=== PATIENT | female | born 1980 | race Caucasian/White ===

== ENCOUNTER 2024-08-09 07:58 | Outpatient (AMB) | payer BC, SELFPAY ==
--- NOTE | 2024-08-09 08:04 | A.OFFVIS_ITS ---
Vital Signs 08/09/24 08:05 Height 5 ft 7 in Weight 138 lb 0.15 oz BMI 21.6 BP 112/70 Blood Pressure Location Lt brachial Position Sitting Pulse 80 Pulse Source Pulse Oximeter Pulse Oximetry (%) 99 Oxygen Delivery Method Room Air Intake Visit Reasons: RA/LM Intake Note: Patient is here to follow up on RA. Allergies hydroxychloroquine Allergy (Mild, Verified 08/09/24 08:11) Rash levofloxacin [From Levaquin] Allergy (Mild, Verified 08/09/24 08:11) Hives phenytoin [From Dilantin] Allergy (Mild, Verified 08/09/24 08:11) Rash acetaminophen [From Midrin] Adverse Reaction (Mild, Verified 08/09/24 08:11) Palpitations dichloralphenazone [From Midrin] Adverse Reaction (Mild, Verified 08/09/24 08:11) Palpitations isometheptene [From Midrin] Adverse Reaction (Mild, Verified 08/09/24 08:11) Palpitations HPI Comments Details: MS is none. She was off of Rasuvo for 3 weeks and felt increase hand pain. Occationally she has right knee pain. Works out 5-6 times a week, which helps. [facility] Medical History (Updated 08/09/24 @ 08:42 by Won Adrian MD) Rheumatoid arthritis Surgical History (Updated 08/09/24 @ 08:18 by Jade Szymanski CMA) S/P right knee arthroscopy H/O: hysterectomy Family History (Updated 08/09/24 @ 08:18 by Jade Szymanski CMA) Mother Breast cancer Social History (Updated 08/09/24 @ 08:19 by Jade Szymanski CMA) Alcohol intake: current Alcohol intake frequency: holidays/special occasions only Patient Tobacco Use Status: Never used Tobacco Physical Exam Vital Signs: Last Vital Signs Pulse 80 08/09/24 08:05 BP 112/70 08/09/24 08:05 Pulse Ox 99 08/09/24 08:05 Oxygen Delivery Method Room Air 08/09/24 08:05 BMI result Body Mass Index 21.6 Const Other: General: Comfortable CVS: RRR Respiratory: clear to auscultation bilaterally. Good respiratory effort Skin: No lesions seen MSK: No synovitis of any joints. Tenderness of bilateral knees on palpation. Good range of motion of upper extremity and lower extremity. Results Reviewed Results Reviewed: [facility] reviewed Assessment & Plan Assessment & Plan (1) Rheumatoid arthritis: Comment: History of seronegative rheumatoid arthritis [place] [address] al[place]a in [place], [place]. She has been on methotrexate since 25/08 but it was changed to Rasuvo subcutaneous injection 08/25/2021 to present, Enbrel caused a rash, noncompliant with Humira, hydroxychloroquine 07/26/2020 to 08/25/2020 discontinued due to rash, and meloxicam was discontinued due to GI upset. She remains in remission on monotherapy wrists the Rasuvo. Code(s): M06.9 - Rheumatoid arthritis, unspecified Category: Medical Plan: Continue Rasuvo subcutaneous injection 20 mg once weekly Labs for disease and drug monitoring on high-risk medication ordered Return to clinic in 3 months Immunizations: Flu shot is up-to-date. She will obtain COVID-19 booster. She will hold Rasuvo the week she gets the booster. (2) Other fci (current) drug therapy: Code(s): Z79.899 - Other long term care social worker (current) drug therapy Category: Medical Plan: See above Orders: Orders Aspartate Amino Transferase Today M06.9 - Rheumatoid arthritis, unspecified, Z79.899 - Other long term care social worker (current) drug therapy Creatinine Today M06.9 - Rheumatoid arthritis, unspecified, Z79.899 - Other long term care social worker (current) drug therapy Erythrocyte Sedimentation Rate Today M06.9 - Rheumatoid arthritis, unspecified, Z79.899 - Other long term care social worker (current) drug therapy T Spot TB Today M06.9 - Rheumatoid arthritis, unspecified, Z79.899 - Other fci (current) drug therapy Complete Blood Count Auto Diff Today M06.9 - Rheumatoid arthritis, unspecified, Z79.899 - Other fci (current) drug therapy Cyclic Citrullinated Peptide Today M06.9 - Rheumatoid arthritis, unspecified, Z79.899 - Other fci (current) drug therapy Alanine Aminotransferase Today M06.9 - Rheumatoid arthritis, unspecified, Z79.899 - Other long term care social worker (current) drug therapy Hepatitis B,C Profile Today M06.9 - Rheumatoid arthritis, unspecified, Z79.899 - Other fci (current) drug therapy Rheumatoid Factor Today M06.9 - Rheumatoid arthritis, unspecified, Z79.899 - Other fci (current) drug therapy Coding Level of Care Code Est Pt Level 4 (08344) Complex EM visit Add On G2211 Diagnoses Rheumatoid arthritis M06.9 Other fci (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
[2024-08-09 08:05] VITALS: BP 112/70; PULSE 80; O2SAT 99; BMI 21.6
== END 2024-08-09 08:43 | disposition home or self-care (01) ==
PROVIDERS: Visit Provider Internal Medicine Rheumatology
DX: M06.9 Rheumatoid arthritis, unspecified (principal); Z79.899 Other long term (current) drug therapy
CPT/HCPCS: 99214

== ENCOUNTER 2024-11-01 10:41 | Outpatient (REF) | payer BC, SELFPAY ==
--- OUTSIDE RECORDS SUMMARY | 2024-11-01 13:16 | XMS_ITS | Clinical Summary ---
Author Organization [facility] Address [address] [place] [address] Care Team Providers Care Thread Cutter Tender Name Role Phone Eufemia Jett MD Primary Care Provider [phone] Allergies Active Allergy Reactions Criticality Noted Date Comments Phenytoin Sodium Urticarial Rash 10/05/2011 Enbrel Urticarial Rash 12/09/2015 Levaquin Urticarial Rash 10/05/2011 Amidrine Arrhythmia 10/05/2011 palpitations Medications Omeprazole 20 MG OR TBEC 1 TABLET DAILY Active Estrogens Conjugated (PREMARIN) 0.625 MG OR TABS 1 TABLET DAILY Active ALBUTEROL SULFATE (PROAIR HFA) 108 (90 BASE) MCG/ACT IN AERS 2 puffs q4hrs prn Active Ibuprofen 200 MG OR TABS 2 TABLETs EVERY 4 TO 6 HOURS NEEDED Active Budesonide-Form oterol Fumarate (SYMBICORT) 160-4.5 MCG/ACT Aerosol None Entered Active BUDESONIDE, INHALATION, (PULMICORT FLEXHALER) 180 MCG/ACT AEROSOL POWDER, BREATH ACTIVATED None Entered 10/27/2016 Active FLUTICASONE PROPIONATE, NASAL, 50 MCG/ACT Suspension None Entered 08/31/2016 Activ e Zafirlukast 20 MG Tab None Entered 12/17/2016 Active Loratadine (CLARITIN) 10 MG Tab 1 TABLET DAILY Active Humira Pen 40 MG/0.8ML Pen-injector Kit INJECT 40 MG (0.8 ML) UNDER THE SKIN EVERY TWO WEEKS 2 each 12 02/07/2020 Active Folic Acid (FOLVITE) 1 MG tablet TAKE 1 TABLET DAILY 90 tablet 3 05/29/2020 Active Active Problems Problem Noted Date Diagnosed Date Rheumatoid arthritis involvi ng multiple sites with positive rheumatoid factor 03/03/2017 Immunizations Name Administration Dates Next Due COVID-19, mRNA (Moderna Pre Fall 2022) Monovalent, 100 mcg/0.5 ml or 50 mcg/0.25 ml dose 10/19/2020,09/21/2020 Fc Fluzone Influenza Vac,quad Multi Dose 3 Yrs & > 05/17/2020,06/26/2019 Influenza,injectable,MDCK, Prsrv Fr,Quad 018 PPD/TST (Tuberculin Skin Test) 03/14/2012 Td (adult), adsorbed 07/05/2018 influenza,seasonal,trivalent ,PF (Fluzone, Fluarix, Flulaval) 07/07/2017 Social History Tobacco Use Types Packs/Day Years Used Date Smoking Tobacco: Never Smokeless Tobacco: Never Alcohol Use Standard Drinks/Week Comments Not Asked 0 (1 standard drink = 0.6 oz pur e alcohol) Intimate Partner Violence Answer Date R ecorded Fear of Current or Ex-Partner Not on file Emotionally Abused Not on file 04/28/2023 Physically Abused Not on file 04/28/2023 Sexually Abused Not on file 04/28/2023 Feel Safe at Home Not on file 04/28/2023 Comments No Sex and Gender Information Value Date Recorded Sex Assigned at Not on file Legal Sex Female 1:50 AM EDT Gender Identity Not on file Sexual Orientation Not on file Last Filed Vital Signs Vital Sign Reading Time Taken Comments Blood Pressure 112/75 07/05/2019 11:10 AM EDT Pulse 84 07/05/2019 11:10 AM EDT Temperature - - Respiratory Rate - - Oxygen Saturation - - Inhaled Oxygen Concentration - - Weight 65.8 kg (145 lb) 07/05/2019 11:10 AM EDT Height - - Body Mass Index - - Plan of Treatment Health Maintenance Due Date Last Done Comments Pap Smear 1996 Hep B (1 of 3 - 19+ 3-dose series) 1999 Pneumococcal (1 of 2 - PCV) 1999 Zoster (Shingrix) (1 of 2) 1999 DTaP/Tdap/Td (1 - Tdap) 07/06/2018 07/05/2018 Mammogram/Breast Imaging 2020 COVID-19 Vaccine (3 - Moderna risk series) 11/16/2020 10/19/2020, 09/21/2020 Influenza (#1) 2024 05/17/2020, 06/07, 07/05/2018, Additional history exists Hepatitis C Screening Completed 11/09/2011 PPD Discontinued 03/14/2012 HPV Vaccine Aged Out No longer eligi ble based on patient's age to complete this topic Hep A Aged Out No longer eligi ble based on patient's age to complete this topic Hib Aged Out No longer eligi ble based on patient's age to complete this topic Meningococcal ACWY Aged Out No longer eligible based on patient's age to complete this topic Procedures * Due to [place] [employer] law, this organization might not be sharing negative HIV tests. Procedure Name Priority Date/Time Associated Diagnosis Comments HEPATITIS C AB WITH REFLEX TO RNA PCR, SERUM Routine 11/09/2011 3:52 PM EST Rheumatoid arthritis (HCC) from Last 3 Months or Most Recently Relevant to Health Maintenance Results * Due to [place] [employer] law, this organization might not be sharing negative HIV tests. * HEPATITIS C ANTIBODY, SERUM (11/09/2011 3:52 PM EST) Hepatitis C virus Ab NON-REACTI VE NON-REACT CATHY [facility] Comment:{HEPATITIS C ANTIBOD Y {[id number]) Hepatitis C virus Ab Signal/Cutoff 0.10 <1.00 [facility] Comment:{SIGNAL TO CUT-OFF { [id number]) 11/09/2011 3:52 PM EST 11/09/2011 9:41 PM EST Narrative Resulting Agency Comment [id number] us Danilo Gates MD LABORATORY Final Result [facility] [address] [place] [address] from Last 3 Months or Most Recently Relevant to Health Maintenance Insurance [address] [place] [address] BC[employer] FEE FOR SERVICE PPO Care Teams Thread Cutter Tender Relationship Specialty Start Date End Date Eufemia Jett MD [address] [address] PCP - General Geriatrics 10/31/19
--- OUTSIDE RECORDS SUMMARY | 2024-11-01 13:16 | XMS_ITS | Encounter Summary ---
Author Organization [facility] Address [address] [place] [address] Care Team Providers Care Oracle Reports Developer Name Role Phone Edilberto Harris Primary Care Provider [phone] Eufemia Jett MD Primary Care Provider [phone] Encounter Details Date Type Department Care Team (Late st Contact Info) Description 03/03/2017 Orders Only [facility] Rheumatology [address] [place] [address] Danilo Gates MD [address] [place] [address] Social History Tobacco Use Types Packs/Day Years Used Date Smoking Tobacco: Never Smokeless Tobacco: Never Alcohol Use Standard Drinks/Week Comments Not Asked 0 (1 standard drink = 0.6 oz pur e alcohol) Comments No Sex and Gender Information Value Date Recorded Sex Assigned at Not on file Legal Sex Female 1:50 AM EDT Gender Identity Not on file Sexual Orientation Not on file documented as of this encounter Progress Notes * Danilo Gates MD - 03/09/2017 11:35 AM EDT Lab tests normal. X-rays normal except for some calcificaction of the cartilage in one knee of uncertain significance probably no significance. * Danilo Gates MD - 03/04/2017 8:28 AM EDT All normal, very good news documented in this encounter Plan of Treatment Not on file documented as of this encounter Procedures * Due to [place] state law, this organization might not be sharing negative HIV tests. Procedure Name Priority Date/Time Associated Diagnosis Comments IRON, TIBC AND FERRITIN PANEL Routine 03/03/2017 2:46 PM EDT C-REACTIVE PROTEIN (CRP) - INFLAMMATION Routine 03/03/2017 2:46 PM EDT Rheumatoid arthritis involving multiple sites with positive rheumatoid factor (HCC) [M05.79] ERYTHROCYTE SEDIMENTATION RATE (ESR) Routine 03/03/2017 2:46 PM EDT Rheumatoid arthritis involving multiple sites with positive rheumatoid factor (HCC) [M05.79] CBC INCLUDES DIFFERENTIAL AND PLATELET COUNT Routine 03/03/2017 2:46 PM EDT Rheumatoid arthritis involving multiple sites with positive rheumatoid factor (HCC) [M05.79] ALANINE AMINOTRANSFERASE (ALT), SERUM Routine 03/03/2017 2:46 PM EDT Rheumatoid arthritis involving multiple sites with positive rheumatoid factor (HCC) [M05.79] ASPARTATE AMINOTRANSFERASE (AST), SERUM Routine 03/03/2017 2:46 PM EDT Rheumatoid arthritis involving multiple sites with positive rheumatoid factor (HCC) [M05.79] CREATININE WITH GLOMERULAR FILTRATION RATE, ESTIMATED (EGFR) Routine 03/03/2017 2:46 PM EDT Rheumatoid arthritis involving multiple sites with positive rheumatoid factor (HCC) [M05.79] CALCIUM, SERUM Routine 03/03/2017 2:46 PM EDT documented in this encounter Results * Due to [place] state law, this organization might not be sharing negative HIV tests. * CALCIUM, SERUM (03/03/2017 2:46 PM EDT) Calcium 9.4 8.6 - 10.2 mg/dL [facility] 03/03/2017 2:46 PM EDT 03/03/2017 10:20 PM EDT Danilo Gates MD LAB SAME DAY RESULT Final Resul t Performing Organization Address [facility] de Phone Number [facility] [address] [place] [address] * IRON, TIBC AND FERRITIN PANEL (03/03/2017 2:46 PM EDT) Iron 99 40 - 190 mcg/dL [facility] Iron binding capacity 347 250 - 450 mcg/dL (calc) [facility] Iron saturation 29 11 - 50 % (calc) [facility] Ferritin 119 10 - 154 ng/mL [facility] 03/03/2017 2:46 PM EDT 03/03/2017 10:20 PM EDT us Danilo Gates MD LABORATORY Final Result Performing Organization Address [facility] Phone Number [facility] [address] [place] [address] * C-REACTIVE PROTEIN (CRP) - INFLAMMATION (03/03/2017 2:46 PM EDT) C reactive protein 0.26 <0.80 mg/dL [facility] Comment: Please be advised that patients taking Carboxypenicillins may exhibit falsely decreased C-Reactive Protein levels due to an analytical interference in this assay. 03/03/2017 2:46 PM EDT 03/03/2017 10:20 PM EDT Narrative Resulting Agency Comment [id number] us Danilo Gates MD LABORATORY Final Result Performing Organization Address [facility] de Phone Number [facility] [address] [place] [address] * ERYTHROCYTE SEDIMENTATION RATE (ESR), [place] (03/03/2017 2:46 PM EDT) Sedimentation Rate [place] (ESR) 9 < OR = 20 mm/h [facility] 03/03/2017 2:46 PM EDT 03/03/2017 10:20 PM EDT Narrative Resulting Agency Comment [id number] us Danilo Gates MD LAB SAME DAY RESULT Final Resul t Performing Organization Address [facility] Co de Phone Number [facility] [address] [place] [address] * CREATININE WITH GLOMERULAR FILTRATION RATE, ESTIMATED (EGFR) (03/03/2017 2:46 PM EDT) Creatinine 0.74 0.50 - 1.10 mg/dL [facility] GFR 104 > OR = 60 mL/min/1.7 3m2 [facility] GFR () 121 > OR = 60 mL/min/1.7 3m2 [facility] 03/03/2017 2:46 PM EDT 03/03/2017 10:20 PM EDT Narrative [facility] - 03/04/2017 3:36 AM EDT Please note that this estimated GFR does not include an adjustment for the patient's height or weight, and can therefore, be viewed as reliable only for patients with heights between 60 and 72 . More precise quantification using a 24-hour urine sample or height-based algorithm is recommended for patients outside of this range of height and for those individuals with more precise needs for GFR calculation. Resulting Agency Comment [id number] us Danilo Gates MD LAB SAME DAY RESULT Final Resul t Performing Organization Address [facility] Co de Phone Number [facility] [address] [place] [address] * ALANINE AMINOTRANSFERASE (ALT), SERUM (03/03/2017 2:46 PM EDT) ALT (SGPT) 10 6 - 29 U/L [facility] 03/03/2017 2:46 PM EDT 03/03/2017 10:20 PM EDT Narrative Resulting Agency Comment [id number] us Danilo Gates MD LAB SAME DAY RESULT Final Resul t Performing Organization Address [facility] Co de Phone Number [facility] [address] [place] [address] * ASPARTATE AMINOTRANSFERASE (AST), SERUM (03/03/2017 2:46 PM EDT) AST (SGOT) 17 10 - 30 U/L [facility] 03/03/2017 2:46 PM EDT 03/03/2017 10:20 PM EDT Narrative Resulting Agency Comment [id number] us Danilo Gates MD LAB SAME DAY RESULT Final Resul t Performing Organization Address [facility] de Phone Number [facility] [address] [place] [address] * CBC INCLUDES DIFFERENTIAL AND PLATELET COUNT (03/03/2017 2:46 PM EDT) WBC 8.6 3.8 - 10.8 Thousand/u L [facility] RBC 4.16 3.80 - 5.10 Million/uL [facility] Hemoglobin 13.6 11.7 - 15.5 g/dL [facility] Hematocrit 39.8 35.0 - 45.0 % [facility] MCV 95.7 80.0 - 100.0 fL [facility] MCH 32.8 27.0 - 33.0 pg [facility] MCHC 34.2 32.0 - 36.0 g/dL [facility] RDW 13.2 11.0 - 15.0 % [facility] PLT 194 140 - 400 Thousand/u L [facility] MPV 9.8 7.5 - 12.5 fL [facility] Neutrophils # 4825 1500 - 7800 cells/uL [facility] Lymphocytes # 3216 850 - 3900 cells/uL [facility] Monocytes # 447 200 - 950 cells/uL [facility] Eosinophils # 60 15 - 500 cells/uL [facility] Basophils # 52 0 - 200 cells/uL [facility] Neutrophils % 56.1 % [facility] Lymphocytes % 37.4 % [facility] Monocytes % 5.2 % [facility] Eosinophils % 0.7 % [facility] Basophils % 0.6 % [facility] 03/03/2017 2:46 PM EDT 03/03/2017 10:20 PM EDT Narrative Resulting Agency Comment [id number] us Danilo Gates MD LAB SAME DAY RESULT Final Resul t Performing Organization Address [facility] Co de Phone Number [facility] [address] [place] [address] documented in this encounter Visit Diagnoses Diagnosis Rheumatoid arthritis involving multiple sites with positive rheumatoid factor (HCC) [M05.79] documented in this encounter Care Teams Oracle Reports Developer Relationship Specialty Start Date End Date Edilberto Harris [address] [facility] [address] [place] [address] PCP - General Family Medicine 03/06/11 07/05/18 Eufemia Jett MD [address] [address] PCP - General Geriatrics 10/31/19 documented as of this encounter
--- OUTSIDE RECORDS SUMMARY | 2024-11-01 13:16 | XMS_ITS | Encounter Summary ---
Author Organization [facility] Address [address] [place] [address] Care Team Providers Care Practice Or Student Teacher Name Role Phone Edilberto Harris Primary Care Provider [phone] Eufemia Jett MD Primary Care Provider [phone] Encounter Details Date Type Department Care Team (Late st Contact Info) Description 04/13/2013 Orders Only [facility] Rheumatology [address] [place] [address] Danilo Gates MD [address] [place] [address] Social History Tobacco Use Types Packs/Day Years [...] on file documented as of this encounter Plan of Treatment Not on file documented as of this encounter Procedures * Due to [place] state law, this organization might not be sharing negative HIV tests. Procedure Name Priority Date/Time Associated Diagnosis Comments CBC INCLUDES DIFFERENTIAL AND PLATELET COUNT Routine 04/13/2013 5:01 PM EDT Rheumatoid arthritis (HCC) ALANINE AMINOTRANSFERASE (ALT), SERUM Routine 04/13/2013 5:01 PM EDT Rheumatoid arthritis (HCC) ASPARTATE AMINOTRANSFERASE (AST), SERUM Routine 04/13/2013 5:01 PM EDT Rheumatoid arthritis (HCC) CREATININE WITH GLOMERULAR FILTRATION RATE, ESTIMATED (EGFR) Routine 04/13/2013 5:01 PM EDT Rheumatoid arthritis (HCC) documented in this encounter Results * Due to [place] state law, this organization might not be sharing negative HIV tests. * ALANINE AMINOTRANSFERASE (ALT), SERUM (04/13/2013 5:01 PM EDT) ALT (SGPT) 13 6 - 29 U/L [facility] Comment:{ALT {[id number]) 04/13/2013 5:01 PM EDT 04/13/2013 11:38 PM EDT Narrative Resulting Agency Comment [id number] us Danilo Gates MD LAB SAME DAY RESULT Final Resul t Performing Organization Address City/State/[facility] Co de Phone Number [facility] [address] [place] [address] * CREATININE WITH GLOMERULAR FILTRATION RATE, ESTIMATED (EGFR) (04/13/2013 5:01 PM EDT) Creatinine 0.73 0.50 - 1.10 mg/dL [facility] Comment:{CREATININE {[id number]) GFR 109 > OR = 60 mL/min/1.7 3m2 [facility] Comment:{eGFR NON-AFR. AMERI CAN {[id number]) GFR () 126 > OR = 60 mL/min/1.7 3m2 [facility] Comment:{eGFR AMERIC AN {[id number]) 04/13/2013 5:01 PM EDT 04/13/2013 11:38 PM EDT Narrative [facility] - 04/14/2013 2:26 AM EDT Please note that this estimated [...] needs for GFR calculation. Resulting Agency Comment [id number] us Danilo Gates MD LAB SAME DAY RESULT Final Resul t [facility] [address] [place] [address] * CBC INCLUDES DIFFERENTIAL AND PLATELET COUNT (04/13/2013 5:01 PM EDT) WBC 6.2 3.8 - 10.8 Thousand/u L [facility] Comment:{WHITE BLOOD CELL CO UNT {[id number]) RBC 3.82 3.80 - 5.10 Million/uL [facility] Comment:{RED BLOOD CELL COUN T {[id number]) Hemoglobin 12.3 11.7 - 15.5 g/dL [facility] Comment:{HEMOGLOBIN {[id number]) Hematocrit 36.3 35.0 - 45.0 % [facility] Comment:{HEMATOCRIT {[id number]) MCV 95.1 80.0 - 100.0 fL [facility] Comment:{MCV {[id number]) MCH 32.1 27.0 - 33.0 pg [facility] Comment:{MCH {[id number]) MCHC 33.8 32.0 - 36.0 g/dL [facility] Comment:{MCHC {[id number]) RDW 13.1 11.0 - 15.0 % [facility] Comment:{RDW {[id number]) PLT 165 140 - 400 Thousand/u L [facility] Comment:{PLATELET COUNT {[id number]) MPV 10.5 7.5 - 11.5 fL [facility] Comment:{MPV {[id number]) Neutrophils # 2914 1500 - 7800 cells/uL [facility] Comment:{ABSOLUTE NEUTROPHIL S {[id number]) Lymphocytes # 2821 850 - 3900 cells/uL [facility] Comment:{ABSOLUTE LYMPHOCYTE S {[id number]) Monocytes # 329 200 - 950 cells/uL [facility] Comment:{ABSOLUTE MONOCYTES {[id number]) Eosinophils # 105 15 - 500 cells/uL [facility] Comment:{ABSOLUTE EOSINOPHIL S {[id number]) Basophils # 31 0 - 200 cells/uL [facility] Comment:{ABSOLUTE BASOPHILS {[id number]) Neutrophils % 47.0 % [facility] Comment:{NEUTROPHILS {[id number]) Lymphocytes % 45.5 % [facility] Comment:{LYMPHOCYTES {[id number]) Monocytes % 5.3 % [facility] Comment:{MONOCYTES {[id number]) Eosinophils % 1.7 % [facility] Comment:{EOSINOPHILS {[id number]) Basophils % 0.5 % [facility] Comment:{BASOPHILS {[id number]) 04/13/2013 5:01 PM EDT 04/13/2013 11:38 PM EDT Narrative Resulting Agency Comment [id number] us Danilo Gates MD LAB SAME DAY RESULT Final Resul t Performing Organization Address City/[facility]/ZIP Co de Phone Number [facility] [address] [place] [address] * ASPARTATE AMINOTRANSFERASE (AST), SERUM (04/13/2013 5:01 PM EDT) AST (SGOT) 19 10 - 30 U/L [facility] Comment:{AST {[id number]) 04/13/2013 5:01 PM EDT 04/13/2013 11:38 PM EDT Narrative Resulting Agency Comment [id number] us Danilo Gates MD LAB SAME DAY RESULT Final Resul t [facility] [address] [place] [address] documented in this encounter Visit Diagnoses Diagnosis Rheumatoid arthritis(714.0) Rheumatoid arthritis documented in this encounter Care Teams Practice Or Student Teacher Relationship Specialty Start Date End Date Edilberto Harris [address] [facility] [address] [place] [address] PCP - General Family Medicine 03/06/11 07/05/18 Eufemia Jett MD [address] [address] PCP - General Geriatrics 10/31/19 documented as of this encounter
--- OUTSIDE RECORDS SUMMARY | 2024-11-01 13:16 | XMS_ITS | Encounter Summary ---
Author Organization [facility] Address [address] [place] [address] Care Team Providers Care Scrubber Machine Tender Name Role Phone Edilberto Harris Primary Care Provider [phone] Eufemia Jett MD Primary Care Provider Encounter Details Date Type Department Care Team (Late st Contact Info) Description 12/06/2013 Orders Only [facility] Rheumatology [address] [place] [address] Danilo Gates MD [address] [place] [address] Social History Tobacco Use Types Packs/Day Years [...] on file documented as of this encounter Procedure Notes * Danilo Gates MD - 12/22/2013 12:00 AM EDTAssociated Order(s): ANTI- NEUTROPHIL CYTOPLASM ANTIBODY - ANCA ([facility] [place]) * Danilo Gates MD - 12/20/2013 12:00 AM EDTAssociated Order(s): ANTI- NEUTROPHIL CYTOPLASM ANTIBODY - ANCA ([facility] [place]) documented in this encounter Plan of Treatment Not on file documented as of this encounter Procedures * Due to [place] [employer] law, this organization might not be sharing negative HIV tests. Procedure Name Priority Date/Time Associated Diagnosis Comments ANTI-NEUTROPHIL CYTOPLASM ANTIBODY - ANCA ([facility] [place]-FOR SPECIALTY USE ONLY) Routine 12/06/2013 10:46 AM EDT Rheumatoid arthritis(714.0) documented in this encounter Results * Due to [place] [employer] law, this organization might not be sharing negative HIV tests. * ANTI-NEUTROPHIL CYTOPLASM ANTIBODY - ANCA ([facility] [place]) (12/06/2013 10:46 AM EDT) ANCA NEGATIVE [facility] Comment:{ANCA {[id number]) NOTE SEE NOTE [facility] Comment: {NOTE: {[id number]) Indirect immunofluorescence testing for anti-neutrophil ?cytoplasm antibodies (ANCA) is negative. ELISAs are also ?negative for antibodies to proteinase 3 and myeloperoxidase. INTERPRETATION SEE NOTE [facility] Comment: {INTERPRETATION: {[id number]) The findings provide no support for the diagnosis of active Pieter's granulomatosis, microscopic polyarteritis nodosa, related forms of vasculitis or idiopathic necrotizing and crescentic glomerulonephritis. However, up to 40% of patients with limited Pieter's granulomatosis (i.e. without evidence of renal disease) and up to 10% of patients with renal involvement disease may be negative at presentation. Some of these will turn positive if tested serially. Please call [facility] [place] Immunopathology Laboratory at [phone] with questions or concerns regarding ANCA tests. These tests were developed and their performance characteristics determined by the Immunopathology Laboratory at the [facility]. Their characteristics have been published: Journal of the [place] Society of Nephrology 2:27-36, 1990; Human Pathology 24:170-8, 1992; Archives of Internal Medicine 156:440-5; Annals of Internal Medicine 126:866-73,1996. These tests have not been cleared or approved by the U.S. Food and Drug Administration (FDA). The FDA has determined that clearance or approval is not necessary. FINAL DIAGNOSIS BY JYOTI DAO MD [facility] Comment: {FINAL DIAGNOSIS BY: {[id number]) By his/her signature above, the pathologist listed as making the Final Diagnosis certifies that he/she has personally reviewed this case and confirmed or corrected the diagnoses. 12/06/2013 10:4 6 AM EDT 12/06/2013 6:15 PM EDT Narrative Resulting Agency Comment [id number] Transcriptions Danilo Gates MD - 12/20/2013 12:00 AM EDT Danilo Gates MD - 12/22/2013 12:00 AM EDT Danilo Gates MD LABORATORY Edited Result - Final [facility] [address] [place] [address] documented in this encounter Visit Diagnoses Diagnosis Rheumatoid arthritis(714.0) Rheumatoid arthritis documented in this encounter Care Teams Scrubber Machine Tender Relationship Specialty Start Date End Date Edilberto Harris [address] [facility] [address] [place] [address] PCP - General Family Medicine 03/06/11 07/05/18 Eufemia Jett MD [address] [address] PCP - General Geriatrics 10/31/19 documented as of this encounter
--- OUTSIDE RECORDS SUMMARY | 2024-11-01 13:16 | XMS_ITS | Encounter Summary ---
Author Organization [facility] Address [address] [place] [address] Care Team Providers Care Fresh Foods Technician Name Role Phone Edilberto Harris Primary Care Provider [phone] Eufemia Jett MD Primary Care Provider [phone] Encounter Details Date Type Department Care Team (Late st Contact Info) Description 04/16/2014 Orders Only [facility] Rheumatology [address] [place] [address] Danilo Gates MD [address] [place] [address] Social History Tobacco Use Types Packs/Day Years [...] of this encounter Procedures * Due to [place] state law, this organization might not be sharing negative HIV tests. Procedure Name Priority Date/Time Associated Diagnosis Comments CBC INCLUDES DIFFERENTIAL AND PLATELET COUNT Routine 04/16/2014 4:11 PM EDT Rheumatoid arthritis(714.0) (HCC) ALANINE AMINOTRANSFERASE (ALT), SERUM Routine 04/16/2014 4:11 PM EDT Rheumatoid arthritis(714.0) (HCC) ASPARTATE AMINOTRANSFERASE (AST), SERUM Routine 04/16/2014 4:11 PM EDT Rheumatoid arthritis(714.0) (HCC) CREATININE WITH GLOMERULAR FILTRATION RATE, ESTIMATED (EGFR) Routine 04/16/2014 4:11 PM EDT Rheumatoid arthritis(714.0) (HCC) documented in this encounter Results * Due to [place] state law, this organization might not be sharing negative HIV tests. * CREATININE WITH GLOMERULAR FILTRATION RATE, ESTIMATED (EGFR) (04/16/2014 4:11 PM EDT) Creatinine 0.67 0.50 - 1.10 mg/dL [facility] Comment:{CREATININE {[id number]) GFR 115 > OR = 60 mL/min/1.7 3m2 [facility] Comment:{eGFR NON-AFR. AMERI CAN {[id number]) GFR () 134 > OR = 60 mL/min/1.7 3m2 [facility] Comment:{eGFR AMERIC AN {[id number]) 04/16/2014 4:11 PM EDT 04/16/2014 11:38 PM EDT Narrative [facility] - 04/17/2014 2:28 AM EDT Please note that this estimated [...] needs for GFR calculation. Resulting Agency Comment [id number] us Danilo Gates MD LAB SAME DAY RESULT Final Resul t [facility] [address] [place] [address] * ALANINE AMINOTRANSFERASE (ALT), SERUM (04/16/2014 4:11 PM EDT) ALT (SGPT) 16 6 - 29 U/L [facility] Comment:{ALT {[id number]) 04/16/2014 4:11 PM EDT 04/16/2014 11:38 PM EDT Narrative Resulting Agency Comment [id number] us Danilo Gates MD LAB SAME DAY RESULT Final Resul t [facility] [address] [place] [address] * ASPARTATE AMINOTRANSFERASE (AST), SERUM (04/16/2014 4:11 PM EDT) AST (SGOT) 23 10 - 30 U/L [facility] Comment:{AST {[id number]) 04/16/2014 4:11 PM EDT 04/16/2014 11:38 PM EDT Narrative Resulting Agency Comment [id number] us Danilo Gates MD LAB SAME DAY RESULT Final Resul t Performing Organization Address City/[facility] Co de Phone Number [facility] [address] [place] [address] * (ABNORMAL) CBC INCLUDES DIFFERENTIAL AND PLATELET COUNT (04/16/2014 4:11 PM EDT) WBC 6.0 3.8 - 10.8 Thousand/u L [facility] Comment:{WHITE BLOOD CELL CO UNT {[id number]) RBC 3.97 3.80 - 5.10 Million/uL [facility] Comment:{RED BLOOD CELL COUN T {[id number]) Hemoglobin 12.5 11.7 - 15.5 g/dL [facility] Comment:{HEMOGLOBIN {[id number]) Hematocrit 37.8 35.0 - 45.0 % [facility] Comment:{HEMATOCRIT {[id number]) MCV 95.2 80.0 - 100.0 fL [facility] Comment:{MCV {[id number]) MCH 31.5 27.0 - 33.0 pg [facility] Comment:{MCH {[id number]) MCHC 33.1 32.0 - 36.0 g/dL [facility] Comment:{MCHC {[id number]) RDW 12.7 11.0 - 15.0 % [facility] Comment:{RDW {[id number]) PLT 133(L) 140 - 400 Thousand/u L [facility] Comment:{PLATELET COUNT {[id number]) MPV 11.2 7.5 - 11.5 fL [facility] Comment:{MPV {[id number]) Neutrophils # 2844 1500 - 7800 cells/uL [facility] Comment:{ABSOLUTE NEUTROPHIL S {[id number]) Lymphocytes # 2526 850 - 3900 cells/uL [facility] Comment:{ABSOLUTE LYMPHOCYTE S {[id number]) Monocytes # 474 200 - 950 cells/uL [facility] Comment:{ABSOLUTE MONOCYTES {[id number]) Eosinophils # 84 15 - 500 cells/uL [facility] Comment:{ABSOLUTE EOSINOPHIL S {[id number]) Basophils # 72 0 - 200 cells/uL [facility] Comment:{ABSOLUTE BASOPHILS {[id number]) Neutrophils % 47.4 % [facility] Comment:{NEUTROPHILS {[id number]) Lymphocytes % 42.1 % [facility] Comment:{LYMPHOCYTES {[id number]) Monocytes % 7.9 % [facility] Comment:{MONOCYTES {[id number]) Eosinophils % 1.4 % [facility] Comment:{EOSINOPHILS {[id number]) Basophils % 1.2 % [facility] Comment:{BASOPHILS {[id number]) 04/16/2014 4:11 PM EDT 04/16/2014 11:38 PM EDT Narrative Resulting Agency Comment [id number] us Danilo Gates MD LAB SAME DAY RESULT Final Resul t [facility] [address] [place] [address] documented in this encounter Visit Diagnoses Diagnosis Rheumatoid arthritis(714.0) Rheumatoid arthritis documented in this encounter Care Teams Fresh Foods Technician Relationship Specialty Start Date End Date Edilberto Harris [address] [facility] [address] [place], [place] [id number] PCP - General Family Medicine 03/06/11 07/05/18 [place] [address] PCP - General Geriatrics 10/31/19 documented as of this encounter
--- OUTSIDE RECORDS SUMMARY | 2024-11-01 13:16 | XMS_ITS | Encounter Summary ---
Author Organization [facility] Address [address] [place] [address] Care Team Providers Care Lead Burner Supervisor Name Role Phone Edilberto Harris Primary Care Provider [phone] Eufemia Jett MD Primary Care Provider [phone] Encounter Details Date Type Department Care Team (Late st Contact Info) Description 10/16/2013 Orders Only [facility] Rheumatology [address] [place] [address] Danilo Gates MD [address] [place] [address] Social History Tobacco Use Types Packs/Day Years [...] Progress Notes * Danilo Gates MD - 10/17/2013 5:29 PM ESTQuick Note: Please fax labs to Ayse Tran NP FYI documented in this encounter Plan of Treatment Not on file documented as of this encounter Procedures * Due to [place] state law, this organization might not be sharing negative HIV tests. Procedure Name Priority Date/Time Associated Diagnosis Comments C-REACTIVE PROTEIN (CRP) - INFLAMMATION Routine 10/16/2013 4:45 PM EST Rheumatoid arthritis (HCC) ERYTHROCYTE SEDIMENTATION RATE (ESR) Routine 10/16/2013 4:45 PM EST Rheumatoid arthritis (HCC) CBC INCLUDES DIFFERENTIAL AND PLATELET COUNT Routine 10/16/2013 4:45 PM EST Rheumatoid arthritis (HCC) ALANINE AMINOTRANSFERASE (ALT), SERUM Routine 10/16/2013 4:45 PM EST Rheumatoid arthritis (HCC) ASPARTATE AMINOTRANSFERASE (AST), SERUM Routine 10/16/2013 4:45 PM EST Rheumatoid arthritis (HCC) CREATININE WITH GLOMERULAR FILTRATION RATE, ESTIMATED (EGFR) Routine 10/16/2013 4:45 PM EST Rheumatoid arthritis (HCC) documented in this encounter Results * Due to [place] state law, this organization might not be sharing negative HIV tests. * ERYTHROCYTE SEDIMENTATION RATE (ESR)THAI (10/16/2013 4:45 PM EST) Sedimentation Rate [place] (ESR) 5 < OR = 20 mm/h [facility] Comment:{SED RATE BY GAVI ANDRE {[id number]) 10/16/2013 4:45 PM EST 10/17/2013 1:49 AM EST Narrative Resulting Agency Comment [id number] us Danilo Gates MD LAB SAME DAY RESULT Final Resul t [facility] [address] [place] [address] * C-REACTIVE PROTEIN (CRP) - INFLAMMATION (10/16/2013 4:45 PM EST) C reactive protein 0.15 <0.80 mg/dL [facility] Comment: {C-REACTIVE PROTEIN {[id number]) Please be advised that patients taking Carboxypenicillins may exhibit falsely decreased C-Reactive Protein levels due to an analytical interference in this assay. 10/16/2013 4:45 PM EST 10/17/2013 1:49 AM EST Narrative Resulting Agency Comment [id number] us Danilo Gates MD LABORATORY Final Result Performing Organization Address [facility] de Phone Number [facility] [address] [place] [address] * CREATININE WITH GLOMERULAR FILTRATION RATE, ESTIMATED (EGFR) (10/16/2013 4:45 PM EST) Creatinine 0.68 0.50 - 1.10 mg/dL [facility] Comment:{CREATININE {[id number]) GFR 115 > OR = 60 mL/min/1.7 3m2 [facility] Comment:{eGFR NON-AFR. AMERI CAN {[id number]) GFR () 133 > OR = 60 mL/min/1.7 3m2 [facility] Comment:{eGFR AMERIC AN {[id number]) 10/16/2013 4:45 PM EST 10/17/2013 1:49 AM EST Narrative [facility] - 10/17/2013 4:23 AM EST Please note that this estimated GFR does [...] needs for GFR calculation. Resulting Agency Comment [id number] us Danilo Gates MD LAB SAME DAY RESULT Final Resul t Performing Organization Address [facility] de Phone Number [facility] [address] [place] [address] * CBC INCLUDES DIFFERENTIAL AND PLATELET COUNT (10/16/2013 4:45 PM EST) WBC 6.3 3.8 - 10.8 Thousand/u L [facility] Comment:{WHITE BLOOD CELL CO UNT {[id number]) RBC 4.14 3.80 - 5.10 Million/uL [facility] Comment:{RED BLOOD CELL COUN T {[id number]) Hemoglobin 13.2 11.7 - 15.5 g/dL [facility] Comment:{HEMOGLOBIN {[id number]) Hematocrit 38.9 35.0 - 45.0 % [facility] Comment:{HEMATOCRIT {[id number]) MCV 93.8 80.0 - 100.0 fL [facility] Comment:{MCV {[id number]) MCH 31.9 27.0 - 33.0 pg [facility] Comment:{MCH {[id number]) MCHC 34.0 32.0 - 36.0 g/dL [facility] Comment:{MCHC {[id number]) RDW 13.0 11.0 - 15.0 % [facility] Comment:{RDW {[id number]) PLT 155 140 - 400 Thousand/u L [facility] Comment:{PLATELET COUNT {[id number]) MPV 11.3 7.5 - 11.5 fL [facility] Comment:{MPV {[id number]) Neutrophils # 2923 1500 - 7800 cells/uL [facility] Comment:{ABSOLUTE NEUTROPHIL S {[id number]) Lymphocytes # 2898 850 - 3900 cells/uL [facility] Comment:{ABSOLUTE LYMPHOCYTE S {[id number]) Monocytes # 359 200 - 950 cells/uL [facility] Comment:{ABSOLUTE MONOCYTES {[id number]) Eosinophils # 88 15 - 500 cells/uL [facility] Comment:{ABSOLUTE EOSINOPHIL S {[id number]) Basophils # 32 0 - 200 cells/uL [facility] Comment:{ABSOLUTE BASOPHILS {[id number]) Neutrophils % 46.4 % [facility] Comment:{NEUTROPHILS {[id number]) Lymphocytes % 46.0 % [facility] Comment:{LYMPHOCYTES {[id number]) Monocytes % 5.7 % [facility] Comment:{MONOCYTES {[id number]) Eosinophils % 1.4 % [facility] Comment:{EOSINOPHILS {[id number]) Basophils % 0.5 % [facility] Comment:{BASOPHILS {[id number]) 10/16/2013 4:45 PM EST 10/17/2013 1:49 AM EST Narrative Resulting Agency Comment [id number] us Danilo Gates MD LAB SAME DAY RESULT Final Resul t Performing Organization Address City/[facility] Co de Phone Number [facility] [address] [place] [address] * ASPARTATE AMINOTRANSFERASE (AST), SERUM (10/16/2013 4:45 PM EST) AST (SGOT) 21 10 - 30 U/L [facility] Comment:{AST {[id number]) 10/16/2013 4:45 PM EST 10/17/2013 1:49 AM EST Narrative Resulting Agency Comment [id number] us Danilo Gates MD LAB SAME DAY RESULT Final Resul t Performing Organization Address [facility] Co de Phone Number [facility] [address] [place] [address] * ALANINE AMINOTRANSFERASE (ALT), SERUM (10/16/2013 4:45 PM EST) ALT (SGPT) 11 6 - 29 U/L [facility] Comment:{ALT {[id number]) 10/16/2013 4:45 PM EST 10/17/2013 1:49 AM EST Narrative Resulting Agency Comment [id number] us Danilo Gates MD LAB SAME DAY RESULT Final Resul t Performing Organization Address City/[facility] Co de Phone Number [facility] [address] [place] [address] documented in this encounter Visit Diagnoses Diagnosis Rheumatoid arthritis(714.0)- Primary Rheumatoid arthritis documented in this encounter Care Teams Lead Burner Supervisor Relationship Specialty Start Date End Date Edilberto Harris [address] [facility] [address] [place] [address] PCP - General Family Medicine 03/06/11 07/05/18 Eufemia Jett MD [address] [address] PCP - General Geriatrics 10/31/19 documented as of this encounter
--- OUTSIDE RECORDS SUMMARY | 2024-11-01 13:16 | XMS_ITS | Encounter Summary ---
Author Organization [facility] Address [address] [place] [address] Care Team Providers Care Ground Hand Name Role Phone Edilberto Harris Primary Care Provider [phone] Eufemia Jett MD Primary Care Provider [phone] Encounter Details Date Type Department Care Team (Late st Contact Info) Description 11/01/2014 Orders Only [facility] Rheumatology [address] [place] [address] Danilo Gates MD [address] [place] [address] Social History Tobacco Use Types Packs/Day Years [...] Progress Notes * Danilo Gates MD - 11/02/2014 3:25 PM ESTQuick Note: Excellent! * Danilo Gates MD - 11/02/2014 3:24 PM ESTQuick Note: Excellent! documented in this encounter Plan of Treatment Not on file documented as of this encounter Procedures * Due to [place] state law, this organization might not be sharing negative HIV tests. Procedure Name Priority Date/Time Associated Diagnosis Comments C-REACTIVE PROTEIN (CRP) - INFLAMMATION Routine 11/01/2014 4:19 PM EST Rheumatoid arthritis(714.0) (HCC) ERYTHROCYTE SEDIMENTATION RATE (ESR) Routine 11/01/2014 4:19 PM EST Rheumatoid arthritis(714.0) ([facility]) CBC INCLUDES DIFFERENTIAL AND PLATELET COUNT Routine 11/01/2014 4:19 PM EST Rheumatoid arthritis(714.0) ([facility]) ALANINE AMINOTRANSFERASE (ALT), SERUM Routine 11/01/2014 4:19 PM EST Rheumatoid arthritis(714.0) ([facility]) ASPARTATE AMINOTRANSFERASE (AST), SERUM Routine 11/01/2014 4:19 PM EST Rheumatoid arthritis(714.0) ([facility]) CREATININE WITH GLOMERULAR FILTRATION RATE, ESTIMATED (EGFR) Routine 11/01/2014 4:19 PM EST Rheumatoid arthritis(714.0) ([facility]) documented in this encounter Results * Due to [place] state law, this organization might not be sharing negative HIV tests. * C-REACTIVE PROTEIN (CRP) - INFLAMMATION (11/01/2014 4:19 PM EST) C reactive protein 0.17 <0.80 mg/dL [facility] Comment: {C-REACTIVE PROTEIN {[id number]) Please be advised that patients taking Carboxypenicillins may exhibit falsely decreased C-Reactive Protein levels due to an analytical interference in this assay. 11/01/2014 4:19 PM EST 11/01/2014 8:32 PM EST Narrative Resulting Agency Comment [id number] us Danilo Gates MD LABORATORY Final Result [facility] [address] [place] [address] * ERYTHROCYTE SEDIMENTATION RATE (ESR), THAI (11/01/2014 4:19 PM EST) Sedimentation Rate [place] (ESR) 6 < OR = 20 mm/h [facility] Comment:{SED RATE BY GAVI ANDRE {[id number]) 11/01/2014 4:19 PM EST 11/01/2014 8:32 PM EST Narrative Resulting Agency Comment [id number] us Danilo Gates MD LAB SAME DAY RESULT Final Resul t Performing Organization Address [facility] de Phone Number [facility] [address] [place] [address] * CREATININE WITH GLOMERULAR FILTRATION RATE, ESTIMATED (EGFR) (11/01/2014 4:19 PM EST) Creatinine 0.75 0.50 - 1.10 mg/dL [facility] Comment:{CREATININE {[id number]) GFR 104 > OR = 60 mL/min/1.7 3m2 [facility] Comment:{eGFR NON-AFR. AMERI CAN {[id number]) GFR () 121 > OR = 60 mL/min/1.7 3m2 [facility] Comment:{eGFR AMERIC AN {[id number]) 11/01/2014 4:19 PM EST 11/01/2014 8:32 PM EST Narrative [facility] - 11/02/2014 1:11 AM EST Please note that this estimated [...] needs for GFR calculation. Resulting Agency Comment [id number] us Danilo Gates MD LAB SAME DAY RESULT Final Resul t Performing Organization Address City/[facility] Co de Phone Number [facility] [address] [place] [phone] * ALANINE AMINOTRANSFERASE (ALT), SERUM (11/01/2014 4:19 PM EST) ALT (SGPT) 15 6 - 29 U/L [facility] Comment:{ALT {[id number]) 11/01/2014 4:19 PM EST 11/01/2014 8:32 PM EST Narrative Resulting Agency Comment [id number] us Danilo Gates MD LAB SAME DAY RESULT Final Resul t Performing Organization Address City/[facility]/ZIP Co de Phone Number [facility] [address] [place] [address] * ASPARTATE AMINOTRANSFERASE (AST), SERUM (11/01/2014 4:19 PM EST) AST (SGOT) 22 10 - 30 U/L [facility] Comment:{AST {[id number]) 11/01/2014 4:19 PM EST 11/01/2014 8:32 PM EST Narrative Resulting Agency Comment [id number] us Danilo Gates MD LAB SAME DAY RESULT Final Resul t Performing Organization Address City/[facility] Co de Phone Number [facility] [address] [place] [address] * (ABNORMAL) CBC INCLUDES DIFFERENTIAL AND PLATELET COUNT (11/01/2014 4:19 PM EST) WBC 6.3 3.8 - 10.8 Thousand/ uL [facility] Comment:{WHITE BLOOD CELL CO UNT {[id number]) RBC 3.79(L) 3.80 - 5.10 Million/u L [facility] Comment:{RED BLOOD CELL COUN T {[id number]) Hemoglobin 12.2 11.7 - 15.5 g/dL [facility] Comment:{HEMOGLOBIN {[id number]) Hematocrit 35.5 35.0 - 45.0 % [facility] Comment:{HEMATOCRIT {[id number]) MCV 93.6 80.0 - 100.0 fL [facility] Comment:{MCV {[id number]) MCH 32.2 27.0 - 33.0 pg [facility] Comment:{MCH {[id number]) MCHC 34.4 32.0 - 36.0 g/dL [facility] Comment:{MCHC {[id number]) RDW 12.5 11.0 - 15.0 % [facility] Comment:{RDW {[id number]) PLT 170 140 - 400 Thousand/ uL [facility] Comment:{PLATELET COUNT {[id number]) MPV 9.7 7.5 - 11.5 fL [facility] Comment:{MPV {[id number]) Neutrophils # 2709 1500 - 7800 cells/uL [facility] Comment:{ABSOLUTE NEUTROPHIL S {[id number]) Lymphocytes # 3125 850 - 3900 cells/uL [facility] Comment:{ABSOLUTE LYMPHOCYTE S {[id number]) Monocytes # 372 200 - 950 cells/uL [facility] Comment:{ABSOLUTE MONOCYTES {[id number]) Eosinophils # 63 15 - 500 cells/uL [facility] Comment:{ABSOLUTE EOSINOPHIL S {[id number]) Basophils # 32 0 - 200 cells/uL [facility] Comment:{ABSOLUTE BASOPHILS {[id number]) Neutrophils % 43.0 % [facility] Comment:{NEUTROPHILS {[id number]) Lymphocytes % 49.6 % [facility] Comment:{LYMPHOCYTES {[id number]) Monocytes % 5.9 % [facility] Comment:{MONOCYTES {[id number]) Eosinophils % 1.0 % [facility] Comment:{EOSINOPHILS {[id number]) Basophils % 0.5 % [facility] Comment:{BASOPHILS {[id number]) 11/01/2014 4:19 PM EST 11/01/2014 8:32 PM EST Narrative Resulting Agency Comment [id number] us Danilo Gates MD LAB SAME DAY RESULT Final Resul t [facility] [address] [place] [address] documented in this encounter Visit Diagnoses Diagnosis Rheumatoid arthritis(714.0) Rheumatoid arthritis documented in this encounter Care Teams Ground Hand Relationship Specialty Start Date End Date Edilberto Harris [address] [facility] [address] [place] [address] PCP - General Family Medicine 03/06/11 07/05/18 Eufemia Jett MD [address] [address] PCP - General Geriatrics 10/31/19 documented as of this encounter
--- OUTSIDE RECORDS SUMMARY | 2024-11-01 13:16 | XMS_ITS | Encounter Summary ---
Author Organization [facility] Address [address] [place] [address] Care Team Providers Care Veneer Glue Spreader Name Role Phone Edilberto Harris Primary Care Provider [phone] Eufemia Jett MD Primary Care Provider [phone] Reason for Visit * Reason Comments E-prescribing Refill Request Encounter Details Date Type Department Care Team (Late st Contact Info) Description 04/20/2017 Refill [facility] [address] [place] [address] Danilo Gates MD [address] [place], [place] [id number] E-prescribing Refill Request Social History Tobacco Use Types Packs/Day Years [...] on file documented as of this encounter Miscellaneous Notes * Telephone Encounter - Eugenia Osuna LVN LPN - 04/20/2017 9:19 AM EDT Any special requests or concerns? none Faxed/E-prescribed medication renewal request(s) for Shiela Browne 36 y.o. female [facility] Verified and Confirmed pharmacy for patient. Last CPE with this specialty: Not Found Last OV with this specialty: 03/03/2017 Plan: ?? Continue current regimen. In 3, 6 and 9 months check methotrexate labs studies. Check x-rays of theknees and feet. Return visit to me in 9 months or sooner if needed. ?? Next OV: No future appointments. Pertinent lab results: Component Latest Ref Rng & Units 03/03/2017 WHITE BLOOD COUNT 3.8 - 10.8 Thousand/uL 8.6 RBC 3.80 - 5.10 Million/uL 4.16 HGB (HEMOGLOBIN) 11.7 - 15.5 g/dL 13.6 HCT (HEMATOCRIT) 35.0 - 45.0 % 39.8 MCV 80.0 - 100.0 fL 95.7 MCH 27.0 - 33.0 pg 32.8 MCHC 32.0 - 36.0 g/dL 34.2 RDW 11.0 - 15.0 % 13.2 PLATELETS 140 - 400 Thousand/uL 194 MPV 7.5 - 12.5 fL 9.8 NEUTROPHILS # 1500 - 7800 cells/uL 4825 LYMPHOCYTES # 850 - 3900 cells/uL 3216 MONOCYTES # 200 - 950 cells/uL 447 EOSINOPHILS # 15 - 500 cells/uL 60 BASOPHILS # 0 - 200 cells/uL 52 NEUTROPHIL % % 56.1 LYMPHOCYTE % % 37.4 MONOCYTE % % 5.2 EOSINOPHIL % % 0.7 BASOPHIL % % 0.6 IRON 40 - 190 mcg/dL 99 TIBC (IRON BINDING CAPACITY) 250 - 450 mcg/dL (calc) 347 IRON SATURATION % 11 - 50 % (calc) 29 FERRITIN 10 - 154 ng/mL 119 CREATININE 0.50 - 1.10 mg/dL 0.74 GFR > OR = 60 mL/min/1.73m2 104 GFR-AA > OR = 60 mL/min/1.73m2 121 AST (SGOT) 10 - 30 U/L 17 ALT (SGPT) 6 - 29 U/L 10 ESR (ERYTHROCYTE SEDIMENTATION RATE) < OR = 20 mm/h 9 C REACTIVE PROTEIN (CRP) <0.80 mg/dL 0.26 CALCIUM 8.6 - 10.2 mg/dL 9.4 No labs suggested for any medication orders signed or pended in this encounter. Refresh if any orders changed. Allergies: Dilantin [phenytoin sodium]; Enbrel; Levaquin; and Midrin [amidrine] BP Readings from Last 1 Encounters: 03/03/17 114/77 Patient Active Problem List Diagnosis Date Noted ??? Rheumatoid arthritis involving multiple sites with positive rheumatoid factor (HCC) 03/03/2017 Current Outpatient Prescriptions on File Prior to Visit Medication Sig Dispense Refill ??? BUDESONIDE, INHALATION, (PULMICORT FLEXHALER) 180 MCG/ACT AEROSOL POWDER, BREATH ACTIVATED NoneEntered ??? FLUTICASONE PROPIONATE, NASAL, 50 MCG/ACT Suspension None Entered ??? Zafirlukast 20 MG Tab None Entered ??? Folic Acid 1 MG Tab TAKE 1 TABLET DAILY 90 Tab 0 ??? Methotrexate 2.5 MG Tab TAKE 4 TABLETS ONE DAY PER WEEK 48 Tab 0 ??? Adalimumab (HUMIRA PEN) 40 MG/0.8ML Pen-injector Kit INJECT 40 MG UNDER THE SKIN EVERY TWO WEEKS 1 Kit 2 ??? Chlorpheniramine Maleate (EQ CHLORTABS) 4 MG Tab 1 TABLET in the morning and 1 tab at night (1 mg tab ) ??? Budesonide-Formoterol Fumarate (SYMBICORT) 160-4.5 MCG/ACT Aerosol None Entered ??? Omeprazole 20 MG OR TBEC 1 TABLET DAILY ??? Estrogens Conjugated (PREMARIN) 0.625 MG OR TABS 1 TABLET DAILY ??? ALBUTEROL SULFATE (PROAIR HFA) 108 (90 BASE) MCG/ACT IN AERS 2 puffs q4hrs prn ??? Ibuprofen 200 MG OR TABS 2 TABLETs EVERY 4 TO 6 HOURS NEEDED documented in this encounter Plan of Treatment Not on file documented as of this encounter Visit Diagnoses Not on filedocumented in this encounter Care Teams Veneer Glue Spreader Relationship Specialty Start Date End Date Edilberto Harris [address] [facility] [address] [place] [address] PCP - General Family Medicine 03/06/11 07/05/18 Eufemia Jett MD [address] [address] PCP - General Geriatrics 10/31/19 documented as of this encounter
--- OUTSIDE RECORDS SUMMARY | 2024-11-01 13:16 | XMS_ITS | Encounter Summary ---
Author Organization [facility] Address [address] [place] [address] Care Team Providers Care Lean Manufacturing Coordinator Name Role Phone Edilberto Harris Primary Care Provider Eufemia Jett MD Primary Care Provider [phone] Encounter Details Date Type Department Care Team (Late st Contact Info) Description 06/13/2012 Orders Only [facility] Rheumatology [address] [place] [address] Danilo Gates MD [address] [place] [address] Social History Tobacco Use Types Packs/Day Years [...] of this encounter Procedures * Due to [place] state law, this organization might not be sharing negative HIV tests. Procedure Name Priority Date/Time Associated Diagnosis Comments C-REACTIVE PROTEIN (CRP) - INFLAMMATION Routine 06/13/2012 4:53 PM EDT Rheumatoid arthritis (HCC) ERYTHROCYTE SEDIMENTATION RATE (ESR) Routine 06/13/2012 4:53 PM EDT Rheumatoid arthritis (HCC) CBC INCLUDES DIFFERENTIAL AND PLATELET COUNT Routine 06/13/2012 4:53 PM EDT Rheumatoid arthritis (HCC) ALANINE AMINOTRANSFERASE (ALT), SERUM Routine 06/13/2012 4:53 PM EDT Rheumatoid arthritis (HCC) ASPARTATE AMINOTRANSFERASE (AST), SERUM Routine 06/13/2012 4:53 PM EDT Rheumatoid arthritis (HCC) CREATININE WITH GLOMERULAR FILTRATION RATE, ESTIMATED (EGFR) Routine 06/13/2012 4:53 PM EDT Rheumatoid arthritis (HCC) documented in this encounter Results * Due to [place] state law, this organization might not be sharing negative HIV tests. * ERYTHROCYTE SEDIMENTATION RATE (ESR), THIAGOERGREN (06/13/2012 4:53 PM EDT) Sedimentation Rate [place] (ESR) 6 < OR = 20 mm/h [facility] Comment:{SED RATE BY GAVI ANDRE {[id number]) 06/13/2012 4:53 PM EDT 06/13/2012 10:09 PM EDT Narrative Resulting Agency Comment [id number] us Danilo Gates MD LAB SAME DAY RESULT Final Resul t Performing Organization Address [facility] de Phone Number [facility] [address] [place] [address] * C-REACTIVE PROTEIN (CRP) - INFLAMMATION (06/13/2012 4:53 PM EDT) C reactive protein 0.15 <0.80 mg/dL [facility] Comment: {C-REACTIVE PROTEIN {[id number]) Please be advised that patients taking Carboxypenicillins may exhibit falsely decreased C-Reactive Protein levels due to an analytical interference in this assay. 06/13/2012 4:53 PM EDT 06/13/2012 10:09 PM EDT Narrative Resulting Agency Comment [id number] us Danilo Gates MD LABORATORY Final Result Performing Organization Address [facility] Co de Phone Number [facility] [address] [place] [address] * CREATININE WITH GLOMERULAR FILTRATION RATE, ESTIMATED (EGFR) (06/13/2012 4:53 PM EDT) Pathologist [facility] Creatinine 0.72 0.50 - 1.10 mg/dL [facility] Comment:{CREATININE {[id number]) GFR 111 > OR = 60 mL/min/1.7 3m2 [facility] Comment:{eGFR NON-AFR. AMERI CAN {[id number]) GFR () 128 > OR = 60 mL/min/1.7 3m2 [facility] Comment:{eGFR AMERIC AN {[id number]) 06/13/2012 4:53 PM EDT 06/13/2012 10:09 PM EDT Narrative [facility] - 06/14/2012 12:43 AM EDT Please note that this estimated [...] needs for GFR calculation. Resulting Agency Comment [id number] us Danilo Gates MD LAB SAME DAY RESULT Final Resul t [facility] [address] [place] [address] * (ABNORMAL) CBC INCLUDES DIFFERENTIAL AND PLATELET COUNT (06/13/2012 4:53 PM EDT) Pathologist [facility] WBC 6.0 3.8 - 10.8 Thousand/ uL [facility] Comment:{WHITE BLOOD CELL CO UNT {[id number]) RBC 3.71(L) 3.80 - 5.10 Million/u L [facility] Comment:{RED BLOOD CELL COUN T {[id number]) Hemoglobin 12.3 11.7 - 15.5 g/dL [facility] Comment:{HEMOGLOBIN {[id number]) Hematocrit 35.9 35.0 - 45.0 % [facility] Comment:{HEMATOCRIT {[id number]) MCV 96.9 80.0 - 100.0 fL [facility] Comment:{MCV {[id number]) MCH 33.3(H) 27.0 - 33.0 pg [facility] Comment:{MCH {[id number]) MCHC 34.3 32.0 - 36.0 g/dL [facility] Comment:{MCHC {[id number]) RDW 12.5 11.0 - 15.0 % [facility] Comment:{RDW {[id number]) PLT 169 140 - 400 Thousand/ uL [facility] Comment:{PLATELET COUNT {[id number]) MPV 11.0 7.5 - 11.5 fL [facility] Comment:{MPV {[id number]) Neutrophils # 2322 1500 - 7800 cells/uL [facility] Comment:{ABSOLUTE NEUTROPHIL S {[id number]) Lymphocytes # 3180 850 - 3900 cells/uL [facility] Comment:{ABSOLUTE LYMPHOCYTE S {[id number]) Monocytes # 360 200 - 950 cells/uL [facility] Comment:{ABSOLUTE MONOCYTES {[id number]) Eosinophils # 108 15 - 500 cells/uL [facility] Comment:{ABSOLUTE EOSINOPHIL S {[id number]) Basophils # 30 0 - 200 cells/uL [facility] Comment:{ABSOLUTE BASOPHILS {[id number]) Neutrophils % 38.7 % [facility] Comment:{NEUTROPHILS {[id number]) Lymphocytes % 53.0 % [facility] Comment:{LYMPHOCYTES {[id number]) Monocytes % 6.0 % [facility] Comment:{MONOCYTES {[id number]) Eosinophils % 1.8 % [facility] Comment:{EOSINOPHILS {[id number]) Basophils % 0.5 % [facility] Comment:{BASOPHILS {[id number]) 06/13/2012 4:53 PM EDT 06/13/2012 10:09 PM EDT Narrative Resulting Agency Comment [id number] us Danilo Gates MD LAB SAME DAY RESULT Final Resul t [facility] [address] [place] [address] * ALANINE AMINOTRANSFERASE (ALT), SERUM (06/13/2012 4:53 PM EDT) ALT (SGPT) 12 6 - 40 U/L [facility] Comment:{ALT {[id number]) 06/13/2012 4:53 PM EDT 06/13/2012 10:09 PM EDT Narrative Resulting Agency Comment [id number] us Danilo Gates MD LAB SAME DAY RESULT Final Resul t Performing Organization Address [facility] Co de Phone Number [facility] [address] [place] [address] * ASPARTATE AMINOTRANSFERASE (AST), SERUM (06/13/2012 4:53 PM EDT) AST (SGOT) 19 10 - 30 U/L [facility] Comment:{AST {[id number]) 06/13/2012 4:53 PM EDT 06/13/2012 10:09 PM EDT Narrative Resulting Agency Comment [id number] us Danilo Gates MD LAB SAME DAY RESULT Final Resul t Performing Organization Address [facility] Co de Phone Number [facility] [address] [place] [address] documented in this encounter Visit Diagnoses Diagnosis Rheumatoid arthritis(714.0) Rheumatoid arthritis documented in this encounter Care Teams Lean Manufacturing Coordinator Relationship Specialty Start Date End Date Edilberto Harris [address] [facility] [address] [place] [address] PCP - General Family Medicine 03/06/11 07/05/18 Eufemia Jett MD [address] [address] PCP - General Geriatrics 10/31/19 documented as of this encounter
--- OUTSIDE RECORDS SUMMARY | 2024-11-01 13:16 | XMS_ITS | Encounter Summary ---
Author Organization [facility] Address [address] [place] [address] Care Team Providers Care Coat Repair Inspector Name Role Phone Edilberto Harris Primary Care Provider Eufemia Jett MD Primary Care Provider [phone] Encounter Details Date Type Department Care Team (Late st Contact Info) Description 07/07/2017 [facility] [address] [place] [phone] Danilo Gates MD [address] [place] [phone] Social History Tobacco Use Types Packs/Day Years [...] Progress Notes * Danilo Gates MD - 07/08/2017 9:39 AM EDT Assuming you're doing ok, check labs in 3 months and seem in 6 months documented in this encounter Plan of Treatment Not on file documented as of this encounter Procedures * Due to [place] state law, this organization might not be sharing negative HIV tests. Procedure Name Priority Date/Time Associated Diagnosis Comments CBC INCLUDES DIFFERENTIAL AND PLATELET COUNT Routine 07/07/2017 10:54 AM EDT Rheumatoid arthritis involving multiple sites with positive rheumatoid factor (HCC) ALANINE AMINOTRANSFERASE (ALT), SERUM Routine 07/07/2017 10:54 AM EDT Rheumatoid arthritis involving multiple sites with positive rheumatoid factor (HCC) ASPARTATE AMINOTRANSFERASE (AST), SERUM Routine 07/07/2017 10:54 AM EDT Rheumatoid arthritis involving multiple sites with positive rheumatoid factor (HCC) CREATININE WITH GLOMERULAR FILTRATION RATE, ESTIMATED (EGFR) Routine 07/07/2017 10:54 AM EDT Rheumatoid arthritis involving multiple sites with positive rheumatoid factor (HCC) documented in this encounter Results * Due to [place] state law, this organization might not be sharing negative HIV tests. * CREATININE WITH GLOMERULAR FILTRATION RATE, ESTIMATED (EGFR) (07/07/2017 10:54 AM EDT) Creatinine 0.66 0.50 - 1.10 mg/dL [facility] GFR 113 > OR = 60 mL/min/1.7 3m2 [facility] GFR () 131 > OR = 60 mL/min/1.7 3m2 [facility] 07/07/2017 10:5 4 AM EDT 07/07/2017 11:42 PM EDT Narrative [facility] - 07/08/2017 5:22 AM EDT Please note that this estimated [...] needs for GFR calculation. Resulting Agency Comment [id number] us Danilo Gates MD LAB SAME DAY RESULT Final Resul t [facility] [address] [place] [address] * ALANINE AMINOTRANSFERASE (ALT), SERUM (07/07/2017 10:54 AM EDT) ALT (SGPT) 10 6 - 29 U/L [facility] 07/07/2017 10:5 4 AM EDT 07/07/2017 11:42 PM EDT Narrative Resulting Agency Comment [id number] us Danilo Gates MD LAB SAME DAY RESULT Final Resul t Performing Organization Address City/[facility]/ZIP Co de Phone Number [facility] [address] [place] [address] * ASPARTATE AMINOTRANSFERASE (AST), SERUM (07/07/2017 10:54 AM EDT) AST (SGOT) 16 10 - 30 U/L [facility] 07/07/2017 10:5 4 AM EDT 07/07/2017 11:42 PM EDT Narrative Resulting Agency Comment [id number] us Danilo Gates MD LAB SAME DAY RESULT Final Resul t Performing Organization Address [facility] de Phone Number [facility] [address] [place] [address] * CBC INCLUDES DIFFERENTIAL AND PLATELET COUNT (07/07/2017 10:54 AM EDT) WBC 10.1 3.8 - 10.8 Thousand/u L [facility] RBC 4.31 3.80 - 5.10 Million/uL [facility] Hemoglobin 14.0 11.7 - 15.5 g/dL [facility] Hematocrit 41.9 35.0 - 45.0 % [facility] MCV 97.3 80.0 - 100.0 fL [facility] MCH 32.5 27.0 - 33.0 pg [facility] MCHC 33.4 32.0 - 36.0 g/dL [facility] RDW 12.8 11.0 - 15.0 % [facility] PLT 174 140 - 400 Thousand/u L [facility] MPV 10.4 7.5 - 12.5 fL [facility] Neutrophils # 6969 1500 - 7800 cells/uL [facility] Lymphocytes # 2434 850 - 3900 cells/uL [facility] Monocytes # 576 200 - 950 cells/uL [facility] Eosinophils # 81 15 - 500 cells/uL [facility] Basophils # 40 0 - 200 cells/uL [facility] Neutrophils % 69.0 % [facility] Lymphocytes % 24.1 % [facility] Monocytes % 5.7 % [facility] Eosinophils % 0.8 % [facility] Basophils % 0.4 % [facility] 07/07/2017 10:5 4 AM EDT 07/07/2017 11:42 PM EDT Narrative Resulting Agency Comment [id number] us Danilo Gates MD LAB SAME DAY RESULT Final Resul t [facility] [address] [place] [address] documented in this encounter Visit Diagnoses Diagnosis Rheumatoid arthritis involving multiple sites with positive rheumatoid factor (HCC) documented in this encounter Care Teams Coat Repair Inspector Relationship Specialty Start Date End Date Edilberto Harris [address] [facility] [address] [place] [address] PCP - General Family Medicine 03/06/11 07/05/18 Eufemia Jett MD [address] [address] PCP - General Geriatrics 10/31/19 documented as of this encounter
--- OUTSIDE RECORDS SUMMARY | 2024-11-01 13:16 | XMS_ITS | Encounter Summary ---
Author Organization [facility] Address [address] [place] [address] Care Team Providers Care Hook Tender Name Role Phone Edilberto Harris Primary Care Provider [phone] Eufemia Jett MD Primary Care Provider [phone] Encounter Details Date Type Department Care Team (Late st Contact Info) Description 12/05/2013 Orders Only [facility] Rheumatology [address] [place] [address] Danilo Gates MD [address] [place] [address] Social History Tobacco Use Types Packs/Day Years [...] on file documented as of this encounter Results * Due to [place] state law, this organization might not be sharing negative HIV tests. * ANTI-NEUTROPHIL CYTOPLASM ANTIBODY - ANCA ([facility]) (12/06/2013 10:46 AM EDT) ANCA NEGATIVE [facility] Comment:{ANCA {[id number]) NOTE SEE NOTE [facility] Comment: {NOTE: {[id number]) Indirect immunofluorescence testing for anti-neutrophil ?cytoplasm antibodies (ANCA) is negative. ELISAs are also ?negative for antibodies to proteinase 3 and myeloperoxidase. INTERPRETATION SEE NOTE [facility] Comment: {INTERPRETATION: {[id number]) The findings provide no support for the [...] turn positive if tested serially. Please call [facility] Immunopathology Laboratory at [phone] with questions or concerns regarding ANCA tests. These tests were developed and their performance characteristics determined by the Immunopathology Laboratory at the [facility]. Their characteristics have been published: Journal of the [place] Society of Nephrology 2:27-36, 1990; Human Pathology 24:170-8, 1992; Archives of Internal Medicine 156:440-5; Annals of Internal Medicine 126:866-73,1996. These tests have not been cleared or approved by the U.S. Food and Drug Administration (FDA). The FDA has determined that clearance or approval is not necessary. FINAL DIAGNOSIS BY JYOTI DAO MD [facility] Comment: {FINAL DIAGNOSIS BY: {[id number]) By his/her signature above, the pathologist listed as making the Final Diagnosis certifies that he/she has personally reviewed this case and confirmed or corrected the diagnoses. 12/06/2013 10:4 6 AM EDT 12/06/2013 6:15 PM EDT Narrative Resulting Agency Comment [id number] Transcriptions Danilo Gates MD - 12/20/2013 12:00 AM EDT Danilo Gates MD - 12/22/2013 12:00 AM EDT Danilo Gates MD LABORATORY Edited Result - Final [facility] [address] [place] [address] documented in this encounter Visit Diagnoses Diagnosis Rheumatoid arthritis(714.0)- Primary Rheumatoid arthritis Rheumatoid arthritis(714.0) Rheumatoid arthritis documented in this encounter Care Teams Hook Tender Relationship Specialty Start Date End Date Edilberto Harris [address] [facility] [address] [place] [address] PCP - General Family Medicine 03/06/11 07/05/18 Eufemia Jett MD [address] [address] PCP - General Geriatrics 10/31/19 documented as of this encounter
--- OUTSIDE RECORDS SUMMARY | 2024-11-01 13:16 | XMS_ITS | Encounter Summary ---
Author Organization [facility] Address [address] [place] [address] Care Team Providers Care Rn Care Transition Name Role Phone Eufemia Jett MD Primary Care Provider [phone] Encounter Details Date Type Department Care Team (Late st Contact Info) Description 03/10/2019 Orders Only [facility] [address] [place] [phone] Karissa Velasquez MD [address] [place] [phone] Social History Tobacco Use Types Packs/Day Years [...] of this encounter Procedures * Due to [place] state law, this organization might not be sharing negative HIV tests. Procedure Name Priority Date/Time Associated Diagnosis Comments C-REACTIVE PROTEIN (CRP) - INFLAMMATION Routine 03/10/2019 9:09 AM EDT Rheumatoid arthritis involving multiple sites with positive rheumatoid factor (HCC) ERYTHROCYTE SEDIMENTATION RATE (ESR) Routine 03/10/2019 9:09 AM EDT Rheumatoid arthritis involving multiple sites with positive rheumatoid factor (HCC) CBC INCLUDES DIFFERENTIAL AND PLATELET COUNT Routine 03/10/2019 9:09 AM EDT Rheumatoid arthritis involving multiple sites with positive rheumatoid factor (HCC) ALANINE AMINOTRANSFERASE (ALT), SERUM Routine 03/10/2019 9:09 AM EDT Rheumatoid arthritis involving multiple sites with positive rheumatoid factor (HCC) ASPARTATE AMINOTRANSFERASE (AST), SERUM Routine 03/10/2019 9:09 AM EDT Rheumatoid arthritis involving multiple sites with positive rheumatoid factor (HCC) CREATININE WITH GLOMERULAR FILTRATION RATE, ESTIMATED (EGFR) Routine 03/10/2019 9:09 AM EDT Rheumatoid arthritis involving multiple sites with positive rheumatoid factor (HCC) documented in this encounter Results * Due to [place] state law, this organization might not be sharing negative HIV tests. * (ABNORMAL) C-REACTIVE PROTEIN (CRP) - INFLAMMATION (03/10/2019 9:09 AM EDT) C reactive protein 9.2(H) <8.0 mg/L [facility] 03/10/2019 9:09 AM EDT 03/10/2019 11:12 AM EDT Narrative Resulting Agency Comment [id number] us Karissa Velasquez MD LABORATORY Final Result Performing Organization Address [facility] Co de Phone Number [facility] [address] [place] [address] * ERYTHROCYTE SEDIMENTATION RATE (ESR), WESTERGREN (03/10/2019 9:09 AM EDT) Sedimentation Rate [place]ren (ESR) 19 < OR = 20 mm/h [facility] 03/10/2019 9:09 AM EDT 03/10/2019 11:12 AM EDT Narrative Resulting Agency Comment [id number] us Karissa Velasquez MD LAB SAME DAY RESULT Final Result Performing Organization Address [facility] Co de Phone Number [facility] [address] [place] [address] * CREATININE WITH GLOMERULAR FILTRATION RATE, ESTIMATED (EGFR) (03/10/2019 9:09 AM EDT) Creatinine 0.77 0.50 - 1.10 mg/dL [facility] EGFR 98 > OR = 60 mL/min/1.7 3m2 [facility] GFR () 114 > OR = 60 mL/min/1.7 3m2 [facility] 03/10/2019 9:09 AM EDT 03/10/2019 11:12 AM EDT Narrative [facility] - 03/10/2019 8:18 PM EDT Please note that this estimated GFR [...] needs for GFR calculation. Resulting Agency Comment [id number] us Karissa Velasquez MD LAB SAME DAY RESULT Final Result Performing Organization Address [facility] de Phone Number [facility] [address] [place] [address] * ALANINE AMINOTRANSFERASE (ALT), SERUM (03/10/2019 9:09 AM EDT) ALT (SGPT) 12 6 - 29 U/L [facility] 03/10/2019 9:09 AM EDT 03/10/2019 11:12 AM EDT Narrative Resulting Agency Comment [id number] us Karissa Velasquez MD LAB SAME DAY RESULT Final Result Performing Organization Address [facility] Co de Phone Number [facility] [address] [place] [address] * ASPARTATE AMINOTRANSFERASE (AST), SERUM (03/10/2019 9:09 AM EDT) AST (SGOT) 16 10 - 30 U/L [facility] 03/10/2019 9:09 AM EDT 03/10/2019 11:12 AM EDT Narrative Resulting Agency Comment [id number] us Karissa Velasquez MD LAB SAME DAY RESULT Final Result Performing Organization Address [facility] Co de Phone Number [facility] [address] [place] [address] * CBC INCLUDES DIFFERENTIAL AND PLATELET COUNT (03/10/2019 9:09 AM EDT) WBC 5.9 3.8 - 10.8 Thousand/u L [facility] RBC 4.17 3.80 - 5.10 Million/uL [facility] Hemoglobin 13.0 11.7 - 15.5 g/dL [facility] Hematocrit 38.1 35.0 - 45.0 % [facility] MCV 91.4 80.0 - 100.0 fL [facility] MCH 31.2 27.0 - 33.0 pg [facility] MCHC 34.1 32.0 - 36.0 g/dL [facility] RDW 12.2 11.0 - 15.0 % [facility] PLT 211 140 - 400 Thousand/u L [facility] MPV 11.6 7.5 - 12.5 fL [facility] Neutrophils # 3109 1500 - 7800 cells/uL [facility] Lymphocytes # 2266 850 - 3900 cells/uL [facility] Monocytes # 431 200 - 950 cells/uL [facility] Eosinophils # 53 15 - 500 cells/uL [facility] Basophils # 41 0 - 200 cells/uL [facility] Neutrophils % 52.7 % [facility] Lymphocytes % 38.4 % [facility] Monocytes % 7.3 % [facility] Eosinophils % 0.9 % [facility] Basophils % 0.7 % [facility] 03/10/2019 9:09 AM EDT 03/10/2019 11:12 AM EDT Narrative Resulting Agency Comment [id number] Karissa Velasquez MD LAB SAME DAY RESULT Final Result Performing Organization Address City/State/[place] Co de Phone Number [facility] [address] [place] [address] documented in this encounter Visit Diagnoses Diagnosis Rheumatoid arthritis involving multiple sites with positive rheumatoid factor (HCC) documented in this encounter Care Teams Rn Care Transition Relationship Specialty Start Date End Date Eufemia Jett MD [address] [address] PCP - General Geriatrics 10/31/19 documented as of this encounter
--- OUTSIDE RECORDS SUMMARY | 2024-11-01 13:16 | XMS_ITS | Encounter Summary ---
Author Organization [facility] Address [address] [place] [address] Care Team Providers Care Patient Care Provider Name Role Phone Edilberto Harris Primary Care Provider [phone] Eufemia Jett MD Primary Care Provider [phone] Encounter Details Date Type Department Care Team (Late st Contact Info) Description 10/05/2011 Orders Only [facility] [address] [place] [phone] Danilo Gates MD [address] [place] [address] Social History Tobacco Use Types Packs/Day Years Used Date Smoking Tobacco: Never Smokeless Tobacco: Never Alcohol Use Standard Drinks/Week Comments Not Asked 0 (1 standard drink = 0.6 oz pur e alcohol) Comments Unknown Sex and Gender Information Value Date Recorded Sex Assigned at Not on file Legal Sex Female 1:50 AM EDT Gender Identity Not on file Sexual Orientation Not on file documented as of this encounter Progress Notes * Danilo Gates MD - 10/07/2011 9:31 AM ESTQuick Note: Let her know lab tests all normal except rheumatoid factor borderline likely of no significance. I hope the medication is starting to help. Good news. documented in this encounter Miscellaneous Notes * Clinical Flowsheets/Questionaires - Danilo Gates MD - 10/13/2011 10:00 AM EST documented in this encounter Plan of Treatment Not on file documented as of this encounter Procedures * Due to [place] state law, this organization might not be sharing negative HIV tests. Procedure Name Priority Date/Time Associated Diagnosis Comments KAREEM IFA, W/ REFLEX TO TITER/PATTERN/COMPREHENSIVE AB PANEL Routine 10/05/2011 3:57 PM EST Pain in joint RHEUMATOID FACTOR, SERUM Routine 012 3:57 PM EST Pain in joint C-REACTIVE PROTEIN (CRP) - INFLAMMATION Routine 10/05/2011 3:57 PM EST Pain in joint ERYTHROCYTE SEDIMENTATION RATE (ESR) Routine 10/05/2011 3:57 PM EST Pain in joint CYCLIC CITRULLINATEDPEPTIDE CCP AB IGG Routine 10/05/2011 3:57 PM EST Pain in joint documented in this encounter Results * Due to [place] law, this organization might not be sharing negative HIV tests. * KAREEM IFA, W/ REFLEX TO TITER/PATTERN/COMPREHENSIVE AB PANEL (10/05/2011 3:57 PM EST) KAREEM IFA NEGATIVE NEGATIVE [facility] Comment:{KAREEM SCREEN, IFA {[id number]) 10/05/2011 3:57 PM EST 10/05/2011 11:44 PM EST Narrative Resulting Agency Comment [id number] us Danilo Gates MD LABORATORY Final Result [facility] [address] [place] [address] * CYCLIC CITRULLINATEDPEPTIDE CCP AB IGG (10/05/2011 3:57 PM EST) CCP Ab, IgG <16 UNITS [facility] Comment: {CYCLIC CITRULLINATED PEPTIDE (CCP) AB (IGG) {[id number]) Reference Range Negative: ?<20 Weak Positive: ? 20-39 Moderate Positive: ?? 40-59 Strong Positive: ? >59 10/05/2011 3:57 PM EST 10/05/2011 11:44 PM EST Narrative Resulting Agency Comment [id number] us Danilo Gates MD LABORATORY Final Result Performing Organization Address [facility] Co de Phone Number [facility] [address] [place] [address] * C-REACTIVE PROTEIN (CRP) - INFLAMMATION (10/05/2011 3:57 PM EST) C reactive protein 0.53 <0.80 mg/dL [facility] Comment: {C-REACTIVE PROTEIN {[id number]) Please be advised that patients taking Carboxypenicillins may exhibit falsely decreased C-Reactive Protein levels due to an analytical interference in this assay. 10/05/2011 3:57 PM EST 10/05/2011 11:44 PM EST Narrative Resulting Agency Comment [id number] us Danilo Gates MD LABORATORY Final Result Performing Organization Address [facility] Co de Phone Number [facility] [address] [place] [address] * (ABNORMAL) RHEUMATOID FACTOR, SERUM (10/05/2011 3:57 PM EST) Rheumatoid Factor (Quant) 25(H) <14 IU/mL [facility] Comment:{RHEUMATOID FACTOR { [id number]) 10/05/2011 3:57 PM EST 10/05/2011 11:44 PM EST Narrative Resulting Agency Comment [id number] us Danilo Gates MD LABORATORY Final Result Performing Organization Address [facility] Co de Phone Number [facility] [address] [place] [address] * ERYTHROCYTE SEDIMENTATION RATE (ESR), WESTERGREN (10/05/2011 3:57 PM EST) Sedimentation Rate [place] (ESR) 15 < OR = 20 mm/h [facility] Comment:{SED RATE BY MODIFIE D PANDAREN {[id number]) 10/05/2011 3:57 PM EST 10/05/2011 11:44 PM EST Narrative Resulting Agency Comment [id number] us Danilo Gates MD LAB SAME DAY RESULT Final Resul t [facility] [address] [place] [address] documented in this encounter Visit Diagnoses Diagnosis Pain in joint Pain in joint, site unspecified documented in this encounter Care Teams Patient Care Provider Relationship Specialty Start Date End Date Edilberto Harris [address] [facility] [address] [place] [address] PCP - General Family Medicine 03/06/11 07/05/18 Eufemia Jett MD [address] [address] PCP - General Geriatrics 10/31/19 documented as of this encounter
--- OUTSIDE RECORDS SUMMARY | 2024-11-01 13:16 | XMS_ITS | Encounter Summary ---
Author Organization [facility] Address [address] [place] [address] Care Team Providers Care Tool Filer Hand Name Role Phone Eufemia Jett MD Primary Care Provider [phone] Encounter Details Date Type Department Care Team (Late st Contact Info) Description 06/24/2020 Orders Only [facility]. Rheumatology [address] [place] [phone] Karissa Velasquez MD [address] [place] [phone] Social History Tobacco Use Types Packs/Day Years [...] as of this encounter Plan of Treatment Scheduled Orders Name Type Priority Associated Diagnoses Orde r Schedule CBC INCLUDES DIFFERENTIAL AND PLATELET COUNT Lab Routine Rheumatoid arthritis involving multiple sites with positive rheumatoid factor (HCC) [M05.79] Expected: 06/24/2020, Expires: 06/24/2021 COMPREHENSIVE METABOLIC PANEL WITH GFR Lab Routine Rheumatoid arthritis involving multiple sites with positive rheumatoid factor (HCC) [M05.79] Expected: 06/24/2020 (Approximate), Expires: 06/24/2021 documented as of this encounter Visit Diagnoses Diagnosis Rheumatoid arthritis involving multiple sites with positive rheumatoid factor (HCC) [M05.79]- Primary documented in this encounter Care Teams Tool Filer Hand Relationship Specialty Start Date End [place] [address] PCP - General Geriatrics 10/31/19 documented as of this encounter
--- OUTSIDE RECORDS SUMMARY | 2024-11-01 13:16 | XMS_ITS | Encounter Summary ---
Author Organization [facility] Address [address] [place] [address] Care Team Providers Care Gym Attendant Name Role Phone Edilberto Harris Primary Care Provider [phone] Eufemia Jett MD Primary Care Provider [phone] Reason for Visit * Reason Comments E-prescribing Refill Request Encounter Details Date Type Department Care Team (Late st Contact Info) Description 04/21/2017 Refill [facility] [address] [place] [phone] Danilo Gates MD [address] [place], [place] [phone] E-prescribing Refill Request Social History Tobacco Use [...] Encounter - Eugenia Osuna LVN LPN - 04/21/2017 9:03 AM EDT Any special requests or concerns? none Faxed/E-prescribed medication renewal request(s) for Shiela Browne 36 y[facility]o. [facility] and Confirmed pharmacy for patient. Last CPE with this specialty: Not Found Last OV with this specialty: 03/03/2017 Next OV: No future appointments. Pertinent lab results:Impression: Component Latest Ref Rng & Units 03/03/2017 [...] 0.26 CALCIUM 8.6 - 10.2 mg/dL 9.4 ?? Seropositive rheumatoid arthritis overall doing well with some tenderness at MTP joints and knees with no significant findings on exam. X-rays of the hands and feet were negative for years ago. Afterdiscussion we agreed to check x-rays and feet and knees today and consider x-rays of the hands nextvisit if needed. No side effects of methotrexate or TNF inhibitor. ?? Plan: ?? Continue current regimen. In 3, 6 and 9 months check methotrexate labs studies. Check x-rays of theknees and feet. Return visit to me in 9 months or sooner if needed. Lab Results Component Value Date CREATININE 0.74 03/03/2017 GFR 104 03/03/2017 KAROLINA 9.4 03/03/2017 An open order for Basic does not exist. Lab Results Component Value Date AST 17 03/03/2017 ALT 10 03/03/2017 An open order for AST, ALT or LFT exists. 3 month supply suggested for Methotrexate or Azathioprine based on CBC, kidney and liver testing every 3 months for stable chronic therapy. Allergies: Dilantin [phenytoin sodium]; Enbrel; Levaquin; and Midrin [amidrine] BP Readings from Last 1 Encounters: 03/03/17 114/77 Patient Active Problem List Diagnosis Date Noted ??? Rheumatoid arthritis involving multiple sites with positive rheumatoid factor (HCC) 03/03/2017 Current Outpatient Prescriptions on File Prior to Visit Medication Sig Dispense Refill ??? Adalimumab (HUMIRA PEN) 40 MG/0.8ML Pen-injector Kit INJECT 40 MG (0.8 ML) UNDER THE SKIN EVERYTWO WEEKS 2 Kit 5 ??? BUDESONIDE, INHALATION, (PULMICORT FLEXHALER) 180 MCG/ACT AEROSOL POWDER, BREATH ACTIVATED NoneEntered ??? FLUTICASONE PROPIONATE, NASAL, 50 MCG/ACT Suspension None Entered ??? Zafirlukast 20 MG Tab None Entered ??? Folic Acid 1 MG Tab TAKE 1 TABLET DAILY 90 Tab 0 ??? Methotrexate 2.5 MG Tab TAKE 4 TABLETS ONE DAY PER WEEK 48 Tab 0 ??? Chlorpheniramine Maleate (EQ CHLORTABS) 4 MG [...] [M05.79] documented in this encounter Care Teams Gym Attendant Relationship Specialty Start Date End Date Edilberto Harris [address] [facility] [address] [place] [address] PCP - General Family Medicine 03/06/11 07/05/18 Eufemia Jett MD [address] [address] PCP - General Geriatrics 10/31/19 documented as of this encounter
--- OUTSIDE RECORDS SUMMARY | 2024-11-01 13:16 | XMS_ITS | Clinical Summary ---
Author Organization [facility] Address [address] [place] [address] Care Team Providers Care Screening Technician Name Role Phone Unavailable Primary Care Provider Unavailabl e Allergies Active Allergy Reactions Criticality Noted Date Comments Phenytoin Rash Medium 10/18/2020 Hydroxychloroquine Rash Low 10/18/2020 Levofloxacin Hives 10/18/2020 Immunizations Name Administration Dates Next Due Covid-19 (Moderna 12+) 100mcg/0.5mL dosage 10/18,09/18/2020 Social History Tobacco Use Types Packs/Day Years Used Date Smoking Tobacco: Never Assessed Sex and Gender Information Value Date Recorded Sex Assigned at Female 09/18/2020 10:07 AM EST Gender Identity Not on file Sexual Orientation Not on file Job Start Date Occupation Industry Not on file Not on file Not on file Plan of Treatment Health Maintenance Due Date Last Done Comments Hepatitis B Vaccines (1 of 3 - 3-dose series) 1980 Hepatitis C Screening 1980 Depression Screening 1992 Preventative Health Evaluation 1998 DTap / Tdap / Td (1 - Tdap) 1999 Cervical Cancer Screening (Pap Smear) 2001 COVID-19 Vaccine (2023-2 5 season) 2024 10/18/2020, 09/18/2020 Influenza Vaccine (#1) 2024 Pneumococcal Vaccine Aged Out No long er eligible based on patient's age to complete this topic RSV Ped < 20 months Aged Out No longe r eligible based on patient's age to complete this topic
--- OUTSIDE RECORDS SUMMARY | 2024-11-01 13:16 | XMS_ITS | Encounter Summary ---
Author Organization [facility] Address [address] [place] [address] Care Team Providers Care Ginger Farmer Name Role Phone Edilberto Harris Primary Care Provider [phone] Eufemia Jett MD Primary Care Provider [phone] Encounter Details Date Type Department Care Team (Late st Contact Info) Description 04/13/2016 Orders Only [facility] Rheumatology [address] [place] [address] Danilo Gates MD [address] [place] [address] Social History Tobacco Use Types Packs/Day Years [...] Progress Notes * Danilo Gates MD - 04/14/2016 9:25 AM EDTQuick Note: . * Danilo Gates MD - 04/14/2016 9:24 AM EDTQuick Note: Excellent--glad you're doing so well documented in this encounter Plan of Treatment Not on file documented as of this encounter Procedures * Due to [place] state law, this organization might not be sharing negative HIV tests. Procedure Name Priority Date/Time Associated Diagnosis Comments C-REACTIVE PROTEIN (CRP) - INFLAMMATION Routine 04/13/2016 3:57 PM EDT Rheumatoid arthritis, seropositive ERYTHROCYTE SEDIMENTATION RATE (ESR) Routine 04/13/2016 3:57 PM EDT Rheumatoid arthritis, seropositive CBC INCLUDES DIFFERENTIAL AND PLATELET COUNT Routine 04/13/2016 3:57 PM EDT Rheumatoid arthritis, seropositive ALANINE AMINOTRANSFERASE (ALT), SERUM Routine 04/13/2016 3:57 PM EDT Rheumatoid arthritis, seropositive ASPARTATE AMINOTRANSFERASE (AST), SERUM Routine 04/13/2016 3:57 PM EDT Rheumatoid arthritis, seropositive CREATININE WITH GLOMERULAR FILTRATION RATE, ESTIMATED (EGFR) Routine 04/13/2016 3:57 PM EDT Rheumatoid arthritis, seropositive documented in this encounter Results * Due to [place] state law, this organization might not be sharing negative HIV tests. * C-REACTIVE PROTEIN (CRP) - INFLAMMATION (04/13/2016 3:57 PM EDT) C reactive protein 0.10 <0.80 mg/dL [facility] Comment: {C-REACTIVE PROTEIN {[id number]) Please be advised that patients taking Carboxypenicillins may exhibit falsely decreased C-Reactive Protein levels due to an analytical interference in this assay. 04/13/2016 3:57 PM EDT 04/13/2016 9:24 PM EDT Narrative Resulting Agency Comment [id number] us Danilo Gates MD LABORATORY Final Result [facility] [address] [place] [address] * ERYTHROCYTE SEDIMENTATION RATE (ESR), WESTERGREN (04/13/2016 3:57 PM EDT) Sedimentation Rate West[place]ren (ESR) 6 < OR = 20 mm/h [facility] Comment:{SED RATE BY GAVI MOSQUEDAREN {[id number]) 04/13/2016 3:57 PM EDT 04/13/2016 9:24 PM EDT Narrative Resulting Agency Comment [id number] us Danilo Gates MD LAB SAME DAY RESULT Final Resul t Performing Organization Address [facility] de Phone Number [facility] [address] [place] [address] * CREATININE WITH GLOMERULAR FILTRATION RATE, ESTIMATED (EGFR) (04/13/2016 3:57 PM EDT) Creatinine 0.80 0.50 - 1.10 mg/dL [facility] Comment:{CREATININE {[id number]) GFR 96 > OR = 60 mL/min/1.7 3m2 [facility] Comment:{eGFR NON-AFR. AMERI CAN {[id number]) GFR () 111 > OR = 60 mL/min/1.7 3m2 [facility] Comment:{eGFR AMERIC AN {[id number]) 04/13/2016 3:57 PM EDT 04/13/2016 9:24 PM EDT Narrative [facility] - 04/14/2016 1:42 AM EDT Please note that this estimated [...] needs for GFR calculation. Resulting Agency Comment [id number] us Danilo Gates MD LAB SAME DAY RESULT Final Resul t Performing Organization Address [facility] Co de Phone Number [facility] [address] [place] [address] * ALANINE AMINOTRANSFERASE (ALT), SERUM (04/13/2016 3:57 PM EDT) ALT (SGPT) 11 6 - 29 U/L [facility] Comment:{ALT {[id number]) 04/13/2016 3:57 PM EDT 04/13/2016 9:24 PM EDT Narrative Resulting Agency Comment [id number] us Danilo Gates MD LAB SAME DAY RESULT Final Resul t Performing Organization Address [facility] Co de Phone Number [facility] [address] [place] [address] * ASPARTATE AMINOTRANSFERASE (AST), SERUM (04/13/2016 3:57 PM EDT) AST (SGOT) 19 10 - 30 U/L [facility] Comment:{AST {[id number]) 04/13/2016 3:57 PM EDT 04/13/2016 9:24 PM EDT Narrative Resulting Agency Comment [id number] us Danilo Gates MD LAB SAME DAY RESULT Final Resul t Performing Organization Address [facility] de Phone Number [facility] [address] [place] [address] * CBC INCLUDES DIFFERENTIAL AND PLATELET COUNT (04/13/2016 3:57 PM EDT) WBC 7.5 3.8 - 10.8 Thousand/u L [facility] Comment:{WHITE BLOOD CELL CO UNT {[id number]) RBC 3.84 3.80 - 5.10 Million/uL [facility] Comment:{RED BLOOD CELL COUN T {[id number]) Hemoglobin 12.7 11.7 - 15.5 g/dL [facility] Comment:{HEMOGLOBIN {[id number]) Hematocrit 37.2 35.0 - 45.0 % [facility] Comment:{HEMATOCRIT {[id number]) MCV 96.9 80.0 - 100.0 fL [facility] Comment:{MCV {[id number]) MCH 32.9 27.0 - 33.0 pg [facility] Comment:{MCH {[id number]) MCHC 34.0 32.0 - 36.0 g/dL [facility] Comment:{MCHC {[id number]) RDW 12.8 11.0 - 15.0 % [facility] Comment:{RDW {[id number]) PLT 180 140 - 400 Thousand/u L [facility] Comment:{PLATELET COUNT {[id number]) MPV 10.4 7.5 - 11.5 fL [facility] Comment:{MPV {[id number]) Neutrophils # 3818 1500 - 7800 cells/uL [facility] Comment:{ABSOLUTE NEUTROPHIL S {[id number]) Lymphocytes # 3233 850 - 3900 cells/uL [facility] Comment:{ABSOLUTE LYMPHOCYTE S {[id number]) Monocytes # 345 200 - 950 cells/uL [facility] Comment:{ABSOLUTE MONOCYTES {[id number]) Eosinophils # 60 15 - 500 cells/uL [facility] Comment:{ABSOLUTE EOSINOPHIL S {[id number]) Basophils # 45 0 - 200 cells/uL [facility] Comment:{ABSOLUTE BASOPHILS {[id number]) Neutrophils % 50.9 % [facility] Comment:{NEUTROPHILS {[id number]) Lymphocytes % 43.1 % [facility] Comment:{LYMPHOCYTES {[id number]) Monocytes % 4.6 % [facility] Comment:{MONOCYTES {[id number]) Eosinophils % 0.8 % [facility] Comment:{EOSINOPHILS {[id number]) Basophils % 0.6 % [facility] Comment:{BASOPHILS {[id number]) 04/13/2016 3:57 PM EDT 04/13/2016 9:24 PM EDT Narrative Resulting Agency Comment [id number] us Danilo Gates MD LAB SAME DAY RESULT Final Resul t [facility] [address] [place] [address] documented in this encounter Visit Diagnoses Diagnosis Rheumatoid arthritis, seropositive (HCC) Rheumatoid arthritis documented in this encounter Care Teams Ginger Farmer Relationship Specialty Start Date End Date Edilberto Harris [address] [facility] [address] [place] [address] PCP - General Family Medicine 03/06/11 07/05/18 Eufemia Jett MD [address] [address] PCP - General Geriatrics 10/31/19 documented as of this encounter
--- OUTSIDE RECORDS SUMMARY | 2024-11-01 13:16 | XMS_ITS | Encounter Summary ---
Author Organization [facility] Address [address] [place] [address] Care Team Providers Care Harvest Crew Supervisor Name Role Phone Edilberto Harris Primary Care Provider [phone] Eufemia Jett MD Primary Care Provider [phone] Encounter Details Date Type Department Care Team ([facility] st Contact Info) Description 08/04/2016 Orders Only [facility] Rheumatology [address] [place] [address] Danilo Gates MD [address] [place], [place] [phone] Social History Tobacco Use Types Packs/Day Years [...] as of this encounter Plan of Treatment Pending Results Name Type Priority Associated Diagnoses Date /Time CREATININE WITH GLOMERULAR F ILTRATION RATE, ESTIMATED (EGFR) Lab Routine 6 ASPARTATE AMINOTRANSFERASE (AST), SERUM Lab Routine 07/29/2016 ALANINE AMINOTRANSFERASE (ALT), SERUM Lab Routine 07/29/2016 CBC INCLUDES DIFFERENTIAL AN D PLATELET COUNT Lab Routine 07/29/2016 documented as of this encounter Visit Diagnoses Not on filedocumented in this encounter Care Teams Harvest Crew Supervisor Relationship Specialty Start Date End Date Edilberto Harris [address] [facility] [address] [place] [address] PCP - General Family Medicine 03/06/11 07/05/18 Eufemia Jett MD [address] [address] PCP - General Geriatrics 10/31/19 documented as of this encounter
--- OUTSIDE RECORDS SUMMARY | 2024-11-01 13:17 | XMS_ITS | Encounter Summary ---
Author Organization [facility] Address [address] [place] [address] Care Team Providers Care Deli Associate Name Role Phone Eufemia Jett MD Primary Care Provider [phone] Encounter Details Date Type Department Care Team ([facility] st Contact Info) Description 01/02/2020 Orders Only [facility] [address] [place] [phone] Karissa Velasquez MD [address] [place] [address] Social History Tobacco Use Types Packs/Day Years Used Date Smoking Tobacco: Never Smokeless Tobacco: Never Alcohol Use Standard Drinks/Week Comments Not Asked 0 (1 standard drink = 0.6 oz pur e alcohol) Comments No Sex and Gender Information Value Date Recorded Sex Assigned at Not on file Legal Sex Female 1:50 AM EDT Gender Identity Not on file Sexual Orientation Not on file COVID-19 Exposure Response Date Recorded In the last month, have you been in contact with someone who was confirmed or suspected to have Coronavirus / COVID-19? No / Unsure 01/03/2020 12:32 PM EDT documented as of this encounter Plan of Treatment Not on file documented as of this encounter Procedures * Due to [place] state law, this organization might not be sharing negative HIV tests. Procedure Name Priority Date/Time Associated Diagnosis Comments CBC INCLUDES DIFFERENTIAL AND PLATELET COUNT Routine 01/02/2020 2:21 PM EDT Rheumatoid arthritis involving multiple sites with positive rheumatoid factor (HCC) [M05.79] VENIPUNCTURE Routine 01/02/2020 2:21 PM EDT Rheumatoid arthritis involving multiple sites with positive rheumatoid factor (HCC) [M05.79] documented in this encounter Results * Due to [place] state law, this organization might not be sharing negative HIV tests. * CBC INCLUDES DIFFERENTIAL AND PLATELET COUNT (01/02/2020 2:21 PM EDT) WBC 7.9 3.8 - 10.8 Thousand/u L [facility] RBC 4.13 3.80 - 5.10 Million/uL [facility] Hemoglobin 12.9 11.7 - 15.5 g/dL [facility] Hematocrit 38.1 35.0 - 45.0 % [facility] MCV 92.3 80.0 - 100.0 fL [facility] MCH 31.2 27.0 - 33.0 pg [facility] MCHC 33.9 32.0 - 36.0 g/dL [facility] RDW 12.1 11.0 - 15.0 % [facility] PLT 250 140 - 400 Thousand/u L [facility] MPV 11.5 7.5 - 12.5 fL [facility] Neutrophils # 4329 1500 - 7800 cells/uL [facility] Lymphocytes # 3089 850 - 3900 cells/uL [facility] Monocytes # 356 200 - 950 cells/uL [facility] Eosinophils # 87 15 - 500 cells/uL [facility] Basophils # 40 0 - 200 cells/uL [facility] Neutrophils % 54.8 % [facility] Lymphocytes % 39.1 % [facility] Monocytes % 4.5 % [facility] Eosinophils % 1.1 % [facility] Basophils % 0.5 % [facility] 01/02/2020 2:21 PM EDT 01/03/2020 12:42 AM EDT Narrative Resulting Agency Comment [id number] us Karissa Velasquez MD LAB SAME DAY RESULT Final Result [facility] [address] [place] [address] * COMPREHENSIVE METABOLIC PANEL WITH GFR (01/02/2020 2:21 PM EDT) Glucose 99 65 - 99 mg/dL [facility] Comment:Fasting reference in terval Urea Nitrogen Blood (BUN) 16 7 - 25 mg/dL [facility] Creatinine 0.76 0.50 - 1.10 mg/dL [facility] EGFR 99 > OR = 60 mL/min/1 .73m2 [facility] GFR () 115 > OR = 60 mL/min/1 .73m2 [facility] BUN/Creatinine Ratio NOT APPLICABLE 6 - 22 (calc) [facility] Sodium 139 135 - 146 mmol/L [facility] Potassium 4.1 3.5 - 5.3 mmol/L [facility] Chloride 100 98 - 110 mmol/L [facility] Carbon dioxide 29 20 - 32 mmol/L [facility] Calcium 9.8 8.6 - 10.2 mg/dL [facility] Protein Total (Serum) 7.9 6.1 - 8.1 g/dL [facility] Albumin 4.2 3.6 - 5.1 g/dL [facility] Globulin 3.7 1.9 - 3.7 g/dL (calc) [facility] Albumin/Globuli n 1.1 1.0 - 2.5 (calc) [facility] Bilirubin Total 0.3 0.2 - 1.2 mg/dL [facility] Alkaline phosphatase 53 31 - 125 U/L [facility] AST (SGOT) 17 10 - 30 U/L [facility] ALT (SGPT) 11 6 - 29 U/L [facility] 01/02/2020 2:21 PM EDT 01/03/2020 12:42 AM EDT Narrative [facility] - 01/03/2020 4:50 AM EDT Please note that this estimated [...] needs for GFR calculation. Resulting Agency Comment [id number] us Karissa Velasquez MD LABORATORY Final Result [facility] [address] [place] [address] documented in this encounter Visit Diagnoses Diagnosis Rheumatoid arthritis involving multiple sites with positive rheumatoid factor (HCC) [M05.79] documented in this encounter Care Teams Deli Associate Relationship Specialty Start Date End Date Eufemia Jett MD [address] [address] PCP - General Geriatrics 10/31/19 documented as of this encounter
--- OUTSIDE RECORDS SUMMARY | 2024-11-01 13:17 | XMS_ITS | Encounter Summary ---
Author Organization [facility] Address [address] [place] [address] Care Team Providers Care Skimmer Name Role Phone Edilberto Harris Primary Care Provider [phone] Eufemia Jett MD Primary Care Provider [phone] Encounter Details Date Type Department Care Team ([facility] st Contact Info) Description 10/14/2017 Orders Only [facility] Rheumatology [address] [place] [address] Danilo Gates MD [address] [place] [address] Social History Tobacco Use Types Packs/Day Years [...] of this encounter Results * Due to [place] state law, this organization might not be sharing negative HIV tests. * CBC INCLUDES DIFFERENTIAL AND PLATELET COUNT (10/20/2017 9:58 AM EST) WBC 6.2 3.8 - 10.8 Thousand/u L [facility] RBC 4.24 3.80 - 5.10 Million/uL [facility] Hemoglobin 13.6 11.7 - 15.5 g/dL [facility] Hematocrit 40.4 35.0 - 45.0 % [facility] MCV 95.4 80.0 - 100.0 fL [facility] MCH 32.0 27.0 - 33.0 pg [facility] MCHC 33.5 32.0 - 36.0 g/dL [facility] RDW 13.1 11.0 - 15.0 % [facility] PLT 205 140 - 400 Thousand/u L [facility] MPV 10.0 7.5 - 12.5 fL [facility] Neutrophils # 3670 1500 - 7800 cells/uL [facility] Lymphocytes # 1779 850 - 3900 cells/uL [facility] Monocytes # 657 200 - 950 cells/uL [facility] Eosinophils # 50 15 - 500 cells/uL [facility] Basophils # 43 0 - 200 cells/uL [facility] Neutrophils % 59.2 % [facility] Lymphocytes % 28.7 % [facility] Monocytes % 10.6 % [facility] Eosinophils % 0.8 % [facility] Basophils % 0.7 % [facility] 10/20/2017 9:58 AM EST 10/20/2017 5:33 PM EST Narrative Resulting Agency Comment [id number] us Danilo Gates MD LAB SAME DAY RESULT Final Resul t [facility] [address] [place] [address] * CREATININE WITH GLOMERULAR FILTRATION RATE, ESTIMATED (EGFR) (10/20/2017 9:58 AM EST) Creatinine 0.71 0.50 - 1.10 mg/dL [facility] GFR 109 > OR = 60 mL/min/1.7 3m2 [facility] GFR () 126 > OR = 60 mL/min/1.7 3m2 [facility] 10/20/2017 9:58 AM EST 10/20/2017 5:33 PM EST Narrative [facility] - 10/20/2017 10:02 PM EST Please note that this estimated GFR [...] needs for GFR calculation. Resulting Agency Comment [id number] us Danilo Gates MD LAB SAME DAY RESULT Final Resul t Performing Organization Address City/[facility]/ZIP Co de Phone Number [facility] [address] [place] [address] * ALANINE AMINOTRANSFERASE (ALT), SERUM (10/20/2017 9:58 AM EST) ALT (SGPT) 13 6 - 29 U/L [facility] 10/20/2017 9:58 AM EST 10/20/2017 5:33 PM EST Narrative Resulting Agency Comment [id number] us Danilo Gates MD LAB SAME DAY RESULT Final Resul t Performing Organization Address [facility] Co de Phone Number [facility] [address] [place] [address] documented in this encounter Visit Diagnoses Diagnosis Rheumatoid arthritis involving multiple sites with positive rheumatoid factor (HCC)- Primary Rheumatoid arthritis involving multiple sites with positive rheumatoid factor (HCC) documented in this encounter Care Teams Skimmer Relationship Specialty Start Date End Date Edilberto Harris [address] [address] PCP - General Family Medicine 03/06/11 07/05/18 Eufemia Jett MD [address] [address] PCP - General Geriatrics 10/31/19 documented as of this encounter
--- OUTSIDE RECORDS SUMMARY | 2024-11-01 13:17 | XMS_ITS | Encounter Summary ---
Author Organization [facility] Address [address] [place] [address] Care Team Providers Care Structural Draftsman Name Role Phone Edilberto Harris Primary Care Provider [phone] Eufemia Jett MD Primary Care Provider [phone] Encounter Details Date Type Department Care Team (Late st Contact Info) Description 04/20/2018 [facility] [address] [place] [phone] Danilo Gates MD [address] [place] [address] Social History Tobacco Use Types Packs/Day Years [...] Progress Notes * Danilo Gates MD - 04/25/2018 9:54 PM EDT . documented in this encounter Plan of Treatment Not on file documented as of this encounter Procedures * Due to [place] state law, this organization might not be sharing negative HIV tests. Procedure Name Priority Date/Time Associated Diagnosis Comments C-REACTIVE PROTEIN (CRP) - INFLAMMATION Routine 04/20/2018 10:05 AM EDT Rheumatoid arthritis involving multiple sites with positive rheumatoid factor (HCC) ERYTHROCYTE SEDIMENTATION RATE (ESR) Routine 04/20/2018 10:05 AM EDT Rheumatoid arthritis involving multiple sites with positive rheumatoid factor (HCC) CBC INCLUDES DIFFERENTIAL AND PLATELET COUNT Routine 04/20/2018 10:05 AM EDT Rheumatoid arthritis involving multiple sites, unspecified rheumatoid factor presence (HCC) ALANINE AMINOTRANSFERASE (ALT), SERUM Routine 04/20/2018 10:05 AM EDT Rheumatoid arthritis involving multiple sites, unspecified rheumatoid factor presence (HCC) ASPARTATE AMINOTRANSFERASE (AST), SERUM Routine 04/20/2018 10:05 AM EDT Rheumatoid arthritis involving multiple sites, unspecified rheumatoid factor presence (HCC) CREATINE KINASE (CK), SERUM Routine 04/20/2018 10:05 AM EDT Rheumatoid arthritis involving multiple sites, unspecified rheumatoid factor presence (HCC) documented in this encounter Results * Due to [place] state law, this organization might not be sharing negative HIV tests. * CREATINE KINASE (CK), SERUM (04/20/2018 10:05 AM EDT) CPK 70 29 - 143 U/L [facility] 04/20/2018 10:0 5 AM EDT 04/20/2018 4:24 PM EDT Narrative Resulting Agency Comment [id number] us Danilo Gates MD LAB SAME DAY RESULT Final Resul t [facility] [address] [place] [address] * ALANINE AMINOTRANSFERASE (ALT), SERUM (04/20/2018 10:05 AM EDT) ALT (SGPT) 12 6 - 29 U/L [facility] 04/20/2018 10:0 5 AM EDT 04/20/2018 4:24 PM EDT Narrative Resulting Agency Comment [id number] us Danilo Gates MD LAB SAME DAY RESULT Final Resul t Performing Organization Address City/[facility]/ZIP Co de Phone Number [facility] [address] [place] [address] * ASPARTATE AMINOTRANSFERASE (AST), SERUM (04/20/2018 10:05 AM EDT) AST (SGOT) 18 10 - 30 U/L [facility] 04/20/2018 10:0 5 AM EDT 04/20/2018 4:24 PM EDT Narrative Resulting Agency Comment [id number] Danilo Gates MD LAB SAME DAY RESULT Final Resul t Performing Organization Address [facility] de Phone Number [facility] [address] [place] [address] * CBC INCLUDES DIFFERENTIAL AND PLATELET COUNT (04/20/2018 10:05 AM EDT) Pathologist [facility] WBC 5.5 3.8 - 10.8 Thousand/u L [facility] RBC 4.11 3.80 - 5.10 Million/uL [facility] Hemoglobin 13.1 11.7 - 15.5 g/dL [facility] Hematocrit 38.3 35.0 - 45.0 % [facility] MCV 93.2 80.0 - 100.0 fL [facility] MCH 31.9 27.0 - 33.0 pg [facility] MCHC 34.2 32.0 - 36.0 g/dL [facility] RDW 12.2 11.0 - 15.0 % [facility] PLT 202 140 - 400 Thousand/u L [facility] MPV 11.5 7.5 - 12.5 fL [facility] Neutrophils # 2569 1500 - 7800 cells/uL [facility] Lymphocytes # 2486 850 - 3900 cells/uL [facility] Monocytes # 358 200 - 950 cells/uL [facility] Eosinophils # 61 15 - 500 cells/uL [facility] Basophils # 28 0 - 200 cells/uL [facility] Neutrophils % 46.7 % [facility] Lymphocytes % 45.2 % [facility] Monocytes % 6.5 % [facility] Eosinophils % 1.1 % [facility] Basophils % 0.5 % [facility] 04/20/2018 10:0 5 AM EDT 04/20/2018 4:24 PM EDT Narrative Resulting Agency Comment [id number] us Danilo Gates MD LAB SAME DAY RESULT Final Resul t Performing Organization Address City/[facility]/ZIP Co de Phone Number [facility] [address] [place] [address] * C-REACTIVE PROTEIN (CRP) - INFLAMMATION (04/20/2018 10:05 AM EDT) C reactive protein 4.4 <8.0 mg/L [facility] 04/20/2018 10:0 5 AM EDT 04/20/2018 4:24 PM EDT Narrative Resulting Agency Comment [id number] us Danilo Gates MD LABORATORY Final Result Performing Organization Address [facility] Co de Phone Number [facility] [address] [place] [address] * ERYTHROCYTE SEDIMENTATION RATE (ESR), WESTERGREN (04/20/2018 10:05 AM EDT) Sedimentation Rate [place]ren (ESR) 11 < OR = 20 mm/h [facility] 04/20/2018 10:0 5 AM EDT 04/20/2018 4:24 PM EDT Narrative Resulting Agency Comment [id number] us Danilo Gates MD LAB SAME DAY RESULT Final Resul t Performing Organization Address City/[facility] Co de Phone Number [facility] [address] [place] [address] documented in this encounter Visit Diagnoses Diagnosis Rheumatoid arthritis involving multiple sites with positive rheumatoid factor (HCC) Rheumatoid arthritis involving multiple sites, unspecified rheumatoid factor presence documented in this encounter Care Teams Structural Draftsman Relationship Specialty Start Date End Date Edilberto aHrris 46 [facility] [address] [place] [address] PCP - General Family Medicine 03/06/11 07/05/18 Eufemia Jett MD [facility] [address] [place] [address] PCP - General Geriatrics 10/31/19 documented as of this encounter
--- OUTSIDE RECORDS SUMMARY | 2024-11-01 13:17 | XMS_ITS | Encounter Summary ---
Author Organization [facility] Address [address] [place] [address] Care Team Providers Care Retanner Name Role Phone Edilberto Harris Primary Care Provider [phone] Eufemia Jett MD Primary Care Provider [phone] Encounter Details Date Type Department Care Team (Late st Contact Info) Description 03/07/2012 Orders Only [facility] Rheumatology [address] [place] [phone] Danilo Gates MD [address] [place] [address] Social History Tobacco Use Types Packs/Day Years [...] of this encounter Procedures * Due to [place] state law, this organization might not be sharing negative HIV tests. Procedure Name Priority Date/Time Associated Diagnosis Comments RHEUMATOID ARTHRITIS DIAGNOSTIC PANEL Routine 03/07/2012 5:33 PM EDT Rheumatoid arthritis (HCC) C-REACTIVE PROTEIN (CRP) - INFLAMMATION Routine 03/07/2012 5:33 PM EDT Rheumatoid arthritis (HCC) ERYTHROCYTE SEDIMENTATION RATE (ESR) Routine 03/07/2012 5:33 PM EDT Rheumatoid arthritis (HCC) CBC INCLUDES DIFFERENTIAL AND PLATELET COUNT Routine 03/07/2012 5:33 PM EDT Rheumatoid arthritis (HCC) ALANINE AMINOTRANSFERASE (ALT), SERUM Routine 03/07/2012 5:33 PM EDT Rheumatoid arthritis (HCC) ASPARTATE AMINOTRANSFERASE (AST), SERUM Routine 03/07/2012 5:33 PM EDT Rheumatoid arthritis (HCC) CREATININE WITH GLOMERULAR FILTRATION RATE, ESTIMATED (EGFR) Routine 03/07/2012 5:33 PM EDT Rheumatoid arthritis (HCC) documented in this encounter Results * Due to [place] state law, this organization might not be sharing negative HIV tests. * (ABNORMAL) RHEUMATOID ARTHRITIS DIAGNOSTIC PANEL (03/07/2012 5:33 PM EDT) Rheumatoid Factor (Quant) 17(H) <14 IU/mL [facility] Comment:{RHEUMATOID FACTOR { [id number]) CCP Ab, IgG <16 UNITS [facility] Comment: {CYCLIC CITRULLINATED PEPTIDE (CCP) AB (IGG) {[id number]) Reference Range Negative: ?<20 Weak Positive: ? 20-39 Moderate Positive: ?? 40-59 Strong Positive: ? >59 INTERPRETATION SEE NOTE [facility] Comment: {INTERPRETATION {[id number]) Consistent with rheumatoid arthritis in a patient with polyarthritis. Positive RF and negative anti-CCP, however, are more commonly found in patients with other rheumatic diseases such as systemic lupus erythematosus, scleroderma, primary Sjogren's syndrome, mixed connective tissue disease, polymyositis/dermatomyositis and cryoglobulinemia. These test results may also be found in 5-6% of healthy older individuals. 03/07/2012 5:33 PM EDT 03/07/2012 10:21 PM EDT Narrative Resulting Agency Comment [id number] us Danilo Gates MD LABORATORY Final Result Performing Organization Address [facility] Co de Phone Number [facility] [address] [place] [address] * ERYTHROCYTE SEDIMENTATION RATE (ESR), WESTERGREN (03/07/2012 5:33 PM EDT) Sedimentation Rate Westegren (ESR) 9 < OR = 20 mm/h [facility] Comment:{SED RATE BY MODIFIE D WESTERGREN {[id number]) 03/07/2012 5:33 PM EDT 03/07/2012 10:21 PM EDT Narrative Resulting Agency Comment [id number] us Danilo Gates MD LAB SAME DAY RESULT Final Resul t Performing Organization Address [facility] de Phone Number [facility] [address] [place] [address] * C-REACTIVE PROTEIN (CRP) - INFLAMMATION (03/07/2012 5:33 PM EDT) C reactive protein 0.28 <0.80 mg/dL [facility] Comment: {C-REACTIVE PROTEIN {[id number]) Please be advised that patients taking Carboxypenicillins may exhibit falsely decreased C-Reactive Protein levels due to an analytical interference in this assay. 03/07/2012 5:33 PM EDT 03/07/2012 10:21 PM EDT Narrative Resulting Agency Comment [id number] us Danilo Gates MD LABORATORY Final Result Performing Organization Address [facility] Co de Phone Number [facility] [address] [place] [address] * CREATININE WITH GLOMERULAR FILTRATION RATE, ESTIMATED (EGFR) (03/07/2012 5:33 PM EDT) Creatinine 0.69 0.50 - 1.10 mg/dL [facility] Comment:{CREATININE {[id number]) GFR 116 > OR = 60 mL/min/1.7 3m2 [facility] Comment:{eGFR NON-AFR. AMERI CAN {[id number]) GFR () 134 > OR = 60 mL/min/1.7 3m2 [facility] Comment:{eGFR AMERIC AN {[id number]) 03/07/2012 5:33 PM EDT 03/07/2012 10:21 PM EDT Narrative [facility] - 03/07/2012 11:53 PM EDT Please note that this estimated [...] needs for GFR calculation. Resulting Agency Comment [id number] us Dainlo Gates MD LAB SAME DAY RESULT Final Resul t [facility] [address] [place] [address] * (ABNORMAL) CBC INCLUDES DIFFERENTIAL AND PLATELET COUNT (03/07/2012 5:33 PM EDT) WBC 10.7 3.8 - 10.8 Thousand/ uL [facility] Comment:{WHITE BLOOD CELL CO UNT {[id number]) RBC 3.68(L) 3.80 - 5.10 Million/u L [facility] Comment:{RED BLOOD CELL COUN T {[id number]) Hemoglobin 12.3 11.7 - 15.5 g/dL [facility] Comment:{HEMOGLOBIN {[id number]) Hematocrit 36.0 35.0 - 45.0 % [facility] Comment:{HEMATOCRIT {[id number]) MCV 97.7 80.0 - 100.0 fL [facility] Comment:{MCV {[id number]) MCH 33.3(H) 27.0 - 33.0 pg [facility] Comment:{MCH {[id number]) MCHC 34.1 32.0 - 36.0 g/dL [facility] Comment:{MCHC {[id number]) RDW 13.9 11.0 - 15.0 % [facility] Comment:{RDW {[id number]) PLT 194 140 - 400 Thousand/ uL [facility] Comment:{PLATELET COUNT {[id number]) MPV 10.2 7.5 - 11.5 fL [facility] Comment:{MPV {[id number]) Neutrophils # 8218(H) 1500 - 7800 cells/uL [facility] Comment:{ABSOLUTE NEUTROPHIL S {[id number]) Lymphocytes # 2001 850 - 3900 cells/uL [facility] Comment:{ABSOLUTE LYMPHOCYTE S {[id number]) Monocytes # 407 200 - 950 cells/uL [facility] Comment:{ABSOLUTE MONOCYTES {[id number]) Eosinophils # 32 15 - 500 cells/uL [facility] Comment:{ABSOLUTE EOSINOPHIL S {[id number]) Basophils # 43 0 - 200 cells/uL [facility] Comment:{ABSOLUTE BASOPHILS {[id number]) Neutrophils % 76.8 % [facility] Comment:{NEUTROPHILS {[id number]) Lymphocytes % 18.7 % [facility] Comment:{LYMPHOCYTES {[id number]) Monocytes % 3.8 % [facility] Comment:{MONOCYTES {[id number]) Eosinophils % 0.3 % [facility] Comment:{EOSINOPHILS {[id number]) Basophils % 0.4 % [facility] Comment:{BASOPHILS {[id number]) 03/07/2012 5:33 PM EDT 03/07/2012 10:21 PM EDT Narrative Resulting Agency Comment [id number] us Danilo Gates MD LAB SAME DAY RESULT Final Resul t [facility] [address] [place] [address] * ASPARTATE AMINOTRANSFERASE (AST), SERUM (03/07/2012 5:33 PM EDT) AST (SGOT) 17 10 - 30 U/L [facility] Comment:{AST {[id number]) 03/07/2012 5:33 PM EDT 03/07/2012 10:21 PM EDT Narrative Resulting Agency Comment [id number] us Danilo Gates MD LAB SAME DAY RESULT Final Resul t [facility] [address] [place] [address] * ALANINE AMINOTRANSFERASE (ALT), SERUM (03/07/2012 5:33 PM EDT) ALT (SGPT) 11 6 - 40 U/L [facility] Comment:{ALT {[id number]) 03/07/2012 5:33 PM EDT 03/07/2012 10:21 PM EDT Narrative Resulting Agency Comment [id number] us Danilo Gates MD LAB SAME DAY RESULT Final Resul t Performing Organization Address City/[facility] Co de Phone Number [facility] [address] [place] [address] documented in this encounter Visit Diagnoses Diagnosis Rheumatoid arthritis(714.0) Rheumatoid arthritis documented in this encounter Care Teams Retanner Relationship Specialty Start Date End Date Edilberto Harris [address] [facility] [address] [place] [address] PCP - General Family Medicine 03/06/11 07/05/18 Eufemia Jett MD [facility] [address] [place] [address] PCP - General Geriatrics 10/31/19 documented as of this encounter
--- OUTSIDE RECORDS SUMMARY | 2024-11-01 13:17 | XMS_ITS | Encounter Summary ---
Author Organization [facility] Address [address] [place] [address] Care Team Providers Care Storage Specialist Name Role Phone Eufemia Jett MD Primary Care Provider [phone] Encounter Details Date Type Department Care Team (Late st Contact Info) Description 08/29/2018 Orders Only [facility] [address] [place] [phone] Karissa Velasquez MD [address] [place] [phone] Social History Tobacco Use Types Packs/Day Years [...] of this encounter Results * Due to [place] state law, this organization might not be sharing negative HIV tests. * (ABNORMAL) C-REACTIVE PROTEIN (CRP) - INFLAMMATION (03/10/2019 9:09 AM EDT) C reactive protein 9.2(H) <8.0 mg/L [facility] 03/10/2019 9:09 AM EDT 03/10/2019 11:12 AM EDT Narrative Resulting Agency Comment [id number] us Karissa Velasquez MD LABORATORY Final Result Performing Organization Address City/[facility]/ZIP Co de Phone Number [facility] [address] [place] [address] * ERYTHROCYTE SEDIMENTATION RATE (ESR), WESTERGREN (03/10/2019 9:09 AM EDT) Sedimentation Rate Westegren (ESR) 19 < OR = 20 mm/h [facility] 03/10/2019 9:09 AM EDT 03/10/2019 11:12 AM EDT Narrative Resulting Agency Comment [id number] us Karissa Velasquez MD LAB SAME DAY RESULT Final Result Performing Organization Address [facility] de Phone Number [facility] [address] [place] [address] * CREATININE WITH GLOMERULAR FILTRATION RATE, ESTIMATED [...] needs for GFR calculation. Resulting Agency Comment [id number] us Karissa Velasquez MD LAB SAME DAY RESULT Final Result Performing Organization Address [facility] Co de Phone Number [facility] [address] [place] [address] * ALANINE AMINOTRANSFERASE (ALT), SERUM (03/10/2019 9:09 AM EDT) ALT (SGPT) 12 6 - 29 U/L [facility] 03/10/2019 9:09 AM EDT 03/10/2019 11:12 AM EDT Narrative Resulting Agency Comment [id number] us Karissa Velasquez MD LAB SAME DAY RESULT Final Result Performing Organization Address City/[facility]/ZIP Co de Phone Number [facility] [address] [place] [address] * ASPARTATE AMINOTRANSFERASE (AST), SERUM (03/10/2019 9:09 AM EDT) Pathologist [facility] AST (SGOT) 16 10 - 30 U/L [facility] 03/10/2019 9:09 AM EDT 03/10/2019 11:12 AM EDT Narrative Resulting Agency Comment [id number] Karissa Velasquez MD LAB SAME DAY RESULT Final Result Performing Organization Address [facility] de Phone Number [facility] [address] [place] [address] * CBC INCLUDES DIFFERENTIAL AND PLATELET COUNT (03/10/2019 9:09 AM EDT) Pathologist [facility] WBC 5.9 3.8 - 10.8 Thousand/u L [...] 11:12 AM EDT Narrative Resulting Agency Comment [id number] us Karissa Velasquez MD LAB SAME DAY RESULT Final Result [facility] [address] [place] [address] documented in this encounter Visit Diagnoses Diagnosis Rheumatoid arthritis involving multiple sites with positive rheumatoid factor (HCC) Rheumatoid arthritis involving multiple sites with positive rheumatoid factor (HCC) documented in this encounter Care Teams Storage Specialist Relationship Specialty Start Date [place] [address] PCP - General Geriatrics 10/31/19 documented as of this encounter
--- OUTSIDE RECORDS SUMMARY | 2024-11-01 13:17 | XMS_ITS | Encounter Summary ---
Author Organization [facility] Address [address] [place] [address] Care Team Providers Care Shift Production Supervisor Name Role Phone Edilberto Harris Primary Care Provider [phone] Eufemia Jett MD Primary Care Provider [phone] Encounter Details Date Type Department Care Team (Late st Contact Info) Description 11/14/[address] [facility] Rheumatology [address] [place] [address] Danilo Gates MD [address] [place] [address] Social History Tobacco Use Types Packs/Day Years [...] of this encounter Procedures * Due to [place] state law, this organization might not be sharing negative HIV tests. Procedure Name Priority Date/Time Associated Diagnosis Comments C-REACTIVE PROTEIN (CRP) - INFLAMMATION Routine 11/14/2012 5:21 PM EDT Rheumatoid arthritis (HCC) ERYTHROCYTE SEDIMENTATION RATE (ESR) Routine 11/14/2012 5:21 PM EDT Rheumatoid arthritis (HCC) CBC INCLUDES DIFFERENTIAL AND PLATELET COUNT Routine 11/14/2012 5:21 PM EDT Rheumatoid arthritis (HCC) ALANINE AMINOTRANSFERASE (ALT), SERUM Routine 11/14/2012 5:21 PM EDT Rheumatoid arthritis (HCC) ASPARTATE AMINOTRANSFERASE (AST), SERUM Routine 11/14/2012 5:21 PM EDT Rheumatoid arthritis (HCC) CREATININE WITH GLOMERULAR FILTRATION RATE, ESTIMATED (EGFR) Routine 11/14/2012 5:21 PM EDT Rheumatoid arthritis (HCC) documented in this encounter Results * Due to [place] state law, this organization might not be sharing negative HIV tests. * ERYTHROCYTE SEDIMENTATION RATE (ESR), THIAGOERGREN (11/14/2012 5:21 PM EDT) Sedimentation Rate Westegren (ESR) 8 < OR = 20 mm/h [facility] Comment:{SED RATE BY GAVI ANDRE {[id number]) 11/14/2012 5:21 PM EDT 11/14/2012 10:59 PM EDT Narrative Resulting Agency Comment [id number] us Danilo Gates MD LAB SAME DAY RESULT Final Resul t Performing Organization Address [facility] de Phone Number [facility] [address] [place] [address] * C-REACTIVE PROTEIN (CRP) - INFLAMMATION (11/14/2012 5:21 PM EDT) C reactive protein 0.24 <0.80 mg/dL [facility] Comment: {C-REACTIVE PROTEIN {[id number]) Please be advised that patients taking Carboxypenicillins may exhibit falsely decreased C-Reactive Protein levels due to an analytical interference in this assay. 11/14/2012 5:21 PM EDT 11/14/2012 10:59 PM EDT Narrative Resulting Agency Comment [id number] us Danilo Gates MD LABORATORY Final Result Performing Organization Address City/[facility] Co de Phone Number [facility] [address] [place] [address] * CREATININE WITH GLOMERULAR FILTRATION RATE, ESTIMATED (EGFR) (11/14/2012 5:21 PM EDT) Pathologist [facility] Creatinine 0.79 0.50 - 1.10 mg/dL [facility] Comment:{CREATININE {[id number]) GFR 99 > OR = 60 mL/min/1.7 3m2 [facility] Comment:{eGFR NON-AFR. AMERI CAN {[id number]) GFR () 115 > OR = 60 mL/min/1.7 3m2 [facility] Comment:{eGFR AMERIC AN {[id number]) 11/14/2012 5:21 PM EDT 11/14/2012 10:59 PM EDT Narrative [facility] - 11/15/2012 3:25 AM EDT Please note that this estimated [...] needs for GFR calculation. Resulting Agency Comment [id number] us Danilo Gates MD LAB SAME DAY RESULT Final Resul t [facility] [address] [place] [address] * (ABNORMAL) CBC INCLUDES DIFFERENTIAL AND PLATELET COUNT (11/14/2012 5:21 PM EDT) Pathologist [facility] WBC 6.6 3.8 - 10.8 Thousand/ uL [facility] Comment:{WHITE BLOOD CELL CO UNT {[id number]) RBC 3.69(L) 3.80 - 5.10 Million/u L [facility] Comment:{RED BLOOD CELL COUN T {[id number]) Hemoglobin 11.6(L) 11.7 - 15.5 g/dL [facility] Comment:{HEMOGLOBIN {[id number]) Hematocrit 35.4 35.0 - 45.0 % [facility] Comment:{HEMATOCRIT {[id number]) MCV 96.1 80.0 - 100.0 fL [facility] Comment:{MCV {[id number]) MCH 31.5 27.0 - 33.0 pg [facility] Comment:{MCH {[id number]) MCHC 32.7 32.0 - 36.0 g/dL [facility] Comment:{MCHC {[id number]) RDW 13.1 11.0 - 15.0 % [facility] Comment:{RDW {[id number]) PLT 184 140 - 400 Thousand/ uL [facility] Comment:{PLATELET COUNT {[id number]) MPV 10.7 7.5 - 11.5 fL [facility] Comment:{MPV {[id number]) Neutrophils # 2878 1500 - 7800 cells/uL [facility] Comment:{ABSOLUTE NEUTROPHIL S {[id number]) Lymphocytes # 3194 850 - 3900 cells/uL [facility] Comment:{ABSOLUTE LYMPHOCYTE S {[id number]) Monocytes # 422 200 - 950 cells/uL [facility] Comment:{ABSOLUTE MONOCYTES {[id number]) Eosinophils # 79 15 - 500 cells/uL [facility] Comment:{ABSOLUTE EOSINOPHIL S {[id number]) Basophils # 26 0 - 200 cells/uL [facility] Comment:{ABSOLUTE BASOPHILS {[id number]) Neutrophils % 43.6 % [facility] Comment:{NEUTROPHILS {[id number]) Lymphocytes % 48.4 % [facility] Comment:{LYMPHOCYTES {[id number]) Monocytes % 6.4 % [facility] Comment:{MONOCYTES {[id number]) Eosinophils % 1.2 % [facility] Comment:{EOSINOPHILS {[id number]) Basophils % 0.4 % [facility] Comment:{BASOPHILS {[id number]) 11/14/2012 5:21 PM EDT 11/14/2012 10:59 PM EDT Narrative Resulting Agency Comment [id number] us Danilo Gates MD LAB SAME DAY RESULT Final Resul t [facility] [address] [place] [address] * ASPARTATE AMINOTRANSFERASE (AST), SERUM (11/14/2012 5:21 PM EDT) AST (SGOT) 18 10 - 30 U/L [facility] Comment:{AST {[id number]) 11/14/2012 5:21 PM EDT 11/14/2012 10:59 PM EDT Narrative Resulting Agency Comment [id number] us Danilo Gates MD LAB SAME DAY RESULT Final Resul t Performing Organization Address [facility] Co de Phone Number [facility] [address] [place] [address] * ALANINE AMINOTRANSFERASE (ALT), SERUM (11/14/2012 5:21 PM EDT) ALT (SGPT) 12 6 - 40 U/L [facility] Comment:{ALT {[id number]) 11/14/2012 5:21 PM EDT 11/14/2012 10:59 PM EDT Narrative Resulting Agency Comment [id number] us Danilo Gates MD LAB SAME DAY RESULT Final Resul t Performing Organization Address [facility] Co de Phone Number [facility] [address] [place] [address] documented in this encounter Visit Diagnoses Diagnosis Rheumatoid arthritis(714.0) Rheumatoid arthritis documented in this encounter Care Teams Shift Production Supervisor Relationship Specialty Start Date End Date Edilberto Harris [address] [facility] [address] [place] [address] PCP - General Family Medicine 03/06/11 07/05/18 Eufemia Jett MD [address] [address] PCP - General Geriatrics 10/31/19 documented as of this encounter
--- OUTSIDE RECORDS SUMMARY | 2024-11-01 13:17 | XMS_ITS | Encounter Summary ---
Author Organization [facility] Address [address] [place] [address] Care Team Providers Care Triple Air Valve Tester Name Role Phone Eufemia Jett MD Primary Care Provider [phone] Encounter Details Date Type Department Care Team (Late st Contact Info) Description 08/24/2018 Orders Only [facility] [address] [place] [phone] Danilo Gates MD [address] [place] [phone] Social History Tobacco Use Types Packs/Day Years [...] as of this encounter Progress Notes * Megan Ashford - 08/26/2018 10:08 AM EST . * Danilo Gates MD - 08/25/2018 5:04 PM EST . documented in this encounter Plan of Treatment Not on file documented as of this encounter Procedures * Due to [place] state law, this organization might not be sharing negative HIV tests. Procedure Name Priority Date/Time Associated Diagnosis Comments RHEUMATOID FACTOR, SERUM Routine 018 10:28 AM EST Rheumatoid arthritis involving multiple sites with positive rheumatoid factor (HCC) CBC INCLUDES DIFFERENTIAL AND PLATELET COUNT Routine 08/24/2018 10:28 AM EST Rheumatoid arthritis involving multiple sites with positive rheumatoid factor (HCC) ALANINE AMINOTRANSFERASE (ALT), SERUM Routine 08/24/2018 10:28 AM EST Rheumatoid arthritis involving multiple sites with positive rheumatoid factor (HCC) ASPARTATE AMINOTRANSFERASE (AST), SERUM Routine 08/24/2018 10:28 AM EST Rheumatoid arthritis involving multiple sites with positive rheumatoid factor (HCC) CREATININE WITH GLOMERULAR FILTRATION RATE, ESTIMATED (EGFR) Routine 08/24/2018 10:28 AM EST Rheumatoid arthritis involving multiple sites with positive rheumatoid factor (HCC) documented in this encounter Results * Due to [place] [employer] law, this organization might not be sharing negative HIV tests. * (ABNORMAL) RHEUMATOID FACTOR, SERUM (08/24/2018 10:28 AM EST) Rheumatoid Factor (Quant) 16(H) <14 IU/mL [facility] 08/24/2018 10:2 8 AM EST 08/24/2018 7:23 PM EST Narrative Resulting Agency Comment [id number] Danilo Gates MD LABORATORY Final Result Performing Organization Address City/State/[facility] Co de Phone Number [facility] [address] [place] [address] * CREATININE WITH GLOMERULAR FILTRATION RATE, ESTIMATED (EGFR) (08/24/2018 10:28 AM EST) Creatinine 0.64 0.50 - 1.10 mg/dL [facility] GFR 113 > OR = 60 mL/min/1.7 3m2 [facility] GFR () 131 > OR = 60 mL/min/1.7 3m2 [facility] 08/24/2018 10:2 8 AM EST 08/24/2018 7:23 PM EST Narrative [facility] - 08/24/2018 10:13 PM EST Please note that this estimated [...] needs for GFR calculation. Resulting Agency Comment [id number] us Danilo Gates MD LAB SAME DAY RESULT Final Resul t Performing Organization Address [facility] de Phone Number [facility] [address] [place] [address] * ALANINE AMINOTRANSFERASE (ALT), SERUM (08/24/2018 10:28 AM EST) ALT (SGPT) 15 6 - 29 U/L [facility] 08/24/2018 10:2 8 AM EST 08/24/2018 7:23 PM EST Narrative Resulting Agency Comment [id number] us Danilo Gates MD LAB SAME DAY RESULT Final Resul t Performing Organization Address [facility] Phone Number [facility] [address] [place] [address] * ASPARTATE AMINOTRANSFERASE (AST), SERUM (08/24/2018 10:28 AM EST) AST (SGOT) 19 10 - 30 U/L [facility] 08/24/2018 10:2 8 AM EST 08/24/2018 7:23 PM EST Narrative Resulting Agency Comment [id number] us Danilo Gates MD LAB SAME DAY RESULT Final Resul t Performing Organization Address [facility] de Phone Number [facility] [address] [place] [address] * CBC INCLUDES DIFFERENTIAL AND PLATELET COUNT (08/24/2018 10:28 AM EST) WBC 6.9 3.8 - 10.8 Thousand/u L [facility] RBC 4.21 3.80 - 5.10 Million/uL [facility] Hemoglobin 13.3 11.7 - 15.5 g/dL [facility] Hematocrit 38.6 35.0 - 45.0 % [facility] MCV 91.7 80.0 - 100.0 fL [facility] MCH 31.6 27.0 - 33.0 pg [facility] MCHC 34.5 32.0 - 36.0 g/dL [facility] RDW 12.1 11.0 - 15.0 % [facility] PLT 245 140 - 400 Thousand/u L [facility] MPV 11.5 7.5 - 12.5 fL [facility] Neutrophils # 4085 1500 - 7800 cells/uL [facility] Lymphocytes # 2084 850 - 3900 cells/uL [facility] Monocytes # 635 200 - 950 cells/uL [facility] Eosinophils # 48 15 - 500 cells/uL [facility] Basophils # 48 0 - 200 cells/uL [facility] Neutrophils % 59.2 % [facility] Lymphocytes % 30.2 % [facility] Monocytes % 9.2 % [facility] Eosinophils % 0.7 % [facility] Basophils % 0.7 % [facility] 08/24/2018 10:2 8 AM EST 08/24/2018 7:23 PM EST Narrative Resulting Agency Comment [id number] us Danilo Gates MD LAB SAME DAY RESULT Final Resul t Performing Organization Address City/State/[facility] Co de Phone Number [facility] [address] [place] [address] documented in this encounter Visit Diagnoses Diagnosis Rheumatoid arthritis involving multiple sites with positive rheumatoid factor (HCC) documented in this encounter Care Teams Triple Air Valve Tester Relationship Specialty Start Date End Date Eufemia Jett MD [address] [address] PCP - General Geriatrics 10/31/19 documented as of this encounter
--- OUTSIDE RECORDS SUMMARY | 2024-11-01 13:17 | XMS_ITS | Encounter Summary ---
Author Organization [facility] Address [address] [place] [address] Care Team Providers Care Assembler Corncob Pipes Name Role Phone Edilberto Harris Primary Care Provider [phone] Eufemia Jett MD Primary Care Provider [phone] Encounter Details Date Type Department Care Team (Late st Contact Info) Description 11/09/2011 Orders Only [facility] Rheumatology [address] [place] [address] Danilo Gates MD [address] [place] [address] Social History Tobacco Use Types Packs/Day Years [...] of this encounter Procedures * Due to [place] state law, this organization might not be sharing negative HIV tests. Procedure Name Priority Date/Time Associated Diagnosis Comments HEPATITIS B SURFACE ANTIGEN Routine 11/09/2011 3:52 PM EST Rheumatoid arthritis (HCC) HEPATITIS C AB WITH REFLEX TO RNA PCR, SERUM Routine 11/09/2011 3:52 PM EST Rheumatoid arthritis (HCC) C-REACTIVE PROTEIN (CRP) - INFLAMMATION Routine 11/09/2011 3:52 PM EST Rheumatoid arthritis (HCC) ERYTHROCYTE SEDIMENTATION RATE (ESR) Routine 11/09/2011 3:52 PM EST Rheumatoid arthritis (HCC) CBC INCLUDES DIFFERENTIAL AND PLATELET COUNT Routine 11/09/2011 3:52 PM EST Rheumatoid arthritis (HCC) ALANINE AMINOTRANSFERASE (ALT), SERUM Routine 11/09/2011 3:52 PM EST Rheumatoid arthritis (HCC) ASPARTATE AMINOTRANSFERASE (AST), SERUM Routine 11/09/2011 3:52 PM EST Rheumatoid arthritis (HCC) CREATININE WITH GLOMERULAR FILTRATION RATE, ESTIMATED (EGFR) Routine 11/09/2011 3:52 PM EST Rheumatoid arthritis (HCC) documented in this encounter Results * Due to [place] state law, this organization might not be sharing negative HIV tests. * HEPATITIS C ANTIBODY, SERUM (11/09/2011 3:52 PM EST) Hepatitis C virus Ab NON-REACTI VE NON-REACT CATHY [facility] Comment:{HEPATITIS C ANTIBOD Y {[id number]) Hepatitis C virus Ab Signal/Cutoff 0.10 <1.00 [facility] Comment:{SIGNAL TO CUT-OFF { [id number]) 11/09/2011 3:52 PM EST 11/09/2011 9:41 PM EST Narrative Resulting Agency Comment [id number] us Danilo Gates MD LABORATORY Final Result [facility] [address] [place] [address] * HEPATITIS B SURFACE ANTIGEN (11/09/2011 3:52 PM EST) Hepatitis B virus surface Ag NON-REACTI VE NON-REACT CATHY [facility] Comment:{HEPATITIS B SURFACE ANTIGEN {[id number]) 11/09/2011 3:52 PM EST 11/09/2011 9:41 PM EST Narrative Resulting Agency Comment [id number] Danilo Gates MD LABORATORY Final Result Performing Organization Address [facility] de Phone Number [facility] [address] [place] [address] * ERYTHROCYTE SEDIMENTATION RATE (ESR), WESTERGREN (11/09/2011 3:52 PM EST) Sedimentation Rate [place]ren (ESR) 11 < OR = 20 mm/h [facility] Comment:{SED RATE BY GAVI MOSQUEDAREN {[id number]) 11/09/2011 3:52 PM EST 11/09/2011 9:41 PM EST Narrative Resulting Agency Comment [id number] Danilo Gates MD LAB SAME DAY RESULT Final Resul t Performing Organization Address [facility] Phone Number [facility] [address] [place] [address] * C-REACTIVE PROTEIN (CRP) - INFLAMMATION (11/09/2011 3:52 PM EST) C reactive protein 0.28 <0.80 mg/dL [facility] Comment: {C-REACTIVE PROTEIN {[id number]) Please be advised that patients taking Carboxypenicillins may exhibit falsely decreased C-Reactive Protein levels due to an analytical interference in this assay. 11/09/2011 3:52 PM EST 11/09/2011 9:41 PM EST Narrative Resulting Agency Comment [id number] Danilo Gates MD LABORATORY Final Result Performing Organization Address [facility] Co de Phone Number [facility] [address] [place] [address] * CREATININE WITH GLOMERULAR FILTRATION RATE, ESTIMATED (EGFR) (11/09/2011 3:52 PM EST) Creatinine 0.70 0.50 - 1.10 mg/dL [facility] Comment:{CREATININE {[id number]) GFR 115 > OR = 60 mL/min/1.7 3m2 [facility] Comment:{eGFR NON-AFR. AMERI CAN {[id number]) GFR () 134 > OR = 60 mL/min/1.7 3m2 [facility] Comment:{eGFR AMERIC AN {[id number]) 11/09/2011 3:52 PM EST 11/09/2011 9:41 PM EST Narrative [facility] - 11/10/2011 12:09 AM EST Please note that this estimated [...] needs for GFR calculation. Resulting Agency Comment [id number] us Danilo Gates MD LAB SAME DAY RESULT Final Resul t [facility] [address] [place] [address] * CBC INCLUDES DIFFERENTIAL AND PLATELET COUNT (11/09/2011 3:52 PM EST) WBC 5.7 3.8 - 10.8 Thousand/u L [facility] Comment:{WHITE BLOOD CELL CO UNT {[id number]) RBC 4.12 3.80 - 5.10 Million/uL [facility] Comment:{RED BLOOD CELL COUN T {[id number]) Hemoglobin 13.1 11.7 - 15.5 g/dL [facility] Comment:{HEMOGLOBIN {[id number]) Hematocrit 38.0 35.0 - 45.0 % [facility] Comment:{HEMATOCRIT {[id number]) MCV 92.1 80.0 - 100.0 fL [facility] Comment:{MCV {[id number]) MCH 31.9 27.0 - 33.0 pg [facility] Comment:{MCH {[id number]) MCHC 34.6 32.0 - 36.0 g/dL [facility] Comment:{MCHC {[id number]) RDW 12.3 11.0 - 15.0 % [facility] Comment:{RDW {[id number]) PLT 182 140 - 400 Thousand/u L [facility] Comment:{PLATELET COUNT {[id number]) MPV 10.5 7.5 - 11.5 fL [facility] Comment:{MPV {[id number]) Neutrophils # 2702 1500 - 7800 cells/uL [facility] Comment:{ABSOLUTE NEUTROPHIL S {[id number]) Lymphocytes # 2571 850 - 3900 cells/uL [facility] Comment:{ABSOLUTE LYMPHOCYTE S {[id number]) Monocytes # 279 200 - 950 cells/uL [facility] Comment:{ABSOLUTE MONOCYTES {[id number]) Eosinophils # 120 15 - 500 cells/uL [facility] Comment:{ABSOLUTE EOSINOPHIL S {[id number]) Basophils # 29 0 - 200 cells/uL [facility] Comment:{ABSOLUTE BASOPHILS {[id number]) Neutrophils % 47.4 % [facility] Comment:{NEUTROPHILS {[id number]) Lymphocytes % 45.1 % [facility] Comment:{LYMPHOCYTES {[id number]) Monocytes % 4.9 % [facility] Comment:{MONOCYTES {[id number]) Eosinophils % 2.1 % [facility] Comment:{EOSINOPHILS {[id number]) Basophils % 0.5 % [facility] Comment:{BASOPHILS {[id number]) 11/09/2011 3:52 PM EST 11/09/2011 9:41 PM EST Narrative Resulting Agency Comment [id number] us Danilo Gates MD LAB SAME DAY RESULT Final Resul t [facility] [address] [place] [address] * ASPARTATE AMINOTRANSFERASE (AST), SERUM (11/09/2011 3:52 PM EST) AST (SGOT) 17 10 - 30 U/L [facility] Comment:{AST {[id number]) 11/09/2011 3:52 PM EST 11/09/2011 9:41 PM EST Narrative Resulting Agency Comment [id number] us Danilo Gates MD LAB SAME DAY RESULT Final Resul t [facility] [address] [place] [address] * ALANINE AMINOTRANSFERASE (ALT), SERUM (11/09/2011 3:52 PM EST) ALT (SGPT) 9 6 - 40 U/L [facility] Comment:{ALT {[id number]) 11/09/2011 3:52 PM EST 11/09/2011 9:41 PM EST Narrative Resulting Agency Comment [id number] us Danilo Gates MD LAB SAME DAY RESULT Final Resul t Performing Organization Address City/[facility] Co de Phone Number [facility] [address] [place] [address] documented in this encounter Visit Diagnoses Diagnosis Rheumatoid arthritis(714.0) Rheumatoid arthritis documented in this encounter Care Teams Assembler Corncob Pipes Relationship Specialty Start Date End Date Edilberto Harris [address] [facility] [address] [place] [address] PCP - General Family Medicine 03/06/11 07/05/18 Eufemia Jett MD [facility] [address] [place] [address] PCP - General Geriatrics 10/31/19 documented as of this encounter
--- OUTSIDE RECORDS SUMMARY | 2024-11-01 13:17 | XMS_ITS | Encounter Summary ---
Author Organization [facility] Address [address] [place] [address] Care Team Providers Care Nuclear Reactor Technician Name Role Phone Eufemia Jett MD Primary Care Provider [phone] Encounter Details Date Type Department Care Team ([facility] st Contact Info) Description 07/05/2019 Orders Only [facility] [address] [place] [phone] Karissa Velasquez MD [address] [place] [address] Social History Tobacco Use Types Packs/Day Years [...] of this encounter Procedures * Due to [place] state law, this organization might not be sharing negative HIV tests. Procedure Name Priority Date/Time Associated Diagnosis Comments QUANTIFERON-TB GOLD Routine 07/05/2019 1 1:28 AM EDT Rheumatoid arthritis involving multiple sites with positive rheumatoid factor (HCC) [M05.79] VENIPUNCTURE Routine 07/05/2019 11:28 AM EDT Rheumatoid arthritis involving multiple sites with positive rheumatoid factor (HCC) [M05.79] C-REACTIVE PROTEIN (CRP) - INFLAMMATION Routine 07/05/2019 11:28 AM EDT Rheumatoid arthritis involving multiple sites with positive rheumatoid factor (HCC) [M05.79] ERYTHROCYTE SEDIMENTATION RATE (ESR) Routine 07/05/2019 11:28 AM EDT Rheumatoid arthritis involving multiple sites with positive rheumatoid factor (HCC) [M05.79] CBC INCLUDES DIFFERENTIAL AND PLATELET COUNT Routine 07/05/2019 11:28 AM EDT Rheumatoid arthritis involving multiple sites with positive rheumatoid factor (HCC) [M05.79] COMPREHENSIVE METABOLIC PANEL WITH GFR Routine 07/05/2019 11:28 AM EDT Rheumatoid arthritis involving multiple sites with positive rheumatoid factor (HCC) [M05.79] documented in this encounter Results * Due to [place] state law, this organization might not be sharing negative HIV tests. * QUANTIFERON-TB GOLD (07/05/2019 11:28 AM EDT) [facility] Quantiferon(R)-TB Gold Plus NEGATIVE NEGATIVE [facility] Comment: Negative test result. M. tuberculosis complex infection unlikely. NIL 0.03 IU/mL [facility] MITOGEN-NIL 2.44 IU/mL [facility] Mycobacterium tuberculosis tuberculin stimulated gamma interferon^correc nain for background 0.00 IU/mL [facility] TB2-NIL 0.00 IU/mL [facility] Comment: The Nil tube value reflects the background interferon gamma immune response of the patient's blood sample. This value has been subtracted from the patient's displayed TB and Mitogen results. Lower than expected results with the Mitogen tube prevent false-negative Quantiferon readings by detecting a patient with a potential immune suppressive condition and/or suboptimal pre-analytical specimen handling. The TB1 Antigen tube is coated with the M. tuberculosis-specific antigens designed to elicit responses from TB antigen primed CD4+ helper T-lymphocytes. The TB2 Antigen tube is coated with the M. tuberculosis-specific antigens designed to elicit responses from TB antigen primed CD4+ helper and CD8+ cytotoxic T-lymphocytes. For additional information, please refer to https://education.Advestigo.Fwd: Power/faq/HFR068 (This link is being provided for informational/ educational purposes only.) 07/05/2019 11:2 8 AM EDT 07/05/2019 3:00 PM EDT Narrative Resulting Agency Comment [id number] us Karissa Velasquez MD LABORATORY Final Result Performing Organization Address [facility] Co de Phone Number [facility] [address] [place] [address] * ERYTHROCYTE SEDIMENTATION RATE (ESR), WESTERGREN (07/05/2019 11:28 AM EDT) Sedimentation Rate West[place]ren (ESR) 17 < OR = 20 mm/h [facility] 07/05/2019 11:2 8 AM EDT 07/05/2019 3:00 PM EDT Narrative Resulting Agency Comment [id number] us Karissa Velasquez MD LAB SAME DAY RESULT Final Result Performing Organization Address [facility] de Phone Number [facility] [address] [place] [address] * C-REACTIVE PROTEIN (CRP) - INFLAMMATION (07/05/2019 11:28 AM EDT) C reactive protein 6.2 <8.0 mg/L [facility] 07/05/2019 11:2 8 AM EDT 07/05/2019 3:00 PM EDT Narrative Resulting Agency Comment [id number] us Karissa Velasquez MD LABORATORY Final Result Performing Organization Address [facility] de Phone Number [facility] [address] [place] [address] * COMPREHENSIVE METABOLIC PANEL WITH GFR (07/05/2019 11:28 AM EDT) Glucose 96 65 - 99 mg/dL [facility] Comment:Fasting reference in terval Urea Nitrogen Blood (BUN) 12 7 - 25 mg/dL [facility] Creatinine 0.78 0.50 - 1.10 mg/dL [facility] EGFR 96 > OR = 60 mL/min/1 .73m2 [facility] GFR () 111 > OR = 60 mL/min/1 .73m2 [facility] BUN/Creatinine Ratio NOT APPLICABLE 6 - 22 (calc) [facility] Sodium 139 135 - 146 mmol/L [facility] Potassium 4.5 3.5 - 5.3 mmol/L [facility] Chloride 102 98 - 110 mmol/L [facility] Carbon dioxide 31 20 - 32 mmol/L [facility] Calcium 9.6 8.6 - 10.2 mg/dL [facility] Protein Total (Serum) 6.9 6.1 - 8.1 g/dL [facility] Albumin 4.0 3.6 - 5.1 g/dL [facility] Globulin 2.9 1.9 - 3.7 g/dL (calc) [facility] Albumin/Globuli n 1.4 1.0 - 2.5 (calc) [facility] Bilirubin Total 0.3 0.2 - 1.2 mg/dL [facility] Alkaline phosphatase 52 33 - 115 U/L [facility] AST (SGOT) 15 10 - 30 U/L [facility] ALT (SGPT) 9 6 - 29 U/L [facility] 07/05/2019 11:2 8 AM EDT 07/05/2019 3:00 PM EDT Narrative [facility] - 07/06/2019 1:59 AM EDT Please note that this estimated [...] needs for GFR calculation. Resulting Agency Comment [id number] Karissa Velasquez MD LABORATORY Final Result Performing Organization Address City/State/[facility] Co de Phone Number [facility] [address] [place] [address] * CBC INCLUDES DIFFERENTIAL AND PLATELET COUNT (07/05/2019 11:28 AM EDT) WBC 6.6 3.8 - 10.8 Thousand/u L [facility] RBC 4.13 3.80 - 5.10 Million/uL [facility] Hemoglobin 12.8 11.7 - 15.5 g/dL [facility] Hematocrit 38.1 35.0 - 45.0 % [facility] MCV 92.3 80.0 - 100.0 fL [facility] MCH 31.0 27.0 - 33.0 pg [facility] MCHC 33.6 32.0 - 36.0 g/dL [facility] RDW 12.7 11.0 - 15.0 % [facility] PLT 229 140 - 400 Thousand/u L [facility] MPV 11.3 7.5 - 12.5 fL [facility] Neutrophils # 3538 1500 - 7800 cells/uL [facility] Lymphocytes # 2475 850 - 3900 cells/uL [facility] Monocytes # 482 200 - 950 cells/uL [facility] Eosinophils # 73 15 - 500 cells/uL [facility] Basophils # 33 0 - 200 cells/uL [facility] Neutrophils % 53.6 % [facility] Lymphocytes % 37.5 % [facility] Monocytes % 7.3 % [facility] Eosinophils % 1.1 % [facility] Basophils % 0.5 % [facility] 07/05/2019 11:2 8 AM EDT 07/05/2019 3:00 PM EDT Narrative Resulting Agency Comment [id number] us Karissa Velasquez MD LAB SAME DAY RESULT Final Result Performing Organization Address [facility] de Phone Number [facility] [address] [place] [address] * RHEUMATOID ARTHRITIS DIAGNOSTIC PANEL (07/05/2019 11:28 AM EDT) Rheumatoid Factor (Quant) <14 <14 IU/mL [facility] CCP Ab, IgG <16 UNITS [facility] Comment: Reference Range Negative: ?<20 Weak Positive: ? 20-39 Moderate Positive: ?? 40-59 Strong Positive: ? >59 INTERPRETATION SEE NOTE [facility] Comment: These serologic results may be found in 10-20% of patients with polyarthritis that is clinically and radiologically indistinguishable from RA. 07/05/2019 11:2 8 AM EDT 07/05/2019 3:00 PM EDT Narrative Resulting Agency Comment [id number] us Karissa Velasquez MD LABORATORY Final Result Performing Organization Address [facility] de Phone Number [facility] [address] [place] [address] documented in this encounter Visit Diagnoses Diagnosis Rheumatoid arthritis involving multiple sites with positive rheumatoid factor (HCC) [M05.79] documented in this encounter Care Teams Nuclear Reactor Technician Relationship Specialty Start Date [place] [address] PCP - General Geriatrics 10/31/19 documented as of this encounter
--- OUTSIDE RECORDS SUMMARY | 2024-11-01 13:17 | XMS_ITS | Encounter Summary ---
Author Organization [facility] Address [address] [place] [address] Care Team Providers Care Boiler Helper Name Role Phone Edilberto Harris Primary Care Provider [phone] Eufemia Jett MD Primary Care Provider [phone] Encounter Details Date Type Department Care Team (Late st Contact Info) Description 11/23/2017 Orders Only [facility] Rheumatology [address] [place] [address] Danilo Gates MD [address] [place] [address] Social History Tobacco Use Types Packs/Day Years [...] of this encounter Results * Due to [place] state law, this organization might not be sharing negative HIV tests. * CREATINE KINASE (CK), SERUM (04/20/2018 10:05 AM EDT) CPK 70 29 - 143 U/L [facility] 04/20/2018 10:0 5 AM EDT 04/20/2018 4:24 PM EDT Narrative Resulting Agency Comment [id number] us Danilo Gatse MD LAB SAME DAY RESULT Final Resul t [facility] [address] [place] [address] documented in this encounter Visit Diagnoses Diagnosis Rheumatoid arthritis involving multiple sites, unspecified rheumatoid factor presence documented in this encounter Care Teams Boiler Helper Relationship Specialty Start Date End Date Edilberto Harris [address] [facility] [address] [place] [address] PCP - General Family Medicine 03/06/11 07/05/18 Eufemia Jett MD [address] [address] PCP - General Geriatrics 10/31/19 documented as of this encounter
--- OUTSIDE RECORDS SUMMARY | 2024-11-01 13:17 | XMS_ITS | Encounter Summary ---
Author Organization [facility] Address [address] [place] [address] Care Team Providers Care Transplant Rn Name Role Phone Eufemia Jett MD Primary Care Provider [phone] Reason for Visit * Reason Comments E-prescribing Refill Request Encounter Details Date Type Department Care Team (Late st Contact Info) Description 06/23/2020 Refill [facility] [address] [place] [phone] Karissa Velasquez MD [address] [place] [address] E-prescribing Refill Request Social History Tobacco Use [...] encounter Miscellaneous Notes * Telephone Encounter - Blanca Lynn - 07/24/2020 8:51 AM EST Mychart message sent to Shiela to advise she needs Methotrexate labs prior to filling her Methotrexate. * Telephone Encounter - Reanna Rudd LVN LPN - 06/24/2020 2:19 PM EDT Message left for patient to call triage, over due for Methotrexate labs. Any special requests or concerns? none Faxed/E-prescribed medication renewal request(s) for Shiela Browne 40 y.o. female received [employer]. Verified and Confirmed pharmacy for patient. Last CPE with this specialty: Not Found Last OV with this specialty: 01/03/2020 Assessment and Plan: Rheumatoid arthritis on methotrexate and adalimumab with an adequate response.Recent bloodwork looks good, I will see her back in three months. Next OV: No future appointments. Pertinent lab results: Lab Results Component Value Date SODIUM 139 01/02/2020 POTASSIUM 4.1 01/02/2020 CHLOR 100 01/02/2020 CO2 29 01/02/2020 BUN 16 01/02/2020 CREATININE 0.76 01/02/2020 GFR 99 01/02/2020 GLUCOSE 99 01/02/2020 KAROLINA 9.8 01/02/2020 An open order for Basic does not exist. Lab Results Component Value Date WBC 7.9 01/02/2020 HGB 12.9 01/02/2020 HCT 38.1 01/02/2020 PLATELETS 250 01/02/2020 MCV 92.3 01/02/2020 RDW 12.1 01/02/2020 An open order for CBC does not exist. Lab Results Component Value Date ALBUMIN 4.2 01/02/2020 An open order for Albumin does not exist. Lab Results Component Value Date AST 17 01/02/2020 ALT 11 01/02/2020 An open order for AST, ALT or LFT does not exist. 1 month supply suggested for Methotrexate or Azathioprine based on CBC, kidney and liver testing every 3 months for stable chronic therapy. Please arrange updated lab monitoring. Allergies: Dilantin [phenytoin sodium], Enbrel, Levaquin, and Midrin [amidrine] BP Readings from Last 1 Encounters: 07/05/19 112/75 Patient Active Problem List Diagnosis Date Noted ??? Rheumatoid arthritis involving multiple sites with positive rheumatoid factor (HCC) 03/03/2017 Current Outpatient Medications on File Prior to Visit Medication Sig Dispense Refill ??? Folic Acid (FOLVITE) 1 MG tablet TAKE 1 TABLET DAILY 90 tablet 3 ??? Humira Pen 40 MG/0.8ML Pen-injector Kit INJECT 40 MG (0.8 ML) UNDER THE SKIN EVERY TWO WEEKS 2 each 12 ??? Loratadine (CLARITIN) 10 MG Tab 1 TABLET DAILY ??? BUDESONIDE, INHALATION, (PULMICORT FLEXHALER) 180 MCG/ACT AEROSOL POWDER, BREATH ACTIVATED NoneEntered ??? FLUTICASONE PROPIONATE, NASAL, 50 MCG/ACT Suspension None Entered ??? Zafirlukast 20 MG Tab None Entered ??? Budesonide-Formoterol Fumarate (SYMBICORT) 160-4.5 MCG/ACT Aerosol [...] [M05.79] documented in this encounter Care Teams Transplant Rn Relationship Specialty Start Date End Date [place] [address] PCP - General Geriatrics 10/31/19 documented as of this encounter
--- OUTSIDE RECORDS SUMMARY | 2024-11-01 13:17 | XMS_ITS | Encounter Summary ---
Author Organization [facility] Address [address] [place] [address] Care Team Providers Care Chemistry Intern Name Role Phone Edilberto Harris Primary Care Provider [phone] Eufemia Jett MD Primary Care Provider [phone] Reason for Visit * Reason Comments E-prescribing Refill Request Encounter Details Date Type Department Care Team (Late st Contact Info) Description 12/25/2012 Refill [facility] Rheumatology [address] [place] [address] Danilo Gates MD [address] [place], [place] [id number] E-prescribing Refill Request Social History Tobacco Use [...] encounter Miscellaneous Notes * Telephone Encounter - Nicky Campos RN - 12/26/2012 1:47 PM EDT Faxed/E-prescribed medication renewal request(s) for Shiela Browne 32 y.o. female received [facility]. Entered this pharmacy as preferred pharmacy for patient. Any special requests or concerns?- none Last CPE with this specialty: Last OV with this specialty: 11/14/2012 Next OV: Future Appointments Date Time Provider Department Center 04/13/2013 4:45 PM Danilo Gates MD [facility] Impression: Rheumatoid arthritis, not quite as good as last time. Options were reviewed with her and after discussion we agreed we would wait another month or so and call her and if she is not getting better then rethink the options. No evidence of side effects of medications. Plan: Continue current regimen. Check laboratory studies today to include CBC, AST, ALT, creatinine, sedimentation rate, CRP. Check labs in 2-1/2 months and see me in 5 months or sooner if needed. Followupcall one month and reevaluate at that time if needed. Pertinent lab results: No labs suggested for any medication orders signed or pended in this encounter. Refresh if any orders changed. Allergies: Dilantin; Levaquin; and Midrin BP Readings from Last 1 Encounters: 11/14/12 102/68 Patient Active Problem List Diagnosis Date Noted ??? Rheumatoid arthritis 11/09/2011 Current Outpatient Prescriptions on File Prior to Visit Medication Sig Dispense Refill ??? Methotrexate 2.5 MG Tab 4 tablets every Wednesday ??? Etanercept (ENBREL SURECLICK) 50 MG/ML Solution inject 50 mg weekly via Enbrel Sureclick 4 Syringe 5 ??? Folic Acid 1 MG Tab Take 1 Tablet By Mouth Once Daily 30 Tab 5 ??? Omeprazole 20 MG OR TBEC 1 TABLET DAILY ??? Estrogens Conjugated (PREMARIN) 0.625 MG OR TABS 1 TABLET DAILY ??? Cetirizine HCl (ZYRTEC) 10 MG OR TABS 1 TABLET DAILY ??? Cholecalciferol (VITAMIN D) 1000 UNIT OR TABS 2 TABLET DAILY ??? ALBUTEROL SULFATE (PROAIR HFA) 108 (90 BASE) MCG/ACT IN AERS 2 puffs q4hrs prn ??? Ibuprofen 200 MG OR TABS 2 TABLETs EVERY 4 TO 6 HOURS NEEDED documented in this encounter Plan of Treatment Not on file documented as of this encounter Visit Diagnoses Not on filedocumented in this encounter Care Teams Chemistry Intern Relationship Specialty Start Date End Date Edilberto Harris [address] [facility] [address] [place] [address] PCP - General Family Medicine 03/06/11 07/05/18 Eufemia Jett MD [address] [address] PCP - General Geriatrics 10/31/19 documented as of this encounter
--- OUTSIDE RECORDS SUMMARY | 2024-11-01 13:17 | XMS_ITS | Encounter Summary ---
Author Organization [facility] Address [address] [place] [address] Care Team Providers Care Art Instructor Name Role Phone Edilberto Harris Primary Care Provider [phone] Eufemia Jett MD Primary Care Provider [phone] Reason for Visit * Reason Comments E-prescribing Refill Request Encounter Details Date Type Department Care Team (Late st Contact Info) Description 01/24/2018 Refill [facility] Rheumatology [address] [place] [address] Danilo Gates MD [address] [place], [place] [phone] E-prescribing Refill Request Social History Tobacco Use [...] encounter Miscellaneous Notes * Telephone Encounter - Rula Ordonez RN - 01/25/2018 12:19 PM EDT Patient called and states she will go to [facility] on Wednesday to have her labs done. * Telephone Encounter - Rula Ordonez RN - 01/25/2018 8:37 AM EDT LEFT MESSAGE FOR PATIENT THAT SHE NEEDS MTX LABS DONE Any special requests or concerns? none Faxed/E-prescribed medication renewal request(s) for Shiela Browne 37 y.o. female received [facility]. Verified and Confirmed pharmacy for patient. Last CPE with this specialty: Not Found Last OV with this specialty: 03/03/2017 Impression: Seropositive rheumatoid arthritis overall doing well with some tenderness at MTP joints and knees with no significant findings on exam. X-rays of the hands and feet were negative for years ago. Afterdiscussion we agreed to check x-rays and feet and knees today and consider x-rays of the hands nextvisit if needed. No side effects of methotrexate or TNF inhibitor. Plan: Continue current regimen. In 3, 6 and 9 months check methotrexate labs studies. Check x-rays of the knees and feet. Return visit to me in 9 months or sooner if needed. Next OV: Future Appointments Date Time Provider Department Phone 03/11/18 3:30 PM Danilo Gates MD [facility] Rheumatology [phone] Pertinent lab results: Lab Results Component Value Date CREATININE 0.71 10/20/2017 GFR 109 10/20/2017 KAROLINA 9.4 03/03/2017 An open order for Basic does not exist. Lab Results Component Value Date WBC 6.2 10/20/2017 HGB 13.6 10/20/2017 HCT 40.4 10/20/2017 PLATELETS 205 10/20/2017 MCV 95.4 10/20/2017 RDW 13.1 10/20/2017 An open order for CBC exists. Lab Results Component Value Date AST 19 10/20/2017 ALT 13 10/20/2017 An open order for AST, ALT or LFT exists. 1 month supply suggested for Methotrexate or Azathioprine based on CBC, kidney and liver testing every 3 months for stable chronic therapy. Please arrange updated lab monitoring. Allergies: Dilantin [phenytoin sodium]; Enbrel; Levaquin; and [...] UNDER THE SKIN EVERYTWO WEEKS 2 Kit 2 ??? Methotrexate 2.5 MG Tab TAKE 4 TABLETS ONE DAY A WEEK 48 Tab 0 ??? Folic Acid 1 MG Tab TAKE 1 TABLET DAILY 90 Tab 3 ??? BUDESONIDE, INHALATION, (PULMICORT FLEXHALER) 180 MCG/ACT AEROSOL POWDER, BREATH ACTIVATED NoneEntered ??? FLUTICASONE PROPIONATE, NASAL, 50 MCG/ACT Suspension None Entered ??? Zafirlukast 20 MG Tab None Entered ??? Chlorpheniramine Maleate (EQ CHLORTABS) 4 MG [...] [M05.79] documented in this encounter Care Teams Art Instructor Relationship Specialty Start Date End Date Edilberto Harris [address] [facility] [address] [place] [address] PCP - General Family Medicine 03/06/11 07/05/18 Eufemia Jett MD [address] [address] PCP - General Geriatrics 10/31/19 documented as of this encounter
--- OUTSIDE RECORDS SUMMARY | 2024-11-01 13:17 | XMS_ITS | Clinical Summary ---
Author Organization [facility] Address [address] [place] [address] Phone Care Team Providers Care Fruit Cutter Name Role Phone Afia Oliveira DO Primary Care Provider Allergies Active Allergy Reactions Criticality Noted Date Comments Hydroxychloroquine Rash 11/29/2020 Levofloxacin Hives 10/18/2020 Other 02/15/2018 No reaction documented in transfer records Phenytoin Rash Medium 10/18/2020 Medications albuterol HFA (PROAIR HFA ; PROVENTIL HFA ; VENTOLIN HFA) 90 mcg/actuation inhaler Inhale 2 Puffs into the lungs every 4 hours as needed for Wheezing or Shortness of Breath. 4 Active calcium carbonate-vit D3-min 600 mg-10 mcg (400 unit) tablet Take 1 tablet by mouth 2 (two) times a day. 2 Active estradioL (ESTRACE) 1 mg tablet 1 Active fluticasone-ume clidinium-vilan terol (Trelegy Ellipta) 100-62.5-25 mcg inhaler Inhale 1 Puff into the lungs daily. 4 Active folic acid (FOLVITE) 1 mg tablet Take 1 mg by mouth daily. Active ibuprofen (ADVIL,MOTRIN) 600 mg tablet Take 600 mg by mouth. Active ipratropium-alb uteroL (DUONEB) 0.5-2.5 mg/3 mL nebulizer solution TAKE 1 NEBULIZER (INHALATION) EVERY 6 HOURS NEEDED DYSPNEA 3 Active methotrexate, PF, (Rasuvo, PF,) 20 mg/0.4 mL auto-injector Methotraxate inject 3 Active omeprazole (PRILOSEC) 20 mg tablet,delayed release (DR/EC) Take 1 tablet (20 mg total) by mouth 1 (one) time each day. Active zafirlukast (ACCOLATE) 20 mg tablet Take 1 tablet (20 mg total) by mouth 2 (two) times a day. 4 Active multivitamin (MULTIPLE VITAMINS ORAL) Take by mouth. Active fluticasone propionate (FLONASE) 50 mcg/actuation nasal spray USE 1 SPRAY IN EACH NOSTRIL TWICE A DAY 48 g 3 4 Active levocetirizine (XYZAL) 5 mg tablet Take 1 tablet (5 mg total) by mouth 1 (one) time each day in the evening. Active Active Problems Problem Noted Date Diagnosed Date Osteopenia 07/20/2018 Migraine-cluster headache syndrome 02/23/2018 Sepsis secondary to UTI 02/15/2018 Overview (07/19/2024): Requiring hospitalization x 2 RA (rheumatoid arthritis) 02/15/2018 Asthma 02/15/2018 Encounters Date Type Department Care Team Description 09/15/2024 10:50 AM EST Office Visit [address]mon[address] [place] [address] Yojana Desir NP Severe persistent asthma without complication (CMS/HCC) (Primary Dx); Rheumatoid arthritis, involving unspecified site, unspecified whether rheumatoid factor present (CMS/HCC); Non-seasonal allergic rhinitis, unspecified trigger from Last 3 Months Immunizations Name Administration Dates Next Due Influenza Quadravalent, MDCK , 0.5ml, preservative free (Flucelvax) 6mo and older 06/28/2023,07/05/2018 Influenza trivalent, 0.5mL, preservative free (Fluarix; FluLaval; Fluzone) ages 6mo and older (Afluria) 3 years and older 07/07/2017 Td Tetanus diptheria (Tdvax) 7yo and older 07/05 Tdap Tetanus diptheria acell ular pertussis (Boostrix; Adacel) 7yo and older 07/05/2018 Surgical History Surgery Date Site/Laterality Comments KNEE SURGERY 1994 Right PROCEDURE: HISTORICAL KNEE SURGERY OTHER SURGICAL HISTORY 2002 PROCEDURE: HISTORY OTHER; COMMENT: Abdominal cyst OTHER SURGICAL HISTORY 2005 PROCEDURE: HISTORICAL TOTAL HYSTERECTOMY W/O BSO Medical History Medical History Date Comments Asthma 02/15/2018 DX:Asthma History of endometriosis 02/15/2018 DX:Hist ory of endometriosis RA (rheumatoid arthritis) ([facility]) 02/15/2018 DX:RA (rheumatoid arthritis) ([facility]) Sepsis secondary to UTI ([facility]) 02/15/2018 DX:Sepsis secondary to UTI ([facility]); COMMENT: Requiring hospitalization x 2 History of pneumonia 02/15/2018 DX:History of pneumonia Osteopenia DX:Osteopenia; C OMMENT: T score -2.0 Family History Medical History Relation Name Comments No Known Problems Brother 2 Hypertension Father Lung cancer Maternal Grandmother ag e 62 Depression Mother Hypertension Mother Breast cancer a t age 65 Other: Heart Disease Paternal Grandfather Heart failure Paternal Grandmother Relation Name Status Comments Brother 2 Alive Father Alive Maternal Grandfather Maternal Grandmother Mother Alive Paternal Grandfather Paternal Grandmother Alive Social History Tobacco Use Types Packs/Day Years Used Date Smoking Tobacco: Never Smokeless Tobacco: Never Tobacco Cessation:Counseling Given: Not Answered Alcohol Use Standard Drinks/Week Comments Yes 0 (1 standard drink = 0.6 oz pur e alcohol) Comments Unknown Sex and Gender Information Value Date Recorded Sex Assigned at Not on file Legal Sex Female 11:53 AM EST Gender Identity Not on file Sexual Orientation Not on file Obstetrics History Last Filed Vital Signs Vital Sign Reading Time Taken Comments Blood Pressure 124/70 09/15/2024 10:59 AM EST Pulse 78 09/15/2024 10:59 AM EST Temperature 36.4 ??C (97.6 ??F) 09/15/2024 10:[address] Respiratory Rate 14 09/15/2024 10:59 AM EST Oxygen Saturation 99% 09/15/2024 10:59 AM EST Inhaled Oxygen Concentration - - Weight 61.8 kg (136 lb 3.2 oz) 09/15/2024 10:59 AM EST Height 170.2 cm (5' 7 ) 09/15/2024 10:59 AM EST Body Mass Index 21.33 09/15/2024 10:59 AM EST Plan of Treatment Upcoming Encounters Date Type Department Care Team (Late st Contact Info) Description 09/19/2025 8:30 AM EST Office Visit Pulmonolgy - [place] [address] [place] [id number] Yojana Desir, VAISHALI [address] [place] [address] Health Maintenance Due Date Last Done Comments Breast Cancer Screening 1980 Hepatitis B Vaccines (1 of 3 - 19+ 3-dose series) 1999 Pneumococcal Vaccine: Pediatrics (0 to 5 Years) and At-Risk Patients (6 to 64 Years) (1 of 2 - PCV) 1999 Cervical Cancer Screening: Pap Smear 2001 Depression Screening 08/13/2022 HIV Screening 08/13/2022 Hepatitis C Screening 08/13/2022 Social Influencers of Health Screening 08/13/2022 COVID-19 Vaccine ( season) 2024 05/29/2022, 10/19/2020, 10/18/2020, Additional history exists Cholesterol Screening (Lipid Panel) 11/29/2025 11/29/2020 DTaP,Tdap,and Td Vaccines (3 - Td or Tdap) 07/05/2028 07/05/2018, 07/05/2018 Influenza Vaccine Completed 07/05/2024, , 07/05/2018, Additional history exists HIB Vaccines Aged Out No longer eligi ble based on patient's age to complete this topic HPV Vaccines Aged Out No longer eligi ble based on patient's age to complete this topic Hepatitis A Vaccines Aged Out No long er eligible based on patient's age to complete this topic IPV Vaccines Aged Out No longer eligi ble based on patient's age to complete this topic MMR Vaccines Aged Out No longer eligi ble based on patient's age to complete this topic Meningococcal ACWY Vaccine Aged Out N o longer eligible based on patient's age to complete this topic Meningococcal B Vacine Aged Out No lo nger eligible based on patient's age to complete this topic RSV Immunization Patients Under 20 months Aged Out No longer eligible based on patient's age to complete this topic Varicella Vaccines Aged Out No longer eligible based on patient's age to complete this topic Procedures Procedure Name Priority Date/Time Associated Diagnosis Comments PULMONARY FUNCTION TESTING Routine 10/23/2024 11:47 AM EST PULMONARY FUNCTION TESTING Routine 10/23/2024 11:46 AM EST LIPID PANEL Routine 11/29/2020 from Last 3 Months or Most Recently Relevant to Health Maintenance Results * Pulmonary function testing: (10/23/2024 11:47 AM EST) [facility] Provider MD PFT ORDERABLES Final Res ult * Pulmonary function testing: (10/23/2024 11:46 AM EST) [facility] Provider MD PFT ORDERABLES Final Res ult * (ABNORMAL) Lipid panel (11/29/2020) LDL/HDL Ratio 3 0 - 4 Triglycerides 134 0 - 150 mg/dL Cholesterol 214(A) 0 - 200 mg/dL HDL 78 >=40 mg/dL LDL Cholesterol 110(A) 0 - 100 mg/dL Blood Venous blood specimen / Unknown [facility] Provider MD LAB BLOOD ORDERABLES Janet l Result from Last 3 Months or Most Recently Relevant to Health Maintenance Insurance [facility] Care Teams Fruit Cutter Relationship Specialty Start Date End Date Afia Oliveira DO [address] [place] [address] PCP - General Family Medicine 09/15/24
--- OUTSIDE RECORDS SUMMARY | 2024-11-01 13:17 | XMS_ITS | Encounter Summary ---
Author Organization [facility] Address [address] [place] [address] Care Team Providers Care Electro Plater Name Role Phone Edilberto Harris Primary Care Provider [phone] Eufemia Jett MD Primary Care Provider [phone] Encounter Details Date Type Department Care Team (Late st Contact Info) Description 10/20/2017 Orders Only [facility] Rheumatology [address] [place] [address] Danilo Gates MD [address] [place] [address] Social History Tobacco Use Types Packs/Day Years [...] Progress Notes * Danilo Gates MD - 10/21/2017 4:59 PM EST . documented in this encounter Plan of Treatment Not on file documented as of this encounter Procedures * Due to [place] state law, this organization might not be sharing negative HIV tests. Procedure Name Priority Date/Time Associated Diagnosis Comments CBC INCLUDES DIFFERENTIAL AND PLATELET COUNT Routine 10/20/2017 9:58 AM EST Rheumatoid arthritis involving multiple sites with positive rheumatoid factor (HCC) ALANINE AMINOTRANSFERASE (ALT), SERUM Routine 10/20/2017 9:58 AM EST Rheumatoid arthritis involving multiple sites with positive rheumatoid factor (HCC) ASPARTATE AMINOTRANSFERASE (AST), SERUM Routine 10/20/2017 9:58 AM EST Rheumatoid arthritis involving multiple sites with positive rheumatoid factor (HCC) CREATININE WITH GLOMERULAR FILTRATION RATE, ESTIMATED (EGFR) Routine 10/20/2017 9:58 AM EST Rheumatoid arthritis involving multiple sites with positive rheumatoid factor (HCC) documented in this encounter Results * Due to [place] state law, this organization might not be [...] 5:33 PM EST Narrative Resulting Agency Comment [id number] us Danilo Gates MD LAB SAME DAY RESULT Final Resul t Performing Organization Address [facility] de Phone Number [facility] [address] [place] [address] * CREATININE WITH GLOMERULAR FILTRATION RATE, ESTIMATED [...] needs for GFR calculation. Resulting Agency Comment [id number] us Danilo Gates MD LAB SAME DAY RESULT Final Resul t Performing Organization Address [facility] de Phone Number [facility] [address] [place] [address] * ALANINE AMINOTRANSFERASE (ALT), SERUM (10/20/2017 9:58 AM EST) ALT (SGPT) 13 6 - 29 U/L [facility] 10/20/2017 9:58 AM EST 10/20/2017 5:33 PM EST Narrative Resulting Agency Comment [id number] Danilo Gates MD LAB SAME DAY RESULT Final Resul t Performing Organization Address [facility] de Phone Number [facility] [address] [place] [address] * ASPARTATE AMINOTRANSFERASE (AST), SERUM (10/20/2017 9:58 AM EST) AST (SGOT) 19 10 - 30 U/L [facility] 10/20/2017 9:58 AM EST 10/20/2017 5:33 PM EST Narrative Resulting Agency Comment [id number] us Danilo Gates MD LAB SAME DAY RESULT Final Resul t [facility] [address] [place] [address] documented in this encounter Visit Diagnoses Diagnosis Rheumatoid arthritis involving multiple sites with positive rheumatoid factor (HCC) documented in this encounter Care Teams Electro Plater Relationship Specialty Start Date End Date Edilberto Harris [address] [facility] [address] [place] [address] PCP - General Family Medicine 03/06/11 07/05/18 Eufemia Jtet MD [address] [address] PCP - General Geriatrics 10/31/19 documented as of this encounter
[2024-11-01 18:35] LABS: MANUAL DIFF FLAG NO
[2024-11-01 18:49] LABS: Basophils Percent Auto 0.7 % (0-2); Eosinophils Absolute Auto 0.1 X10*3/uL (0.0-0.4); Eosinophils Percent Auto 0.9 % (0-4); Hematocrit 38.6 % (37.0-47.0); Hemoglobin 12.7 g/dl (12.0-16.0); Imm Gran Abs Auto 0.02 X10*3/uL (0.00-0.03); Imm Gran Pct Auto 0.4 % (0.0-0.4); Lymphocytes Absolute Auto 1.5 X10*3/uL (1.2-4.9); Lymphocytes Percent Auto 27.6 % (20-40); Mean Corpuscular HGB Conc 32.9 g/dl (31.0-35.0); Mean Corpuscular Hemoglobin 31.4 pg (27.0-33.0); Mean Corpuscular Volume 95.3 fL (80.0-98.0); Monocytes Absolute Auto 0.4 X10*3/uL (0.1-1.2); Monocytes Percent Auto 6.9 % (2-11); Neutrophils Absolute Auto 3.5 x10*3/uL (2.0-8.3); Neutrophils Percent Auto 63.5 % (45-73); Platelet Count 228 X10*3/uL (160-400); Red Blood Count 4.05 X10*6/uL (4.20-5.50); White Blood Count 5.5 X10*3/uL (4.8-10.8)
[2024-11-01 18:53] LABS: Rheumatoid Factor 16.6 IU/mL (<15.0)
[2024-11-01 18:54] LABS: Alanine Aminotransferase 22 U/L (0-31); Aspartate Amino Transferase 26 U/L (5-31); Estimated Glomerular Filt Rate > 60
[2024-11-01 19:54] LABS: Erythrocyte Sedimentation Rate 8 MM/HR (0-20)
[2024-11-02 09:05] LABS: HBc Num1 0.16 S/CO (0.00-0.79); HBsAGNum1 0.32 S/CO (0.00-0.99); Hepatitis B Core Antibody Nonreactive (Nonreactive); Hepatitis B Surface Antigen Negative (Negative); ~Hepatitis B Surface Antibody REACTIVE (Nonreactive); ~Hepatitis C Antibody Nonreactive (Nonreactive)
[2024-11-04 01:34] LABS: TS Negative Control Passed; TS Panel A 0; TS Panel B 0; TS Positive Control Passed; TSpotTB Negative (Negative)
[2024-11-06 14:22] LABS: Cyclic Citrullinated Peptide <16 UNITS
== END 2024-11-01 10:42 | disposition home or self-care (01) ==
LOC: HO.HKASLDS 10:41
PROVIDERS: Visit Provider Internal Medicine Rheumatology
DX: M06.9 Rheumatoid arthritis, unspecified (principal); Z79.899 Other long term (current) drug therapy
CPT/HCPCS: 36415; 82565; 84450; 84460; 85025; 85652; 86200; 86431; 86481; 86704; 86706; 86803; 87340

== ENCOUNTER 2024-11-08 08:23 | Outpatient (AMB) | payer BC, SELFPAY ==
[2024-11-08 08:28] VITALS: BP 130/80; PULSE 81; O2SAT 95; BMI 20.7
--- NOTE | 2024-11-08 08:28 | A.OFFVIS_ITS ---
Vital Signs 11/08/24 08:28 Height 5 ft 7 in Weight 132 lb BMI 20.7 BP 130/80 Blood Pressure Location Lt brachial Position Sitting Pulse 81 Pulse Source Pulse Oximeter Pulse Oximetry (%) 95 Oxygen Delivery Method Room Air Intake Visit Reasons: Follow Up 3mo Intake Note: Patient is here to follow up on RA. Allergies hydroxychloroquine Allergy (Mild, Verified 11/08/24 08:28) Rash levofloxacin [From Levaquin] Allergy (Mild, Verified 11/08/24 08:28) Hives phenytoin [From Dilantin] Allergy (Mild, Verified 11/08/24 08:28) Rash acetaminophen [From Midrin] Adverse Reaction (Mild, Verified 11/08/24 08:28) Palpitations dichloralphenazone [From Midrin] Adverse Reaction (Mild, Verified 11/08/24 08:28) Palpitations isometheptene [From Midrin] Adverse Reaction (Mild, Verified 11/08/24 08:28) Palpitations HPI HPI Follow Up 3mo: Details: She held MTX for 3 weeks due to infections. She felt unwell first week with sinus infection/URI. Third week she had a UTI. R knee was swollen and having trouble walking. Improved with getting back on MTX last wednesday. [facility] Medical History Rheumatoid arthritis Surgical History S/P right knee arthroscopy H/O: hysterectomy Family History Mother Breast cancer Social History Alcohol intake: current Alcohol intake frequency: holidays/special occasions only Patient Tobacco Use Status: Never used Tobacco Review of Systems Const All systems reviewed & are unremarkable except as noted in HPI and below Physical Exam Vital Signs: Last Vital Signs Pulse 81 11/08/24 08:28 BP 130/80 11/08/24 08:28 Pulse Ox 95 11/08/24 08:28 Oxygen Delivery Method Room Air 11/08/24 08:28 BMI result Body Mass Index 20.7 Const Other: General: Comfortable CVS: RRR Respiratory: clear to auscultation bilaterally. 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 No tenderness of upper extremities or synovitis of upper extremities. Tenderness of right knee on palpation with slight synovitis. Good range of motion of upper extremity and lower extremity. Assessment & Plan Assessment & Plan (1) Rheumatoid arthritis: Comment: History of seronegative rheumatoid arthritis [place] [address] al[place]a in [place], [place]. She has been on methotrexate since 25/08 but it was changed to Rasuvo subcutaneous injection 08/25/2021 to present, Enbrel caused a rash, noncompliant with Humira, hydroxychloroquine 07/26/2020 to 08/25/2020 discontinued due to rash, and meloxicam was discontinued due to GI upset. She has been in remission on monotherapy with Rasuvo until recently when she had to hold it due to URI and UTI. She has developed slight synovitis of her right knee, which has improved since being back on methotrexate. She recently also experienced headache after taking methotrexate, which she has not experienced in the past but is tolerable. Code(s): M06.9 - Rheumatoid arthritis, unspecified Category: Medical Plan: Continue Rasuvo subcutaneous injection 20 mg once weekly. She will need a PA Continue folic acid 1 mg daily Labs for disease and drug monitoring on high-risk medication up-to-date 10/2023 Return to clinic in 3 months (2) Other joint terminal attack controller (current) drug therapy: Code(s): Z79.899 - Other fpc (current) drug therapy Category: Medical Plan: See above Medications: New folic acid 1 mg PO DAILY 90 tabs 3RF methotrexate (PF) (Rasuvo (PF)) 20 mg (0.4 mL) subcut QWEEK 1.6 mL 2RF Coding Level of Care Code Est Pt Level 4 (17759) Complex EM visit Add On G2211 Diagnoses Rheumatoid arthritis M06.9 Other joint terminal attack controller (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
--- OUTSIDE RECORDS SUMMARY | 2024-11-08 08:51 | XMS_ITS | Encounter Summary ---
Author Organization [facility] Address [address] [place] [address] Care Team Providers Care Sales Operations Lead Name Role Phone Edilberto Harris Primary Care Provider [phone] Eufemia Jett MD Primary Care Provider [phone] Encounter Details Date Type Department Care Team ([facility] st Contact Info) Description 08/04/2016 Orders Only [facility] Rheumatology [address] [place] [address] Danilo Gates MD [address] [place] [address] Social History Tobacco Use Types Packs/Day Years [...] on filedocumented in this encounter Care Teams Sales Operations Lead Relationship Specialty Start Date End Date Edilberto Harris [address] [facility] [address] [place] [address] PCP - General Family Medicine 03/06/11 07/05/18 Eufemia Jett MD [address] [address] PCP - General Geriatrics 10/31/19 documented as of this encounter
--- OUTSIDE RECORDS SUMMARY | 2024-11-08 08:51 | XMS_ITS | Encounter Summary ---
Author Organization [facility] Address [address] [place] [address] Care Team Providers Care Compliance Technician Name Role Phone Edilberto Harris Primary Care Provider Eufemia Jett MD Primary Care Provider [phone] Encounter Details Date Type Department Care Team (Late st Contact Info) Description 12/06/2013 Orders Only [facility] Rheumatology [address] [place] [address] Danilo Gates MD [address] [place] [address] Social History Tobacco Use Types Packs/Day Years [...] Order(s): ANTI- NEUTROPHIL CYTOPLASM ANTIBODY - ANCA ([facility]) * Danilo Gates MD - 12/20/2013 12:00 AM EDTAssociated Order(s): ANTI- NEUTROPHIL CYTOPLASM ANTIBODY - ANCA ([facility]) documented in this encounter Plan of Treatment Not on file documented as of this encounter Procedures * Due to [place]XA law, this organization might not be sharing negative HIV tests. Procedure Name Priority Date/Time Associated Diagnosis Comments ANTI-NEUTROPHIL CYTOPLASM ANTIBODY - ANCA ([facility]-FOR SPECIALTY USE ONLY) Routine 12/06/2013 10:46 AM EDT Rheumatoid arthritis(714.0) documented in this encounter Results * Due to [place]XA law, this organization might not be sharing negative HIV tests. * ANTI-NEUTROPHIL CYTOPLASM ANTIBODY - ANCA ([facility]) (12/06/2013 10:46 AM EDT) ANCA NEGATIVE [facility] Comment:{ANCA {[id number]) NOTE SEE NOTE [facility] Comment: {NOTE: {[id number]) Indirect immunofluorescence testing for anti-neutrophil ?cytoplasm antibodies (ANCA) is negative. ELISAs are also ?negative for antibodies to proteinase 3 and myeloperoxidase. INTERPRETATION SEE NOTE [facility] Comment: {INTERPRETATION: {[id number]) The findings provide no support for the [...] turn positive if tested serially. Please call [facility] Immunopathology Laboratory at [phone] with questions or concerns regarding ANCA tests. These tests were developed and their performance characteristics determined by the Immunopathology Laboratory at the [facility]. Their characteristics have been published: Journal of the [place] Society of Nephrology 2:27-36, 1990; Human Pathology 24:170-8, 1992; Archives of Internal Medicine 156:440-5; Annals of Internal Medicine 126:866-73,1996. These tests have not been cleared or approved by the U.S. Food and Drug Administration (FDA). The FDA has determined that clearance or approval is not necessary. FINAL DIAGNOSIS BY JYOTI DAO MD [facility] Comment: {FINAL DIAGNOSIS BY: {[id number]) By his/her signature above, the pathologist listed as making the Final Diagnosis certifies that he/she has personally reviewed this case and confirmed or corrected the diagnoses. 12/06/2013 10:4 6 AM EDT 12/06/2013 6:15 PM EDT Narrative Resulting Agency Comment [id number] Transcriptions Danilo Gates MD - 12/20/2013 12:00 AM EDT Danilo Gates MD - 12/22/2013 12:00 AM EDT Danilo Gates MD LABORATORY Edited Result - Final [facility] [address] [place] [address] documented in this encounter Visit Diagnoses Diagnosis Rheumatoid arthritis(714.0) Rheumatoid arthritis documented in this encounter Care Teams Compliance Technician Relationship Specialty Start Date End Date Edilberto Harris [address] [facility] [address] [place] [address] PCP - General Family Medicine 03/06/11 07/05/18 Eufemia Jett MD [address] [address] PCP - General Geriatrics 10/31/19 documented as of this encounter
--- OUTSIDE RECORDS SUMMARY | 2024-11-08 08:51 | XMS_ITS | Clinical Summary ---
Author Organization [facility] Address [address] [place] [address] Care Team Providers Care Edger Runner Name Role Phone Unavailable Primary Care Provider [...]
--- OUTSIDE RECORDS SUMMARY | 2024-11-08 08:51 | XMS_ITS | Encounter Summary ---
Author Organization [facility] Address [address] [place] [address] Care Team Providers Care Inspector Eyeglass Frames Name Role Phone Edilberto Harris Primary Care Provider [phone] Eufemia Jett MD Primary Care Provider [phone] Encounter Details Date Type Department Care Team (Late st Contact Info) Description 11/01/2014 Orders Only [facility] Rheumatology [address] [place] [address] Danilo Gates MD [address] [place] [address] Social History Tobacco Use Types Packs/Day Years [...] Routine 11/01/2014 4:19 PM EST Rheumatoid arthritis(714.0) ([facility]) CBC INCLUDES DIFFERENTIAL AND PLATELET COUNT Routine 11/01/2014 4:19 PM EST Rheumatoid arthritis(714.0) ([facility]) ALANINE AMINOTRANSFERASE (ALT), SERUM Routine 11/01/2014 4:19 PM EST Rheumatoid arthritis(714.0) ([facility]) ASPARTATE AMINOTRANSFERASE (AST), SERUM Routine 11/01/2014 4:19 PM EST Rheumatoid arthritis(714.0) ([facility]) CREATININE WITH GLOMERULAR FILTRATION RATE, ESTIMATED (EGFR) Routine 11/01/2014 4:19 PM EST Rheumatoid arthritis(714.0) ([facility]) documented in this encounter Results * Due to [place] state law, this organization might not be sharing negative HIV tests. * C-REACTIVE PROTEIN (CRP) - INFLAMMATION (11/01/2014 4:19 PM EST) C reactive protein 0.17 <0.80 mg/dL [facility] Comment: {C-REACTIVE PROTEIN {[id number]) Please be advised that patients taking Carboxypenicillins may exhibit falsely decreased C-Reactive Protein levels due to an analytical interference in this assay. 11/01/2014 4:19 PM EST 11/01/2014 8:32 PM EST Narrative Resulting Agency Comment [id number] us Danilo Gates MD LABORATORY Final Result [facility] [address] [place] [address] * ERYTHROCYTE SEDIMENTATION RATE (ESR), THAI (11/01/2014 4:19 PM EST) Sedimentation Rate [place] (ESR) 6 < OR = 20 mm/h [facility] Comment:{SED RATE BY GAVI ANDRE {[id number]) 11/01/2014 4:19 PM EST 11/01/2014 8:32 PM EST Narrative Resulting Agency Comment [id number] us Danilo Gates MD LAB SAME DAY RESULT Final Resul t Performing Organization Address [facility] de Phone Number [facility] [address] [place] [address] * CREATININE WITH GLOMERULAR FILTRATION RATE, ESTIMATED (EGFR) (11/01/2014 4:19 PM EST) Creatinine 0.75 0.50 - 1.10 mg/dL [facility] Comment:{CREATININE {[id number]) GFR 104 > OR = 60 mL/min/1.7 3m2 [facility] Comment:{eGFR NON-AFR. AMERI CAN {[id number]) GFR () 121 > OR = 60 mL/min/1.7 3m2 [facility] Comment:{eGFR AMERIC AN {[id number]) 11/01/2014 4:19 PM EST 11/01/2014 8:32 PM [...] needs for GFR calculation. Resulting Agency Comment [id number] us Danilo Gates MD LAB SAME DAY RESULT Final Resul t Performing Organization Address City/[facility] Co de Phone Number [facility] [address] [place] [phone] * ALANINE AMINOTRANSFERASE (ALT), SERUM (11/01/2014 4:19 PM EST) ALT (SGPT) 15 6 - 29 U/L [facility] Comment:{ALT {[id number]) 11/01/2014 4:19 PM EST 11/01/2014 8:32 PM EST Narrative Resulting Agency Comment [id number] us Danilo Gates MD LAB SAME DAY RESULT Final Resul t Performing Organization Address City/[facility]/ZIP Co de Phone Number [facility] [address] [place] [address] * ASPARTATE AMINOTRANSFERASE (AST), SERUM (11/01/2014 4:19 PM EST) AST (SGOT) 22 10 - 30 U/L [facility] Comment:{AST {[id number]) 11/01/2014 4:19 PM EST 11/01/2014 8:32 PM EST Narrative Resulting Agency Comment [id number] us Danilo Gates MD LAB SAME DAY RESULT Final Resul t Performing Organization Address City/[facility] Co de Phone Number [facility] [address] [place] [address] * (ABNORMAL) CBC INCLUDES DIFFERENTIAL AND PLATELET COUNT (11/01/2014 4:19 PM EST) WBC 6.3 3.8 - 10.8 Thousand/ uL [facility] Comment:{WHITE BLOOD CELL CO UNT {[id number]) RBC 3.79(L) 3.80 - 5.10 Million/u L [facility] Comment:{RED BLOOD CELL COUN T {[id number]) Hemoglobin 12.2 11.7 - 15.5 g/dL [facility] Comment:{HEMOGLOBIN {[id number]) Hematocrit 35.5 35.0 - 45.0 % [facility] Comment:{HEMATOCRIT {[id number]) MCV 93.6 80.0 - 100.0 fL [facility] Comment:{MCV {[id number]) MCH 32.2 27.0 - 33.0 pg [facility] Comment:{MCH {[id number]) MCHC 34.4 32.0 - 36.0 g/dL [facility] Comment:{MCHC {[id number]) RDW 12.5 11.0 - 15.0 % [facility] Comment:{RDW {[id number]) PLT 170 140 - 400 Thousand/ uL [facility] Comment:{PLATELET COUNT {[id number]) MPV 9.7 7.5 - 11.5 fL [facility] Comment:{MPV {[id number]) Neutrophils # 2709 1500 - 7800 cells/uL [facility] Comment:{ABSOLUTE NEUTROPHIL S {[id number]) Lymphocytes # 3125 850 - 3900 cells/uL [facility] Comment:{ABSOLUTE LYMPHOCYTE S {[id number]) Monocytes # 372 200 - 950 cells/uL [facility] Comment:{ABSOLUTE MONOCYTES {[id number]) Eosinophils # 63 15 - 500 cells/uL [facility] Comment:{ABSOLUTE EOSINOPHIL S {[id number]) Basophils # 32 0 - 200 cells/uL [facility] Comment:{ABSOLUTE BASOPHILS {[id number]) Neutrophils % 43.0 % [facility] Comment:{NEUTROPHILS {[id number]) Lymphocytes % 49.6 % [facility] Comment:{LYMPHOCYTES {[id number]) Monocytes % 5.9 % [facility] Comment:{MONOCYTES {[id number]) Eosinophils % 1.0 % [facility] Comment:{EOSINOPHILS {[id number]) Basophils % 0.5 % [facility] Comment:{BASOPHILS {[id number]) 11/01/2014 4:19 PM EST 11/01/2014 8:32 PM EST Narrative Resulting Agency Comment [id number] us Danilo Gates MD LAB SAME DAY RESULT Final Resul t [facility] [address] [place] [address] documented in this encounter Visit Diagnoses Diagnosis Rheumatoid arthritis(714.0) Rheumatoid arthritis documented in this encounter Care Teams Inspector Eyeglass Frames Relationship Specialty Start Date End Date Edilberto Harris [address] [facility] [address] [place] [address] PCP - General Family Medicine 03/06/11 07/05/18 Eufemia Jett MD [address] [address] PCP - General Geriatrics 10/31/19 documented as of this encounter
--- OUTSIDE RECORDS SUMMARY | 2024-11-08 08:51 | XMS_ITS | Encounter Summary ---
Author Organization [facility] Address [address] [place] [address] Care Team Providers Care Materials Associate Name Role Phone Edilberto Harris Primary Care Provider [phone] Eufemia Jett MD Primary Care Provider [phone] Encounter Details Date Type Department Care Team (Late st Contact Info) Description 04/13/2013 Orders Only [facility] Rheumatology [address] [place] [address] Danilo Gates MD [address] [place] [address] Social History Tobacco Use Types Packs/Day Years [...] of this encounter Procedures * Due to [place] state law, this organization might not be [...] in this encounter Results * Due to [place] state law, this organization might not be sharing negative HIV tests. * ALANINE AMINOTRANSFERASE (ALT), SERUM (04/13/2013 5:01 PM EDT) ALT (SGPT) 13 6 - 29 U/L [facility] Comment:{ALT {[id number]) 04/13/2013 5:01 PM EDT 04/13/2013 11:38 PM EDT Narrative Resulting Agency Comment [id number] us Danilo Gates MD LAB SAME DAY RESULT Final Resul t Performing Organization Address City/State/[facility] Co de Phone Number [facility] [address] [place] [address] * CREATININE WITH GLOMERULAR FILTRATION RATE, ESTIMATED (EGFR) (04/13/2013 5:01 PM EDT) Creatinine 0.73 0.50 - 1.10 mg/dL [facility] Comment:{CREATININE {[id number]) GFR 109 > OR = 60 mL/min/1.7 3m2 [facility] Comment:{eGFR NON-AFR. AMERI CAN {[id number]) GFR () 126 > OR = 60 mL/min/1.7 3m2 [facility] Comment:{eGFR AMERIC AN {[id number]) 04/13/2013 5:01 PM EDT 04/13/2013 11:38 PM [...] needs for GFR calculation. Resulting Agency Comment [id number] us Danilo Gates MD LAB SAME DAY RESULT Final Resul t [facility] [address] [place] [address] * CBC INCLUDES DIFFERENTIAL AND PLATELET COUNT (04/13/2013 5:01 PM EDT) WBC 6.2 3.8 - 10.8 Thousand/u L [facility] Comment:{WHITE BLOOD CELL CO UNT {[id number]) RBC 3.82 3.80 - 5.10 Million/uL [facility] Comment:{RED BLOOD CELL COUN T {[id number]) Hemoglobin 12.3 11.7 - 15.5 g/dL [facility] Comment:{HEMOGLOBIN {[id number]) Hematocrit 36.3 35.0 - 45.0 % [facility] Comment:{HEMATOCRIT {[id number]) MCV 95.1 80.0 - 100.0 fL [facility] Comment:{MCV {[id number]) MCH 32.1 27.0 - 33.0 pg [facility] Comment:{MCH {[id number]) MCHC 33.8 32.0 - 36.0 g/dL [facility] Comment:{MCHC {[id number]) RDW 13.1 11.0 - 15.0 % [facility] Comment:{RDW {[id number]) PLT 165 140 - 400 Thousand/u L [facility] Comment:{PLATELET COUNT {[id number]) MPV 10.5 7.5 - 11.5 fL [facility] Comment:{MPV {[id number]) Neutrophils # 2914 1500 - 7800 cells/uL [facility] Comment:{ABSOLUTE NEUTROPHIL S {[id number]) Lymphocytes # 2821 850 - 3900 cells/uL [facility] Comment:{ABSOLUTE LYMPHOCYTE S {[id number]) Monocytes # 329 200 - 950 cells/uL [facility] Comment:{ABSOLUTE MONOCYTES {[id number]) Eosinophils # 105 15 - 500 cells/uL [facility] Comment:{ABSOLUTE EOSINOPHIL S {[id number]) Basophils # 31 0 - 200 cells/uL [facility] Comment:{ABSOLUTE BASOPHILS {[id number]) Neutrophils % 47.0 % [facility] Comment:{NEUTROPHILS {[id number]) Lymphocytes % 45.5 % [facility] Comment:{LYMPHOCYTES {[id number]) Monocytes % 5.3 % [facility] Comment:{MONOCYTES {[id number]) Eosinophils % 1.7 % [facility] Comment:{EOSINOPHILS {[id number]) Basophils % 0.5 % [facility] Comment:{BASOPHILS {[id number]) 04/13/2013 5:01 PM EDT 04/13/2013 11:38 PM EDT Narrative Resulting Agency Comment [id number] us Danilo Gates MD LAB SAME DAY RESULT Final Resul t Performing Organization Address City/[facility]/ZIP Co de Phone Number [facility] [address] [place] [address] * ASPARTATE AMINOTRANSFERASE (AST), SERUM (04/13/2013 5:01 PM EDT) AST (SGOT) 19 10 - 30 U/L [facility] Comment:{AST {[id number]) 04/13/2013 5:01 PM EDT 04/13/2013 11:38 PM EDT Narrative Resulting Agency Comment [id number] us Danilo Gates MD LAB SAME DAY RESULT Final Resul t [facility] [address] [place] [address] documented in this encounter Visit Diagnoses Diagnosis Rheumatoid arthritis(714.0) Rheumatoid arthritis documented in this encounter Care Teams Materials Associate Relationship Specialty Start Date End Date Edilberto Harris 46 [facility] [address] [place] [address] PCP - General Family Medicine 03/06/11 07/05/18 Eufemia Jett MD [address] [address] PCP - General Geriatrics 10/31/19 documented as of this encounter
--- OUTSIDE RECORDS SUMMARY | 2024-11-08 08:51 | XMS_ITS | Encounter Summary ---
Author Organization [facility] Address [address] [place] [address] Care Team Providers Care Historical Guide Name Role Phone Edilberto Harris Primary Care Provider [phone] Eufemia Jett MD Primary Care Provider [phone] Encounter Details Date Type Department Care Team (Late st Contact Info) Description 03/03/2017 Orders Only [facility] Rheumatology [address] [place] [address] Danilo Gates MD [address] [place] [address] Social History Tobacco Use Types Packs/Day Years [...] of this encounter Procedures * Due to [place] state law, this organization might not be [...] in this encounter Results * Due to [place] state law, this organization might not be sharing negative HIV tests. * CALCIUM, SERUM (03/03/2017 2:46 PM EDT) Calcium 9.4 8.6 - 10.2 mg/dL [facility] 03/03/2017 2:46 PM EDT 03/03/2017 10:20 PM EDT Danilo Gates MD LAB SAME DAY RESULT Final Resul t Performing Organization Address [facility] de Phone Number [facility] [address] [place] [address] * IRON, TIBC AND FERRITIN PANEL (03/03/2017 [...] MD LABORATORY Final Result Performing Organization Address [facility] Phone Number [facility] [address] [place] [address] * C-REACTIVE PROTEIN (CRP) - INFLAMMATION (03/03/2017 2:46 PM EDT) C reactive protein 0.26 <0.80 mg/dL [facility] Comment: Please be advised that patients taking Carboxypenicillins may exhibit falsely decreased C-Reactive Protein levels due to an analytical interference in this assay. 03/03/2017 2:46 PM EDT 03/03/2017 10:20 PM EDT Narrative Resulting Agency Comment [id number] us Danilo Gates MD LABORATORY Final Result Performing Organization Address [facility] de Phone Number [facility] [address] [place] [address] * ERYTHROCYTE SEDIMENTATION RATE (ESR), WESTERGREN (03/03/2017 2:46 PM EDT) Sedimentation Rate [place] (ESR) 9 < OR = 20 mm/h [facility] 03/03/2017 2:46 PM EDT 03/03/2017 10:20 PM EDT Narrative Resulting Agency Comment [id number] us Danilo Gates MD LAB SAME DAY RESULT Final Resul t Performing Organization Address [facility] Co de Phone Number [facility] [address] [place] [address] * CREATININE WITH GLOMERULAR FILTRATION RATE, ESTIMATED [...] needs for GFR calculation. Resulting Agency Comment [id number] us Danilo Gates MD LAB SAME DAY RESULT Final Resul t Performing Organization Address [facility] Co de Phone Number [facility] [address] [place] [address] * ALANINE AMINOTRANSFERASE (ALT), SERUM (03/03/2017 2:46 PM EDT) ALT (SGPT) 10 6 - 29 U/L [facility] 03/03/2017 2:46 PM EDT 03/03/2017 10:20 PM EDT Narrative Resulting Agency Comment [id number] us Danilo Gates MD LAB SAME DAY RESULT Final Resul t Performing Organization Address [facility] Co de Phone Number [facility] [address] [place] [address] * ASPARTATE AMINOTRANSFERASE (AST), SERUM (03/03/2017 2:46 PM EDT) AST (SGOT) 17 10 - 30 U/L [facility] 03/03/2017 2:46 PM EDT 03/03/2017 10:20 PM EDT Narrative Resulting Agency Comment [id number] us Danilo Gates MD LAB SAME DAY RESULT Final Resul t Performing Organization Address [facility] de Phone Number [facility] [address] [place] [address] * CBC INCLUDES DIFFERENTIAL AND PLATELET COUNT [...] 10:20 PM EDT Narrative Resulting Agency Comment [id number] us Danilo Gates MD LAB SAME DAY RESULT Final Resul t Performing Organization Address [facility] Co de Phone Number [facility] [address] [place] [address] documented in this encounter Visit Diagnoses Diagnosis Rheumatoid arthritis involving multiple sites with positive rheumatoid factor (HCC) [M05.79] documented in this encounter Care Teams Historical Guide Relationship Specialty Start Date End Date Edilberto Harris 46 [facility] [address] [place] [address] PCP - General Family Medicine 03/06/11 07/05/18 Eufemia Jett MD [address] [address] PCP - General Geriatrics 10/31/19 documented as of this encounter
--- OUTSIDE RECORDS SUMMARY | 2024-11-08 08:51 | XMS_ITS | Encounter Summary ---
Author Organization [facility] Address [address] [place] [address] Care Team Providers Care Maintenance Mechanic Elevators Name Role Phone Edilberto Harris Primary Care Provider [phone] Eufemia Jett MD Primary Care Provider [phone] Encounter Details Date Type Department Care Team (Late st Contact Info) Description 04/16/2014 Orders Only [facility] Rheumatology [address] [place] [address] Danilo Gates MD [address] [place] [address] Social History Tobacco Use Types Packs/Day Years [...] of this encounter Procedures * Due to [place] state law, this organization might not be [...] in this encounter Results * Due to [place] state law, this organization might not be sharing negative HIV tests. * CREATININE WITH GLOMERULAR FILTRATION RATE, ESTIMATED (EGFR) (04/16/2014 4:11 PM EDT) Creatinine 0.67 0.50 - 1.10 mg/dL [facility] Comment:{CREATININE {[id number]) GFR 115 > OR = 60 mL/min/1.7 3m2 [facility] Comment:{eGFR NON-AFR. AMERI CAN {[id number]) GFR () 134 > OR = 60 mL/min/1.7 3m2 [facility] Comment:{eGFR AMERIC AN {[id number]) 04/16/2014 4:11 PM EDT 04/16/2014 11:38 PM [...] needs for GFR calculation. Resulting Agency Comment [id number] us Danilo Gates MD LAB SAME DAY RESULT Final Resul t [facility] [address] [place] [address] * ALANINE AMINOTRANSFERASE (ALT), SERUM (04/16/2014 4:11 PM EDT) ALT (SGPT) 16 6 - 29 U/L [facility] Comment:{ALT {[id number]) 04/16/2014 4:11 PM EDT 04/16/2014 11:38 PM EDT Narrative Resulting Agency Comment [id number] us Danilo Gates MD LAB SAME DAY RESULT Final Resul t [facility] [address] [place] [address] * ASPARTATE AMINOTRANSFERASE (AST), SERUM (04/16/2014 4:11 PM EDT) AST (SGOT) 23 10 - 30 U/L [facility] Comment:{AST {[id number]) 04/16/2014 4:11 PM EDT 04/16/2014 11:38 PM EDT Narrative Resulting Agency Comment [id number] us Danilo Gates MD LAB SAME DAY RESULT Final Resul t Performing Organization Address City/[facility] Co de Phone Number [facility] [address] [place] [address] * (ABNORMAL) CBC INCLUDES DIFFERENTIAL AND PLATELET COUNT (04/16/2014 4:11 PM EDT) WBC 6.0 3.8 - 10.8 Thousand/u L [facility] Comment:{WHITE BLOOD CELL CO UNT {[id number]) RBC 3.97 3.80 - 5.10 Million/uL [facility] Comment:{RED BLOOD CELL COUN T {[id number]) Hemoglobin 12.5 11.7 - 15.5 g/dL [facility] Comment:{HEMOGLOBIN {[id number]) Hematocrit 37.8 35.0 - 45.0 % [facility] Comment:{HEMATOCRIT {[id number]) MCV 95.2 80.0 - 100.0 fL [facility] Comment:{MCV {[id number]) MCH 31.5 27.0 - 33.0 pg [facility] Comment:{MCH {[id number]) MCHC 33.1 32.0 - 36.0 g/dL [facility] Comment:{MCHC {[id number]) RDW 12.7 11.0 - 15.0 % [facility] Comment:{RDW {[id number]) PLT 133(L) 140 - 400 Thousand/u L [facility] Comment:{PLATELET COUNT {[id number]) MPV 11.2 7.5 - 11.5 fL [facility] Comment:{MPV {[id number]) Neutrophils # 2844 1500 - 7800 cells/uL [facility] Comment:{ABSOLUTE NEUTROPHIL S {[id number]) Lymphocytes # 2526 850 - 3900 cells/uL [facility] Comment:{ABSOLUTE LYMPHOCYTE S {[id number]) Monocytes # 474 200 - 950 cells/uL [facility] Comment:{ABSOLUTE MONOCYTES {[id number]) Eosinophils # 84 15 - 500 cells/uL [facility] Comment:{ABSOLUTE EOSINOPHIL S {[id number]) Basophils # 72 0 - 200 cells/uL [facility] Comment:{ABSOLUTE BASOPHILS {[id number]) Neutrophils % 47.4 % [facility] Comment:{NEUTROPHILS {[id number]) Lymphocytes % 42.1 % [facility] Comment:{LYMPHOCYTES {[id number]) Monocytes % 7.9 % [facility] Comment:{MONOCYTES {[id number]) Eosinophils % 1.4 % [facility] Comment:{EOSINOPHILS {[id number]) Basophils % 1.2 % [facility] Comment:{BASOPHILS {[id number]) 04/16/2014 4:11 PM EDT 04/16/2014 11:38 PM EDT Narrative Resulting Agency Comment [id number] us Danilo Gates MD LAB SAME DAY RESULT Final Resul t [facility] [address] [place] [address] documented in this encounter Visit Diagnoses Diagnosis Rheumatoid arthritis(714.0) Rheumatoid arthritis documented in this encounter Care Teams Maintenance Mechanic Elevators Relationship Specialty Start Date End Date Edilberto Harris 46 [facility] [address] [place], [place] [id number] PCP - General Family Medicine 03/06/11 07/05/18 [place] [address] PCP - General Geriatrics 10/31/19 documented as of this encounter
--- OUTSIDE RECORDS SUMMARY | 2024-11-08 08:51 | XMS_ITS | Clinical Summary ---
Author Organization [facility] Address [address] [place] [address] Care Team Providers Care Guide Rail Cleaner Name Role Phone Eufemia Jett MD Primary Care Provider [phone] Allergies Active Allergy Reactions Criticality Noted Date [...] complete this topic Procedures * Due to [place] Crosswise law, this organization might not be sharing negative HIV tests. Procedure Name Priority Date/Time Associated Diagnosis Comments HEPATITIS C AB WITH REFLEX TO RNA PCR, SERUM Routine 11/09/2011 3:52 PM EST Rheumatoid arthritis (HCC) from Last 3 Months or Most Recently Relevant to Health Maintenance Results * Due to [place] Crosswise law, this organization might not be sharing negative HIV tests. * HEPATITIS C ANTIBODY, SERUM (11/09/2011 3:52 PM EST) Hepatitis C virus Ab NON-REACTI VE NON-REACT CATHY [facility] Comment:{HEPATITIS C ANTIBOD Y {[id number]) Hepatitis C virus Ab Signal/Cutoff 0.10 <1.00 [facility] Comment:{SIGNAL TO CUT-OFF { [id number]) 11/09/2011 3:52 PM EST 11/09/2011 9:41 PM EST Narrative Resulting Agency Comment [id number] us Danilo Gates MD LABORATORY Final Result [facility] [address] [place] [address] from Last 3 Months or Most Recently Relevant to Health Maintenance Insurance [address] [place] [address] BCBS FEE FOR SERVICE PPO Care Teams Guide Rail Cleaner Relationship Specialty Start Date End Date Eufemia Jett MD [address] [address] PCP - General Geriatrics 10/31/19
--- OUTSIDE RECORDS SUMMARY | 2024-11-08 08:51 | XMS_ITS | Encounter Summary ---
Author Organization [facility] Address [address] [place] [address] Care Team Providers Care Clinical Dietitian Name Role Phone Edilberto Harris Primary Care Provider [phone] Eufemia Jett MD Primary Care Provider [phone] Encounter Details Date Type Department Care Team (Late st Contact Info) Description 12/05/2013 Orders Only [facility] Rheumatology [address] [place] [address] Danilo Gates MD [address] [place] [address] Social History Tobacco Use Types Packs/Day Years [...] of this encounter Results * Due to [place] state law, this organization might not be sharing negative HIV tests. * ANTI-NEUTROPHIL CYTOPLASM ANTIBODY - ANCA ([facility]) (12/06/2013 10:46 AM EDT) ANCA NEGATIVE [facility] Comment:{ANCA {[id number]) NOTE SEE NOTE [facility] Comment: {NOTE: {[id number]) Indirect immunofluorescence testing for anti-neutrophil ?cytoplasm antibodies (ANCA) is negative. ELISAs are also ?negative for antibodies to proteinase 3 and myeloperoxidase. INTERPRETATION SEE NOTE [facility] Comment: {INTERPRETATION: {[id number]) The findings provide no support for the [...] turn positive if tested serially. Please call [facility] Immunopathology Laboratory at [phone] with questions or concerns regarding ANCA tests. These tests were developed and their performance characteristics determined by the Immunopathology Laboratory at the [facility]. Their characteristics have been published: Journal of the [place] Society of Nephrology 2:27-36, 1990; Human Pathology 24:170-8, 1992; Archives of Internal Medicine 156:440-5; Annals of Internal Medicine 126:866-73,1996. These tests have not been cleared or approved by the U.S. Food and Drug Administration (FDA). The FDA has determined that clearance or approval is not necessary. FINAL DIAGNOSIS BY JYOTI DAO MD [facility] Comment: {FINAL DIAGNOSIS BY: {[id number]) By his/her signature above, the pathologist listed as making the Final Diagnosis certifies that he/she has personally reviewed this case and confirmed or corrected the diagnoses. 12/06/2013 10:4 6 AM EDT 12/06/2013 6:15 PM EDT Narrative Resulting Agency Comment [id number] Transcriptions Danilo Gates MD - 12/20/2013 12:00 AM EDT Danilo Gates MD - 12/22/2013 12:00 AM EDT Danilo Gates MD LABORATORY Edited Result - Final [facility] [address] [place] [address] documented in this encounter Visit Diagnoses Diagnosis Rheumatoid arthritis(714.0)- Primary Rheumatoid arthritis Rheumatoid arthritis(714.0) Rheumatoid arthritis documented in this encounter Care Teams Clinical Dietitian Relationship Specialty Start Date End Date Edilberto Harris 46 [facility] [address] [place] [address] PCP - General Family Medicine 03/06/11 07/05/18 Eufemia Jett MD [address] [address] PCP - General Geriatrics 10/31/19 documented as of this encounter
--- OUTSIDE RECORDS SUMMARY | 2024-11-08 08:51 | XMS_ITS | Encounter Summary ---
Author Organization [facility] Address [address] [place] [address] Care Team Providers Care Stone Polisher Hand Name Role Phone Eufemia Jett MD Primary Care Provider [phone] Encounter Details Date Type Department Care Team (Late st Contact Info) Description 06/24/2020 Orders Only [facility]. Rheumatology [address] [place] [phone] Karissa Velasquez MD [address] [place] [phone] Social History Tobacco Use Types Packs/Day Years [...] Primary documented in this encounter Care Teams Stone Polisher Hand Relationship Specialty Start Date End [place] [address] PCP - General Geriatrics 10/31/19 documented as of this encounter
--- OUTSIDE RECORDS SUMMARY | 2024-11-08 08:51 | XMS_ITS | Encounter Summary ---
Author Organization [facility] Address [address] [place] [address] Care Team Providers Care Lapel Padder Name Role Phone Edilberto Harris Primary Care Provider [phone] Eufemia Jett MD Primary Care Provider [phone] Encounter Details Date Type Department Care Team (Late st Contact Info) Description 10/16/2013 Orders Only [facility] Rheumatology [address] [place] [address] Danilo Gates MD [address] [place] [address] Social History Tobacco Use Types Packs/Day Years [...] [facility] Comment:{SED RATE BY GAVI ANDRE {[id number]) 10/16/2013 4:45 PM EST 10/17/2013 1:49 AM EST Narrative Resulting Agency Comment [id number] us Danilo Gates MD LAB SAME DAY RESULT Final Resul t [facility] [address] [place] [address] * C-REACTIVE PROTEIN (CRP) - INFLAMMATION (10/16/2013 4:45 PM EST) C reactive protein 0.15 <0.80 mg/dL [facility] Comment: {C-REACTIVE PROTEIN {[id number]) Please be advised that patients taking Carboxypenicillins may exhibit falsely decreased C-Reactive Protein levels due to an analytical interference in this assay. 10/16/2013 4:45 PM EST 10/17/2013 1:49 AM EST Narrative Resulting Agency Comment [id number] us Danilo Gates MD LABORATORY Final Result Performing Organization Address [facility] de Phone Number [facility] [address] [place] [address] * CREATININE WITH GLOMERULAR FILTRATION RATE, ESTIMATED (EGFR) (10/16/2013 4:45 PM EST) Creatinine 0.68 0.50 - 1.10 mg/dL [facility] Comment:{CREATININE {[id number]) GFR 115 > OR = 60 mL/min/1.7 3m2 [facility] Comment:{eGFR NON-AFR. AMERI CAN {[id number]) GFR () 133 > OR = 60 mL/min/1.7 3m2 [facility] Comment:{eGFR AMERIC AN {[id number]) 10/16/2013 4:45 PM EST 10/17/2013 1:49 AM [...] needs for GFR calculation. Resulting Agency Comment [id number] us Danilo Gates MD LAB SAME DAY RESULT Final Resul t Performing Organization Address [facility] de Phone Number [facility] [address] [place] [address] * CBC INCLUDES DIFFERENTIAL AND PLATELET COUNT (10/16/2013 4:45 PM EST) WBC 6.3 3.8 - 10.8 Thousand/u L [facility] Comment:{WHITE BLOOD CELL CO UNT {[id number]) RBC 4.14 3.80 - 5.10 Million/uL [facility] Comment:{RED BLOOD CELL COUN T {[id number]) Hemoglobin 13.2 11.7 - 15.5 g/dL [facility] Comment:{HEMOGLOBIN {[id number]) Hematocrit 38.9 35.0 - 45.0 % [facility] Comment:{HEMATOCRIT {[id number]) MCV 93.8 80.0 - 100.0 fL [facility] Comment:{MCV {[id number]) MCH 31.9 27.0 - 33.0 pg [facility] Comment:{MCH {[id number]) MCHC 34.0 32.0 - 36.0 g/dL [facility] Comment:{MCHC {[id number]) RDW 13.0 11.0 - 15.0 % [facility] Comment:{RDW {[id number]) PLT 155 140 - 400 Thousand/u L [facility] Comment:{PLATELET COUNT {[id number]) MPV 11.3 7.5 - 11.5 fL [facility] Comment:{MPV {[id number]) Neutrophils # 2923 1500 - 7800 cells/uL [facility] Comment:{ABSOLUTE NEUTROPHIL S {[id number]) Lymphocytes # 2898 850 - 3900 cells/uL [facility] Comment:{ABSOLUTE LYMPHOCYTE S {[id number]) Monocytes # 359 200 - 950 cells/uL [facility] Comment:{ABSOLUTE MONOCYTES {[id number]) Eosinophils # 88 15 - 500 cells/uL [facility] Comment:{ABSOLUTE EOSINOPHIL S {[id number]) Basophils # 32 0 - 200 cells/uL [facility] Comment:{ABSOLUTE BASOPHILS {[id number]) Neutrophils % 46.4 % [facility] Comment:{NEUTROPHILS {[id number]) Lymphocytes % 46.0 % [facility] Comment:{LYMPHOCYTES {[id number]) Monocytes % 5.7 % [facility] Comment:{MONOCYTES {[id number]) Eosinophils % 1.4 % [facility] Comment:{EOSINOPHILS {[id number]) Basophils % 0.5 % [facility] Comment:{BASOPHILS {[id number]) 10/16/2013 4:45 PM EST 10/17/2013 1:49 AM EST Narrative Resulting Agency Comment [id number] us Danilo Gates MD LAB SAME DAY RESULT Final Resul t Performing Organization Address City/[facility] Co de Phone Number [facility] [address] [place] [address] * ASPARTATE AMINOTRANSFERASE (AST), SERUM (10/16/2013 4:45 PM EST) AST (SGOT) 21 10 - 30 U/L [facility] Comment:{AST {[id number]) 10/16/2013 4:45 PM EST 10/17/2013 1:49 AM EST Narrative Resulting Agency Comment [id number] us Danilo Gates MD LAB SAME DAY RESULT Final Resul t Performing Organization Address [facility] Co de Phone Number [facility] [address] [place] [address] * ALANINE AMINOTRANSFERASE (ALT), SERUM (10/16/2013 4:45 PM EST) ALT (SGPT) 11 6 - 29 U/L [facility] Comment:{ALT {[id number]) 10/16/2013 4:45 PM EST 10/17/2013 1:49 AM EST Narrative Resulting Agency Comment [id number] us Danilo Gates MD LAB SAME DAY RESULT Final Resul t Performing Organization Address City/[facility] Co de Phone Number [facility] [address] [place] [address] documented in this encounter Visit Diagnoses Diagnosis Rheumatoid arthritis(714.0)- Primary Rheumatoid arthritis documented in this encounter Care Teams Lapel Padder Relationship Specialty Start Date End Date Edilberto Harris 46 [facility] [address] [place] [address] PCP - General Family Medicine 03/06/11 07/05/18 Eufemia Jett MD [address] [address] PCP - General Geriatrics 10/31/19 documented as of this encounter
--- OUTSIDE RECORDS SUMMARY | 2024-11-08 08:52 | XMS_ITS | Encounter Summary ---
Author Organization [facility] Address [address] [place] [address] Care Team Providers Care Deputy Head Name Role Phone Edilberto Harris Primary Care Provider [phone] Eufemia Jett MD Primary Care Provider [phone] Reason for Visit * Reason Comments E-prescribing Refill Request Encounter Details Date Type Department Care Team (Late st Contact Info) Description 12/25/2012 Refill [facility] Rheumatology [address] [place] [address] Danilo Gates MD [address] [place], [place] [phone] E-prescribing Refill Request Social History Tobacco Use [...] for Shiela Browne 32 y.o. female [facility] Entered this pharmacy as preferred pharmacy for [...] on filedocumented in this encounter Care Teams Deputy Head Relationship Specialty Start Date End Date Edilberto Harris 46 [facility] [address] [place] [address] PCP - General Family Medicine 03/06/11 07/05/18 Eufemia Jett MD [address] [address] PCP - General Geriatrics 10/31/19 documented as of this encounter
--- OUTSIDE RECORDS SUMMARY | 2024-11-08 08:52 | XMS_ITS | Encounter Summary ---
Author Organization [facility] Address [address] [place] [address] Care Team Providers Care Busgirl Name Role Phone Edilberto Harris Primary Care Provider [phone] Eufemia Jett MD Primary Care Provider [phone] Encounter Details Date Type Department Care Team (Late st Contact Info) Description 04/13/2016 Orders Only [facility] Rheumatology [address] [place] [address] Danilo Gates MD [address] [place] [address] Social History Tobacco Use Types Packs/Day Years [...] <0.80 mg/dL [facility] Comment: {C-REACTIVE PROTEIN {[id number]) Please be advised that patients taking Carboxypenicillins may exhibit falsely decreased C-Reactive Protein levels due to an analytical interference in this assay. 04/13/2016 3:57 PM EDT 04/13/2016 9:24 PM EDT Narrative Resulting Agency Comment [id number] us Danilo Gates MD LABORATORY Final Result [facility] [address] [place] [address] * ERYTHROCYTE SEDIMENTATION RATE (ESR), WESTERGREN (04/13/2016 3:57 PM EDT) Sedimentation Rate [place] (ESR) 6 < OR = 20 mm/h [facility] Comment:{SED RATE BY GAVI MOSQUEDAREN {[id number]) 04/13/2016 3:57 PM EDT 04/13/2016 9:24 PM EDT Narrative Resulting Agency Comment [id number] us Danilo Gates MD LAB SAME DAY RESULT Final Resul t Performing Organization Address [facility] de Phone Number [facility] [address] [place] [address] * CREATININE WITH GLOMERULAR FILTRATION RATE, ESTIMATED (EGFR) (04/13/2016 3:57 PM EDT) Creatinine 0.80 0.50 - 1.10 mg/dL [facility] Comment:{CREATININE {[id number]) GFR 96 > OR = 60 mL/min/1.7 3m2 [facility] Comment:{eGFR NON-AFR. AMERI CAN {[id number]) GFR () 111 > OR = 60 mL/min/1.7 3m2 [facility] Comment:{eGFR AMERIC AN {[id number]) 04/13/2016 3:57 PM EDT 04/13/2016 9:24 PM [...] needs for GFR calculation. Resulting Agency Comment [id number] us Danilo Gates MD LAB SAME DAY RESULT Final Resul t Performing Organization Address [facility] Co de Phone Number [facility] [address] [place] [address] * ALANINE AMINOTRANSFERASE (ALT), SERUM (04/13/2016 3:57 PM EDT) ALT (SGPT) 11 6 - 29 U/L [facility] Comment:{ALT {[id number]) 04/13/2016 3:57 PM EDT 04/13/2016 9:24 PM EDT Narrative Resulting Agency Comment [id number] us Danilo Gates MD LAB SAME DAY RESULT Final Resul t Performing Organization Address [facility] Co de Phone Number [facility] [address] [place] [address] * ASPARTATE AMINOTRANSFERASE (AST), SERUM (04/13/2016 3:57 PM EDT) AST (SGOT) 19 10 - 30 U/L [facility] Comment:{AST {[id number]) 04/13/2016 3:57 PM EDT 04/13/2016 9:24 PM EDT Narrative Resulting Agency Comment [id number] us Danilo Gates MD LAB SAME DAY RESULT Final Resul t Performing Organization Address [facility] de Phone Number [facility] [address] [place] [address] * CBC INCLUDES DIFFERENTIAL AND PLATELET COUNT (04/13/2016 3:57 PM EDT) WBC 7.5 3.8 - 10.8 Thousand/u L [facility] Comment:{WHITE BLOOD CELL CO UNT {[id number]) RBC 3.84 3.80 - 5.10 Million/uL [facility] Comment:{RED BLOOD CELL COUN T {[id number]) Hemoglobin 12.7 11.7 - 15.5 g/dL [facility] Comment:{HEMOGLOBIN {[id number]) Hematocrit 37.2 35.0 - 45.0 % [facility] Comment:{HEMATOCRIT {[id number]) MCV 96.9 80.0 - 100.0 fL [facility] Comment:{MCV {[id number]) MCH 32.9 27.0 - 33.0 pg [facility] Comment:{MCH {[id number]) MCHC 34.0 32.0 - 36.0 g/dL [facility] Comment:{MCHC {[id number]) RDW 12.8 11.0 - 15.0 % [facility] Comment:{RDW {[id number]) PLT 180 140 - 400 Thousand/u L [facility] Comment:{PLATELET COUNT {[id number]) MPV 10.4 7.5 - 11.5 fL [facility] Comment:{MPV {[id number]) Neutrophils # 3818 1500 - 7800 cells/uL [facility] Comment:{ABSOLUTE NEUTROPHIL S {[id number]) Lymphocytes # 3233 850 - 3900 cells/uL [facility] Comment:{ABSOLUTE LYMPHOCYTE S {[id number]) Monocytes # 345 200 - 950 cells/uL [facility] Comment:{ABSOLUTE MONOCYTES {[id number]) Eosinophils # 60 15 - 500 cells/uL [facility] Comment:{ABSOLUTE EOSINOPHIL S {[id number]) Basophils # 45 0 - 200 cells/uL [facility] Comment:{ABSOLUTE BASOPHILS {[id number]) Neutrophils % 50.9 % [facility] Comment:{NEUTROPHILS {[id number]) Lymphocytes % 43.1 % [facility] Comment:{LYMPHOCYTES {[id number]) Monocytes % 4.6 % [facility] Comment:{MONOCYTES {[id number]) Eosinophils % 0.8 % [facility] Comment:{EOSINOPHILS {[id number]) Basophils % 0.6 % [facility] Comment:{BASOPHILS {[id number]) 04/13/2016 3:57 PM EDT 04/13/2016 9:24 PM EDT Narrative Resulting Agency Comment [id number] us Danilo Gates MD LAB SAME DAY RESULT Final Resul t [facility] [address] [place] [address] documented in this encounter Visit Diagnoses Diagnosis Rheumatoid arthritis, seropositive (HCC) Rheumatoid arthritis documented in this encounter Care Teams Busgirl Relationship Specialty Start Date End Date Edilberto Harris 46 [facility] [address] [place] [address] PCP - General Family Medicine 03/06/11 07/05/18 Eufemia Jett MD [address] [address] PCP - General Geriatrics 10/31/19 documented as of this encounter
--- OUTSIDE RECORDS SUMMARY | 2024-11-08 08:52 | XMS_ITS | Encounter Summary ---
Author Organization [facility] Address [address] [place] [address] Care Team Providers Care Spotter Name Role Phone Edilberto Harris Primary Care Provider [phone] Eufemia Jett MD Primary Care Provider [phone] Encounter Details Date Type Department Care Team (Late st Contact Info) Description 04/20/2018 [facility] [address] [place] [phone] Danilo Gates MD [address] [place] [address] Social History Tobacco Use Types Packs/Day Years [...] 4:24 PM EDT Narrative Resulting Agency Comment [id number] us Danilo Gates MD LAB SAME DAY RESULT Final Resul t [facility] [address] [place] [address] * ALANINE AMINOTRANSFERASE (ALT), SERUM (04/20/2018 10:05 AM EDT) ALT (SGPT) 12 6 - 29 U/L [facility] 04/20/2018 10:0 5 AM EDT 04/20/2018 4:24 PM EDT Narrative Resulting Agency Comment [id number] us Danilo Gates MD LAB SAME DAY RESULT Final Resul t Performing Organization Address City/[facility]/ZIP Co de Phone Number [facility] [address] [place] [address] * ASPARTATE AMINOTRANSFERASE (AST), SERUM (04/20/2018 10:05 AM EDT) AST (SGOT) 18 10 - 30 U/L [facility] 04/20/2018 10:0 5 AM EDT 04/20/2018 4:24 PM EDT Narrative Resulting Agency Comment [id number] Danilo Gates MD LAB SAME DAY RESULT Final Resul t Performing Organization Address [facility] de Phone Number [facility] [address] [place] [address] * CBC INCLUDES DIFFERENTIAL AND PLATELET COUNT (04/20/2018 10:05 AM EDT) Pathologist [facility] WBC 5.5 3.8 - 10.8 Thousand/u [...] 4:24 PM EDT Narrative Resulting Agency Comment [id number] us Danilo Gates MD LAB SAME DAY RESULT Final Resul t Performing Organization Address City/[facility]/ZIP Co de Phone Number [facility] [address] [place] [address] * C-REACTIVE PROTEIN (CRP) - INFLAMMATION (04/20/2018 10:05 AM EDT) C reactive protein 4.4 <8.0 mg/L [facility] 04/20/2018 10:0 5 AM EDT 04/20/2018 4:24 PM EDT Narrative Resulting Agency Comment [id number] us Danilo Gates MD LABORATORY Final Result Performing Organization Address [facility] Co de Phone Number [facility] [address] [place] [address] * ERYTHROCYTE SEDIMENTATION RATE (ESR), WESTERGREN (04/20/2018 10:05 AM EDT) Sedimentation Rate [place]ren (ESR) 11 < OR = 20 mm/h [facility] 04/20/2018 10:0 5 AM EDT 04/20/2018 4:24 PM EDT Narrative Resulting Agency Comment [id number] us Danilo Gates MD LAB SAME DAY RESULT Final Resul t Performing Organization Address City/[facility] Co de Phone Number [facility] [address] [place] [address] documented in this encounter Visit Diagnoses Diagnosis Rheumatoid arthritis involving multiple sites with positive rheumatoid factor (HCC) Rheumatoid arthritis involving multiple sites, unspecified rheumatoid factor presence documented in this encounter Care Teams Spotter Relationship Specialty Start Date End Date Edilberto Harris [address] [facility] [address] [place] [address] PCP - General Family Medicine 03/06/11 07/05/18 Eufemia Jett MD [facility] [address] [place] [address] PCP - General Geriatrics 10/31/19 documented as of this encounter
--- OUTSIDE RECORDS SUMMARY | 2024-11-08 08:52 | XMS_ITS | Encounter Summary ---
Author Organization [facility] Address [address] [place] [address] Care Team Providers Care Instructional Systems Specialist Name Role Phone Eufemia Jett MD Primary Care Provider [phone] Encounter Details Date Type Department Care Team (Late st Contact Info) Description 08/29/2018 Orders Only [facility] [address] [place] [phone] Karissa Velasquez MD [address] [place] [phone] Social History Tobacco Use Types Packs/Day Years [...] 11:12 AM EDT Narrative Resulting Agency Comment [id number] us Karissa Velasquez MD LABORATORY Final Result Performing Organization Address City/[facility]/ZIP Co de Phone Number [facility] [address] [place] [address] * ERYTHROCYTE SEDIMENTATION RATE (ESR), WESTERGREN (03/10/2019 9:09 AM EDT) Sedimentation Rate [place]ren (ESR) 19 < OR = 20 mm/h [facility] 03/10/2019 9:09 AM EDT 03/10/2019 11:12 AM EDT Narrative Resulting Agency Comment [id number] us Karissa Velasquez MD LAB SAME DAY RESULT Final Result Performing Organization Address [facility] de Phone Number [facility] [address] [place] [address] * CREATININE WITH GLOMERULAR FILTRATION RATE, ESTIMATED [...] needs for GFR calculation. Resulting Agency Comment [id number] us Karissa Velasquez MD LAB SAME DAY RESULT Final Result Performing Organization Address [facility] Co de Phone Number [facility] [address] [place] [address] * ALANINE AMINOTRANSFERASE (ALT), SERUM (03/10/2019 9:09 AM EDT) ALT (SGPT) 12 6 - 29 U/L [facility] 03/10/2019 9:09 AM EDT 03/10/2019 11:12 AM EDT Narrative Resulting Agency Comment [id number] us Karissa Velasquez MD LAB SAME DAY RESULT Final Result Performing Organization Address City/[facility]/ZIP Co de Phone Number [facility] [address] [place] [address] * ASPARTATE AMINOTRANSFERASE (AST), SERUM (03/10/2019 9:09 AM EDT) Pathologist [facility] AST (SGOT) 16 10 - 30 U/L [facility] 03/10/2019 9:09 AM EDT 03/10/2019 11:12 AM EDT Narrative Resulting Agency Comment [id number] Karissa Velasquez MD LAB SAME DAY RESULT Final Result Performing Organization Address [facility] de Phone Number [facility] [address] [place] [address] * CBC INCLUDES DIFFERENTIAL AND PLATELET COUNT (03/10/2019 9:09 AM EDT) Pathologist [facility] WBC 5.9 3.8 - 10.8 Thousand/u L [...] 11:12 AM EDT Narrative Resulting Agency Comment [id number] us Karissa Velasquez MD LAB SAME DAY RESULT Final Result [facility] [address] [place] [address] documented in this encounter Visit Diagnoses Diagnosis 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
--- OUTSIDE RECORDS SUMMARY | 2024-11-08 08:52 | XMS_ITS | Encounter Summary ---
Author Organization [facility] Address [address] [place] [address] Care Team Providers Care Senior Engineering Manager Name Role Phone Eufemia Jett MD Primary Care Provider [phone] Encounter Details Date Type Department Care Team ([facility] st Contact Info) Description 07/05/2019 Orders Only [facility] [address] [place] [phone] Karissa Velasquez MD [address] [place] [address] Social History Tobacco Use Types Packs/Day Years [...] * QUANTIFERON-TB GOLD (07/05/2019 11:28 AM EDT) [facility] Quantiferon(R)-TB Gold Plus NEGATIVE NEGATIVE [facility] [...] T-lymphocytes. For additional information, please refer to [email or web address]/faq/LBA428 (This link is being provided for informational/ educational purposes only.) 07/05/2019 11:2 8 AM EDT 07/05/2019 3:00 PM EDT Narrative Resulting Agency Comment [id number] us Karissa Velasquez MD LABORATORY Final Result Performing Organization Address [facility] Co de Phone Number [facility] [address] [place] [address] * ERYTHROCYTE SEDIMENTATION RATE (ESR), WESTERGREN (07/05/2019 11:28 AM EDT) Sedimentation Rate [place] (ESR) 17 < OR = 20 mm/h [facility] 07/05/2019 11:2 8 AM EDT 07/05/2019 3:00 PM EDT Narrative Resulting Agency Comment [id number] us Karissa Velasquez MD LAB SAME DAY RESULT Final Result Performing Organization Address [facility] de Phone Number [facility] [address] [place] [address] * C-REACTIVE PROTEIN (CRP) - INFLAMMATION (07/05/2019 11:28 AM EDT) C reactive protein 6.2 <8.0 mg/L [facility] 07/05/2019 11:2 8 AM EDT 07/05/2019 3:00 PM EDT Narrative Resulting Agency Comment [id number] us Karissa Velasquez MD LABORATORY Final Result Performing Organization Address [facility] de Phone Number [facility] [address] [place] [address] * COMPREHENSIVE METABOLIC PANEL WITH GFR (07/05/2019 [...] needs for GFR calculation. Resulting Agency Comment [id number] Karissa Velasquez MD LABORATORY Final Result Performing Organization Address City/State/[facility] Co de Phone Number [facility] [address] [place] [address] * CBC INCLUDES DIFFERENTIAL AND PLATELET COUNT [...] 3:00 PM EDT Narrative Resulting Agency Comment [id number] us Karissa Velasquez MD LAB SAME DAY RESULT Final Result Performing Organization Address [facility] de Phone Number [facility] [address] [place] [address] * RHEUMATOID ARTHRITIS DIAGNOSTIC PANEL (07/05/2019 11:28 [...] 3:00 PM EDT Narrative Resulting Agency Comment [id number] us Karissa Velasquez MD LABORATORY Final Result Performing Organization Address [facility] de Phone Number [facility] [address] [place] [address] documented in this encounter Visit Diagnoses Diagnosis Rheumatoid arthritis involving multiple sites with positive rheumatoid factor (HCC) [M05.79] documented in this encounter Care Teams Senior Engineering Manager Relationship Specialty Start Date End [place] [address] PCP - General Geriatrics 10/31/19 documented as of this encounter
--- OUTSIDE RECORDS SUMMARY | 2024-11-08 08:52 | XMS_ITS | Encounter Summary ---
Author Organization [facility] Address [address] [place] [address] Care Team Providers Care Arc Cutter Plasma Arc Name Role Phone Edilberto Harris Primary Care Provider [phone] Eufemia Jett MD Primary Care Provider Encounter Details Date Type Department Care Team ([facility] st Contact Info) Description 10/14/2017 Orders Only [facility] Rheumatology [address] [place] [phone] Danilo Gates MD [address] [place] [address] Social History Tobacco Use Types Packs/Day Years [...] of this encounter Results * Due to [place] state law, this organization might not [...] 5:33 PM EST Narrative Resulting Agency Comment [id number] us Danilo Gates MD LAB SAME DAY RESULT Final Resul t [facility] [address] [place] [address] * CREATININE WITH GLOMERULAR FILTRATION RATE, ESTIMATED [...] needs for GFR calculation. Resulting Agency Comment [id number] us Danilo Gates MD LAB SAME DAY RESULT Final Resul t Performing Organization Address City/[facility]/ZIP Co de Phone Number [facility] [address] [place] [address] * ALANINE AMINOTRANSFERASE (ALT), SERUM (10/20/2017 9:58 AM EST) ALT (SGPT) 13 6 - 29 U/L [facility] 10/20/2017 9:58 AM EST 10/20/2017 5:33 PM EST Narrative Resulting Agency Comment [id number] us Danilo Gates MD LAB SAME DAY RESULT Final Resul t Performing Organization Address [facility] Co de Phone Number [facility] [address] [place] [address] documented in this encounter Visit Diagnoses Diagnosis Rheumatoid arthritis involving multiple sites with positive rheumatoid factor (HCC)- Primary Rheumatoid arthritis involving multiple sites with positive rheumatoid factor (HCC) documented in this encounter Care Teams Arc Cutter Plasma Arc Relationship Specialty Start Date End Date Edilberto Harris [address] [address] PCP - General Family Medicine 03/06/11 07/05/18 Eufemia Jett MD [address] [address] PCP - General Geriatrics 10/31/19 documented as of this encounter
--- OUTSIDE RECORDS SUMMARY | 2024-11-08 08:52 | XMS_ITS | Encounter Summary ---
Author Organization [facility] Address [address] [place] [address] Care Team Providers Care Automotive Parts Counterperson Name Role Phone Edilberto Harris Primary Care Provider [phone] Eufemia Jett MD Primary Care Provider [phone] Encounter Details Date Type Department Care Team (Late st Contact Info) Description 07/07/2017 [facility] Rheumatology [address] [place] [phone] Danilo Gates MD [address] [place] [address] Social History Tobacco Use Types Packs/Day Years [...] needs for GFR calculation. Resulting Agency Comment [id number] us Danilo Gates MD LAB SAME DAY RESULT Final Resul t [facility] [address] [place] [address] * ALANINE AMINOTRANSFERASE (ALT), SERUM (07/07/2017 10:54 AM EDT) ALT (SGPT) 10 6 - 29 U/L [facility] 07/07/2017 10:5 4 AM EDT 07/07/2017 11:42 PM EDT Narrative Resulting Agency Comment [id number] us Danilo Gates MD LAB SAME DAY RESULT Final Resul t Performing Organization Address City/[facility]/ZIP Co de Phone Number [facility] [address] [place] [address] * ASPARTATE AMINOTRANSFERASE (AST), SERUM (07/07/2017 10:54 AM EDT) AST (SGOT) 16 10 - 30 U/L [facility] 07/07/2017 10:5 4 AM EDT 07/07/2017 11:42 PM EDT Narrative Resulting Agency Comment [id number] us Danilo Gates MD LAB SAME DAY RESULT Final Resul t Performing Organization Address [facility] de Phone Number [facility] [address] [place] [address] * CBC INCLUDES DIFFERENTIAL AND PLATELET COUNT [...] 11:42 PM EDT Narrative Resulting Agency Comment [id number] us Danilo Gates MD LAB SAME DAY RESULT Final Resul t [facility] [address] [place] [address] documented in this encounter Visit Diagnoses Diagnosis Rheumatoid arthritis involving multiple sites with positive rheumatoid factor (HCC) documented in this encounter Care Teams Automotive Parts Counterperson Relationship Specialty Start Date End Date Edilberto Harris [address] [facility] [address] [place] [address] PCP - General Family Medicine 03/06/11 07/05/18 Eufemia Jett MD [address] [address] PCP - General Geriatrics 10/31/19 documented as of this encounter
--- OUTSIDE RECORDS SUMMARY | 2024-11-08 08:52 | XMS_ITS | Encounter Summary ---
Author Organization [facility] Address [address] [place] [address] Care Team Providers Care Plumber Maintenance Name Role Phone Edilberto Harris Primary Care Provider [phone] Eufemia Jett MD Primary Care Provider [phone] Encounter Details Date Type Department Care Team (Late st Contact Info) Description 10/05/2011 Orders Only [facility] Rheumatology [address] [place] [phone] Danilo Gates MD [address] [place] [address] Social History Tobacco Use Types Packs/Day Years [...] this encounter Results * Due to [place] [employer] law, this organization might not be sharing negative HIV tests. * KAREEM IFA, W/ REFLEX TO TITER/PATTERN/COMPREHENSIVE AB PANEL (10/05/2011 3:57 PM EST) KAREEM IFA NEGATIVE NEGATIVE [facility] Comment:{KAREEM SCREEN, IFA {[id number]) 10/05/2011 3:57 PM EST 10/05/2011 11:44 PM EST Narrative Resulting Agency Comment [id number] us Danilo Gates MD LABORATORY Final Result [facility] [address] [place] [address] * CYCLIC CITRULLINATEDPEPTIDE CCP AB IGG (10/05/2011 3:57 PM EST) CCP Ab, IgG <16 UNITS [facility] Comment: {CYCLIC CITRULLINATED PEPTIDE (CCP) AB (IGG) {[id number]) Reference Range Negative: ?<20 Weak Positive: ? 20-39 Moderate Positive: ?? 40-59 Strong Positive: ? >59 10/05/2011 3:57 PM EST 10/05/2011 11:44 PM EST Narrative Resulting Agency Comment [id number] us Danilo Gates MD LABORATORY Final Result Performing Organization Address [facility] Co de Phone Number [facility] [address] [place] [address] * C-REACTIVE PROTEIN (CRP) - INFLAMMATION (10/05/2011 3:57 PM EST) C reactive protein 0.53 <0.80 mg/dL [facility] Comment: {C-REACTIVE PROTEIN {[id number]) Please be advised that patients taking Carboxypenicillins may exhibit falsely decreased C-Reactive Protein levels due to an analytical interference in this assay. 10/05/2011 3:57 PM EST 10/05/2011 11:44 PM EST Narrative Resulting Agency Comment [id number] us Danilo Gates MD LABORATORY Final Result Performing Organization Address [facility] Co de Phone Number [facility] [address] [place] [address] * (ABNORMAL) RHEUMATOID FACTOR, SERUM (10/05/2011 3:57 PM EST) Rheumatoid Factor (Quant) 25(H) <14 IU/mL [facility] Comment:{RHEUMATOID FACTOR { [id number]) 10/05/2011 3:57 PM EST 10/05/2011 11:44 PM EST Narrative Resulting Agency Comment [id number] us Danilo Gates MD LABORATORY Final Result Performing Organization Address [facility] Co de Phone Number [facility] [address] [place] [address] * ERYTHROCYTE SEDIMENTATION RATE (ESR), WESTERGREN (10/05/2011 3:57 PM EST) Sedimentation Rate [place]ren (ESR) 15 < OR = 20 mm/h [facility] Comment:{SED RATE BY MODIFIE D PANDAREN {[id number]) 10/05/2011 3:57 PM EST 10/05/2011 11:44 PM EST Narrative Resulting Agency Comment [id number] us Danilo Gates MD LAB SAME DAY RESULT Final Resul t [facility] [address] [place] [address] documented in this encounter Visit Diagnoses Diagnosis Pain in joint Pain in joint, site unspecified documented in this encounter Care Teams Plumber Maintenance Relationship Specialty Start Date End Date Edilberto Harris 46 [facility] [address] [place] [address] PCP - General Family Medicine 03/06/11 07/05/18 Eufemia Jett MD [address] [address] PCP - General Geriatrics 10/31/19 documented as of this encounter
--- OUTSIDE RECORDS SUMMARY | 2024-11-08 08:52 | XMS_ITS | Encounter Summary ---
Author Organization [facility] Address [address] [place] [address] Care Team Providers Care Imaging Technician Name Role Phone Edilberto Harris Primary Care Provider [phone] Eufemia Jett MD Primary Care Provider [phone] Encounter Details Date Type Department Care Team (Late st Contact Info) Description 03/07/2012 Orders Only [facility] Rheumatology [address] [place] [address] Danilo Gates MD [address] [place] [address] Social History Tobacco Use Types Packs/Day Years [...] <14 IU/mL [facility] Comment:{RHEUMATOID FACTOR { [id number]) CCP Ab, IgG <16 UNITS [facility] Comment: {CYCLIC CITRULLINATED PEPTIDE (CCP) AB (IGG) {[id number]) Reference Range Negative: ?<20 Weak Positive: ? 20-39 Moderate Positive: ?? 40-59 Strong Positive: ? >59 INTERPRETATION SEE NOTE [facility] Comment: {INTERPRETATION {[id number]) Consistent with rheumatoid arthritis in a patient [...] 10:21 PM EDT Narrative Resulting Agency Comment [id number] us Danilo Gates MD LABORATORY Final Result Performing Organization Address [facility] Co de Phone Number [facility] [address] [place] [address] * ERYTHROCYTE SEDIMENTATION RATE (ESR), WESTERGREN (03/07/2012 5:33 PM EDT) Sedimentation Rate Westegren (ESR) 9 < OR = 20 mm/h [facility] Comment:{SED RATE BY MODIFIE D WESTERGREN {[id number]) 03/07/2012 5:33 PM EDT 03/07/2012 10:21 PM EDT Narrative Resulting Agency Comment [id number] us Danilo Gates MD LAB SAME DAY RESULT Final Resul t Performing Organization Address [facility] de Phone Number [facility] [address] [place] [address] * C-REACTIVE PROTEIN (CRP) - INFLAMMATION (03/07/2012 5:33 PM EDT) C reactive protein 0.28 <0.80 mg/dL [facility] Comment: {C-REACTIVE PROTEIN {[id number]) Please be advised that patients taking Carboxypenicillins may exhibit falsely decreased C-Reactive Protein levels due to an analytical interference in this assay. 03/07/2012 5:33 PM EDT 03/07/2012 10:21 PM EDT Narrative Resulting Agency Comment [id number] us Danilo Gates MD LABORATORY Final Result Performing Organization Address [facility] Co de Phone Number [facility] [address] [place] [address] * CREATININE WITH GLOMERULAR FILTRATION RATE, ESTIMATED (EGFR) (03/07/2012 5:33 PM EDT) Creatinine 0.69 0.50 - 1.10 mg/dL [facility] Comment:{CREATININE {[id number]) GFR 116 > OR = 60 mL/min/1.7 3m2 [facility] Comment:{eGFR NON-AFR. AMERI CAN {[id number]) GFR () 134 > OR = 60 mL/min/1.7 3m2 [facility] Comment:{eGFR AMERIC AN {[id number]) 03/07/2012 5:33 PM EDT 03/07/2012 10:21 PM [...] needs for GFR calculation. Resulting Agency Comment [id number] us Danilo Gates MD LAB SAME DAY RESULT Final Resul t [facility] [address] [place] [address] * (ABNORMAL) CBC INCLUDES DIFFERENTIAL AND PLATELET COUNT (03/07/2012 5:33 PM EDT) WBC 10.7 3.8 - 10.8 Thousand/ uL [facility] Comment:{WHITE BLOOD CELL CO UNT {[id number]) RBC 3.68(L) 3.80 - 5.10 Million/u L [facility] Comment:{RED BLOOD CELL COUN T {[id number]) Hemoglobin 12.3 11.7 - 15.5 g/dL [facility] Comment:{HEMOGLOBIN {[id number]) Hematocrit 36.0 35.0 - 45.0 % [facility] Comment:{HEMATOCRIT {[id number]) MCV 97.7 80.0 - 100.0 fL [facility] Comment:{MCV {[id number]) MCH 33.3(H) 27.0 - 33.0 pg [facility] Comment:{MCH {[id number]) MCHC 34.1 32.0 - 36.0 g/dL [facility] Comment:{MCHC {[id number]) RDW 13.9 11.0 - 15.0 % [facility] Comment:{RDW {[id number]) PLT 194 140 - 400 Thousand/ uL [facility] Comment:{PLATELET COUNT {[id number]) MPV 10.2 7.5 - 11.5 fL [facility] Comment:{MPV {[id number]) Neutrophils # 8218(H) 1500 - 7800 cells/uL [facility] Comment:{ABSOLUTE NEUTROPHIL S {[id number]) Lymphocytes # 2001 850 - 3900 cells/uL [facility] Comment:{ABSOLUTE LYMPHOCYTE S {[id number]) Monocytes # 407 200 - 950 cells/uL [facility] Comment:{ABSOLUTE MONOCYTES {[id number]) Eosinophils # 32 15 - 500 cells/uL [facility] Comment:{ABSOLUTE EOSINOPHIL S {[id number]) Basophils # 43 0 - 200 cells/uL [facility] Comment:{ABSOLUTE BASOPHILS {[id number]) Neutrophils % 76.8 % [facility] Comment:{NEUTROPHILS {[id number]) Lymphocytes % 18.7 % [facility] Comment:{LYMPHOCYTES {[id number]) Monocytes % 3.8 % [facility] Comment:{MONOCYTES {[id number]) Eosinophils % 0.3 % [facility] Comment:{EOSINOPHILS {[id number]) Basophils % 0.4 % [facility] Comment:{BASOPHILS {[id number]) 03/07/2012 5:33 PM EDT 03/07/2012 10:21 PM EDT Narrative Resulting Agency Comment [id number] us Danilo Gates MD LAB SAME DAY RESULT Final Resul t [facility] [address] [place] [address] * ASPARTATE AMINOTRANSFERASE (AST), SERUM (03/07/2012 5:33 PM EDT) AST (SGOT) 17 10 - 30 U/L [facility] Comment:{AST {[id number]) 03/07/2012 5:33 PM EDT 03/07/2012 10:21 PM EDT Narrative Resulting Agency Comment [id number] us Danilo Gates MD LAB SAME DAY RESULT Final Resul t [facility] [address] [place] [address] * ALANINE AMINOTRANSFERASE (ALT), SERUM (03/07/2012 5:33 PM EDT) ALT (SGPT) 11 6 - 40 U/L [facility] Comment:{ALT {[id number]) 03/07/2012 5:33 PM EDT 03/07/2012 10:21 PM EDT Narrative Resulting Agency Comment [id number] us Danilo Gates MD LAB SAME DAY RESULT Final Resul t Performing Organization Address [facility] Co de Phone Number [facility] [address] [place] [address] documented in this encounter Visit Diagnoses Diagnosis Rheumatoid arthritis(714.0) Rheumatoid arthritis documented in this encounter Care Teams Imaging Technician Relationship Specialty Start Date End Date Edilberto Harris [address] [facility] [address] [place] [address] PCP - General Family Medicine 03/06/11 07/05/18 Eufemia Jett MD [facility] [address] [place] [address] PCP - General Geriatrics 10/31/19 documented as of this encounter
--- OUTSIDE RECORDS SUMMARY | 2024-11-08 08:52 | XMS_ITS | Clinical Summary ---
Author Organization [address] [facility] Address [address] [place] [address] Phone Care Team Providers Care [place] Leverman Name Role Phone Afia Oliveira DO Primary [...] Description 09/15/2024 10:50 AM EST Office Visit [address]mon[address] [place] [address] Yojana Desir NP Severe persistent [...] DX:Hist ory of endometriosis RA (rheumatoid arthritis) ([facility]) 02/15/2018 DX:RA (rheumatoid arthritis) ([facility]) Sepsis secondary to UTI ([facility]) 02/15/2018 DX:Sepsis secondary to UTI ([facility]); COMMENT: Requiring hospitalization x 2 History [...] 8:30 AM EST Office Visit Pulmonolgy - [place] [address] [place] [phone] Yojana Desir, VAISHALI [address] [place] [address] [place] [address] Health Maintenance Due Date Last Done Comments [...] Pulmonary function testing: (10/23/2024 11:47 AM EST) [facility] Provider MD PFT ORDERABLES Final Res ult * Pulmonary function testing: (10/23/2024 11:46 AM EST) [facility] Provider MD PFT ORDERABLES Final Res ult * (ABNORMAL) Lipid panel (11/29/2020) LDL/HDL Ratio 3 0 - 4 Triglycerides 134 0 - 150 mg/dL Cholesterol 214(A) 0 - 200 mg/dL HDL 78 >=40 mg/dL LDL Cholesterol 110(A) 0 - 100 mg/dL Blood Venous blood specimen / Unknown [facility] Provider MD LAB BLOOD ORDERABLES Janet l Result from Last 3 Months or Most Recently Relevant to Health Maintenance Insurance [facility] Care Teams [place] Relationship Specialty Start Date End Date Afia Oliveira DO [address] [place] [address] PCP - General Family Medicine 09/15/24
--- OUTSIDE RECORDS SUMMARY | 2024-11-08 08:52 | XMS_ITS | Encounter Summary ---
Author Organization [facility] Address [address] [place] [address] Care Team Providers Care Stained Glass Painter Name Role Phone Edilberto Harris Primary Care Provider [phone] Eufemia Jett MD Primary Care Provider [phone] Encounter Details Date Type Department Care Team (Late st Contact Info) Description 10/20/2017 Orders Only [facility] Rheumatology [address] [place] [address] Danilo Gates MD [address] [place] [address] Social History Tobacco Use Types Packs/Day Years [...] of this encounter Procedures * Due to [place] state law, this organization might not be [...] in this encounter Results * Due to [place] state law, this organization might not be [...] 5:33 PM EST Narrative Resulting Agency Comment [id number] us Danilo Gates MD LAB SAME DAY RESULT Final Resul t Performing Organization Address [facility] de Phone Number [facility] [address] [place] [address] * CREATININE WITH GLOMERULAR FILTRATION RATE, ESTIMATED [...] needs for GFR calculation. Resulting Agency Comment [id number] us Danilo Gates MD LAB SAME DAY RESULT Final Resul t Performing Organization Address [facility] de Phone Number [facility] [address] [place] [address] * ALANINE AMINOTRANSFERASE (ALT), SERUM (10/20/2017 9:58 AM EST) ALT (SGPT) 13 6 - 29 U/L [facility] 10/20/2017 9:58 AM EST 10/20/2017 5:33 PM EST Narrative Resulting Agency Comment [id number] Danilo Gates MD LAB SAME DAY RESULT Final Resul t Performing Organization Address [facility] de Phone Number [facility] [address] [place] [address] * ASPARTATE AMINOTRANSFERASE (AST), SERUM (10/20/2017 9:58 AM EST) AST (SGOT) 19 10 - 30 U/L [facility] 10/20/2017 9:58 AM EST 10/20/2017 5:33 PM EST Narrative Resulting Agency Comment [id number] us Danilo Gates MD LAB SAME DAY RESULT Final Resul t [facility] [address] [place] [address] documented in this encounter Visit Diagnoses Diagnosis Rheumatoid arthritis involving multiple sites with positive rheumatoid factor (HCC) documented in this encounter Care Teams Stained Glass Painter Relationship Specialty Start Date End Date Edilberto Harris [address] [facility] [address] [place] [address] PCP - General Family Medicine 03/06/11 07/05/18 Eufemia Jett MD [address] [address] PCP - General Geriatrics 10/31/19 documented as of this encounter
--- OUTSIDE RECORDS SUMMARY | 2024-11-08 08:52 | XMS_ITS | Encounter Summary ---
Author Organization [facility] Address [address] [place] [address] Care Team Providers Care Exterminator Helper Name Role Phone Edilberto Harris Primary Care Provider [phone] Eufemia Jett MD Primary Care Provider [phone] Encounter Details Date Type Department Care Team (Late st Contact Info) Description 06/13/2012 Orders Only [facility] Rheumatology [address] [place] [address] Danilo Gates MD [address] [place] [address] Social History Tobacco Use Types Packs/Day Years [...] of this encounter Procedures * Due to [place] state law, this organization might not be [...] in this encounter Results * Due to [place] state law, this organization might not be sharing negative HIV tests. * ERYTHROCYTE SEDIMENTATION RATE (ESR), THIAGOERGREN (06/13/2012 4:53 PM EDT) Sedimentation Rate Westegren (ESR) 6 < OR = 20 mm/h [facility] Comment:{SED RATE BY GAVI ANDRE {[id number]) 06/13/2012 4:53 PM EDT 06/13/2012 10:09 PM EDT Narrative Resulting Agency Comment [id number] us Danilo Gates MD LAB SAME DAY RESULT Final Resul t Performing Organization Address [facility] de Phone Number [facility] [address] [place] [address] * C-REACTIVE PROTEIN (CRP) - INFLAMMATION (06/13/2012 4:53 PM EDT) C reactive protein 0.15 <0.80 mg/dL [facility] Comment: {C-REACTIVE PROTEIN {[id number]) Please be advised that patients taking Carboxypenicillins may exhibit falsely decreased C-Reactive Protein levels due to an analytical interference in this assay. 06/13/2012 4:53 PM EDT 06/13/2012 10:09 PM EDT Narrative Resulting Agency Comment [id number] us Danilo Gates MD LABORATORY Final Result Performing Organization Address City/[facility] Co de Phone Number [facility] [address] [place] [address] * CREATININE WITH GLOMERULAR FILTRATION RATE, ESTIMATED (EGFR) (06/13/2012 4:53 PM EDT) Pathologist [facility] Creatinine 0.72 0.50 - 1.10 mg/dL [facility] Comment:{CREATININE {[id number]) GFR 111 > OR = 60 mL/min/1.7 3m2 [facility] Comment:{eGFR NON-AFR. AMERI CAN {[id number]) GFR () 128 > OR = 60 mL/min/1.7 3m2 [facility] Comment:{eGFR AMERIC AN {[id number]) 06/13/2012 4:53 PM EDT 06/13/2012 10:09 PM [...] needs for GFR calculation. Resulting Agency Comment [id number] us Danilo Gates MD LAB SAME DAY RESULT Final Resul t [facility] [address] [place] [address] * (ABNORMAL) CBC INCLUDES DIFFERENTIAL AND PLATELET COUNT (06/13/2012 4:53 PM EDT) Pathologist [facility] WBC 6.0 3.8 - 10.8 Thousand/ uL [facility] Comment:{WHITE BLOOD CELL CO UNT {[id number]) RBC 3.71(L) 3.80 - 5.10 Million/u L [facility] Comment:{RED BLOOD CELL COUN T {[id number]) Hemoglobin 12.3 11.7 - 15.5 g/dL [facility] Comment:{HEMOGLOBIN {[id number]) Hematocrit 35.9 35.0 - 45.0 % [facility] Comment:{HEMATOCRIT {[id number]) MCV 96.9 80.0 - 100.0 fL [facility] Comment:{MCV {[id number]) MCH 33.3(H) 27.0 - 33.0 pg [facility] Comment:{MCH {[id number]) MCHC 34.3 32.0 - 36.0 g/dL [facility] Comment:{MCHC {[id number]) RDW 12.5 11.0 - 15.0 % [facility] Comment:{RDW {[id number]) PLT 169 140 - 400 Thousand/ uL [facility] Comment:{PLATELET COUNT {[id number]) MPV 11.0 7.5 - 11.5 fL [facility] Comment:{MPV {[id number]) Neutrophils # 2322 1500 - 7800 cells/uL [facility] Comment:{ABSOLUTE NEUTROPHIL S {[id number]) Lymphocytes # 3180 850 - 3900 cells/uL [facility] Comment:{ABSOLUTE LYMPHOCYTE S {[id number]) Monocytes # 360 200 - 950 cells/uL [facility] Comment:{ABSOLUTE MONOCYTES {[id number]) Eosinophils # 108 15 - 500 cells/uL [facility] Comment:{ABSOLUTE EOSINOPHIL S {[id number]) Basophils # 30 0 - 200 cells/uL [facility] Comment:{ABSOLUTE BASOPHILS {[id number]) Neutrophils % 38.7 % [facility] Comment:{NEUTROPHILS {[id number]) Lymphocytes % 53.0 % [facility] Comment:{LYMPHOCYTES {[id number]) Monocytes % 6.0 % [facility] Comment:{MONOCYTES {[id number]) Eosinophils % 1.8 % [facility] Comment:{EOSINOPHILS {[id number]) Basophils % 0.5 % [facility] Comment:{BASOPHILS {[id number]) 06/13/2012 4:53 PM EDT 06/13/2012 10:09 PM EDT Narrative Resulting Agency Comment [id number] us Danilo Gates MD LAB SAME DAY RESULT Final Resul t [facility] [address] [place] [address] * ALANINE AMINOTRANSFERASE (ALT), SERUM (06/13/2012 4:53 PM EDT) ALT (SGPT) 12 6 - 40 U/L [facility] Comment:{ALT {[id number]) 06/13/2012 4:53 PM EDT 06/13/2012 10:09 PM EDT Narrative Resulting Agency Comment [id number] us Danilo Gates MD LAB SAME DAY RESULT Final Resul t Performing Organization Address [facility] Co de Phone Number [facility] [address] [place] [address] * ASPARTATE AMINOTRANSFERASE (AST), SERUM (06/13/2012 4:53 PM EDT) AST (SGOT) 19 10 - 30 U/L [facility] Comment:{AST {[id number]) 06/13/2012 4:53 PM EDT 06/13/2012 10:09 PM EDT Narrative Resulting Agency Comment [id number] us Danilo Gates MD LAB SAME DAY RESULT Final Resul t Performing Organization Address [facility] Co de Phone Number [facility] [address] [place] [address] documented in this encounter Visit Diagnoses Diagnosis Rheumatoid arthritis(714.0) Rheumatoid arthritis documented in this encounter Care Teams Exterminator Helper Relationship Specialty Start Date End Date Edilberto Harris [address] [facility] [address] [place] [address] PCP - General Family Medicine 03/06/11 07/05/18 Eufemia Jett MD [address] [address] PCP - General Geriatrics 10/31/19 documented as of this encounter
--- OUTSIDE RECORDS SUMMARY | 2024-11-08 08:52 | XMS_ITS | Encounter Summary ---
Author Organization [facility] Address [address] [place] [address] Care Team Providers Care Manager Area Name Role Phone Eufemia Jett MD Primary Care Provider [phone] Encounter Details Date Type Department Care Team ([facility] st Contact Info) Description 01/02/2020 Orders Only [facility] [address] [place] [phone] Karissa Velasquez MD [address] [place] [address] Social History Tobacco Use Types Packs/Day Years [...] 12:42 AM EDT Narrative Resulting Agency Comment [id number] us Karissa Velasquez MD LAB SAME DAY RESULT Final Result [facility] [address] [place] [address] * COMPREHENSIVE METABOLIC PANEL WITH GFR (01/02/2020 [...] needs for GFR calculation. Resulting Agency Comment [id number] us Karissa Velasquez MD LABORATORY Final Result [facility] [address] [place] [address] documented in this encounter Visit Diagnoses Diagnosis Rheumatoid arthritis involving multiple sites with positive rheumatoid factor (HCC) [M05.79] documented in this encounter Care Teams Manager Area Relationship Specialty Start Date End Date Eufemia Jett MD [address] [address] PCP - General Geriatrics 10/31/19 documented as of this encounter
--- OUTSIDE RECORDS SUMMARY | 2024-11-08 08:52 | XMS_ITS | Encounter Summary ---
Author Organization [facility] Address [address] [place] [address] Care Team Providers Care Product Development Engineer Name Role Phone Eufemia Jett MD Primary Care Provider [phone] Encounter Details Date Type Department Care Team (Late st Contact Info) Description 08/24/2018 Orders Only [facility] [address] [place] [phone] Danilo Gates MD [address] [place] [address] Social History Tobacco Use Types Packs/Day Years [...] 08/26/2018 10:08 AM EST . * Danilo aGtes MD - 08/25/2018 5:04 PM EST . [...] this encounter Results * Due to [place] [employer] law, this organization might not be sharing negative HIV tests. * (ABNORMAL) RHEUMATOID FACTOR, SERUM (08/24/2018 10:28 AM EST) Rheumatoid Factor (Quant) 16(H) <14 IU/mL [facility] 08/24/2018 10:2 8 AM EST 08/24/2018 7:23 PM EST Narrative Resulting Agency Comment [id number] Danilo Gates MD LABORATORY Final Result Performing Organization Address City/State/[facility] Co de Phone Number [facility] [address] [place] [address] * CREATININE WITH GLOMERULAR FILTRATION RATE, ESTIMATED [...] needs for GFR calculation. Resulting Agency Comment [id number] us Danilo Gates MD LAB SAME DAY RESULT Final Resul t Performing Organization Address [facility] de Phone Number [facility] [address] [place] [address] * ALANINE AMINOTRANSFERASE (ALT), SERUM (08/24/2018 10:28 AM EST) ALT (SGPT) 15 6 - 29 U/L [facility] 08/24/2018 10:2 8 AM EST 08/24/2018 7:23 PM EST Narrative Resulting Agency Comment [id number] us Danilo Gates MD LAB SAME DAY RESULT Final Resul t Performing Organization Address [facility] Phone Number [facility] [address] [place] [address] * ASPARTATE AMINOTRANSFERASE (AST), SERUM (08/24/2018 10:28 AM EST) AST (SGOT) 19 10 - 30 U/L [facility] 08/24/2018 10:2 8 AM EST 08/24/2018 7:23 PM EST Narrative Resulting Agency Comment [id number] us Danilo Gates MD LAB SAME DAY RESULT Final Resul t Performing Organization Address [facility] de Phone Number [facility] [address] [place] [address] * CBC INCLUDES DIFFERENTIAL AND PLATELET COUNT [...] 7:23 PM EST Narrative Resulting Agency Comment [id number] us Danilo Gates MD LAB SAME DAY RESULT Final Resul t Performing Organization Address City/State/[facility] Co de Phone Number [facility] [address] [place] [address] documented in this encounter Visit Diagnoses Diagnosis Rheumatoid arthritis involving multiple sites with positive rheumatoid factor (HCC) documented in this encounter Care Teams Product Development Engineer Relationship Specialty Start Date End Date Eufemia Jett MD [address] [address] PCP - General Geriatrics 10/31/19 documented as of this encounter
--- OUTSIDE RECORDS SUMMARY | 2024-11-08 08:52 | XMS_ITS | Encounter Summary ---
Author Organization [facility] Address [address] [place] [address] Care Team Providers Care Student Life Advisor Name Role Phone Edilberto Harris Primary Care Provider [phone] Eufemia Jett MD Primary Care Provider [phone] Reason for Visit * Reason Comments E-prescribing Refill Request Encounter Details Date Type Department Care Team (Late st Contact Info) Description 01/24/2018 Refill [facility] [address] [place] [address] Danilo Gates MD [address] [place], [place] [phone] E-prescribing Refill Request Social History Tobacco Use [...] called and states she will go to [facility] on Wednesday to have her labs done. * Telephone Encounter - Rula Ordonez RN - 01/25/2018 8:37 AM EDT LEFT MESSAGE FOR PATIENT THAT SHE NEEDS MTX LABS DONE Any special requests or concerns? none Faxed/E-prescribed medication renewal request(s) for Shiela Browne 37 y.o. female received [employer]. Verified and Confirmed pharmacy for patient. Last [...] Phone 03/11/18 3:30 PM Danilo Gates MD [facility] [phone] Pertinent lab results: Lab Results Component Value [...] [M05.79] documented in this encounter Care Teams Student Life Advisor Relationship Specialty Start Date End Date Edilberto Harris [address] [facility] [address] [place] [address] PCP - General Family Medicine 03/06/11 07/05/18 Eufemia Jett MD [address] [address] PCP - General Geriatrics 10/31/19 documented as of this encounter
--- OUTSIDE RECORDS SUMMARY | 2024-11-08 08:52 | XMS_ITS | Encounter Summary ---
Author Organization [facility] Address [address] [place] [address] Care Team Providers Care Guard Captain Name Role Phone Eufemia Jett MD Primary Care Provider [phone] Reason for Visit * Reason Comments E-prescribing Refill Request Encounter Details Date Type Department Care Team (Late st Contact Info) Description 06/23/2020 Refill [facility] [address] [place] [phone] Karissa Velasquez MD [address] [place] [address] E-prescribing Refill Request Social History Tobacco Use [...] for Shiela Browne 40 y.o. female received [employer]. Verified and Confirmed pharmacy for patient. Last [...] [M05.79] documented in this encounter Care Teams Guard Captain Relationship Specialty Start Date [place] [address] PCP - General Geriatrics 10/31/19 documented as of this encounter
--- OUTSIDE RECORDS SUMMARY | 2024-11-08 08:52 | XMS_ITS | Encounter Summary ---
Author Organization [facility] Address [address] [place] [address] Care Team Providers Care Green Pipefitter Name Role Phone Edilberto Harris Primary Care Provider [phone] Eufemia Jett MD Primary Care Provider [phone] Encounter Details Date Type Department Care Team (Late st Contact Info) Description 11/14/2012 Orders Only [facility] Rheumatology [address] [place] [address] Danilo Gates MD [address] [place] [address] Social History Tobacco Use Types Packs/Day Years [...] of this encounter Procedures * Due to [place] state law, [...] in this encounter Results * Due to [place] state law, this organization might not be sharing negative HIV tests. * ERYTHROCYTE SEDIMENTATION RATE (ESR), THIAGOERGREN (11/14/2012 5:21 PM EDT) Sedimentation Rate [place] (ESR) 8 < OR = 20 mm/h [facility] Comment:{SED RATE BY GAVI ANDRE {[id number]) 11/14/2012 5:21 PM EDT 11/14/2012 10:59 PM EDT Narrative Resulting Agency Comment [id number] us Danilo Gates MD LAB SAME DAY RESULT Final Resul t Performing Organization Address [facility] de Phone Number [facility] [address] [place] [address] * C-REACTIVE PROTEIN (CRP) - INFLAMMATION (11/14/2012 5:21 PM EDT) C reactive protein 0.24 <0.80 mg/dL [facility] Comment: {C-REACTIVE PROTEIN {[id number]) Please be advised that patients taking Carboxypenicillins may exhibit falsely decreased C-Reactive Protein levels due to an analytical interference in this assay. 11/14/2012 5:21 PM EDT 11/14/2012 10:59 PM EDT Narrative Resulting Agency Comment [id number] us Danilo Gates MD LABORATORY Final Result Performing Organization Address City/[facility] Co de Phone Number [facility] [address] [place] [address] * CREATININE WITH GLOMERULAR FILTRATION RATE, ESTIMATED (EGFR) (11/14/2012 5:21 PM EDT) Pathologist [facility] Creatinine 0.79 0.50 - 1.10 mg/dL [facility] Comment:{CREATININE {[id number]) GFR 99 > OR = 60 mL/min/1.7 3m2 [facility] Comment:{eGFR NON-AFR. AMERI CAN {[id number]) GFR () 115 > OR = 60 mL/min/1.7 3m2 [facility] Comment:{eGFR AMERIC AN {[id number]) 11/14/2012 5:21 PM EDT 11/14/2012 10:59 PM [...] needs for GFR calculation. Resulting Agency Comment [id number] us Danilo Gates MD LAB SAME DAY RESULT Final Resul t [facility] [address] [place] [address] * (ABNORMAL) CBC INCLUDES DIFFERENTIAL AND PLATELET COUNT (11/14/2012 5:21 PM EDT) Pathologist [facility] WBC 6.6 3.8 - 10.8 Thousand/ uL [facility] Comment:{WHITE BLOOD CELL CO UNT {[id number]) RBC 3.69(L) 3.80 - 5.10 Million/u L [facility] Comment:{RED BLOOD CELL COUN T {[id number]) Hemoglobin 11.6(L) 11.7 - 15.5 g/dL [facility] Comment:{HEMOGLOBIN {[id number]) Hematocrit 35.4 35.0 - 45.0 % [facility] Comment:{HEMATOCRIT {[id number]) MCV 96.1 80.0 - 100.0 fL [facility] Comment:{MCV {[id number]) MCH 31.5 27.0 - 33.0 pg [facility] Comment:{MCH {[id number]) MCHC 32.7 32.0 - 36.0 g/dL [facility] Comment:{MCHC {[id number]) RDW 13.1 11.0 - 15.0 % [facility] Comment:{RDW {[id number]) PLT 184 140 - 400 Thousand/ uL [facility] Comment:{PLATELET COUNT {[id number]) MPV 10.7 7.5 - 11.5 fL [facility] Comment:{MPV {[id number]) Neutrophils # 2878 1500 - 7800 cells/uL [facility] Comment:{ABSOLUTE NEUTROPHIL S {[id number]) Lymphocytes # 3194 850 - 3900 cells/uL [facility] Comment:{ABSOLUTE LYMPHOCYTE S {[id number]) Monocytes # 422 200 - 950 cells/uL [facility] Comment:{ABSOLUTE MONOCYTES {[id number]) Eosinophils # 79 15 - 500 cells/uL [facility] Comment:{ABSOLUTE EOSINOPHIL S {[id number]) Basophils # 26 0 - 200 cells/uL [facility] Comment:{ABSOLUTE BASOPHILS {[id number]) Neutrophils % 43.6 % [facility] Comment:{NEUTROPHILS {[id number]) Lymphocytes % 48.4 % [facility] Comment:{LYMPHOCYTES {[id number]) Monocytes % 6.4 % [facility] Comment:{MONOCYTES {[id number]) Eosinophils % 1.2 % [facility] Comment:{EOSINOPHILS {[id number]) Basophils % 0.4 % [facility] Comment:{BASOPHILS {[id number]) 11/14/2012 5:21 PM EDT 11/14/2012 10:59 PM EDT Narrative Resulting Agency Comment [id number] us Danilo Gates MD LAB SAME DAY RESULT Final Resul t [facility] [address] [place] [address] * ASPARTATE AMINOTRANSFERASE (AST), SERUM (11/14/2012 5:21 PM EDT) AST (SGOT) 18 10 - 30 U/L [facility] Comment:{AST {[id number]) 11/14/2012 5:21 PM EDT 11/14/2012 10:59 PM EDT Narrative Resulting Agency Comment [id number] us Danilo Gates MD LAB SAME DAY RESULT Final Resul t Performing Organization Address [facility] Co de Phone Number [facility] [address] [place] [address] * ALANINE AMINOTRANSFERASE (ALT), SERUM (11/14/2012 5:21 PM EDT) ALT (SGPT) 12 6 - 40 U/L [facility] Comment:{ALT {[id number]) 11/14/2012 5:21 PM EDT 11/14/2012 10:59 PM EDT Narrative Resulting Agency Comment [id number] us Danilo Gates MD LAB SAME DAY RESULT Final Resul t Performing Organization Address [facility] Co de Phone Number [facility] [address] [place] [address] documented in this encounter Visit Diagnoses Diagnosis Rheumatoid arthritis(714.0) Rheumatoid arthritis documented in this encounter Care Teams Green Pipefitter Relationship Specialty Start Date End Date Edilberto Harris 46 [facility] [address] [place] [address] PCP - General Family Medicine 03/06/11 07/05/18 Eufemia Jett MD [address] [address] PCP - General Geriatrics 10/31/19 documented as of this encounter
--- OUTSIDE RECORDS SUMMARY | 2024-11-08 08:52 | XMS_ITS | Encounter Summary ---
Author Organization [facility] Address [address] [place] [address] Care Team Providers Care Machine Hamper Maker Name Role Phone Edilberto Harris Primary Care Provider [phone] Eufemia Jett MD Primary Care Provider [phone] Encounter Details Date Type Department Care Team (Late st Contact Info) Description 11/23/2017 Orders Only [facility] Rheumatology [address] [place] [address] Danilo Gates MD [address] [place] [address] Social History Tobacco Use Types Packs/Day Years [...] of this encounter Results * Due to [place] state law, this organization might not be sharing negative HIV tests. * CREATINE KINASE (CK), SERUM (04/20/2018 10:05 AM EDT) CPK 70 29 - 143 U/L [facility] 04/20/2018 10:0 5 AM EDT 04/20/2018 4:24 PM EDT Narrative Resulting Agency Comment [id number] us Danilo Gates MD LAB SAME DAY RESULT Final Resul t [facility] [address] [place] [address] documented in this encounter Visit Diagnoses Diagnosis Rheumatoid arthritis involving multiple sites, unspecified rheumatoid factor presence documented in this encounter Care Teams Machine Hamper Maker Relationship Specialty Start Date End Date Edilberto Harris 46 [facility] [address] [place] [address] PCP - General Family Medicine 03/06/11 07/05/18 Eufemia Jett MD [address] [address] PCP - General Geriatrics 10/31/19 documented as of this encounter
--- OUTSIDE RECORDS SUMMARY | 2024-11-08 08:52 | XMS_ITS | Encounter Summary ---
Author Organization [facility] Address [address] [place] [address] Care Team Providers Care Javascript Front End Developer Name Role Phone Edilberto Harris Primary Care Provider [phone] Eufemia Jett MD Primary Care Provider Encounter Details Date Type Department Care Team (Late st Contact Info) Description 11/09/2011 Orders Only [facility] Rheumatology [address] [place] [address] Danilo Gates MD [address] [place] [address] Social History Tobacco Use Types Packs/Day Years [...] CATHY [facility] Comment:{HEPATITIS C ANTIBOD Y {[id number]) Hepatitis C virus Ab Signal/Cutoff 0.10 <1.00 [facility] Comment:{SIGNAL TO CUT-OFF { [id number]) 11/09/2011 3:52 PM EST 11/09/2011 9:41 PM EST Narrative Resulting Agency Comment [id number] us Danilo Gates MD LABORATORY Final Result [facility] [address] [place] [address] * HEPATITIS B SURFACE ANTIGEN (11/09/2011 3:52 PM EST) Hepatitis B virus surface Ag NON-REACTI VE NON-REACT CATHY [facility] Comment:{HEPATITIS B SURFACE ANTIGEN {[id number]) 11/09/2011 3:52 PM EST 11/09/2011 9:41 PM EST Narrative Resulting Agency Comment [id number] Danilo Gates MD LABORATORY Final Result Performing Organization Address [facility] de Phone Number [facility] [address] [place] [address] * ERYTHROCYTE SEDIMENTATION RATE (ESR), WESTERGREN (11/09/2011 3:52 PM EST) Sedimentation Rate [place] (ESR) 11 < OR = 20 mm/h [facility] Comment:{SED RATE BY GAVI MOSQUEDAREN {[id number]) 11/09/2011 3:52 PM EST 11/09/2011 9:41 PM EST Narrative Resulting Agency Comment [id number] Danilo Gates MD LAB SAME DAY RESULT Final Resul t Performing Organization Address [facility] Phone Number [facility] [address] [place] [address] * C-REACTIVE PROTEIN (CRP) - INFLAMMATION (11/09/2011 3:52 PM EST) C reactive protein 0.28 <0.80 mg/dL [facility] Comment: {C-REACTIVE PROTEIN {[id number]) Please be advised that patients taking Carboxypenicillins may exhibit falsely decreased C-Reactive Protein levels due to an analytical interference in this assay. 11/09/2011 3:52 PM EST 11/09/2011 9:41 PM EST Narrative Resulting Agency Comment [id number] Danilo Gates MD LABORATORY Final Result Performing Organization Address [facility] Co de Phone Number [facility] [address] [place] [address] * CREATININE WITH GLOMERULAR FILTRATION RATE, ESTIMATED (EGFR) (11/09/2011 3:52 PM EST) Creatinine 0.70 0.50 - 1.10 mg/dL [facility] Comment:{CREATININE {[id number]) GFR 115 > OR = 60 mL/min/1.7 3m2 [facility] Comment:{eGFR NON-AFR. AMERI CAN {[id number]) GFR () 134 > OR = 60 mL/min/1.7 3m2 [facility] Comment:{eGFR AMERIC AN {[id number]) 11/09/2011 3:52 PM EST 11/09/2011 9:41 PM [...] needs for GFR calculation. Resulting Agency Comment [id number] us Danilo Gates MD LAB SAME DAY RESULT Final Resul t [facility] [address] [place] [address] * CBC INCLUDES DIFFERENTIAL AND PLATELET COUNT (11/09/2011 3:52 PM EST) WBC 5.7 3.8 - 10.8 Thousand/u L [facility] Comment:{WHITE BLOOD CELL CO UNT {[id number]) RBC 4.12 3.80 - 5.10 Million/uL [facility] Comment:{RED BLOOD CELL COUN T {[id number]) Hemoglobin 13.1 11.7 - 15.5 g/dL [facility] Comment:{HEMOGLOBIN {[id number]) Hematocrit 38.0 35.0 - 45.0 % [facility] Comment:{HEMATOCRIT {[id number]) MCV 92.1 80.0 - 100.0 fL [facility] Comment:{MCV {[id number]) MCH 31.9 27.0 - 33.0 pg [facility] Comment:{MCH {[id number]) MCHC 34.6 32.0 - 36.0 g/dL [facility] Comment:{MCHC {[id number]) RDW 12.3 11.0 - 15.0 % [facility] Comment:{RDW {[id number]) PLT 182 140 - 400 Thousand/u L [facility] Comment:{PLATELET COUNT {[id number]) MPV 10.5 7.5 - 11.5 fL [facility] Comment:{MPV {[id number]) Neutrophils # 2702 1500 - 7800 cells/uL [facility] Comment:{ABSOLUTE NEUTROPHIL S {[id number]) Lymphocytes # 2571 850 - 3900 cells/uL [facility] Comment:{ABSOLUTE LYMPHOCYTE S {[id number]) Monocytes # 279 200 - 950 cells/uL [facility] Comment:{ABSOLUTE MONOCYTES {[id number]) Eosinophils # 120 15 - 500 cells/uL [facility] Comment:{ABSOLUTE EOSINOPHIL S {[id number]) Basophils # 29 0 - 200 cells/uL [facility] Comment:{ABSOLUTE BASOPHILS {[id number]) Neutrophils % 47.4 % [facility] Comment:{NEUTROPHILS {[id number]) Lymphocytes % 45.1 % [facility] Comment:{LYMPHOCYTES {[id number]) Monocytes % 4.9 % [facility] Comment:{MONOCYTES {[id number]) Eosinophils % 2.1 % [facility] Comment:{EOSINOPHILS {[id number]) Basophils % 0.5 % [facility] Comment:{BASOPHILS {[id number]) 11/09/2011 3:52 PM EST 11/09/2011 9:41 PM EST Narrative Resulting Agency Comment [id number] us Danilo Gates MD LAB SAME DAY RESULT Final Resul t [facility] [address] [place] [address] * ASPARTATE AMINOTRANSFERASE (AST), SERUM (11/09/2011 3:52 PM EST) AST (SGOT) 17 10 - 30 U/L [facility] Comment:{AST {[id number]) 11/09/2011 3:52 PM EST 11/09/2011 9:41 PM EST Narrative Resulting Agency Comment [id number] us Danilo Gates MD LAB SAME DAY RESULT Final Resul t [facility] [address] [place] [address] * ALANINE AMINOTRANSFERASE (ALT), SERUM (11/09/2011 3:52 PM EST) ALT (SGPT) 9 6 - 40 U/L [facility] Comment:{ALT {[id number]) 11/09/2011 3:5 2 PM EST 11/09/2011 9:41 PM EST Narrative Resulting Agency Comment [id number] us Danilo Gates MD LAB SAME DAY RESULT Final Resul t Performing Organization Address City/[facility] Co de Phone Number [facility] [address] [place] [address] documented in this encounter Visit Diagnoses Diagnosis Rheumatoid arthritis(714.0) Rheumatoid arthritis documented in this encounter Care Teams Javascript Front End Developer Relationship Specialty Start Date End Date Edilberto Harris 46 [facility] [address] [place] [address] PCP - General Family Medicine 03/06/11 07/05/18 Eufemia Jett MD [facility] [address] [place] [address] PCP - General Geriatrics 10/31/19 documented as of this encounter
--- OUTSIDE RECORDS SUMMARY | 2024-11-08 08:52 | XMS_ITS | Encounter Summary ---
Author Organization [facility] Address [address] [place] [address] Care Team Providers Care Natural Resources Engineer Name Role Phone Eufemia Jett MD Primary Care Provider [phone] Encounter Details Date Type Department Care Team (Late st Contact Info) Description 03/10/2019 Orders Only [facility] [address] [place] [id number] Karissa Velasquez MD [address] [place] [address] Social History Tobacco Use Types Packs/Day Years [...] 11:12 AM EDT Narrative Resulting Agency Comment [id number] us Karissa Velasquez MD LABORATORY Final Result Performing Organization Address [facility] Co de Phone Number [facility] [address] [place] [address] * ERYTHROCYTE SEDIMENTATION RATE (ESR), WESTERGREN (03/10/2019 9:09 AM EDT) Sedimentation Rate [place] (ESR) 19 < OR = 20 mm/h [facility] 03/10/2019 9:09 AM EDT 03/10/2019 11:12 AM EDT Narrative Resulting Agency Comment [id number] us Karissa Velasquez MD LAB SAME DAY RESULT Final Result Performing Organization Address [facility] Co de Phone Number [facility] [address] [place] [address] * CREATININE WITH GLOMERULAR FILTRATION RATE, ESTIMATED [...] needs for GFR calculation. Resulting Agency Comment [id number] us Karissa Velasquez MD LAB SAME DAY RESULT Final Result Performing Organization Address [facility] de Phone Number [facility] [address] [place] [address] * ALANINE AMINOTRANSFERASE (ALT), SERUM (03/10/2019 9:09 AM EDT) ALT (SGPT) 12 6 - 29 U/L [facility] 03/10/2019 9:09 AM EDT 03/10/2019 11:12 AM EDT Narrative Resulting Agency Comment [id number] us Karissa Velasquez MD LAB SAME DAY RESULT Final Result Performing Organization Address [facility] Co de Phone Number [facility] [address] [place] [address] * ASPARTATE AMINOTRANSFERASE (AST), SERUM (03/10/2019 9:09 AM EDT) AST (SGOT) 16 10 - 30 U/L [facility] 03/10/2019 9:09 AM EDT 03/10/2019 11:12 AM EDT Narrative Resulting Agency Comment [id number] us Karissa Velasquez MD LAB SAME DAY RESULT Final Result Performing Organization Address [facility] Co de Phone Number [facility] [address] [place] [address] * CBC INCLUDES DIFFERENTIAL AND PLATELET COUNT [...] 11:12 AM EDT Narrative Resulting Agency Comment [id number] Karissa Velasquez MD LAB SAME DAY RESULT Final Result Performing Organization Address City/State/[facility] Co de Phone Number [facility] [address] [place] [address] documented in this encounter Visit Diagnoses Diagnosis Rheumatoid arthritis involving multiple sites with positive rheumatoid factor (HCC) documented in this encounter Care Teams Natural Resources Engineer Relationship Specialty Start Date End Date Eufemia Jett MD [address] [address] PCP - General Geriatrics 10/31/19 documented as of this encounter
--- OUTSIDE RECORDS SUMMARY | 2024-11-08 08:52 | XMS_ITS | Encounter Summary ---
Author Organization [facility] Address [address] [place] [address] Care Team Providers Care Customer Service Representative Name Role Phone Edilberto Harris Primary Care Provider [phone] Eufemia Jett MD Primary Care Provider [phone] Reason for Visit * Reason Comments E-prescribing Refill Request Encounter Details Date Type Department Care Team (Late st Contact Info) Description 04/21/2017 Refill [facility] Rheumatology [address] [place] [address] Danilo Gates MD [address] [place] [address] E-prescribing Refill Request Social History Tobacco Use [...] for Shiela Browne 36 y.o. female [facility] Verified and Confirmed pharmacy for patient. Last [...] [M05.79] documented in this encounter Care Teams Customer Service Representative Relationship Specialty Start Date End Date Edilberto Harris 46 [facility] [address] [place] [address] PCP - General Family Medicine 03/06/11 07/05/18 Eufemia Jett MD [address] [address] PCP - General Geriatrics 10/31/19 documented as of this encounter
--- OUTSIDE RECORDS SUMMARY | 2024-11-08 08:52 | XMS_ITS | Encounter Summary ---
Author Organization [facility] Address [address] [place] [address] Care Team Providers Care Registered Art Therapist Name Role Phone Edilberto Harris Primary Care Provider [phone] Eufemia Jett MD Primary Care Provider [phone] Reason for Visit * Reason Comments E-prescribing Refill Request Encounter Details Date Type Department Care Team (Late st Contact Info) Description 04/20/2017 Refill [facility] Rheumatology [address] [place] [address] Danilo Gates MD [address] [place] [address] E-prescribing Refill Request Social History Tobacco Use [...] for Shiela Browne 36 y.o. female [facility] Verified and Confirmed pharmacy for patient. Last [...] on filedocumented in this encounter Care Teams Registered Art Therapist Relationship Specialty Start Date End Date Edilberto Harris 46 [facility] [address] [place] [address] PCP - General Family Medicine 03/06/11 07/05/18 Eufemia Jett MD [address] [address] PCP - General Geriatrics 10/31/19 documented as of this encounter
== END 2024-11-08 09:11 | disposition home or self-care (01) ==
PROVIDERS: Visit Provider Internal Medicine Rheumatology
DX: M06.9 Rheumatoid arthritis, unspecified (principal); Z79.899 Other long term (current) drug therapy
CPT/HCPCS: 99214

== ENCOUNTER → 2024-11-08 08:23 | Outpatient (BNVA) | payer BC, SELFPAY | PROVIDERS: Visit Provider Internal Medicine Rheumatology ==

== ENCOUNTER 2025-02-21 08:42 | Outpatient (REF) | payer BC, SELFPAY ==
[2025-02-21 17:55] LABS: MANUAL DIFF FLAG NO
[2025-02-21 18:16] LABS: Basophils Percent Auto 0.7 % (0-2); Eosinophils Absolute Auto 0.1 X10*3/uL (0.0-0.4); Hemoglobin 12.8 g/dl (12.0-16.0); Imm Gran Abs Auto 0.02 X10*3/uL (0.00-0.03); Imm Gran Pct Auto 0.3 % (0.0-0.4); Lymphocytes Absolute Auto 2.1 X10*3/uL (1.2-4.9); Mean Corpuscular HGB Conc 32.8 g/dl (31.0-35.0); Mean Corpuscular Volume 97.5 fL (80.0-98.0); Mean Platelet Volume 11.8 fL (9.4-12.3); Monocytes Absolute Auto 0.5 X10*3/uL (0.1-1.2); Monocytes Percent Auto 7.9 % (2-11); Neutrophils Absolute Auto 3.4 x10*3/uL (2.0-8.3); Neutrophils Percent Auto 55.1 % (45-73); Platelet Count 226 X10*3/uL (160-400); Red Cell Distribution Width 13.1 % (11.0-16.0); White Blood Count 6.1 X10*3/uL (4.8-10.8)
[2025-02-21 18:23] LABS: Alanine Aminotransferase 25 U/L (0-31); Aspartate Amino Transferase 29 U/L (5-31); C Reactive Protein 0.34 mg/dL (< or = 0.50); Estimated Glomerular Filt Rate > 60
[2025-02-21 19:01] LABS: Erythrocyte Sedimentation Rate 10 MM/HR (0-20)
== END 2025-02-21 08:43 | disposition home or self-care (01) ==
LOC: HO.HKASLDS 08:42
PROVIDERS: Visit Provider Internal Medicine Rheumatology
DX: M06.9 Rheumatoid arthritis, unspecified (principal); Z79.899 Other long term (current) drug therapy; Z79.60 Long term (current) use of unspecified immunomodulators and immunosuppressants
CPT/HCPCS: 36415; 82565; 84450; 84460; 85025; 85652; 86140

== ENCOUNTER 2025-02-21 08:42 | Outpatient (AMB) | payer BC, SELFPAY ==
--- NOTE | 2025-02-21 08:44 | A.OFFVIS_ITS ---
Vital Signs 02/21/25 08:45 Height 5 ft 7 in Weight 129 lb 8 oz BMI 20.3 BP 110/72 Blood Pressure Location Lt brachial Position Sitting Pulse 66 Pulse Source Pulse Oximeter Pulse Oximetry (%) 100 Oxygen Delivery Method Room Air Intake Visit Reasons: 3 Months Intake Note: Patient presents today for RA. Accompanied by: Self / Same As Patient Allergies hydroxychloroquine Allergy (Mild, Verified 02/21/25 08:44) Rash levofloxacin (From Levaquin) Allergy (Mild, Verified 02/21/25 08:44) Hives phenytoin (From Dilantin) Allergy (Mild, Verified 02/21/25 08:44) Rash acetaminophen (From Midrin) Adverse Reaction (Mild, Verified 02/21/25 08:44) Palpitations dichloralphenazone (From Midrin) Adverse Reaction (Mild, Verified 02/21/25 08:44) Palpitations isometheptene (From Midrin) Adverse Reaction (Mild, Verified 02/21/25 08:44) Palpitations HPI HPI 3 Months: Details: Morning stiffness is 15 minutes. She feels well. She has lost weight with healthy eating and exercise. She goes to the gym 5 days a week. No recent infections. [facility] Medical History Rheumatoid arthritis Surgical History S/P right knee arthroscopy H/O: hysterectomy Family History Mother Breast cancer Social History Alcohol intake: current Alcohol intake frequency: holidays/special occasions only Patient Tobacco Use Status: Never used Tobacco Physical Exam Vital Signs: Last Vital Signs Pulse 66 02/21/25 08:45 BP 110/72 02/21/25 08:45 Pulse Ox 100 02/21/25 08:45 Oxygen Delivery Method Room Air 02/21/25 08:45 BMI result Body Mass Index 20.3 Const Other: General: Comfortable CVS: RRR Respiratory: clear to auscultation bilaterally. Good respiratory effort Skin: No lesions seen MSK: No synovitis. No tenderness of joints. Normal range of motion of upper extremity and lower extremity. No MTP tenderness. Assessment & Plan Assessment & Plan (1) Rheumatoid arthritis: Comment: In clinical remission on current regimen. History of seronegative rheumatoid arthritis [place] [address] al[place]a in [place], [place]. She has been on methotrexate since 25/08 but it was changed to Rasuvo subcutaneous injection 08/25/2021 to present, Enbrel caused a rash, noncompliant with Humira, hydroxychloroquine 07/26/2020 to 08/25/2020 discontinued due to rash, and meloxicam was discontinued due to GI upset. She has been in remission on monotherapy with Rasuvo until recently when she had to hold it due to URI and UTI. She has developed slight synovitis of her right knee, which has improved since being back on methotrexate. She recently also experienced headache after taking methotrexate, which she has not experienced in the past but is tolerable. Code(s): M06.9 - Rheumatoid arthritis, unspecified Category: Medical Plan: Continue Rasuvo subcutaneous injection 20 mg once weekly. 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: Code(s): Z79.899 - Other skilled nursing (current) drug therapy Category: Medical Plan: See above Orders: Orders Erythrocyte Sedimentation Rate Today M06.9 - Rheumatoid arthritis, unspecified, Z79.899 - Other middle or 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 school 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) drug therapy Alanine Aminotransferase Today M06.9 - Rheumatoid arthritis, unspecified, Z79.60 - truck terminal manager (current) use of unspecified immunomodulators and immunosuppressants, Z79.899 - Other middle or 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 school 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) drug therapy Complete Blood Count Auto Diff Today M06.9 - Rheumatoid arthritis, unspecified, Z79.60 - truck terminal manager (current) use of unspecified immunomodulators and immunosuppressants, Z79.899 - Other middle or 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 school 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) drug therapy C Reactive Protein Today M06.9 - Rheumatoid arthritis, unspecified, Z79.899 - Other middle or 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 school 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) drug therapy Creatinine Today M06.9 - Rheumatoid arthritis, unspecified, Z79.60 - truck terminal manager (current) use of unspecified immunomodulators and immunosuppressants, Z79.899 - Other middle or 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 school 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) drug therapy Aspartate Amino Transferase Today M06.9 - Rheumatoid arthritis, unspecified, Z79.60 - truck terminal manager (current) use of unspecified immunomodulators and immunosuppressants, Z79.899 - Other middle or 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
[2025-02-21 08:45] VITALS: BP 110/72; PULSE 66; O2SAT 100; BMI 20.3
--- OUTSIDE RECORDS SUMMARY | 2025-02-21 09:08 | XMS_ITS | Encounter Summary ---
Author Organization [facility] Address [address] [place] [address] Care Team Providers Care Test Case Developer Name Role Phone Edilberto Harris Primary Care Provider [phone] Eufemia Jett MD Primary Care Provider [phone] Encounter Details Date Type Department Care Team (Late st Contact Info) Description 11/01/2014 Orders Only [facility] Rheumatology [address] [place] [address] Danilo Gates MD [address] [place] [address] Social History Tobacco Use Types Packs/Day Years [...] Routine 11/01/2014 4:19 PM EST Rheumatoid arthritis(714.0) ([facility]) CBC INCLUDES DIFFERENTIAL AND PLATELET COUNT Routine 11/01/2014 4:19 PM EST Rheumatoid arthritis(714.0) ([facility]) ALANINE AMINOTRANSFERASE (ALT), SERUM Routine 11/01/2014 4:19 PM EST Rheumatoid arthritis(714.0) ([facility]) ASPARTATE AMINOTRANSFERASE (AST), SERUM Routine 11/01/2014 4:19 PM EST Rheumatoid arthritis(714.0) ([facility]) CREATININE WITH GLOMERULAR FILTRATION RATE, ESTIMATED (EGFR) Routine 11/01/2014 4:19 PM EST Rheumatoid arthritis(714.0) ([facility]) documented in this encounter Results * Due to [place] state law, this organization might not be sharing negative HIV tests. * C-REACTIVE PROTEIN (CRP) - INFLAMMATION (11/01/2014 4:19 PM EST) C reactive protein 0.17 <0.80 mg/dL [facility] Comment: {C-REACTIVE PROTEIN {[id number]) Please be advised that patients taking Carboxypenicillins may exhibit falsely decreased C-Reactive Protein levels due to an analytical interference in this assay. 11/01/2014 4:19 PM EST 11/01/2014 8:32 PM EST Narrative Resulting Agency Comment [id number] us Danilo Gates MD LABORATORY Final Result [facility] [address] [place] [address] * ERYTHROCYTE SEDIMENTATION RATE (ESR), THAI (11/01/2014 4:19 PM EST) Sedimentation Rate [place] (ESR) 6 < OR = 20 mm/h [facility] Comment:{SED RATE BY GAVI ANDRE {[id number]) 11/01/2014 4:19 PM EST 11/01/2014 8:32 PM EST Narrative Resulting Agency Comment [id number] us Danilo Gates MD LAB SAME DAY RESULT Final Resul t Performing Organization Address [facility] de Phone Number [facility] [address] [place] [address] * CREATININE WITH GLOMERULAR FILTRATION RATE, ESTIMATED (EGFR) (11/01/2014 4:19 PM EST) Creatinine 0.75 0.50 - 1.10 mg/dL [facility] Comment:{CREATININE {[id number]) GFR 104 > OR = 60 mL/min/1.7 3m2 [facility] Comment:{eGFR NON-AFR. AMERI CAN {[id number]) GFR () 121 > OR = 60 mL/min/1.7 3m2 [facility] Comment:{eGFR AMERIC AN {[id number]) 11/01/2014 4:19 PM EST 11/01/2014 8:32 PM [...] needs for GFR calculation. Resulting Agency Comment [id number] us Danilo Gates MD LAB SAME DAY RESULT Final Resul t Performing Organization Address City/[facility] Co de Phone Number [facility] [address] [phone] * ALANINE AMINOTRANSFERASE (ALT), SERUM (11/01/2014 4:19 PM EST) ALT (SGPT) 15 6 - 29 U/L [facility] Comment:{ALT {[id number]) 11/01/2014 4:19 PM EST 11/01/2014 8:32 PM EST Narrative Resulting Agency Comment [id number] us Danilo Gates MD LAB SAME DAY RESULT Final Resul t Performing Organization Address City/[facility]/ZIP Co de Phone Number [facility] [address] [place] [address] * ASPARTATE AMINOTRANSFERASE (AST), SERUM (11/01/2014 4:19 PM EST) AST (SGOT) 22 10 - 30 U/L [facility] Comment:{AST {[id number]) 11/01/2014 4:19 PM EST 11/01/2014 8:32 PM EST Narrative Resulting Agency Comment [id number] us Danilo Gates MD LAB SAME DAY RESULT Final Resul t Performing Organization Address [facility] Co de Phone Number [facility] [address] [place] [address] * (ABNORMAL) CBC INCLUDES DIFFERENTIAL AND PLATELET COUNT (11/01/2014 4:19 PM EST) WBC 6.3 3.8 - 10.8 Thousand/ uL [facility] Comment:{WHITE BLOOD CELL CO UNT {[id number]) RBC 3.79(L) 3.80 - 5.10 Million/u L [facility] Comment:{RED BLOOD CELL COUN T {[id number]) Hemoglobin 12.2 11.7 - 15.5 g/dL [facility] Comment:{HEMOGLOBIN {[id number]) Hematocrit 35.5 35.0 - 45.0 % [facility] Comment:{HEMATOCRIT {[id number]) MCV 93.6 80.0 - 100.0 fL [facility] Comment:{MCV {[id number]) MCH 32.2 27.0 - 33.0 pg [facility] Comment:{MCH {[id number]) MCHC 34.4 32.0 - 36.0 g/dL [facility] Comment:{MCHC {[id number]) RDW 12.5 11.0 - 15.0 % [facility] Comment:{RDW {[id number]) PLT 170 140 - 400 Thousand/ uL [facility] Comment:{PLATELET COUNT {[id number]) MPV 9.7 7.5 - 11.5 fL [facility] Comment:{MPV {[id number]) Neutrophils # 2709 1500 - 7800 cells/uL [facility] Comment:{ABSOLUTE NEUTROPHIL S {[id number]) Lymphocytes # 3125 850 - 3900 cells/uL [facility] Comment:{ABSOLUTE LYMPHOCYTE S {[id number]) Monocytes # 372 200 - 950 cells/uL [facility] Comment:{ABSOLUTE MONOCYTES {[id number]) Eosinophils # 63 15 - 500 cells/uL [facility] Comment:{ABSOLUTE EOSINOPHIL S {[id number]) Basophils # 32 0 - 200 cells/uL [facility] Comment:{ABSOLUTE BASOPHILS {[id number]) Neutrophils % 43.0 % [facility] Comment:{NEUTROPHILS {[id number]) Lymphocytes % 49.6 % [facility] Comment:{LYMPHOCYTES {[id number]) Monocytes % 5.9 % [facility] Comment:{MONOCYTES {[id number]) Eosinophils % 1.0 % [facility] Comment:{EOSINOPHILS {[id number]) Basophils % 0.5 % [facility] Comment:{BASOPHILS {[id number]) 11/01/2014 4:19 PM EST 11/01/2014 8:32 PM EST Narrative Resulting Agency Comment [id number] us Danilo Gates MD LAB SAME DAY RESULT Final Resul t [facility] [address] [place] [address] documented in this encounter Visit Diagnoses Diagnosis Rheumatoid arthritis(714.0) Rheumatoid arthritis documented in this encounter Care Teams Test Case Developer Relationship Specialty Start Date End Date Edilberto Harris [address] [facility] [address] [place] [address] PCP - General Family Medicine 03/06/11 07/05/18 Eufemia Jett MD [address] [address] PCP - General Geriatrics 10/31/19 documented as of this encounter
== END 2025-02-21 09:09 | disposition home or self-care (01) ==
LOC: HO.RHES 08:42
PROVIDERS: Visit Provider Internal Medicine Rheumatology
DX: M06.9 Rheumatoid arthritis, unspecified (principal); Z79.899 Other long term (current) drug therapy
CPT/HCPCS: 99214

== ENCOUNTER 2025-06-06 08:02 | Outpatient (AMB) | payer BC, SELFPAY ==
[2025-06-06 08:06] VITALS: BP 100/80; PULSE 71; O2SAT 98; BMI 20.1
--- NOTE | 2025-06-06 08:06 | MHC.OFFVIS ---
Vital Signs 06/06/25 08:06 Height 5 ft 7 in Weight 128 lb 8.472 oz BMI 20.1 BP 100/80 Blood Pressure Location Lt brachial Position Sitting Pulse 71 Pulse Source Pulse Oximeter Pulse Oximetry (%) 98 Oxygen Delivery Method Room Air Intake Visit Reasons: 3 Months Intake Note: Patient presents today for RA. Accompanied by: Self / Same As Patient Allergies hydroxychloroquine Allergy (Mild, Verified 06/06/25 08:07) Rash levofloxacin (From Levaquin) Allergy (Mild, Verified 06/06/25 08:07) Hives phenytoin (From Dilantin) Allergy (Mild, Verified 06/06/25 08:07) Rash acetaminophen (From Midrin) Adverse Reaction (Mild, Verified 06/06/25 08:07) Palpitations dichloralphenazone (From Midrin) Adverse Reaction (Mild, Verified 06/06/25 08:07) Palpitations isometheptene (From Midrin) Adverse Reaction (Mild, Verified 06/06/25 08:07) Palpitations HPI HPI 3 Months: Details: SHe did not take rasuvo for 4 weeks after her had back surgery and then she had dyspnea with asthma being reactive secondary to URI. She stopped eating healthy and exercising. Back on rasuvo. She felt joint pain in hands and increase fatigue off of Rasuvo. She is taking advil 600mg once a day PRN. Pain 3/10. MS 1 hour. [facility] Medical History Rheumatoid arthritis Surgical History S/P right knee arthroscopy H/O: hysterectomy Family History Mother Breast cancer Social History Alcohol intake: current Alcohol intake frequency: holidays/special occasions only Patient Tobacco Use Status: Never used Tobacco Physical Exam Vital Signs: Last Vital Signs Pulse 71 06/06/25 08:06 BP 100/80 06/06/25 08:06 Pulse Ox 98 06/06/25 08:06 Oxygen Delivery Method Room Air 06/06/25 08:06 BMI result Body Mass Index 20.1 Const Other: General: Comfortable CVS: RRR Respiratory: clear to auscultation bilaterally. Good respiratory effort Skin: No lesions seen MSK: No synovitis. Tender left 1st MCP and MTPs. Normal range of motion of upper extremity and lower extremity. Assessment & Plan Assessment & Plan (1) Rheumatoid arthritis: Comment: She flared off of Rasuvo. History of seronegative rheumatoid arthritis [place] [address] al[place]a in [place], [place]. She has been on methotrexate since 25/08 but it was changed to Rasuvo subcutaneous injection 08/25/2021 to present, Enbrel caused a rash, noncompliant with Humira, hydroxychloroquine 07/26/2020 to 08/25/2020 discontinued due to rash, and meloxicam was discontinued due to GI upset. She has been in remission on monotherapy with Rasuvo until recently when she had to hold it due to URI and UTI. She has developed slight synovitis of her right knee, which has improved since being back on methotrexate. She recently also experienced headache after taking methotrexate, which she has not experienced in the past but is tolerable. Code(s): M06.9 - Rheumatoid arthritis, unspecified Category: Medical Plan: Continue Rasuvo subcutaneous injection 20 mg once weekly. Continue folic acid 1 mg daily Prednisone course prescribed Labs for disease and drug monitoring on high-risk medication due today Immunizations: She will get the flu shot today in resume Rasuvo next Wednesday. 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899 - 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 Creatinine Today Z79.899 - 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 Erythrocyte Sedimentation Rate Today Z79.899 - Other care home (current) drug therapy Erythrocyte Sedimentation Rate 3 Months Z79.60 - termite control technician (current) use of unspecified immunomodulators and immunosuppressants Aspartate Amino Transferase 3 Months Z79.60 - termite control technician (current) use of unspecified immunomodulators and immunosuppressants Alanine Aminotransferase 3 Months Z79.60 - alf (current) use of unspecified immunomodulators and immunosuppressants Medications: New prednisone Take 4 tablets daily 3 days, 3 tablets daily 3 days, 2 tablets daily 3 days then stop. 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
--- OUTSIDE RECORDS SUMMARY | 2025-06-06 08:09 | XMS_ITS | Encounter Summary ---
Author Organization [facility] Address [address] [place] [address] Care Team Providers Care Home Care And Home Health Aides Teacher Name Role Phone Edilberto Harris Primary Care Provider Eufemia Jett MD Primary Care Provider [phone] Encounter Details Date Type Department Care Team (Late st Contact Info) Description 12/05/2013 Orders Only [facility] Rheumatology [address] [place] [address] Danilo Gates MD [address] [place] [address] Social History Tobacco Use Types Packs/Day Years [...] of this encounter Results * Due to [place] state law, this organization might not be sharing negative HIV tests. * ANTI-NEUTROPHIL CYTOPLASM ANTIBODY - ANCA ([facility]) (12/06/2013 10:46 AM EDT) ANCA NEGATIVE [facility] Comment:{ANCA {[id number]) NOTE SEE NOTE [facility] Comment: {NOTE: {[id number]) Indirect immunofluorescence testing for anti-neutrophil cytoplasm antibodies (ANCA) is negative. ELISAs are also negative for antibodies to proteinase 3 and myeloperoxidase. INTERPRETATION SEE NOTE [facility] Comment: {INTERPRETATION: {[id number]) The findings provide no support for the [...] turn positive if tested serially. Please call [facility] at [phone] with questions or concerns regarding ANCA tests. These tests were developed and their performance characteristics determined by the Immunopathology Laboratory at the [facility]. Their characteristics have been published: Journal of the [place] Society of Nephrology 2:27-36, 1990; Human Pathology 24:170-8, 1992; Archives of Internal Medicine 156:440-5; Annals of Internal Medicine 126:866-73,1996. These tests have not been cleared or approved by the U.S. Food and Drug Administration (FDA). The FDA has determined that clearance or approval is not necessary. FINAL DIAGNOSIS BY JYOTI DAO MD [employer] Comment: {FINAL DIAGNOSIS BY: {[id number]) By his/her signature above, the pathologist listed as making the Final Diagnosis certifies that he/she has personally reviewed this case and confirmed or corrected the diagnoses. 12/06/2013 10:4 6 AM EDT 12/06/2013 6:15 PM EDT Narrative Resulting Agency Comment [id number] Transcriptions Danilo Gates MD - 12/20/2013 12:00 AM EDT Danilo Gates MD - 12/22/2013 12:00 AM EDT Danilo Gates MD LABORATORY Edited Result - Final [facility] [address] [place] [address] documented in this encounter Visit Diagnoses Diagnosis Rheumatoid arthritis(714.0)- Primary Rheumatoid arthritis Rheumatoid arthritis(714.0) Rheumatoid arthritis documented in this encounter Care Teams Home Care And Home Health Aides Teacher Relationship Specialty Start Date End Date Edilberto Harris [address] [facility] [address] [place] [address] PCP - General Family Medicine 03/06/11 07/05/18 Eufemia Jett MD [address] [address] PCP - General Geriatrics 10/31/19 documented as of this encounter
--- OUTSIDE RECORDS SUMMARY | 2025-06-06 08:09 | XMS_ITS | Encounter Summary ---
Author Organization [facility] Address [address] [place] [address] Care Team Providers Care Power Plant Mechanic Name Role Phone Edilberto Harris Primary Care Provider [phone] Eufemia Jett MD Primary Care Provider [phone] Encounter Details Date Type Department Care Team (Late st Contact Info) Description 04/13/2013 Orders Only [facility] Rheumatology [address] [place] [address] Danilo Gates MD [address] [place] [address] Social History Tobacco Use Types Packs/Day Years [...] of this encounter Procedures * Due to [place] state law, this [...] 6 - 29 U/L [facility] Comment:{ALT {[id number]) 04/13/2013 5:01 PM EDT 04/13/2013 11:38 PM EDT Narrative Resulting Agency Comment [id number] us Danilo Gates MD LAB SAME DAY RESULT Final Resul t Performing Organization Address City/State/[facility] Co de Phone Number [facility] [address] [place] [address] * CREATININE WITH GLOMERULAR FILTRATION RATE, ESTIMATED (EGFR) (04/13/2013 5:01 PM EDT) Creatinine 0.73 0.50 - 1.10 mg/dL [facility] Comment:{CREATININE {[id number]) GFR 109 > OR = 60 mL/min/1.7 3m2 [facility] Comment:{eGFR NON-AFR. AMERI CAN {[id number]) GFR () 126 > OR = 60 mL/min/1.7 3m2 [facility] Comment:{eGFR AMERIC AN {[id number]) 04/13/2013 5:01 PM EDT 04/13/2013 11:38 PM [...] needs for GFR calculation. Resulting Agency Comment [id number] us Danilo Gates MD LAB SAME DAY RESULT Final Resul t [facility] [address] [place] [address] * CBC INCLUDES DIFFERENTIAL AND PLATELET COUNT (04/13/2013 5:01 PM EDT) WBC 6.2 3.8 - 10.8 Thousand/u L [facility] Comment:{WHITE BLOOD CELL CO UNT {[id number]) RBC 3.82 3.80 - 5.10 Million/uL [facility] Comment:{RED BLOOD CELL COUN T {[id number]) Hemoglobin 12.3 11.7 - 15.5 g/dL [facility] Comment:{HEMOGLOBIN {[id number]) Hematocrit 36.3 35.0 - 45.0 % [facility] Comment:{HEMATOCRIT {[id number]) MCV 95.1 80.0 - 100.0 fL [facility] Comment:{MCV {[id number]) MCH 32.1 27.0 - 33.0 pg [facility] Comment:{MCH {[id number]) MCHC 33.8 32.0 - 36.0 g/dL [facility] Comment:{MCHC {[id number]) RDW 13.1 11.0 - 15.0 % [facility] Comment:{RDW {[id number]) PLT 165 140 - 400 Thousand/u L [facility] Comment:{PLATELET COUNT {[id number]) MPV 10.5 7.5 - 11.5 fL [facility] Comment:{MPV {[id number]) Neutrophils # 2914 1500 - 7800 cells/uL [facility] Comment:{ABSOLUTE NEUTROPHIL S {[id number]) Lymphocytes # 2821 850 - 3900 cells/uL [facility] Comment:{ABSOLUTE LYMPHOCYTE S {[id number]) Monocytes # 329 200 - 950 cells/uL [facility] Comment:{ABSOLUTE MONOCYTES {[id number]) Eosinophils # 105 15 - 500 cells/uL [facility] Comment:{ABSOLUTE EOSINOPHIL S {[id number]) Basophils # 31 0 - 200 cells/uL [facility] Comment:{ABSOLUTE BASOPHILS {[id number]) Neutrophils % 47.0 % [facility] Comment:{NEUTROPHILS {[id number]) Lymphocytes % 45.5 % [facility] Comment:{LYMPHOCYTES {[id number]) Monocytes % 5.3 % [facility] Comment:{MONOCYTES {[id number]) Eosinophils % 1.7 % [facility] Comment:{EOSINOPHILS {[id number]) Basophils % 0.5 % [facility] Comment:{BASOPHILS {[id number]) 04/13/2013 5:01 PM EDT 04/13/2013 11:38 PM EDT Narrative Resulting Agency Comment [id number] us Danilo Gates MD LAB SAME DAY RESULT Final Resul t Performing Organization Address City/[facility]/ZIP Co de Phone Number [facility] [address] [place] [address] * ASPARTATE AMINOTRANSFERASE (AST), SERUM (04/13/2013 5:01 PM EDT) AST (SGOT) 19 10 - 30 U/L [facility] Comment:{AST {[id number]) 04/13/2013 5:01 PM EDT 04/13/2013 11:38 PM EDT Narrative Resulting Agency Comment [id number] us Danilo Gates MD LAB SAME DAY RESULT Final Resul t [facility] [address] [place] [address] documented in this encounter Visit Diagnoses Diagnosis Rheumatoid arthritis(714.0) Rheumatoid arthritis documented in this encounter Care Teams Power Plant Mechanic Relationship Specialty Start Date End Date Edilberto Harris 46 [facility] [address] [place] [address] PCP - General Family Medicine 03/06/11 07/05/18 Eufemia Jett MD [address] [address] PCP - General Geriatrics 10/31/19 documented as of this encounter
--- OUTSIDE RECORDS SUMMARY | 2025-06-06 08:09 | XMS_ITS | Encounter Summary ---
Author Organization [facility] Address [address] [place] [address] Care Team Providers Care Scrum Master Name Role Phone Edilberto Harris Primary Care Provider [phone] Eufemia Jett MD Primary Care Provider [phone] Encounter Details Date Type Department Care Team (Late st Contact Info) Description 12/06/2013 Orders Only [facility] Rheumatology [address] [place] [address] Danilo Gates MD [address] [place] [address] Social History Tobacco Use Types Packs/Day Years [...] Order(s): ANTI- NEUTROPHIL CYTOPLASM ANTIBODY - ANCA ([facility]) * Danilo Gates MD - 12/20/2013 12:00 AM EDTAssociated Order(s): ANTI- NEUTROPHIL CYTOPLASM ANTIBODY - ANCA ([facility]) documented in this encounter Plan of Treatment Not on file documented as of this encounter Procedures * Due to [place] LoveIt law, this organization might not be sharing negative HIV tests. Procedure Name Priority Date/Time Associated Diagnosis Comments ANTI-NEUTROPHIL CYTOPLASM ANTIBODY - ANCA ([facility]-FOR SPECIALTY USE ONLY) Routine 12/06/2013 10:46 AM EDT Rheumatoid arthritis(714.0) documented in this encounter Results * Due to [place] LoveIt law, this organization might not be sharing negative HIV tests. * ANTI-NEUTROPHIL CYTOPLASM ANTIBODY - ANCA ([facility]) (12/06/2013 10:46 AM EDT) ANCA NEGATIVE [facility] Comment:{ANCA {[id number]) NOTE SEE NOTE [facility] Comment: {NOTE: {[id number]) Indirect immunofluorescence testing for anti-neutrophil cytoplasm antibodies (ANCA) is negative. ELISAs are also negative for antibodies to proteinase 3 and myeloperoxidase. INTERPRETATION SEE NOTE [facility] Comment: {INTERPRETATION: {[id number]) The findings provide no support for the [...] turn positive if tested serially. Please call [facility] Immunopathology Laboratory at [phone] with questions or concerns regarding ANCA tests. These tests were developed and their performance characteristics determined by the Immunopathology Laboratory at the [facility]. Their characteristics have been published: Journal of the [place] Society of Nephrology 2:27-36, 1990; Human Pathology 24:170-8, 1992; Archives of Internal Medicine 156:440-5; Annals of Internal Medicine 126:866-73,1996. These tests have not been cleared or approved by the U.S. Food and Drug Administration (FDA). The FDA has determined that clearance or approval is not necessary. FINAL DIAGNOSIS BY [facility] Comment: {FINAL DIAGNOSIS BY: {[id number]) By his/her signature above, the pathologist listed as making the Final Diagnosis certifies that he/she has personally reviewed this case and confirmed or corrected the diagnoses. 12/06/2013 10:4 6 AM EDT 12/06/2013 6:15 PM EDT Narrative Resulting Agency Comment [id number] Transcriptions Danilo Gates MD - 12/20/2013 12:00 AM EDT Danilo Gates MD - 12/22/2013 12:00 AM EDT Dainlo Gates MD LABORATORY Edited Result - Final [facility] [address] [place] [address] documented in this encounter Visit Diagnoses Diagnosis Rheumatoid arthritis(714.0) Rheumatoid arthritis documented in this encounter Care Teams Scrum Master Relationship Specialty Start Date End Date Edilberto Harris 46 [facility] [address] [place] [address] PCP - General Family Medicine 03/06/11 07/05/18 Eufemia Jett MD [address] [address] PCP - General Geriatrics 10/31/19 documented as of this encounter
--- OUTSIDE RECORDS SUMMARY | 2025-06-06 08:09 | XMS_ITS | Encounter Summary ---
Author Organization [facility] Address [address] [place] [address] Care Team Providers Care Vending Machine Repairer Name Role Phone Edilberto Harris Primary Care Provider Eufemia Jett MD Primary Care Provider [phone] Encounter Details Date Type Department Care Team (Late st Contact Info) Description 10/16/2013 Orders Only [facility] Rheumatology [address] [place] [address] Danilo Gates MD [address] [place] [address] Social History Tobacco Use Types Packs/Day Years [...] [facility] Comment:{SED RATE BY GAVI ANDRE {[id number]) 10/16/2013 4:45 PM EST 10/17/2013 1:49 AM EST Narrative Resulting Agency Comment [id number] us Danilo Gates MD LAB SAME DAY RESULT Final Resul t [facility] [address] [place] [address] * C-REACTIVE PROTEIN (CRP) - INFLAMMATION (10/16/2013 4:45 PM EST) C reactive protein 0.15 <0.80 mg/dL [facility] Comment: {C-REACTIVE PROTEIN {[id number]) Please be advised that patients taking Carboxypenicillins may exhibit falsely decreased C-Reactive Protein levels due to an analytical interference in this assay. 10/16/2013 4:45 PM EST 10/17/2013 1:49 AM EST Narrative Resulting Agency Comment [id number] us Danilo Gates MD LABORATORY Final Result Performing Organization Address [facility] de Phone Number [facility] [address] [place] [address] * CREATININE WITH GLOMERULAR FILTRATION RATE, ESTIMATED (EGFR) (10/16/2013 4:45 PM EST) Creatinine 0.68 0.50 - 1.10 mg/dL [facility] Comment:{CREATININE {[id number]) GFR 115 > OR = 60 mL/min/1.7 3m2 [facility] Comment:{eGFR NON-AFR. AMERI CAN {[id number]) GFR () 133 > OR = 60 mL/min/1.7 3m2 [facility] Comment:{eGFR AMERIC AN {[id number]) 10/16/2013 4:45 PM EST 10/17/2013 1:49 AM [...] needs for GFR calculation. Resulting Agency Comment [id number] us Danilo Gates MD LAB SAME DAY RESULT Final Resul t Performing Organization Address [facility] de Phone Number [facility] [address] [place] [address] * CBC INCLUDES DIFFERENTIAL AND PLATELET COUNT (10/16/2013 4:45 PM EST) WBC 6.3 3.8 - 10.8 Thousand/u L [facility] Comment:{WHITE BLOOD CELL CO UNT {[id number]) RBC 4.14 3.80 - 5.10 Million/uL [facility] Comment:{RED BLOOD CELL COUN T {[id number]) Hemoglobin 13.2 11.7 - 15.5 g/dL [facility] Comment:{HEMOGLOBIN {[id number]) Hematocrit 38.9 35.0 - 45.0 % [facility] Comment:{HEMATOCRIT {[id number]) MCV 93.8 80.0 - 100.0 fL [facility] Comment:{MCV {[id number]) MCH 31.9 27.0 - 33.0 pg [facility] Comment:{MCH {[id number]) MCHC 34.0 32.0 - 36.0 g/dL [facility] Comment:{MCHC {[id number]) RDW 13.0 11.0 - 15.0 % [facility] Comment:{RDW {[id number]) PLT 155 140 - 400 Thousand/u L [facility] Comment:{PLATELET COUNT {[id number]) MPV 11.3 7.5 - 11.5 fL [facility] Comment:{MPV {[id number]) Neutrophils # 2923 1500 - 7800 cells/uL [facility] Comment:{ABSOLUTE NEUTROPHIL S {[id number]) Lymphocytes # 2898 850 - 3900 cells/uL [facility] Comment:{ABSOLUTE LYMPHOCYTE S {[id number]) Monocytes # 359 200 - 950 cells/uL [facility] Comment:{ABSOLUTE MONOCYTES {[id number]) Eosinophils # 88 15 - 500 cells/uL [facility] Comment:{ABSOLUTE EOSINOPHIL S {[id number]) Basophils # 32 0 - 200 cells/uL [facility] Comment:{ABSOLUTE BASOPHILS {[id number]) Neutrophils % 46.4 % [facility] Comment:{NEUTROPHILS {[id number]) Lymphocytes % 46.0 % [facility] Comment:{LYMPHOCYTES {[id number]) Monocytes % 5.7 % [facility] Comment:{MONOCYTES {[id number]) Eosinophils % 1.4 % [facility] Comment:{EOSINOPHILS {[id number]) Basophils % 0.5 % [facility] Comment:{BASOPHILS {[id number]) 10/16/2013 4:45 PM EST 10/17/2013 1:49 AM EST Narrative Resulting Agency Comment [id number] us Danilo Gates MD LAB SAME DAY RESULT Final Resul t Performing Organization Address City/[facility] Co de Phone Number [facility] [address] [place] [address] * ASPARTATE AMINOTRANSFERASE (AST), SERUM (10/16/2013 4:45 PM EST) AST (SGOT) 21 10 - 30 U/L [facility] Comment:{AST {[id number]) 10/16/2013 4:45 PM EST 10/17/2013 1:49 AM EST Narrative Resulting Agency Comment [id number] us Danilo Gates MD LAB SAME DAY RESULT Final Resul t Performing Organization Address [facility] Co de Phone Number [facility] [address] [place] [address] * ALANINE AMINOTRANSFERASE (ALT), SERUM (10/16/2013 4:45 PM EST) ALT (SGPT) 11 6 - 29 U/L [facility] Comment:{ALT {[id number]) 10/16/2013 4:45 PM EST 10/17/2013 1:49 AM EST Narrative Resulting Agency Comment [id number] us Danilo Gates MD LAB SAME DAY RESULT Final Resul t Performing Organization Address City/[facility] Co de Phone Number [facility] [address] [place] [address] documented in this encounter Visit Diagnoses Diagnosis Rheumatoid arthritis(714.0)- Primary Rheumatoid arthritis documented in this encounter Care Teams Vending Machine Repairer Relationship Specialty Start Date End Date Edilberto Harris 46 [facility] [address] [place] [address] PCP - General Family Medicine 03/06/11 07/05/18 Eufemia Jett MD [address] [address] PCP - General Geriatrics 10/31/19 documented as of this encounter
--- OUTSIDE RECORDS SUMMARY | 2025-06-06 08:09 | XMS_ITS | Clinical Summary ---
Author Organization [facility] Address [address] [place] [address] Care Team Providers Care Paper Ruler Name Role Phone Eufemia Jett MD Primary Care Provider [phone] Allergies Active Allergy Reactions Criticality Noted Date [...] sites with positive rheumatoid factor 03/03/2017 Immunizations Immunization Administration Dates Next Due COVID-19, mRNA (Moderna [...] - Moderna risk series) 11/16/2020 10/19/2020, 09/21/2020 Colon Cancer Screening 2025 Influenza (#1) 2025 05/17/2020, 06/07, 07/05/2018, Additional history exists Hepatitis C Screening Completed 11/09/2011 PPD Discontinued 03/14/2012 HPV Vaccine (No Doses Required) Completed Hep A Aged Out No longer eligi ble based on patient's age to complete this topic Hib Aged Out No longer eligi ble based on patient's age to complete this topic Meningococcal ACWY Aged Out No longer eligible based on patient's age to complete this topic Procedures * Due to [place] Zyncd law, this organization might not be sharing negative HIV tests. Procedure Name Priority Date/Time Associated Diagnosis Comments HEPATITIS C AB WITH REFLEX TO RNA PCR, SERUM Routine 11/09/2011 3:52 PM EST Rheumatoid arthritis (HCC) from Last 3 Months or Most Recently Relevant to Health Maintenance Results * Due to [place] Zyncd law, this organization might not be sharing negative HIV tests. * HEPATITIS C ANTIBODY, SERUM (11/09/2011 3:52 PM EST) Hepatitis C virus Ab NON-REACTI VE NON-REACT CATHY [facility] Comment:{HEPATITIS C ANTIBOD Y {[id number]) Hepatitis C virus Ab Signal/Cutoff 0.10 <1.00 [facility] Comment:{SIGNAL TO CUT-OFF { [id number]) 11/09/2011 3:52 PM EST 11/09/2011 9:41 PM EST Narrative Resulting Agency Comment [id number] us Danilo Gates MD LABORATORY Final Result [facility] [address] [place] [address] from Last 3 Months or Most Recently Relevant to Health Maintenance Insurance [employer] FEE FOR SERVICE PPO Care Teams Paper Ruler Relationship Specialty Start Date End Date Eufemia Jett MD [address] [address] PCP - General Geriatrics 10/31/19
--- OUTSIDE RECORDS SUMMARY | 2025-06-06 08:09 | XMS_ITS | Encounter Summary ---
Author Organization [facility] Address [address] [place] [address] Care Team Providers Care Cryogenic Transport Driver Name Role Phone Eufemia Jett MD Primary Care Provider [phone] Encounter Details Date Type Department Care Team (Late st Contact Info) Description 06/24/2020 Orders Only [facility] Rheumatology [address] [place] [phone] Karissa Velasquez MD Social History Tobacco Use Types Packs/Day Years [...] Primary documented in this encounter Care Teams Cryogenic Transport Driver Relationship Specialty Start Date End Date Eufemia Jett MD [address] [address] PCP - General Geriatrics 10/31/19 documented as of this encounter
--- OUTSIDE RECORDS SUMMARY | 2025-06-06 08:09 | XMS_ITS | Encounter Summary ---
Author Organization [facility] Address [address] [place] [address] Care Team Providers Care Paint Striping Machine Operator Name Role Phone Edilberto Harris Primary Care Provider [phone] Eufemia Jett MD Primary Care Provider [phone] Encounter Details Date Type Department Care Team (Late st Contact Info) Description 11/01/2014 Orders Only [facility] Rheumatology [address] [place] [address] Danilo Gates MD [address] [place] [address] Social History Tobacco Use Types Packs/Day Years [...] Routine 11/01/2014 4:19 PM EST Rheumatoid arthritis(714.0) ([facility]) CBC INCLUDES DIFFERENTIAL AND PLATELET COUNT Routine 11/01/2014 4:19 PM EST Rheumatoid arthritis(714.0) ([facility]) ALANINE AMINOTRANSFERASE (ALT), SERUM Routine 11/01/2014 4:19 PM EST Rheumatoid arthritis(714.0) ([facility]) ASPARTATE AMINOTRANSFERASE (AST), SERUM Routine 11/01/2014 4:19 PM EST Rheumatoid arthritis(714.0) ([facility]) CREATININE WITH GLOMERULAR FILTRATION RATE, ESTIMATED (EGFR) Routine 11/01/2014 4:19 PM EST Rheumatoid arthritis(714.0) ([facility]) documented in this encounter Results * Due to [place] state law, this organization might not be sharing negative HIV tests. * C-REACTIVE PROTEIN (CRP) - INFLAMMATION (11/01/2014 4:19 PM EST) C reactive protein 0.17 <0.80 mg/dL [facility] Comment: {C-REACTIVE PROTEIN {[id number]) Please be advised that patients taking Carboxypenicillins may exhibit falsely decreased C-Reactive Protein levels due to an analytical interference in this assay. 11/01/2014 4:19 PM EST 11/01/2014 8:32 PM EST Narrative Resulting Agency Comment [id number] us Danilo Gates MD LABORATORY Final Result [facility] [address] [place] [address] * ERYTHROCYTE SEDIMENTATION RATE (ESR), THAI (11/01/2014 4:19 PM EST) Sedimentation Rate [place] (ESR) 6 < OR = 20 mm/h [facility] Comment:{SED RATE BY GAVI ANDRE {[id number]) 11/01/2014 4:19 PM EST 11/01/2014 8:32 PM EST Narrative Resulting Agency Comment [id number] us Danilo Gates MD LAB SAME DAY RESULT Final Resul t Performing Organization Address [facility] de Phone Number [facility] [address] [place] [address] * CREATININE WITH GLOMERULAR FILTRATION RATE, ESTIMATED (EGFR) (11/01/2014 4:19 PM EST) Creatinine 0.75 0.50 - 1.10 mg/dL [facility] Comment:{CREATININE {[id number]) GFR 104 > OR = 60 mL/min/1.7 3m2 [facility] Comment:{eGFR NON-AFR. AMERI CAN {[id number]) GFR () 121 > OR = 60 mL/min/1.7 3m2 [facility] Comment:{eGFR AMERIC AN {[id number]) 11/01/2014 4:19 PM EST 11/01/2014 8:32 PM [...] needs for GFR calculation. Resulting Agency Comment [id number] us Danilo Gates MD LAB SAME DAY RESULT Final Resul t Performing Organization Address City/[facility] Co de Phone Number [facility] [address] [place] [id number] * ALANINE AMINOTRANSFERASE (ALT), SERUM (11/01/2014 4:19 PM EST) ALT (SGPT) 15 6 - 29 U/L [facility] Comment:{ALT {[id number]) 11/01/2014 4:19 PM EST 11/01/2014 8:32 PM EST Narrative Resulting Agency Comment [id number] us Danilo Gates MD LAB SAME DAY RESULT Final Resul t Performing Organization Address City/[facility]/ZIP Co de Phone Number [facility] [address] [place] [address] * ASPARTATE AMINOTRANSFERASE (AST), SERUM (11/01/2014 4:19 PM EST) AST (SGOT) 22 10 - 30 U/L [facility] Comment:{AST {[id number]) 11/01/2014 4:19 PM EST 11/01/2014 8:32 PM EST Narrative Resulting Agency Comment [id number] us Danilo Gates MD LAB SAME DAY RESULT Final Resul t Performing Organization Address City/[facility] Co de Phone Number [facility] [address] [place] [address] * (ABNORMAL) CBC INCLUDES DIFFERENTIAL AND PLATELET COUNT (11/01/2014 4:19 PM EST) WBC 6.3 3.8 - 10.8 Thousand/ uL [facility] Comment:{WHITE BLOOD CELL CO UNT {[id number]) RBC 3.79(L) 3.80 - 5.10 Million/u L [facility] Comment:{RED BLOOD CELL COUN T {[id number]) Hemoglobin 12.2 11.7 - 15.5 g/dL [facility] Comment:{HEMOGLOBIN {[id number]) Hematocrit 35.5 35.0 - 45.0 % [facility] Comment:{HEMATOCRIT {[id number]) MCV 93.6 80.0 - 100.0 fL [facility] Comment:{MCV {[id number]) MCH 32.2 27.0 - 33.0 pg [facility] Comment:{MCH {[id number]) MCHC 34.4 32.0 - 36.0 g/dL [facility] Comment:{MCHC {[id number]) RDW 12.5 11.0 - 15.0 % [facility] Comment:{RDW {[id number]) PLT 170 140 - 400 Thousand/ uL [facility] Comment:{PLATELET COUNT {[id number]) MPV 9.7 7.5 - 11.5 fL [facility] Comment:{MPV {[id number]) Neutrophils # 2709 1500 - 7800 cells/uL [facility] Comment:{ABSOLUTE NEUTROPHIL S {[id number]) Lymphocytes # 3125 850 - 3900 cells/uL [facility] Comment:{ABSOLUTE LYMPHOCYTE S {[id number]) Monocytes # 372 200 - 950 cells/uL [facility] Comment:{ABSOLUTE MONOCYTES {[id number]) Eosinophils # 63 15 - 500 cells/uL [facility] Comment:{ABSOLUTE EOSINOPHIL S {[id number]) Basophils # 32 0 - 200 cells/uL [facility] Comment:{ABSOLUTE BASOPHILS {[id number]) Neutrophils % 43.0 % [facility] Comment:{NEUTROPHILS {[id number]) Lymphocytes % 49.6 % [facility] Comment:{LYMPHOCYTES {[id number]) Monocytes % 5.9 % [facility] Comment:{MONOCYTES {[id number]) Eosinophils % 1.0 % [facility] Comment:{EOSINOPHILS {[id number]) Basophils % 0.5 % [facility] Comment:{BASOPHILS {[id number]) 11/01/2014 4:19 PM EST 11/01/2014 8:32 PM EST Narrative Resulting Agency Comment [id number] us Danilo Gates MD LAB SAME DAY RESULT Final Resul t [facility] [address] [place] [address] documented in this encounter Visit Diagnoses Diagnosis Rheumatoid arthritis(714.0) Rheumatoid arthritis documented in this encounter Care Teams Paint Striping Machine Operator Relationship Specialty Start Date End Date Edilberto Harris 46 [facility] [address] [place] [address] PCP - General Family Medicine 03/06/11 07/05/18 Eufemia Jett MD [address] [address] PCP - General Geriatrics 10/31/19 documented as of this encounter
--- OUTSIDE RECORDS SUMMARY | 2025-06-06 08:10 | XMS_ITS | Encounter Summary ---
Author Organization [facility] Address [address] [place] [address] Care Team Providers Care Coal Conveyor Operator Name Role Phone Edilberto Harris Primary Care Provider [phone] Eufemia Jett MD Primary Care Provider [phone] Encounter Details Date Type Department Care Team (Late st Contact Info) Description 03/03/2017 Orders Only [facility] Rheumatology [address] [place] [address] Danilo Gates MD [address] [place] [address] Social History Tobacco Use Types Packs/Day Years [...] EDT) Calcium 9.4 8.6 - 10.2 mg/dL [facility] 03/03/2017 2:46 PM EDT 03/03/2017 10:20 PM EDT Danilo Gates MD LAB SAME DAY RESULT Final Resul t Performing Organization Address [facility] de Phone Number [facility] [address] [place] [address] * IRON, TIBC AND FERRITIN PANEL (03/03/2017 [...] MD LABORATORY Final Result Performing Organization Address [facility] Phone Number [facility] [address] [place] [address] * C-REACTIVE PROTEIN (CRP) - INFLAMMATION (03/03/2017 2:46 PM EDT) C reactive protein 0.26 <0.80 mg/dL [facility] Comment: Please be advised that patients taking Carboxypenicillins may exhibit falsely decreased C-Reactive Protein levels due to an analytical interference in this assay. 03/03/2017 2:46 PM EDT 03/03/2017 10:20 PM EDT Narrative Resulting Agency Comment [id number] us Danilo Gates MD LABORATORY Final Result Performing Organization Address [facility] de Phone Number [facility] [address] [place] [address] * ERYTHROCYTE SEDIMENTATION RATE (ESR), WESTERGREN (03/03/2017 2:46 PM EDT) Sedimentation Rate Westegren (ESR) 9 < OR = 20 mm/h [facility] 03/03/2017 2:46 PM EDT 03/03/2017 10:20 PM EDT Narrative Resulting Agency Comment [id number] us Danilo Gates MD LAB SAME DAY RESULT Final Resul t Performing Organization Address [facility] Co de Phone Number [facility] [address] [place] [address] * CREATININE WITH GLOMERULAR FILTRATION RATE, ESTIMATED [...] needs for GFR calculation. Resulting Agency Comment [id number] us Danilo Gates MD LAB SAME DAY RESULT Final Resul t Performing Organization Address [facility] Co de Phone Number [facility] [address] [place] [address] * ALANINE AMINOTRANSFERASE (ALT), SERUM (03/03/2017 2:46 PM EDT) ALT (SGPT) 10 6 - 29 U/L [facility] 03/03/2017 2:46 PM EDT 03/03/2017 10:20 PM EDT Narrative Resulting Agency Comment [id number] us Danilo Gates MD LAB SAME DAY RESULT Final Resul t Performing Organization Address [facility] Co de Phone Number [facility] [address] [place] [address] * ASPARTATE AMINOTRANSFERASE (AST), SERUM (03/03/2017 2:46 PM EDT) AST (SGOT) 17 10 - 30 U/L [facility] 03/03/2017 2:46 PM EDT 03/03/2017 10:20 PM EDT Narrative Resulting Agency Comment [id number] us Danilo Gates MD LAB SAME DAY RESULT Final Resul t Performing Organization Address [facility] de Phone Number [facility] [address] [place] [address] * CBC INCLUDES DIFFERENTIAL AND PLATELET COUNT [...] 10:20 PM EDT Narrative Resulting Agency Comment [id number] us Danilo Gates MD LAB SAME DAY RESULT Final Resul t Performing Organization Address [facility] Co de Phone Number [facility] [address] [place] [address] documented in this encounter Visit Diagnoses Diagnosis Rheumatoid arthritis involving multiple sites with positive rheumatoid factor (HCC) [M05.79] documented in this encounter Care Teams Coal Conveyor Operator Relationship Specialty Start Date End Date Edilberto Harris [address] [facility] [address] [place] [address] PCP - General Family Medicine 03/06/11 07/05/18 Eufemia Jett MD [address] [address] PCP - General Geriatrics 10/31/19 documented as of this encounter
--- OUTSIDE RECORDS SUMMARY | 2025-06-06 08:10 | XMS_ITS | Encounter Summary ---
Author Organization [facility] Address [address] [place] [address] Care Team Providers Care Boarding House Cook Name Role Phone Edilberto Harris Primary Care Provider [phone] Eufemia Jett MD Primary Care Provider [phone] Reason for Visit * Reason Comments E-prescribing Refill Request Encounter Details Date Type Department Care Team (Late st Contact Info) Description 04/21/2017 Refill [facility] Rheumatology [address] [place] [address] Danilo Gates MD [address] [place] [address] E-prescribing Refill Request Social History Tobacco Use [...] for Shiela Browne 36 y.o. [facility] Verified and Confirmed pharmacy for patient. Last [...] [M05.79] documented in this encounter Care Teams Boarding House Cook Relationship Specialty Start Date End Date Edilberto Harris 46 [facility] [address] [place] [address] PCP - General Family Medicine 03/06/11 07/05/18 Eufemia Jett MD [address] [address] PCP - General Geriatrics 10/31/19 documented as of this encounter
--- OUTSIDE RECORDS SUMMARY | 2025-06-06 08:10 | XMS_ITS | Encounter Summary ---
Author Organization [facility] Address [address] [place] [address] Care Team Providers Care Grain Operator Name Role Phone Edilberto Harris Primary Care Provider [phone] Eufemia Jett MD Primary Care Provider [phone] Encounter Details Date Type Department Care Team (Late st Contact Info) Description 07/07/2017 [facility] Rheumatology [address] [place] [address] Danilo Gates MD [address] [place] [address] Social History Tobacco Use Types Packs/Day Years [...] involving multiple sites with positive rheumatoid factor ALANINE AMINOTRANSFERASE (ALT), SERUM Routine 07/07/2017 10:54 AM EDT Rheumatoid arthritis involving multiple sites with positive rheumatoid factor ASPARTATE AMINOTRANSFERASE (AST), SERUM Routine 07/07/2017 10:54 AM EDT Rheumatoid arthritis involving multiple sites with positive rheumatoid factor CREATININE WITH GLOMERULAR FILTRATION RATE, ESTIMATED (EGFR) Routine 07/07/2017 10:54 AM EDT Rheumatoid arthritis involving multiple sites with positive rheumatoid factor documented in this encounter Results * Due [...] needs for GFR calculation. Resulting Agency Comment [id number] us Danilo Gates MD LAB SAME DAY RESULT Final Resul t [facility] [address] [place] [address] * ALANINE AMINOTRANSFERASE (ALT), SERUM (07/07/2017 10:54 AM EDT) ALT (SGPT) 10 6 - 29 U/L [facility] 07/07/2017 10:5 4 AM EDT 07/07/2017 11:42 PM EDT Narrative Resulting Agency Comment [id number] Danlio Gates MD LAB SAME DAY RESULT Final Resul t Performing Organization Address City/[facility] Co de Phone Number [facility] [address] [place] [address] * ASPARTATE AMINOTRANSFERASE (AST), SERUM (07/07/2017 10:54 AM EDT) AST (SGOT) 16 10 - 30 U/L [facility] 07/07/2017 10:5 4 AM EDT 07/07/2017 11:42 PM EDT Narrative Resulting Agency Comment [id number] Danilo Gates MD LAB SAME DAY RESULT Final Resul t Performing Organization Address [facility] de Phone Number [facility] [address] [place] [address] * CBC INCLUDES DIFFERENTIAL AND PLATELET COUNT [...] 11:42 PM EDT Narrative Resulting Agency Comment [id number] us Danilo Gates MD LAB SAME DAY RESULT Final Resul t [facility] [address] [place] [address] documented in this encounter Visit Diagnoses Diagnosis Rheumatoid arthritis involving multiple sites with positive rheumatoid factor (HCC) documented in this encounter Care Teams Grain Operator Relationship Specialty Start Date End Date Edilberto Harris 46 [facility] [address] [place] [address] PCP - General Family Medicine 03/06/11 07/05/18 Eufemia eJtt MD [address] [address] PCP - General Geriatrics 10/31/19 documented as of this encounter
--- OUTSIDE RECORDS SUMMARY | 2025-06-06 08:10 | XMS_ITS | Encounter Summary ---
Author Organization [facility] Address [address] [place] [address] Care Team Providers Care Relay Mechanic Name Role Phone Edilberto Harris Primary Care Provider [phone] Eufemia Jett MD Primary Care Provider [phone] Encounter Details Date Type Department Care Team (Late st Contact Info) Description 04/16/2014 Orders Only [facility] Rheumatology [address] [place] [address] Danilo Gates MD [address] [place] [address] Social History Tobacco Use Types Packs/Day Years [...] 0.50 - 1.10 mg/dL [facility] Comment:{CREATININE {[id number]) GFR 115 > OR = 60 mL/min/1.7 3m2 [facility] Comment:{eGFR NON-AFR. AMERI CAN {[id number]) GFR () 134 > OR = 60 mL/min/1.7 3m2 [facility] Comment:{eGFR AMERIC AN {[id number]) 04/16/2014 4:11 PM EDT 04/16/2014 11:38 PM [...] needs for GFR calculation. Resulting Agency Comment [id number] us Danilo Gates MD LAB SAME DAY RESULT Final Resul t [facility] [address] [place] [address] * ALANINE AMINOTRANSFERASE (ALT), SERUM (04/16/2014 4:11 PM EDT) ALT (SGPT) 16 6 - 29 U/L [facility] Comment:{ALT {[id number]) 04/16/2014 4:11 PM EDT 04/16/2014 11:38 PM EDT Narrative Resulting Agency Comment [id number] us Danilo Gates MD LAB SAME DAY RESULT Final Resul t [facility] [address] [place] [address] * ASPARTATE AMINOTRANSFERASE (AST), SERUM (04/16/2014 4:11 PM EDT) AST (SGOT) 23 10 - 30 U/L [facility] Comment:{AST {[id number]) 04/16/2014 4:11 PM EDT 04/16/2014 11:38 PM EDT Narrative Resulting Agency Comment [id number] us Danilo Gates MD LAB SAME DAY RESULT Final Resul t Performing Organization Address City/[facility] Co de Phone Number [facility] [address] [place] [address] * (ABNORMAL) CBC INCLUDES DIFFERENTIAL AND PLATELET COUNT (04/16/2014 4:11 PM EDT) WBC 6.0 3.8 - 10.8 Thousand/u L [facility] Comment:{WHITE BLOOD CELL CO UNT {[id number]) RBC 3.97 3.80 - 5.10 Million/uL [facility] Comment:{RED BLOOD CELL COUN T {[id number]) Hemoglobin 12.5 11.7 - 15.5 g/dL [facility] Comment:{HEMOGLOBIN {[id number]) Hematocrit 37.8 35.0 - 45.0 % [facility] Comment:{HEMATOCRIT {[id number]) MCV 95.2 80.0 - 100.0 fL [facility] Comment:{MCV {[id number]) MCH 31.5 27.0 - 33.0 pg [facility] Comment:{MCH {[id number]) MCHC 33.1 32.0 - 36.0 g/dL [facility] Comment:{MCHC {[id number]) RDW 12.7 11.0 - 15.0 % [facility] Comment:{RDW {[id number]) PLT 133(L) 140 - 400 Thousand/u L [facility] Comment:{PLATELET COUNT {[id number]) MPV 11.2 7.5 - 11.5 fL [facility] Comment:{MPV {[id number]) Neutrophils # 2844 1500 - 7800 cells/uL [facility] Comment:{ABSOLUTE NEUTROPHIL S {[id number]) Lymphocytes # 2526 850 - 3900 cells/uL [facility] Comment:{ABSOLUTE LYMPHOCYTE S {[id number]) Monocytes # 474 200 - 950 cells/uL [facility] Comment:{ABSOLUTE MONOCYTES {[id number]) Eosinophils # 84 15 - 500 cells/uL [facility] Comment:{ABSOLUTE EOSINOPHIL S {[id number]) Basophils # 72 0 - 200 cells/uL [facility] Comment:{ABSOLUTE BASOPHILS {[id number]) Neutrophils % 47.4 % [facility] Comment:{NEUTROPHILS {[id number]) Lymphocytes % 42.1 % [facility] Comment:{LYMPHOCYTES {[id number]) Monocytes % 7.9 % [facility] Comment:{MONOCYTES {[id number]) Eosinophils % 1.4 % [facility] Comment:{EOSINOPHILS {[id number]) Basophils % 1.2 % [facility] Comment:{BASOPHILS {[id number]) 04/16/2014 4:11 PM EDT 04/16/2014 11:38 PM EDT Narrative Resulting Agency Comment [id number] us Danilo Gates MD LAB SAME DAY RESULT Final Resul t [facility] [address] [place] [address] documented in this encounter Visit Diagnoses Diagnosis Rheumatoid arthritis(714.0) Rheumatoid arthritis documented in this encounter Care Teams Relay Mechanic Relationship Specialty Start Date End Date Edilberto Harris 46 [facility] [address] [place], [place] [id number] PCP - General Family Medicine 03/06/11 07/05/18 [place] [address] PCP - General Geriatrics 10/31/19 documented as of this encounter
--- OUTSIDE RECORDS SUMMARY | 2025-06-06 08:10 | XMS_ITS ---
[facility] Name [facility] Organization Unknown Encounters Encounter Type Encounter Reason Primary Diagnosis Location Date Ambulatory 6MO F/U 6MO F/U [facility] 04/24/2024 Ambulatory 6MO F/U 6MO F/U [facility] 09/27/2023 Ambulatory CALL BACK CALL BACK [facility] 03/22/2023 Ambulatory BREAST CA SCREENING BREAST CA SCREENING [facility] 03/05/2023 Care Team Organization Name Specialty Phone Email Start Date End Da te [facility] 09/26/2023 07/23/2024 [facility] Nunez Jono Primary Care 03/22/2023 07/23/20 24 [facility] 03/22/2023 03/22/2023 [facility] Jono Nunez MD Primary Care 03/22/202303/22 [facility] provided No Primary Care 03/05/2023 07/23/2024 [facility] No provided Primary Care 03/05/2023 03/05/2023 [facility] Patient answer Primary Care 03/05/2023 03/05/20 23 [facility] answer Patient Primary Care 02/12/2023 07/23/20 24
--- OUTSIDE RECORDS SUMMARY | 2025-06-06 08:10 | XMS_ITS | Encounter Summary ---
Author Organization [facility] Address [address] [place] [address] Care Team Providers Care Data Integrity Consultant Name Role Phone Edilberto Harris Primary Care Provider [phone] Eufemia Jett MD Primary Care Provider [phone] Encounter Details Date Type Department Care Team (Late st Contact Info) Description 06/13/2012 Orders Only [facility] Rheumatology [address] [place] [address] Danilo Gates MD [address] [place] [address] Social History Tobacco Use Types Packs/Day Years [...] of this encounter Procedures * Due to [place] state law, this [...] in this encounter Results * Due to [place] state law, this organization might not be sharing negative HIV tests. * ERYTHROCYTE SEDIMENTATION RATE (ESR), THIAGOERGREN (06/13/2012 4:53 PM EDT) Sedimentation Rate Westegren (ESR) 6 < OR = 20 mm/h [facility] Comment:{SED RATE BY GAVI ANDRE {[id number]) 06/13/2012 4:53 PM EDT 06/13/2012 10:09 PM EDT Narrative Resulting Agency Comment [id number] us Danilo Gates MD LAB SAME DAY RESULT Final Resul t Performing Organization Address [facility] de Phone Number [facility] [address] [place] [address] * C-REACTIVE PROTEIN (CRP) - INFLAMMATION (06/13/2012 4:53 PM EDT) C reactive protein 0.15 <0.80 mg/dL [facility] Comment: {C-REACTIVE PROTEIN {[id number]) Please be advised that patients taking Carboxypenicillins may exhibit falsely decreased C-Reactive Protein levels due to an analytical interference in this assay. 06/13/2012 4:53 PM EDT 06/13/2012 10:09 PM EDT Narrative Resulting Agency Comment [id number] us Danilo Gates MD LABORATORY Final Result Performing Organization Address City/[facility] Co de Phone Number [facility] [address] [place] [address] * CREATININE WITH GLOMERULAR FILTRATION RATE, ESTIMATED (EGFR) (06/13/2012 4:53 PM EDT) Pathologist [facility] Creatinine 0.72 0.50 - 1.10 mg/dL [facility] Comment:{CREATININE {[id number]) GFR 111 > OR = 60 mL/min/1.7 3m2 [facility] Comment:{eGFR NON-AFR. AMERI CAN {[id number]) GFR () 128 > OR = 60 mL/min/1.7 3m2 [facility] Comment:{eGFR AMERIC AN {[id number]) 06/13/2012 4:53 PM EDT 06/13/2012 10:09 PM [...] needs for GFR calculation. Resulting Agency Comment [id number] us Danilo Gates MD LAB SAME DAY RESULT Final Resul t [facility] [address] [place] [address] * (ABNORMAL) CBC INCLUDES DIFFERENTIAL AND PLATELET COUNT (06/13/2012 4:53 PM EDT) Pathologist [facility] WBC 6.0 3.8 - 10.8 Thousand/ uL [facility] Comment:{WHITE BLOOD CELL CO UNT {[id number]) RBC 3.71(L) 3.80 - 5.10 Million/u L [facility] Comment:{RED BLOOD CELL COUN T {[id number]) Hemoglobin 12.3 11.7 - 15.5 g/dL [facility] Comment:{HEMOGLOBIN {[id number]) Hematocrit 35.9 35.0 - 45.0 % [facility] Comment:{HEMATOCRIT {[id number]) MCV 96.9 80.0 - 100.0 fL [facility] Comment:{MCV {[id number]) MCH 33.3(H) 27.0 - 33.0 pg [facility] Comment:{MCH {[id number]) MCHC 34.3 32.0 - 36.0 g/dL [facility] Comment:{MCHC {[id number]) RDW 12.5 11.0 - 15.0 % [facility] Comment:{RDW {[id number]) PLT 169 140 - 400 Thousand/ uL [facility] Comment:{PLATELET COUNT {[id number]) MPV 11.0 7.5 - 11.5 fL [facility] Comment:{MPV {[id number]) Neutrophils # 2322 1500 - 7800 cells/uL [facility] Comment:{ABSOLUTE NEUTROPHIL S {[id number]) Lymphocytes # 3180 850 - 3900 cells/uL [facility] Comment:{ABSOLUTE LYMPHOCYTE S {[id number]) Monocytes # 360 200 - 950 cells/uL [facility] Comment:{ABSOLUTE MONOCYTES {[id number]) Eosinophils # 108 15 - 500 cells/uL [facility] Comment:{ABSOLUTE EOSINOPHIL S {[id number]) Basophils # 30 0 - 200 cells/uL [facility] Comment:{ABSOLUTE BASOPHILS {[id number]) Neutrophils % 38.7 % [facility] Comment:{NEUTROPHILS {[id number]) Lymphocytes % 53.0 % [facility] Comment:{LYMPHOCYTES {[id number]) Monocytes % 6.0 % [facility] Comment:{MONOCYTES {[id number]) Eosinophils % 1.8 % [facility] Comment:{EOSINOPHILS {[id number]) Basophils % 0.5 % [facility] Comment:{BASOPHILS {[id number]) 06/13/2012 4:53 PM EDT 06/13/2012 10:09 PM EDT Narrative Resulting Agency Comment [id number] us Danilo Gtaes MD LAB SAME DAY RESULT Final Resul t [facility] [address] [place] [address] * ALANINE AMINOTRANSFERASE (ALT), SERUM (06/13/2012 4:53 PM EDT) ALT (SGPT) 12 6 - 40 U/L [facility] Comment:{ALT {[id number]) 06/13/2012 4:53 PM EDT 06/13/2012 10:09 PM EDT Narrative Resulting Agency Comment [id number] us Danilo Gates MD LAB SAME DAY RESULT Final Resul t Performing Organization Address [facility] Co de Phone Number [facility] [address] [place] [address] * ASPARTATE AMINOTRANSFERASE (AST), SERUM (06/13/2012 4:53 PM EDT) AST (SGOT) 19 10 - 30 U/L [facility] Comment:{AST {[id number]) 06/13/2012 4:53 PM EDT 06/13/2012 10:09 PM EDT Narrative Resulting Agency Comment [id number] us Danilo Gates MD LAB SAME DAY RESULT Final Resul t Performing Organization Address [facility] Co de Phone Number [facility] [address] [place] [address] documented in this encounter Visit Diagnoses Diagnosis Rheumatoid arthritis(714.0) Rheumatoid arthritis documented in this encounter Care Teams Data Integrity Consultant Relationship Specialty Start Date End Date Edilberto Harris 46 [facility] [address] [place] [address] PCP - General Family Medicine 03/06/11 07/05/18 Eufemia Jett MD [address] [address] PCP - General Geriatrics 10/31/19 documented as of this encounter
--- OUTSIDE RECORDS SUMMARY | 2025-06-06 08:10 | XMS_ITS | Encounter Summary ---
Author Organization [facility] Address [address] [place] [address] Care Team Providers Care Protection Engineer Name Role Phone Edilberto Harris Primary Care Provider [phone] Eufemia Jett MD Primary Care Provider Encounter Details Date Type Department Care Team (Late st Contact Info) Description 10/05/2011 Orders Only [facility] Rheumatology [address] [place] [address] Danilo Gates MD [address] [place] [address] Social History Tobacco Use Types Packs/Day Years [...] encounter Procedures * Due to [place] state law, this organization might not be [...] encounter Results * Due to [place] [employer] law, this organization might not be sharing negative HIV tests. * KAREEM IFA, W/ REFLEX TO TITER/PATTERN/COMPREHENSIVE AB PANEL (10/05/2011 3:57 PM EST) KAREEM IFA NEGATIVE NEGATIVE [facility] Comment:{KAREEM SCREEN, IFA {[id number]) 10/05/2011 3:57 PM EST 10/05/2011 11:44 PM EST Narrative Resulting Agency Comment [id number] us Danilo Gates MD LABORATORY Final Result [facility] [address] [place] [address] * CYCLIC CITRULLINATEDPEPTIDE CCP AB IGG (10/05/2011 3:57 PM EST) CCP Ab, IgG <16 UNITS [facility] Comment: {CYCLIC CITRULLINATED PEPTIDE (CCP) AB (IGG) {[id number]) Reference Range Negative: <20 Weak Positive: 20-39 Moderate Positive: 40-59 Strong Positive: >59 10/05/2011 3:57 PM EST 10/05/2011 11:44 PM EST Narrative Resulting Agency Comment [id number] us Danilo Gates MD LABORATORY Final Result Performing Organization Address [facility] Co de Phone Number [facility] [address] [place] [address] * C-REACTIVE PROTEIN (CRP) - INFLAMMATION (10/05/2011 3:57 PM EST) C reactive protein 0.53 <0.80 mg/dL [facility] Comment: {C-REACTIVE PROTEIN {[id number]) Please be advised that patients taking Carboxypenicillins may exhibit falsely decreased C-Reactive Protein levels due to an analytical interference in this assay. 10/05/2011 3:57 PM EST 10/05/2011 11:44 PM EST Narrative Resulting Agency Comment [id number] us Danilo Gates MD LABORATORY Final Result Performing Organization Address [facility] de Phone Number [facility] [address] [place] [address] * (ABNORMAL) RHEUMATOID FACTOR, SERUM (10/05/2011 3:57 PM EST) Rheumatoid Factor (Quant) 25(H) <14 IU/mL [facility] Comment:{RHEUMATOID FACTOR { [id number]) 10/05/2011 3:57 PM EST 10/05/2011 11:44 PM EST Narrative Resulting Agency Comment [id number] us Danilo Gates MD LABORATORY Final Result Performing Organization Address [facility] de Phone Number [facility] [address] [place] [address] * ERYTHROCYTE SEDIMENTATION RATE (ESR), WESTERGREN (10/05/2011 3:57 PM EST) Sedimentation Rate Westegren (ESR) 15 < OR = 20 mm/h [facility] Comment:{SED RATE BY MODIFIE D WESTERGREN {[id number]) 10/05/2011 3:57 PM EST 10/05/2011 11:44 PM EST Narrative Resulting Agency Comment [id number] us Danilo Gates MD LAB SAME DAY RESULT Final Resul t [facility] [address] [place] [address] documented in this encounter Visit Diagnoses Diagnosis Pain in joint Pain in joint, site unspecified documented in this encounter Care Teams Protection Engineer Relationship Specialty Start Date End Date Edilberto Harris 46 [facility] [address] [place] [address] PCP - General Family Medicine 03/06/11 07/05/18 Eufemia Jett MD [address] [address] PCP - General Geriatrics 10/31/19 documented as of this encounter
--- OUTSIDE RECORDS SUMMARY | 2025-06-06 08:10 | XMS_ITS | Encounter Summary ---
Author Organization [facility] Address [address] [place] [address] Care Team Providers Care Watermelon Harvesting Supervisor Name Role Phone Eufemia Jett MD Primary Care Provider [phone] Encounter Details Date Type Department Care Team (Late st Contact Info) Description 03/10/2019 Orders Only [facility] [address] [place] [address] [phone] Karissa Velasquez MD Social History Tobacco Use [...] involving multiple sites with positive rheumatoid factor ERYTHROCYTE SEDIMENTATION RATE (ESR) Routine 03/10/2019 9:09 AM EDT Rheumatoid arthritis involving multiple sites with positive rheumatoid factor CBC INCLUDES DIFFERENTIAL AND PLATELET COUNT Routine 03/10/2019 9:09 AM EDT Rheumatoid arthritis involving multiple sites with positive rheumatoid factor ALANINE AMINOTRANSFERASE (ALT), SERUM Routine 03/10/2019 9:09 AM EDT Rheumatoid arthritis involving multiple sites with positive rheumatoid factor ASPARTATE AMINOTRANSFERASE (AST), SERUM Routine 03/10/2019 9:09 [...] 11:12 AM EDT Narrative Resulting Agency Comment [id number] us Karissa Velasquez MD LABORATORY Final Result Performing Organization Address City/[facility]/ZIP Co de Phone Number [facility] [address] [place] [address] * ERYTHROCYTE SEDIMENTATION RATE (ESR), WESTERGREN (03/10/2019 9:09 AM EDT) Sedimentation Rate Westegren (ESR) 19 < OR = 20 mm/h [facility] 03/10/2019 9:09 AM EDT 03/10/2019 11:12 AM EDT Narrative Resulting Agency Comment [id number] us Karissa Velasquez MD LAB SAME DAY RESULT Final Result Performing Organization Address City/[facility]/ZIP Co de Phone Number [facility] [address] [place] [address] * CREATININE WITH GLOMERULAR FILTRATION RATE, ESTIMATED [...] needs for GFR calculation. Resulting Agency Comment [id number] us Karissa Velasquez MD LAB SAME DAY RESULT Final Result Performing Organization Address [facility]/ZIP Co de Phone Number [facility] [address] [place] [address] * ALANINE AMINOTRANSFERASE (ALT), SERUM (03/10/2019 9:09 AM EDT) ALT (SGPT) 12 6 - 29 U/L [facility] 03/10/2019 9:09 AM EDT 03/10/2019 11:12 AM EDT Narrative Resulting Agency Comment [id number] us Karissa Velasquez MD LAB SAME DAY RESULT Final Result Performing Organization Address [facility] Co de Phone Number [facility] [address] [place] [address] * ASPARTATE AMINOTRANSFERASE (AST), SERUM (03/10/2019 9:09 AM EDT) AST (SGOT) 16 10 - 30 U/L [facility] 03/10/2019 9:09 AM EDT 03/10/2019 11:12 AM EDT Narrative Resulting Agency Comment [id number] us Karissa Velasquez MD LAB SAME DAY RESULT Final Result Performing Organization Address [facility] Co de Phone Number [facility] [address] [place] [address] * CBC INCLUDES DIFFERENTIAL AND PLATELET COUNT [...] 11:12 AM EDT Narrative Resulting Agency Comment [id number] Karissa Velasquez MD LAB SAME DAY RESULT Final Result Performing Organization Address City/State/[facility] Co de Phone Number [facility] [address] [place] [address] documented in this encounter Visit Diagnoses Diagnosis Rheumatoid arthritis involving multiple sites with positive rheumatoid factor (HCC) documented in this encounter Care Teams Watermelon Harvesting Supervisor Relationship Specialty Start Date End Date Eufemia Jett MD [address] [address] PCP - General Geriatrics 10/31/19 documented as of this encounter
--- OUTSIDE RECORDS SUMMARY | 2025-06-06 08:10 | XMS_ITS | Encounter Summary ---
Author Organization [facility] Address [address] [place] [address] Care Team Providers Care Bank Manager Name Role Phone Edilberto Harris Primary Care Provider [phone] Eufemia Jett MD Primary Care Provider [phone] Encounter Details Date Type Department Care Team (Late st Contact Info) Description 04/13/2016 Orders Only [facility] Rheumatology [address] [place] [phone] Danilo Gates MD [address] [place] [address] Social History Tobacco Use Types Packs/Day Years [...] <0.80 mg/dL [facility] Comment: {C-REACTIVE PROTEIN {[id number]) Please be advised that patients taking Carboxypenicillins may exhibit falsely decreased C-Reactive Protein levels due to an analytical interference in this assay. 04/13/2016 3:57 PM EDT 04/13/2016 9:24 PM EDT Narrative Resulting Agency Comment [id number] us Danilo Gates MD LABORATORY Final Result [facility] [address] [place] [address] * ERYTHROCYTE SEDIMENTATION RATE (ESR), WESTERGREN (04/13/2016 3:57 PM EDT) Sedimentation Rate [place] (ESR) 6 < OR = 20 mm/h [facility] Comment:{SED RATE BY GAVI MOSQUEDAREN {[id number]) 04/13/2016 3:57 PM EDT 04/13/2016 9:24 PM EDT Narrative Resulting Agency Comment [id number] us Danilo Gates MD LAB SAME DAY RESULT Final Resul t Performing Organization Address [facility] de Phone Number [facility] [address] [place] [address] * CREATININE WITH GLOMERULAR FILTRATION RATE, ESTIMATED (EGFR) (04/13/2016 3:57 PM EDT) Creatinine 0.80 0.50 - 1.10 mg/dL [facility] Comment:{CREATININE {[id number]) GFR 96 > OR = 60 mL/min/1.7 3m2 [facility] Comment:{eGFR NON-AFR. AMERI CAN {[id number]) GFR () 111 > OR = 60 mL/min/1.7 3m2 [facility] Comment:{eGFR AMERIC AN {[id number]) 04/13/2016 3:57 PM EDT 04/13/2016 9:24 PM [...] needs for GFR calculation. Resulting Agency Comment [id number] us Danilo Gates MD LAB SAME DAY RESULT Final Resul t Performing Organization Address [facility] Co de Phone Number [facility] [address] [place] [address] * ALANINE AMINOTRANSFERASE (ALT), SERUM (04/13/2016 3:57 PM EDT) ALT (SGPT) 11 6 - 29 U/L [facility] Comment:{ALT {[id number]) 04/13/2016 3:57 PM EDT 04/13/2016 9:24 PM EDT Narrative Resulting Agency Comment [id number] us Danilo Gates MD LAB SAME DAY RESULT Final Resul t Performing Organization Address [facility] Co de Phone Number [facility] [address] [place] [address] * ASPARTATE AMINOTRANSFERASE (AST), SERUM (04/13/2016 3:57 PM EDT) AST (SGOT) 19 10 - 30 U/L [facility] Comment:{AST {[id number]) 04/13/2016 3:57 PM EDT 04/13/2016 9:24 PM EDT Narrative Resulting Agency Comment [id number] us Danilo Gates MD LAB SAME DAY RESULT Final Resul t Performing Organization Address [facility] de Phone Number [facility] [address] [place] [address] * CBC INCLUDES DIFFERENTIAL AND PLATELET COUNT (04/13/2016 3:57 PM EDT) WBC 7.5 3.8 - 10.8 Thousand/u L [facility] Comment:{WHITE BLOOD CELL CO UNT {[id number]) RBC 3.84 3.80 - 5.10 Million/uL [facility] Comment:{RED BLOOD CELL COUN T {[id number]) Hemoglobin 12.7 11.7 - 15.5 g/dL [facility] Comment:{HEMOGLOBIN {[id number]) Hematocrit 37.2 35.0 - 45.0 % [facility] Comment:{HEMATOCRIT {[id number]) MCV 96.9 80.0 - 100.0 fL [facility] Comment:{MCV {[id number]) MCH 32.9 27.0 - 33.0 pg [facility] Comment:{MCH {[id number]) MCHC 34.0 32.0 - 36.0 g/dL [facility] Comment:{MCHC {[id number]) RDW 12.8 11.0 - 15.0 % [facility] Comment:{RDW {[id number]) PLT 180 140 - 400 Thousand/u L [facility] Comment:{PLATELET COUNT {[id number]) MPV 10.4 7.5 - 11.5 fL [facility] Comment:{MPV {[id number]) Neutrophils # 3818 1500 - 7800 cells/uL [facility] Comment:{ABSOLUTE NEUTROPHIL S {[id number]) Lymphocytes # 3233 850 - 3900 cells/uL [facility] Comment:{ABSOLUTE LYMPHOCYTE S {[id number]) Monocytes # 345 200 - 950 cells/uL [facility] Comment:{ABSOLUTE MONOCYTES {[id number]) Eosinophils # 60 15 - 500 cells/uL [facility] Comment:{ABSOLUTE EOSINOPHIL S {[id number]) Basophils # 45 0 - 200 cells/uL [facility] Comment:{ABSOLUTE BASOPHILS {[id number]) Neutrophils % 50.9 % [facility] Comment:{NEUTROPHILS {[id number]) Lymphocytes % 43.1 % [facility] Comment:{LYMPHOCYTES {[id number]) Monocytes % 4.6 % [facility] Comment:{MONOCYTES {[id number]) Eosinophils % 0.8 % [facility] Comment:{EOSINOPHILS {[id number]) Basophils % 0.6 % [facility] Comment:{BASOPHILS {[id number]) 04/13/2016 3:57 PM EDT 04/13/2016 9:24 PM EDT Narrative Resulting Agency Comment [id number] us Danilo Gates MD LAB SAME DAY RESULT Final Resul t [facility] [address] [place] [address] documented in this encounter Visit Diagnoses Diagnosis Rheumatoid arthritis, seropositive (HCC) Rheumatoid arthritis documented in this encounter Care Teams Bank Manager Relationship Specialty Start Date End Date Edilberto Harris [address] [facility] [address] [place] [address] PCP - General Family Medicine 03/06/11 07/05/18 Eufemia Jett MD [address] [address] PCP - General Geriatrics 10/31/19 documented as of this encounter
--- OUTSIDE RECORDS SUMMARY | 2025-06-06 08:10 | XMS_ITS | Encounter Summary ---
Author Organization [facility] Address [address] [place] [address] Care Team Providers Care Comic Book Writer Name Role Phone Edilberto Harris Primary Care Provider [phone] Eufemia Jett MD Primary Care Provider [phone] Encounter Details Date Type Department Care Team (Late st Contact Info) Description 11/14/2012 Orders Only [facility] Rheumatology [address] [place] [address] Danilo Gates MD [address] [place] [address] Social History Tobacco Use Types Packs/Day Years [...] [facility] Comment:{SED RATE BY GAVI ANDRE {[id number]) 11/14/2012 5:21 PM EDT 11/14/2012 10:59 PM EDT Narrative Resulting Agency Comment [id number] us Danilo Gates MD LAB SAME DAY RESULT Final Resul t Performing Organization Address [facility] de Phone Number [facility] [address] [place] [address] * C-REACTIVE PROTEIN (CRP) - INFLAMMATION (11/14/2012 5:21 PM EDT) C reactive protein 0.24 <0.80 mg/dL [facility] Comment: {C-REACTIVE PROTEIN {[id number]) Please be advised that patients taking Carboxypenicillins may exhibit falsely decreased C-Reactive Protein levels due to an analytical interference in this assay. 11/14/2012 5:21 PM EDT 11/14/2012 10:59 PM EDT Narrative Resulting Agency Comment [id number] us Danilo Gates MD LABORATORY Final Result Performing Organization Address City/[facility] Co de Phone Number [facility] [address] [place] [address] * CREATININE WITH GLOMERULAR FILTRATION RATE, ESTIMATED (EGFR) (11/14/2012 5:21 PM EDT) Pathologist [facility] Creatinine 0.79 0.50 - 1.10 mg/dL [facility] Comment:{CREATININE {[id number]) GFR 99 > OR = 60 mL/min/1.7 3m2 [facility] Comment:{eGFR NON-AFR. AMERI CAN {[id number]) GFR () 115 > OR = 60 mL/min/1.7 3m2 [facility] Comment:{eGFR AMERIC AN {[id number]) 11/14/2012 5:21 PM EDT 11/14/2012 10:59 PM [...] needs for GFR calculation. Resulting Agency Comment [id number] us Danilo Gates MD LAB SAME DAY RESULT Final Resul t [facility] [address] [place] [address] * (ABNORMAL) CBC INCLUDES DIFFERENTIAL AND PLATELET COUNT (11/14/2012 5:21 PM EDT) Pathologist [facility] WBC 6.6 3.8 - 10.8 Thousand/ uL [facility] Comment:{WHITE BLOOD CELL CO UNT {[id number]) RBC 3.69(L) 3.80 - 5.10 Million/u L [facility] Comment:{RED BLOOD CELL COUN T {[id number]) Hemoglobin 11.6(L) 11.7 - 15.5 g/dL [facility] Comment:{HEMOGLOBIN {[id number]) Hematocrit 35.4 35.0 - 45.0 % [facility] Comment:{HEMATOCRIT {[id number]) MCV 96.1 80.0 - 100.0 fL [facility] Comment:{MCV {[id number]) MCH 31.5 27.0 - 33.0 pg [facility] Comment:{MCH {[id number]) MCHC 32.7 32.0 - 36.0 g/dL [facility] Comment:{MCHC {[id number]) RDW 13.1 11.0 - 15.0 % [facility] Comment:{RDW {[id number]) PLT 184 140 - 400 Thousand/ uL [facility] Comment:{PLATELET COUNT {[id number]) MPV 10.7 7.5 - 11.5 fL [facility] Comment:{MPV {[id number]) Neutrophils # 2878 1500 - 7800 cells/uL [facility] Comment:{ABSOLUTE NEUTROPHIL S {[id number]) Lymphocytes # 3194 850 - 3900 cells/uL [facility] Comment:{ABSOLUTE LYMPHOCYTE S {[id number]) Monocytes # 422 200 - 950 cells/uL [facility] Comment:{ABSOLUTE MONOCYTES {[id number]) Eosinophils # 79 15 - 500 cells/uL [facility] Comment:{ABSOLUTE EOSINOPHIL S {[id number]) Basophils # 26 0 - 200 cells/uL [facility] Comment:{ABSOLUTE BASOPHILS {[id number]) Neutrophils % 43.6 % [facility] Comment:{NEUTROPHILS {[id number]) Lymphocytes % 48.4 % [facility] Comment:{LYMPHOCYTES {[id number]) Monocytes % 6.4 % [facility] Comment:{MONOCYTES {[id number]) Eosinophils % 1.2 % [facility] Comment:{EOSINOPHILS {[id number]) Basophils % 0.4 % [facility] Comment:{BASOPHILS {[id number]) 11/14/2012 5:21 PM EDT 11/14/2012 10:59 PM EDT Narrative Resulting Agency Comment [id number] us Danilo Gates MD LAB SAME DAY RESULT Final Resul t [facility] [address] [place] [address] * ASPARTATE AMINOTRANSFERASE (AST), SERUM (11/14/2012 5:21 PM EDT) AST (SGOT) 18 10 - 30 U/L [facility] Comment:{AST {[id number]) 11/14/2012 5:21 PM EDT 11/14/2012 10:59 PM EDT Narrative Resulting Agency Comment [id number] us Danilo Gates MD LAB SAME DAY RESULT Final Resul t Performing Organization Address [facility] Co de Phone Number [facility] [address] [place] [address] * ALANINE AMINOTRANSFERASE (ALT), SERUM (11/14/2012 5:21 PM EDT) ALT (SGPT) 12 6 - 40 U/L [facility] Comment:{ALT {[id number]) 11/14/2012 5:21 PM EDT 11/14/2012 10:59 PM EDT Narrative Resulting Agency Comment [id number] us Danilo Gates MD LAB SAME DAY RESULT Final Resul t Performing Organization Address [facility] Co de Phone Number [facility] [address] [place] [address] documented in this encounter Visit Diagnoses Diagnosis Rheumatoid arthritis(714.0) Rheumatoid arthritis documented in this encounter Care Teams Comic Book Writer Relationship Specialty Start Date End Date Edilberto Harris [address] [facility] [address] [place] [address] PCP - General Family Medicine 03/06/11 07/05/18 Eufemia Jett MD [address] [address] PCP - General Geriatrics 10/31/19 documented as of this encounter
--- OUTSIDE RECORDS SUMMARY | 2025-06-06 08:10 | XMS_ITS | Encounter Summary ---
Author Organization [facility] Address [address] [place] [address] Care Team Providers Care Talent Sourcer Name Role Phone Edilberto Harris Primary Care Provider [phone] Eufemia Jett MD Primary Care Provider [phone] Encounter Details Date Type Department Care Team ([facility] st Contact Info) Description 08/04/2016 Orders Only [facility] Rheumatology [address] [place] [address] Danilo Gates MD [address] [place] [address] Social History Tobacco Use Types Packs/Day Years [...] on filedocumented in this encounter Care Teams Talent Sourcer Relationship Specialty Start Date End Date Edilberto Harris [address] [facility] [address] [place] [address] PCP - General Family Medicine 03/06/11 07/05/18 Eufemia Jett MD [address] [address] PCP - General Geriatrics 10/31/19 documented as of this encounter
--- OUTSIDE RECORDS SUMMARY | 2025-06-06 08:10 | XMS_ITS | Clinical Summary ---
Author Organization [facility] Address [address] [place] [address] Care Team Providers Care Mine Technician Name Role Phone Unavailable Primary Care [...] 1999 Cervical Cancer Screening (Pap Smear) 2001 Colon Cancer Screening (Colonoscopy) 2025 COVID-19 Vaccine (3 - 2024-2 6 season) 2025 10/18/2020, 09/18/2020 Influenza Vaccine (#1) 2025 Pneumococcal Vaccine Aged Out No long er eligible based on patient's age to complete this topic RSV Ped < 20 months Aged Out No longe r eligible based on patient's age to complete this topic
--- OUTSIDE RECORDS SUMMARY | 2025-06-06 08:10 | XMS_ITS | Encounter Summary ---
Author Organization [facility] Address [address] [place] [address] Care Team Providers Care Customer Account Administrator Name Role Phone Edilberto Harris Primary Care Provider [phone] Eufemia Jett MD Primary Care Provider [phone] Reason for Visit * Reason Comments E-prescribing Refill Request Encounter Details Date Type Department Care Team (Late st Contact Info) Description 04/20/2017 Refill [facility] Rheumatology [address] [place] [address] Danilo Gates MD [address] [place] [address] E-prescribing Refill Request Social History Tobacco Use [...] for Shiela Browne 36 y.o. female [facility] Verified and Confirmed pharmacy for patient. Last [...] on filedocumented in this encounter Care Teams Customer Account Administrator Relationship Specialty Start Date End Date Edilberto Harris [address] [facility] [address] [place] [address] PCP - General Family Medicine 03/06/11 07/05/18 Eufemia Jett MD [address] [address] PCP - General Geriatrics 10/31/19 documented as of this encounter
--- OUTSIDE RECORDS SUMMARY | 2025-06-06 08:10 | XMS_ITS | Encounter Summary ---
Author Organization [facility] Address [address] [place] [address] Care Team Providers Care Skid Man Name Role Phone Eufemia Jett MD Primary Care Provider [phone] Encounter Details Date Type Department Care Team (Late st Contact Info) Description 01/02/2020 Orders Only [facility] [address] [place] [phone] Karissa Velasquez MD Social History Tobacco Use [...] 12:42 AM EDT Narrative Resulting Agency Comment [id number] Karissa Velasquez MD LAB SAME DAY RESULT Final Result [facility] [address] [place] [address] * COMPREHENSIVE METABOLIC PANEL WITH GFR (01/02/2020 [...] needs for GFR calculation. Resulting Agency Comment [id number] Karissa Velasquez MD LABORATORY Final Result [facility] [address] [place] [address] documented in this encounter Visit Diagnoses Diagnosis Rheumatoid arthritis involving multiple sites with positive rheumatoid factor (HCC) [M05.79] documented in this encounter Care Teams Skid Man Relationship Specialty Start Date End Date Eufemia Jett MD [address] [address] PCP - General Geriatrics 10/31/19 documented as of this encounter
--- OUTSIDE RECORDS SUMMARY | 2025-06-06 08:10 | XMS_ITS | Encounter Summary ---
Author Organization [facility] Address [address] [place] [address] Care Team Providers Care Incubator Tender Name Role Phone Eufemia Jett MD Primary Care Provider [phone] Encounter Details Date Type Department Care Team (Late st Contact Info) Description 07/05/2019 Orders Only [facility] [address] [place] [phone] Karissa Velasquez MD Social History Tobacco Use [...] * QUANTIFERON-TB GOLD (07/05/2019 11:28 AM EDT) [facility] Quantiferon(R)-TB Gold Plus NEGATIVE NEGATIVE [facility] [...] T-lymphocytes. For additional information, please refer to https://[email or web address] [facility] [employer]Fresh !/faq/HIH128 (This link is being provided for informational/ educational purposes only.) 07/05/2019 11:2 8 AM EDT 07/05/2019 3:00 PM EDT Narrative Resulting Agency Comment [id number] us Karissa Velasquez MD LABORATORY Final Result Performing Organization Address City/[facility]/ZIP Co de Phone Number [facility] [address] [place] [address] * ERYTHROCYTE SEDIMENTATION RATE (ESR), WESTERGREN (07/05/2019 11:28 AM EDT) Sedimentation Rate Westegren (ESR) 17 < OR = 20 mm/h [facility] 07/05/2019 11:2 8 AM EDT 07/05/2019 3:00 PM EDT Narrative Resulting Agency Comment [id number] us Karissa Velasquez MD LAB SAME DAY RESULT Final Result Performing Organization Address [facility] Co de Phone Number [facility] [address] [place] [address] * C-REACTIVE PROTEIN (CRP) - INFLAMMATION (07/05/2019 11:28 AM EDT) C reactive protein 6.2 <8.0 mg/L [facility] 07/05/2019 11:2 8 AM EDT 07/05/2019 3:00 PM EDT Narrative Resulting Agency Comment [id number] us Karissa Velasquez MD LABORATORY Final Result Performing Organization Address [facility] Co de Phone Number [facility] [address] [place] [address] * COMPREHENSIVE METABOLIC PANEL WITH GFR (07/05/2019 [...] needs for GFR calculation. Resulting Agency Comment [id number] Karissa Velasquez MD LABORATORY Final Result [facility] [address] [place] [address] * CBC INCLUDES DIFFERENTIAL AND PLATELET COUNT [...] 3:00 PM EDT Narrative Resulting Agency Comment [id number] us Karissa Velasquez MD LAB SAME DAY RESULT Final Result Performing Organization Address [facility] de Phone Number [facility] [address] [place] [id number] * RHEUMATOID ARTHRITIS DIAGNOSTIC PANEL (07/05/2019 11:28 AM EDT) Rheumatoid Factor (Quant) <14 <14 IU/mL [facility] CCP Ab, IgG <16 UNITS [facility] Comment: Reference Range Negative: <20 Weak Positive: 20-39 Moderate Positive: 40-59 Strong Positive: >59 INTERPRETATION SEE NOTE [facility] Comment: These serologic results may be found in 10-20% of patients with polyarthritis that is clinically and radiologically indistinguishable from RA. 07/05/2019 11:2 8 AM EDT 07/05/2019 3:00 PM EDT Narrative Resulting Agency Comment [id number] us Karissa Velasquez MD LABORATORY Final Result Performing Organization Address [facility] Co de Phone Number [facility] [address] [place] [address] documented in this encounter Visit Diagnoses Diagnosis Rheumatoid arthritis involving multiple sites with positive rheumatoid factor (HCC) [M05.79] documented in this encounter Care Teams Incubator Tender Relationship Specialty Start Date [place] [address] PCP - General Geriatrics 10/31/19 documented as of this encounter
--- OUTSIDE RECORDS SUMMARY | 2025-06-06 08:11 | XMS_ITS | Encounter Summary ---
Author Organization [facility] Address [address] [place] [address] Care Team Providers Care Time Buyer Name Role Phone Edilberto Harris Primary Care Provider [phone] Eufemia Jett MD Primary Care Provider [phone] Encounter Details Date Type Department Care Team (Late st Contact Info) Description 10/20/2017 Orders Only [facility] Rheumatology [address] [place] [address] Danilo Gates MD [address] [place] [address] Social History Tobacco Use Types Packs/Day Years [...] rheumatoid factor ALANINE AMINOTRANSFERASE (ALT), SERUM Routine 10/20/2017 9:58 AM EST Rheumatoid arthritis involving multiple sites with positive rheumatoid factor ASPARTATE AMINOTRANSFERASE (AST), SERUM Routine 10/20/2017 9:58 [...] 5:33 PM EST Narrative Resulting Agency Comment [id number] us Danilo Gates MD LAB SAME DAY RESULT Final Resul t Performing Organization Address City/State/[facility] Co de Phone Number [facility] [address] [place] [address] * CREATININE WITH GLOMERULAR FILTRATION RATE, ESTIMATED [...] needs for GFR calculation. Resulting Agency Comment [id number] us Danilo Gates MD LAB SAME DAY RESULT Final Resul t Performing Organization Address [facility] Co de Phone Number [facility] [address] [place] [address] * ALANINE AMINOTRANSFERASE (ALT), SERUM (10/20/2017 9:58 AM EST) ALT (SGPT) 13 6 - 29 U/L [facility] 10/20/2017 9:58 AM EST 10/20/2017 5:33 PM EST Narrative Resulting Agency Comment [id number] us Danilo Gates MD LAB SAME DAY RESULT Final Resul t Performing Organization Address [facility] Co de Phone Number [facility] [address] [place] [address] * ASPARTATE AMINOTRANSFERASE (AST), SERUM (10/20/2017 9:58 AM EST) AST (SGOT) 19 10 - 30 U/L [facility] 10/20/2017 9:58 AM EST 10/20/2017 5:33 PM EST Narrative Resulting Agency Comment [id number] us Danilo Gates MD LAB SAME DAY RESULT Final Resul t [facility] [address] [place] [address] documented in this encounter Visit Diagnoses Diagnosis Rheumatoid arthritis involving multiple sites with positive rheumatoid factor (HCC) documented in this encounter Care Teams Time Buyer Relationship Specialty Start Date End Date Edilberto Harris [address] [facility] [address] [place] [address] PCP - General Family Medicine 03/06/11 07/05/18 Eufemia Jett MD [address] [address] PCP - General Geriatrics 10/31/19 documented as of this encounter
--- OUTSIDE RECORDS SUMMARY | 2025-06-06 08:11 | XMS_ITS | Encounter Summary ---
Author Organization [facility] Address [address] [place] [address] Care Team Providers Care Foot Piece Assembler Name Role Phone Eufemia Jett MD Primary Care Provider [phone] Reason for Visit * Reason Comments E-prescribing Refill Request Encounter Details Date Type Department Care Team (Late st Contact Info) Description 06/23/2020 Refill [facility] [address] [place] [phone] Karissa Velasquez MD E-prescribing Refill Request Social History Tobacco Use [...] for Shiela Browne 40 y.o. female received [employer]. Verified and Confirmed pharmacy for patient. Last [...] [M05.79] documented in this encounter Care Teams Foot Piece Assembler Relationship Specialty Start Date End Date Eufemia Jett MD [address] [address] PCP - General Geriatrics 10/31/19 documented as of this encounter
--- OUTSIDE RECORDS SUMMARY | 2025-06-06 08:11 | XMS_ITS | Encounter Summary ---
Author Organization [facility] Address [address] [place] [address] Care Team Providers Care Cashier Tube Room Name Role Phone Edilberto Harris Primary Care Provider [phone] Eufemia Jett MD Primary Care Provider [phone] Encounter Details Date Type Department Care Team (Late st Contact Info) Description 11/23/2017 Orders Only [facility] Rheumatology [address] [place] [address] Danilo Gates MD [address] [place] [address] Social History Tobacco Use Types Packs/Day Years [...] of this encounter Results * Due to [place] state law, this organization might not be sharing negative HIV tests. * CREATINE KINASE (CK), SERUM (04/20/2018 10:05 AM EDT) CPK 70 29 - 143 U/L [facility] 04/20/2018 10:0 5 AM EDT 04/20/2018 4:24 PM EDT Narrative Resulting Agency Comment [id number] us Danilo Gates MD LAB SAME DAY RESULT Final Resul t [facility] [address] [place] [address] documented in this encounter Visit Diagnoses Diagnosis Rheumatoid arthritis involving multiple sites, unspecified rheumatoid factor presence documented in this encounter Care Teams Cashier Tube Room Relationship Specialty Start Date End Date Edilberto Harris 46 [facility] [address] [place] [address] PCP - General Family Medicine 03/06/11 07/05/18 Eufemia Jett MD [address] [address] PCP - General Geriatrics 10/31/19 documented as of this encounter
--- OUTSIDE RECORDS SUMMARY | 2025-06-06 08:11 | XMS_ITS | Clinical Summary ---
Author Organization [facility] Address [address] [place] [address] Phone Care Team Providers Care Medical Billing Coder Name Role Phone Afia Oliveira DO Primary [...] estradioL (ESTRACE) 1 mg tablet 1 Active folic acid (FOLVITE) 1 mg tablet [...] time each day in the evening. Active fluticasone-ume clidinium-vilan terol (Trelegy Ellipta) 100-62.5-25 mcg inhaler Inhale 1 puff (100 mcg total) by mouth 1 (one) time each day. Rinse mouth with water after use to reduce aftertaste and incidence of candidiasis. Do not swallow. 3 each 3 5 Active Active Problems Problem Noted Date Diagnosed Date Osteopenia 07/20/2018 Migraine-cluster headache syndrome 02/23/2018 Sepsis secondary to UTI ([facility] V24, [facility] V2 8) 02/15/2018 Overview (07/19/2024): Requiring hospitalization x 2 RA (rheumatoid arthritis) ([facility] V24, [facility] V28) 02/15/2018 Asthma 02/15/2018 Immunizations Immunization Administration Dates Next Due Influenza Quadravalent, MDCK [...] DX:Hist ory of endometriosis RA (rheumatoid arthritis) ([facility] [place] V24, [facility] V28) 02/15/2018 DX:RA (rheumatoid arthritis) (HCC) Sepsis secondary to UTI ([facility] V24, [facility] V28) 02/15/2018 DX:Sepsis secondary to UTI ( HCC); COMMENT: Requiring hospitalization x 2 History of [...] 78 09/15/2024 10:59 AM EST Temperature 36.4 C (97.6 F) 09/15/2024 10:59 AM EST Respiratory Rate 14 09/15/2024 10:59 AM EST [...] Description 09/19/2025 8:30 AM EST Office Visit Pulmonology - [address] [place] [address] Yojana Desir, VAISHALI [address] [place] [address] Health Maintenance Due Date Last Done Comments Breast Cancer Screening 1980 Colorectal Cancer Screening: Colonoscopy 1980 Hepatitis B Vaccines (1 of 3 - 19+ 3-dose series) 1999 Pneumococcal Vaccine: Pediatrics (0 to 5 Years) and At-Risk Patients (6 to 49 Years) (1 of 2 - PCV) 1999 Cervical Cancer Screening: Pap Smear 2001 HPV Vaccines (1 - 3-dose SCDM series) 2007 HIV Screening 08/13/2022 Hepatitis C Screening 08/13/2022 Social Influencers of Health Screening 08/13/2022 Depression Screening 09/06/2024 COVID-19 Vaccine ( season) 2025 05/29/2022, 10/18/2020, 09/18/2020 Influenza Vaccine (#1) 2025 , 06/28/2023, 07/05/2018, Additional history exists Cholesterol Screening (Lipid Panel) 11/29/2025 11/29/2020 DTaP,Tdap,and Td Vaccines (3 - Td or Tdap) 07/05/2028 07/05/2018, 07/05/2018 RSV Immunization Adult Patients (1 - 1-dose 75+ series) 2055 HIB Vaccines Aged Out No longer eligi [...] age to complete this topic Meningococcal B Vaccine Aged Out No l onger eligible based on patient's age to complete this topic RSV Immunization Patients Under 20 months Aged Out No longer eligible based on patient's age to complete this topic Varicella Vaccines Aged Out No longer eligible based on patient's age to complete this topic Procedures Procedure Name Priority Date/Time Associated Diagnosis Comments LIPID PANEL Routine 11/29/2020 from Last 3 Months or Most Recently Relevant to Health Maintenance Results * (ABNORMAL) Lipid panel (11/29/2020) LDL/HDL Ratio 3 0 - 4 Triglycerides 134 0 - 150 mg/dL Cholesterol 214(A) 0 - 200 mg/dL HDL 78 >=40 mg/dL LDL Cholesterol 110(A) 0 - 100 mg/dL Blood Venous blood specimen / Unknown [facility] Provider LAB BLOOD ORDERABLES Janet hinojosa Result from Last 3 Months or Most Recently Relevant to Health Maintenance Insurance [facility] Care Teams Medical Billing Coder Relationship Specialty Start Date End Date Afia Oliveira DO [address] [place] [address] PCP - General Family Medicine 09/15/24
--- OUTSIDE RECORDS SUMMARY | 2025-06-06 08:11 | XMS_ITS | Encounter Summary ---
Author Organization [facility] Address [address] [place] [address] Care Team Providers Care Marketing Engineer Name Role Phone Edilberto Harris Primary Care Provider [phone] Eufemia Jett MD Primary Care Provider [phone] Encounter Details Date Type Department Care Team (Late st Contact Info) Description 11/09/2011 Orders Only [facility] Rheumatology [address] [place] [address] Danilo Gates MD [address] [place] [address] Social History Tobacco Use Types Packs/Day Years [...] of this encounter Procedures * Due to [place] state law, this organization might not be [...] in this encounter Results * Due to [place] state law, this organization might not be sharing negative HIV tests. * HEPATITIS C ANTIBODY, SERUM (11/09/2011 3:52 PM EST) Hepatitis C virus Ab NON-REACTI VE NON-REACT CATHY [facility] Comment:{HEPATITIS C ANTIBOD Y {[id number]) Hepatitis C virus Ab Signal/Cutoff 0.10 <1.00 [facility] Comment:{SIGNAL TO CUT-OFF { [id number]) 11/09/2011 3:52 PM EST 11/09/2011 9:41 PM EST Narrative Resulting Agency Comment [id number] us Danilo Gates MD LABORATORY Final Result [facility] [address] [place] [address] * HEPATITIS B SURFACE ANTIGEN (11/09/2011 3:52 PM EST) Hepatitis B virus surface Ag NON-REACTI VE NON-REACT CATHY [facility] Comment:{HEPATITIS B SURFACE ANTIGEN {[id number]) 11/09/2011 3:52 PM EST 11/09/2011 9:41 PM EST Narrative Resulting Agency Comment [id number] Danilo Gates MD LABORATORY Final Result Performing Organization Address [facility] de Phone Number [facility] [address] [place] [address] * ERYTHROCYTE SEDIMENTATION RATE (ESR), WESTERGREN (11/09/2011 3:52 PM EST) Sedimentation Rate [place]ren (ESR) 11 < OR = 20 mm/h [facility] Comment:{SED RATE BY GAVI MOSQUEDAREN {[id number]) 11/09/2011 3:52 PM EST 11/09/2011 9:41 PM EST Narrative Resulting Agency Comment [id number] Danilo Gates MD LAB SAME DAY RESULT Final Resul t Performing Organization Address [facility] Phone Number [facility] [address] [place] [address] * C-REACTIVE PROTEIN (CRP) - INFLAMMATION (11/09/2011 3:52 PM EST) C reactive protein 0.28 <0.80 mg/dL [facility] Comment: {C-REACTIVE PROTEIN {[id number]) Please be advised that patients taking Carboxypenicillins may exhibit falsely decreased C-Reactive Protein levels due to an analytical interference in this assay. 11/09/2011 3:52 PM EST 11/09/2011 9:41 PM EST Narrative Resulting Agency Comment [id number] Danilo Gates MD LABORATORY Final Result Performing Organization Address [facility] Co de Phone Number [facility] [address] [place] [address] * CREATININE WITH GLOMERULAR FILTRATION RATE, ESTIMATED (EGFR) (11/09/2011 3:52 PM EST) Creatinine 0.70 0.50 - 1.10 mg/dL [facility] Comment:{CREATININE {[id number]) GFR 115 > OR = 60 mL/min/1.7 3m2 [facility] Comment:{eGFR NON-AFR. AMERI CAN {[id number]) GFR () 134 > OR = 60 mL/min/1.7 3m2 [facility] Comment:{eGFR AMERIC AN {[id number]) 11/09/2011 3:52 PM EST 11/09/2011 9:41 PM [...] needs for GFR calculation. Resulting Agency Comment [id number] us Danilo Gates MD LAB SAME DAY RESULT Final Resul t [facility] [address] [place] [address] * CBC INCLUDES DIFFERENTIAL AND PLATELET COUNT (11/09/2011 3:52 PM EST) WBC 5.7 3.8 - 10.8 Thousand/u L [facility] Comment:{WHITE BLOOD CELL CO UNT {[id number]) RBC 4.12 3.80 - 5.10 Million/uL [facility] Comment:{RED BLOOD CELL COUN T {[id number]) Hemoglobin 13.1 11.7 - 15.5 g/dL [facility] Comment:{HEMOGLOBIN {[id number]) Hematocrit 38.0 35.0 - 45.0 % [facility] Comment:{HEMATOCRIT {[id number]) MCV 92.1 80.0 - 100.0 fL [facility] Comment:{MCV {[id number]) MCH 31.9 27.0 - 33.0 pg [facility] Comment:{MCH {[id number]) MCHC 34.6 32.0 - 36.0 g/dL [facility] Comment:{MCHC {[id number]) RDW 12.3 11.0 - 15.0 % [facility] Comment:{RDW {[id number]) PLT 182 140 - 400 Thousand/u L [facility] Comment:{PLATELET COUNT {[id number]) MPV 10.5 7.5 - 11.5 fL [facility] Comment:{MPV {[id number]) Neutrophils # 2702 1500 - 7800 cells/uL [facility] Comment:{ABSOLUTE NEUTROPHIL S {[id number]) Lymphocytes # 2571 850 - 3900 cells/uL [facility] Comment:{ABSOLUTE LYMPHOCYTE S {[id number]) Monocytes # 279 200 - 950 cells/uL [facility] Comment:{ABSOLUTE MONOCYTES {[id number]) Eosinophils # 120 15 - 500 cells/uL [facility] Comment:{ABSOLUTE EOSINOPHIL S {[id number]) Basophils # 29 0 - 200 cells/uL [facility] Comment:{ABSOLUTE BASOPHILS {[id number]) Neutrophils % 47.4 % [facility] Comment:{NEUTROPHILS {[id number]) Lymphocytes % 45.1 % [facility] Comment:{LYMPHOCYTES {[id number]) Monocytes % 4.9 % [facility] Comment:{MONOCYTES {[id number]) Eosinophils % 2.1 % [facility] Comment:{EOSINOPHILS {[id number]) Basophils % 0.5 % [facility] Comment:{BASOPHILS {[id number]) 11/09/2011 3:52 PM EST 11/09/2011 9:41 PM EST Narrative Resulting Agency Comment [id number] us Danilo Gates MD LAB SAME DAY RESULT Final Resul t [facility] [address] [place] [address] * ASPARTATE AMINOTRANSFERASE (AST), SERUM (11/09/2011 3:52 PM EST) AST (SGOT) 17 10 - 30 U/L [facility] Comment:{AST {[id number]) 11/09/2011 3:52 PM EST 11/09/2011 9:41 PM EST Narrative Resulting Agency Comment [id number] us Danilo Gates MD LAB SAME DAY RESULT Final Resul t [facility] [address] [place] [address] * ALANINE AMINOTRANSFERASE (ALT), SERUM (11/09/2011 3:52 PM EST) ALT (SGPT) 9 6 - 40 U/L [facility] Comment:{ALT {[id number]) 11/09/2011 3:52 PM EST 11/09/2011 9:41 PM EST Narrative Resulting Agency Comment [id number] us Danilo Gates MD LAB SAME DAY RESULT Final Resul t Performing Organization Address City/[facility] Co de Phone Number [facility] [address] [place] [address] documented in this encounter Visit Diagnoses Diagnosis Rheumatoid arthritis(714.0) Rheumatoid arthritis documented in this encounter Care Teams Marketing Engineer Relationship Specialty Start Date End Date Edilberto Harris 46 [facility] [address] [place] [address] PCP - General Family Medicine 03/06/11 07/05/18 Eufemia Jett MD [facility] [address] [place] [address] PCP - General Geriatrics 10/31/19 documented as of this encounter
--- OUTSIDE RECORDS SUMMARY | 2025-06-06 08:11 | XMS_ITS | Encounter Summary ---
Author Organization [facility] Address [address] [place] [address] Care Team Providers Care Wire Border Assembler Name Role Phone Edilberto Harris Primary Care Provider Eufemia Jett MD Primary Care Provider [phone] Encounter Details Date Type Department Care Team (Late st Contact Info) Description 04/20/2018 [facility] Rheumatology [address] [place] [phone] Danilo Gates MD [address] [place] [address] Social History Tobacco Use Types Packs/Day Years [...] rheumatoid factor ERYTHROCYTE SEDIMENTATION RATE (ESR) Routine 04/20/2018 10:05 [...] 4:24 PM EDT Narrative Resulting Agency Comment [id number] us Danilo Gates MD LAB SAME DAY RESULT Final Resul t [facility] [address] [place] [address] * ALANINE AMINOTRANSFERASE (ALT), SERUM (04/20/2018 10:05 AM EDT) ALT (SGPT) 12 6 - 29 U/L [facility] 04/20/2018 10:0 5 AM EDT 04/20/2018 4:24 PM EDT Narrative Resulting Agency Comment [id number] us Danilo Gates MD LAB SAME DAY RESULT Final Resul t Performing Organization Address City/[facility]/ZIP Co de Phone Number [facility] [address] [place] [address] * ASPARTATE AMINOTRANSFERASE (AST), SERUM (04/20/2018 10:05 AM EDT) AST (SGOT) 18 10 - 30 U/L [facility] 04/20/2018 10:0 5 AM EDT 04/20/2018 4:24 PM EDT Narrative Resulting Agency Comment [id number] us Danilo Gates MD LAB SAME DAY RESULT Final Resul t Performing Organization Address [facility] de Phone Number [facility] [address] [place] [address] * CBC INCLUDES DIFFERENTIAL AND PLATELET COUNT (04/20/2018 10:05 AM EDT) Pathologist [facility] WBC 5.5 3.8 - 10.8 Thousand/u L [...] 4:24 PM EDT Narrative Resulting Agency Comment [id number] us Danilo Gates MD LAB SAME DAY RESULT Final Resul t Performing Organization Address City/[facility]/ZIP Co de Phone Number [facility] [address] [place] [address] * C-REACTIVE PROTEIN (CRP) - INFLAMMATION (04/20/2018 10:05 AM EDT) C reactive protein 4.4 <8.0 mg/L [facility] 04/20/2018 10:0 5 AM EDT 04/20/2018 4:24 PM EDT Narrative Resulting Agency Comment [id number] us Danilo Gates MD LABORATORY Final Result Performing Organization Address [facility] Co de Phone Number [facility] [address] [place] [address] * ERYTHROCYTE SEDIMENTATION RATE (ESR), WESTERGREN (04/20/2018 10:05 AM EDT) Sedimentation Rate [place] (ESR) 11 < OR = 20 mm/h [facility] 04/20/2018 10:0 5 AM EDT 04/20/2018 4:24 PM EDT Narrative Resulting Agency Comment [id number] us Danilo Gates MD LAB SAME DAY RESULT Final Resul t Performing Organization Address City/[facility] Co de Phone Number [facility] [address] [place] [address] documented in this encounter Visit Diagnoses Diagnosis Rheumatoid arthritis involving multiple sites with positive rheumatoid factor (HCC) Rheumatoid arthritis involving multiple sites, unspecified rheumatoid factor presence documented in this encounter Care Teams Wire Border Assembler Relationship Specialty Start Date End Date Edilberto Harris 46 [facility] [address] [place] [address] PCP - General Family Medicine 03/06/11 07/05/18 Eufemia Jett MD [facility] [address] [place] [address] PCP - General Geriatrics 10/31/19 documented as of this encounter
--- OUTSIDE RECORDS SUMMARY | 2025-06-06 08:11 | XMS_ITS | Encounter Summary ---
Author Organization [facility] Address [address] [place] [address] Care Team Providers Care Rn Licensed Practical Name Role Phone Edilberto Harris Primary Care Provider Eufemia Jett MD Primary Care Provider [phone] Reason for Visit * Reason Comments E-prescribing Refill Request Encounter Details Date Type Department Care Team (Late st Contact Info) Description 01/24/2018 Refill [facility] Rheumatology [address] [place] [address] Danilo Gates MD [address] [place], [place] [phone] E-prescribing Refill Request Social History Tobacco Use [...] called and states she will go to [facility] on Wednesday to have her labs done. * Telephone Encounter - Rula Ordonez RN - 01/25/2018 8:37 AM EDT LEFT MESSAGE FOR PATIENT THAT SHE NEEDS MTX LABS DONE Any special requests or concerns? none Faxed/E-prescribed medication renewal request(s) for Shiela Browne 37 y.o. female received [employer]. Verified and Confirmed pharmacy for patient. Last [...] Phone 03/11/18 3:30 PM Danilo Gates MD [facility] Rheumatology [phone] Pertinent lab results: Lab Results Component Value [...] [M05.79] documented in this encounter Care Teams Rn Licensed Practical Relationship Specialty Start Date End Date Edilberto Harris 46 [facility] [address] [place] [address] PCP - General Family Medicine 03/06/11 07/05/18 Eufemia Jett MD [address] [address] PCP - General Geriatrics 10/31/19 documented as of this encounter
--- OUTSIDE RECORDS SUMMARY | 2025-06-06 08:11 | XMS_ITS | Encounter Summary ---
Author Organization [facility] Address [address] [place] [address] Care Team Providers Care Director [employer] Name Role Phone Edilberto Harris Primary Care Provider [phone] Eufemia Jett MD Primary Care Provider [phone] Reason for Visit * Reason Comments E-prescribing Refill Request Encounter Details Date Type Department Care Team (Late st Contact Info) Description 12/25/2012 Refill [facility] Rheumatology [address] [place] [address] Danilo Gates MD [address] [place], [place] [phone] E-prescribing Refill Request Social History Tobacco Use [...] for Shiela Browne 32 y.o. female received [employer]. Entered this pharmacy as preferred pharmacy for [...] on filedocumented in this encounter Care Teams Director [employer] Relationship Specialty Start Date End Date Edilberto Harris 46 [facility] [address] [place] [address] PCP - General Family Medicine 03/06/11 07/05/18 Eufemia Jett MD [address] [address] PCP - General Geriatrics 10/31/19 documented as of this encounter
--- OUTSIDE RECORDS SUMMARY | 2025-06-06 08:11 | XMS_ITS | Encounter Summary ---
Author Organization [facility] Address [address] [place] [address] Care Team Providers Care Brand Sales Consultant Name Role Phone Edilberto Harris Primary Care Provider [phone] Eufemia Jett MD Primary Care Provider [phone] Encounter Details Date Type Department Care Team (Late st Contact Info) Description 03/07/2012 Orders Only [facility] Rheumatology [address] [place] [phone] Danilo Gates MD [address] [place] [address] Social History Tobacco Use Types Packs/Day Years [...] <14 IU/mL [facility] Comment:{RHEUMATOID FACTOR { [id number]) CCP Ab, IgG <16 UNITS [facility] Comment: {CYCLIC CITRULLINATED PEPTIDE (CCP) AB (IGG) {[id number]) Reference Range Negative: <20 Weak Positive: 20-39 Moderate Positive: 40-59 Strong Positive: >59 INTERPRETATION SEE NOTE [facility] Comment: {INTERPRETATION {[id number]) Consistent with rheumatoid arthritis in a patient [...] 10:21 PM EDT Narrative Resulting Agency Comment [id number] us Danilo Gates MD LABORATORY Final Result [facility] [address] [place] [address] * ERYTHROCYTE SEDIMENTATION RATE (ESR), PANDAREN (03/07/2012 5:33 PM EDT) Sedimentation Rate [place]wegren (ESR) 9 < OR = 20 mm/h [facility] Comment:{SED RATE BY GAVI D PANDAREN {[id number]) 03/07/2012 5:33 PM EDT 03/07/2012 10:21 PM EDT Narrative Resulting Agency Comment [id number] Danilo Gates MD LAB SAME DAY RESULT Final Resul t [facility] [address] [place] [address] * C-REACTIVE PROTEIN (CRP) - INFLAMMATION (03/07/2012 5:33 PM EDT) C reactive protein 0.28 <0.80 mg/dL [facility] Comment: {C-REACTIVE PROTEIN {[id number]) Please be advised that patients taking Carboxypenicillins may exhibit falsely decreased C-Reactive Protein levels due to an analytical interference in this assay. 03/07/2012 5:33 PM EDT 03/07/2012 10:21 PM EDT Narrative Resulting Agency Comment [id number] us Danilo Gates MD LABORATORY Final Result Performing Organization Address City/[facility]/ZIP Co de Phone Number [facility] [address] [place] [address] * CREATININE WITH GLOMERULAR FILTRATION RATE, ESTIMATED (EGFR) (03/07/2012 5:33 PM EDT) Creatinine 0.69 0.50 - 1.10 mg/dL [facility] Comment:{CREATININE {[id number]) GFR 116 > OR = 60 mL/min/1.7 3m2 [facility] Comment:{eGFR NON-AFR. AMERI CAN {[id number]) GFR () 134 > OR = 60 mL/min/1.7 3m2 [facility] Comment:{eGFR AMERIC AN {[id number]) 03/07/2012 5:33 PM EDT 03/07/2012 10:21 PM [...] needs for GFR calculation. Resulting Agency Comment [id number] us Danilo Gates MD LAB SAME DAY RESULT Final Resul t [facility] [address] [place] [address] * (ABNORMAL) CBC INCLUDES DIFFERENTIAL AND PLATELET COUNT (03/07/2012 5:33 PM EDT) WBC 10.7 3.8 - 10.8 Thousand/ uL [facility] Comment:{WHITE BLOOD CELL CO UNT {[id number]) RBC 3.68(L) 3.80 - 5.10 Million/u L [facility] Comment:{RED BLOOD CELL COUN T {[id number]) Hemoglobin 12.3 11.7 - 15.5 g/dL [facility] Comment:{HEMOGLOBIN {[id number]) Hematocrit 36.0 35.0 - 45.0 % [facility] Comment:{HEMATOCRIT {[id number]) MCV 97.7 80.0 - 100.0 fL [facility] Comment:{MCV {[id number]) MCH 33.3(H) 27.0 - 33.0 pg [facility] Comment:{MCH {[id number]) MCHC 34.1 32.0 - 36.0 g/dL [facility] Comment:{MCHC {[id number]) RDW 13.9 11.0 - 15.0 % [facility] Comment:{RDW {[id number]) PLT 194 140 - 400 Thousand/ uL [facility] Comment:{PLATELET COUNT {[id number]) MPV 10.2 7.5 - 11.5 fL [facility] Comment:{MPV {[id number]) Neutrophils # 8218(H) 1500 - 7800 cells/uL [facility] Comment:{ABSOLUTE NEUTROPHIL S {[id number]) Lymphocytes # 2001 850 - 3900 cells/uL [facility] Comment:{ABSOLUTE LYMPHOCYTE S {[id number]) Monocytes # 407 200 - 950 cells/uL [facility] Comment:{ABSOLUTE MONOCYTES {[id number]) Eosinophils # 32 15 - 500 cells/uL [facility] Comment:{ABSOLUTE EOSINOPHIL S {[id number]) Basophils # 43 0 - 200 cells/uL [facility] Comment:{ABSOLUTE BASOPHILS {[id number]) Neutrophils % 76.8 % [facility] Comment:{NEUTROPHILS {[id number]) Lymphocytes % 18.7 % [facility] Comment:{LYMPHOCYTES {[id number]) Monocytes % 3.8 % [facility] Comment:{MONOCYTES {[id number]) Eosinophils % 0.3 % [facility] Comment:{EOSINOPHILS {[id number]) Basophils % 0.4 % [facility] Comment:{BASOPHILS {[id number]) 03/07/2012 5:33 PM EDT 03/07/2012 10:21 PM EDT Narrative Resulting Agency Comment [id number] us Danilo Gates MD LAB SAME DAY RESULT Final Resul t [facility] [address] [place] [address] * ASPARTATE AMINOTRANSFERASE (AST), SERUM (03/07/2012 5:33 PM EDT) AST (SGOT) 17 10 - 30 U/L [facility] Comment:{AST {[id number]) 03/07/2012 5:33 PM EDT 03/07/2012 10:21 PM EDT Narrative Resulting Agency Comment [id number] us Danilo Gates MD LAB SAME DAY RESULT Final Resul t [facility] [address] [place] [address] * ALANINE AMINOTRANSFERASE (ALT), SERUM (03/07/2012 5:33 PM EDT) ALT (SGPT) 11 6 - 40 U/L [facility] Comment:{ALT {[id number]) 03/07/2012 5:33 PM EDT 03/07/2012 10:21 PM EDT Narrative Resulting Agency Comment [id number] us Danilo Gates MD LAB SAME DAY RESULT Final Resul t [facility] [address] [place] [address] documented in this encounter Visit Diagnoses Diagnosis Rheumatoid arthritis(714.0) Rheumatoid arthritis documented in this encounter Care Teams Brand Sales Consultant Relationship Specialty Start Date End Date Edilberto Harris [address] [facility] [address] [place] [address] PCP - General Family Medicine 03/06/11 07/05/18 Eufemia Jett MD [facility] [address] [place] [address] PCP - General Geriatrics 10/31/19 documented as of this encounter
--- OUTSIDE RECORDS SUMMARY | 2025-06-06 08:11 | XMS_ITS | Encounter Summary ---
Author Organization [facility] Address [address] [place] [address] Care Team Providers Care Data Management Manager Name Role Phone Eufemia Jett MD Primary Care Provider [phone] Encounter Details Date Type Department Care Team (Late st Contact Info) Description 08/29/2018 Orders Only [facility] [address] [place] [phone] Karissa Velasquez MD Social History Tobacco Use [...] of this encounter Results * Due to [place] state law, this organization might not be sharing negative HIV tests. * (ABNORMAL) C-REACTIVE PROTEIN (CRP) - INFLAMMATION (03/10/2019 9:09 AM EDT) C reactive protein 9.2(H) <8.0 mg/L [facility] 03/10/2019 9:09 AM EDT 03/10/2019 11:12 AM EDT Narrative Resulting Agency Comment [id number] Karissa Velasquez MD LABORATORY Final Result [facility] [address] [place] [address] * ERYTHROCYTE SEDIMENTATION RATE (ESR), WESTERGREN (03/10/2019 9:09 AM EDT) Sedimentation Rate [place] (ESR) 19 < OR = 20 mm/h [facility] 03/10/2019 9:09 AM EDT 03/10/2019 11:12 AM EDT Narrative Resulting Agency Comment [id number] Karissa Velasquez MD LAB SAME DAY RESULT Final Result Performing Organization Address [facility] de Phone Number [facility] [address] [place] [address] * CREATININE WITH GLOMERULAR FILTRATION RATE, ESTIMATED [...] needs for GFR calculation. Resulting Agency Comment [id number] us Karissa Velasquez MD LAB SAME DAY RESULT Final Result Performing Organization Address [facility] de Phone Number [facility] [address] [place] [address] * ALANINE AMINOTRANSFERASE (ALT), SERUM (03/10/2019 9:09 AM EDT) ALT (SGPT) 12 6 - 29 U/L [facility] 03/10/2019 9:09 AM EDT 03/10/2019 11:12 AM EDT Narrative Resulting Agency Comment [id number] us Karissa Velasquez MD LAB SAME DAY RESULT Final Result Performing Organization Address City/[facility]/ZIP Co de Phone Number [facility] [address] [place] [address] * ASPARTATE AMINOTRANSFERASE (AST), SERUM (03/10/2019 9:09 AM EDT) AST (SGOT) 16 10 - 30 U/L [facility] 03/10/2019 9:09 AM EDT 03/10/2019 11:12 AM EDT Narrative Resulting Agency Comment [id number] Karissa Velasquez MD LAB SAME DAY RESULT Final Result Performing Organization Address 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
--- OUTSIDE RECORDS SUMMARY | 2025-06-06 08:11 | XMS_ITS | Encounter Summary ---
Author Organization [facility] Address [address] [place] [address] Care Team Providers Care Radio Control Crane Operator Name Role Phone Edilberto Harris Primary Care Provider [phone] Eufemia Jett MD Primary Care Provider [phone] Encounter Details Date Type Department Care Team ([facility] st Contact Info) Description 10/14/2017 Orders Only [facility] Rheumatology [address] [place] [phone] Danilo Gates MD [address] [place] [address] Social History Tobacco Use Types Packs/Day Years [...] of this encounter Results * Due to [place] state law, this organization might not be [...] 5:33 PM EST Narrative Resulting Agency Comment [id number] us Danilo Gates MD LAB SAME DAY RESULT Final Resul t [facility] [address] [place] [address] * CREATININE WITH GLOMERULAR FILTRATION RATE, ESTIMATED [...] needs for GFR calculation. Resulting Agency Comment [id number] us Danilo Gates MD LAB SAME DAY RESULT Final Resul t Performing Organization Address City/[facility]/ZIP Co de Phone Number [facility] [address] [place] [address] * ALANINE AMINOTRANSFERASE (ALT), SERUM (10/20/2017 9:58 AM EST) ALT (SGPT) 13 6 - 29 U/L [facility] 10/20/2017 9:58 AM EST 10/20/2017 5:33 PM EST Narrative Resulting Agency Comment [id number] us Danilo Gates MD LAB SAME DAY RESULT Final Resul t Performing Organization Address [facility] Co de Phone Number [facility] [address] [place] [address] documented in this encounter Visit Diagnoses Diagnosis Rheumatoid arthritis involving multiple sites with positive rheumatoid factor (HCC)- Primary Rheumatoid arthritis involving multiple sites with positive rheumatoid factor (HCC) documented in this encounter Care Teams Radio Control Crane Operator Relationship Specialty Start Date End Date Edilberto Harris [address] [address] PCP - General Family Medicine 03/06/11 07/05/18 Eufemia Jett MD [address] [address] PCP - General Geriatrics 10/31/19 documented as of this encounter
--- OUTSIDE RECORDS SUMMARY | 2025-06-06 08:12 | XMS_ITS | Encounter Summary ---
Author Organization [facility] Address [address] [place] [address] Care Team Providers Care Hog Driver Name Role Phone Eufemia Jett MD Primary Care Provider [phone] Encounter Details Date Type Department Care Team (Late st Contact Info) Description 08/24/2018 Orders Only [facility] [address] [place] [phone] Danilo Gates MD [address] [place] [address] Social History Tobacco Use Types Packs/Day Years [...] of this encounter Procedures * Due to [place] state law, this organization might not be sharing negative HIV tests. Procedure Name Priority Date/Time Associated Diagnosis Comments RHEUMATOID FACTOR, SERUM Routine 018 10:28 AM EST Rheumatoid arthritis involving multiple sites with positive rheumatoid factor CBC INCLUDES DIFFERENTIAL AND PLATELET COUNT Routine 08/24/2018 10:28 AM EST Rheumatoid arthritis involving multiple sites with positive rheumatoid factor ALANINE AMINOTRANSFERASE (ALT), SERUM Routine 08/24/2018 10:28 AM EST Rheumatoid arthritis involving multiple sites with positive rheumatoid factor ASPARTATE AMINOTRANSFERASE (AST), SERUM Routine 08/24/2018 10:28 AM EST Rheumatoid arthritis involving multiple sites with positive rheumatoid factor CREATININE WITH GLOMERULAR FILTRATION RATE, ESTIMATED (EGFR) Routine 08/24/2018 10:28 AM EST Rheumatoid arthritis involving multiple sites with positive rheumatoid factor documented in this encounter Results * Due to [place] law, this organization might not be sharing negative HIV tests. * (ABNORMAL) RHEUMATOID FACTOR, SERUM (08/24/2018 10:28 AM EST) Rheumatoid Factor (Quant) 16(H) <14 IU/mL [facility] 08/24/2018 10:2 8 AM EST 08/24/2018 7:23 PM EST Narrative Resulting Agency Comment [id number] us Danilo Gates MD LABORATORY Final Result Performing Organization Address City/State/[facility] Co de Phone Number [facility] [address] [place] [address] * CREATININE WITH GLOMERULAR FILTRATION RATE, ESTIMATED [...] needs for GFR calculation. Resulting Agency Comment [id number] Danilo Gates MD LAB SAME DAY RESULT Final Resul t Performing Organization Address [facility] de Phone Number [facility] [address] [place] [address] * ALANINE AMINOTRANSFERASE (ALT), SERUM (08/24/2018 10:28 AM EST) ALT (SGPT) 15 6 - 29 U/L [facility] 08/24/2018 10:2 8 AM EST 08/24/2018 7:23 PM EST Narrative Resulting Agency Comment [id number] us Danilo Gates MD LAB SAME DAY RESULT Final Resul t Performing Organization Address [facility] de Phone Number [facility] [address] [place] [address] * ASPARTATE AMINOTRANSFERASE (AST), SERUM (08/24/2018 10:28 AM EST) AST (SGOT) 19 10 - 30 U/L [facility] 08/24/2018 10:2 8 AM EST 08/24/2018 7:23 PM EST Narrative Resulting Agency Comment [id number] us Danilo Gates MD LAB SAME DAY RESULT Final Resul t Performing Organization Address [facility] de Phone Number [facility] [address] [place] [address] * CBC INCLUDES DIFFERENTIAL AND PLATELET COUNT [...] 7:23 PM EST Narrative Resulting Agency Comment [id number] us Danilo Gates MD LAB SAME DAY RESULT Final Resul t [facility] [address] [place] [address] documented in this encounter Visit Diagnoses Diagnosis Rheumatoid arthritis involving multiple sites with positive rheumatoid factor (HCC) documented in this encounter Care Teams Hog Driver Relationship Specialty Start Date End Date Eufemia Jett MD [address] [address] PCP - General Geriatrics 10/31/19 documented as of this encounter
== END 2025-06-06 08:28 | disposition home or self-care (01) ==
LOC: HO.RHES 08:02
PROVIDERS: Visit Provider Internal Medicine Rheumatology
DX: M06.9 Rheumatoid arthritis, unspecified (principal); Z79.899 Other long term (current) drug therapy
CPT/HCPCS: 99214

== ENCOUNTER 2025-06-06 08:02 | Outpatient (REF) | payer BC, SELFPAY ==
[2025-06-06 13:06] LABS: MANUAL DIFF FLAG NO
[2025-06-06 13:10] LABS: Hematocrit 38.4 % (37.0-47.0); Hemoglobin 13.0 g/dl (12.0-16.0); Imm Gran Abs Auto 0.02 X10*3/uL (0.00-0.03); Imm Gran Pct Auto 0.4 % (0.0-0.4); Lymphocytes Absolute Auto 2.1 X10*3/uL (1.2-4.9); Mean Corpuscular HGB Conc 33.9 g/dl (31.0-35.0); Mean Corpuscular Hemoglobin 32.2 pg (27.0-33.0); Mean Corpuscular Volume 95.0 fL (80.0-98.0); NRBC Abs Auto 0.000 X10*3/uL (0.0-0.012); NRBC Pct Auto 0.0 /100WBC (0.0-0.2); Platelet Count 217 X10*3/uL (160-400); Red Blood Count 4.04 X10*6/uL (4.20-5.50); White Blood Count 5.6 X10*3/uL (4.8-10.8)
[2025-06-06 13:32] LABS: Alanine Aminotransferase 24 U/L (0-31); Aspartate Amino Transferase 31 U/L (5-31); Estimated Glomerular Filt Rate > 60
== END 2025-06-06 08:03 | disposition home or self-care (01) ==
LOC: HO.HKASLDS 08:02
PROVIDERS: PCP Pediatrics; Visit Provider Internal Medicine Rheumatology
DX: Z51.81 Encounter for therapeutic drug level monitoring (principal); M06.9 Rheumatoid arthritis, unspecified; Z79.631 Long term (current) use of antimetabolite agent; Z79.899 Other long term (current) drug therapy
CPT/HCPCS: 36415; 82565; 84450; 84460; 85025; 85652; 86140